=== PATIENT | female | born 1985 | race Caucasian/White ===

== ENCOUNTER 2017-10-01 10:41 | Emergency (ER) | payer OTHER, SELFPAY ==
[2017-10-01 10:56] VITALS: BP 140/71; PULSE 87; RESP 20; TEMP 36.6; O2SAT 98; BMI 29.3
--- NOTE | 2017-10-01 11:01 | XR_ITS ---
XR wrist RT min 3V HISTORY: Pain following injury ITS.REASON: FELL ON WRIST ORDERING PHYSICIAN: Shayan Santizo PATIENT AGE: 32 years COMPARISON: None FINDINGS: No fracture or dislocation. No lytic or blastic change. There is normal mineralization.. The joint spaces are well-preserved. No significant degenerative/arthritic changes. No erosive changes evident.. IMPRESSION: Negative wrist
--- NOTE | 2017-10-01 11:01 | HMH.EDUTC ---
[facility] [place] Clinical Impression: Wrist sprain Qualifiers: Encounter type: initial encounter Laterality: right Qualified Code(s): S63.501A - Unspecified sprain of right wrist, initial encounter Disposition: Home, Self-Care Condition on Discharge: Good Instructions: DI for Wrist Sprain, How To Perform RICE (Rest, Ice, Compress, Elevate) Additional Instructions: * brace until follow up with ortho * Rest * ice 15-20 mins 3-4 times a day * Elevate as discussed as much as possible to help reduce swelling and therefore, pain * Ibuprofen every 6 hours as needed for pain and inflammation. If you need something more, you can take tylenol every 4 hours as needed as long as your primary care provider has told you it is ok to take both. Referrals: Ney Hines MD [Staff Physician] - (Call their office today. report in [facility] due to wrist pain after fall. Snuff box tenderness with negative xray. Diagnoses wrist sprain and strongly encouraged to follow up with ortho due to possibility of an occult fracture. ) Time of Disposition: 12:23 Medical Decision Making Vital Signs: 10/01/17 10:56 10/01/17 12:07 Temperature 97.8 F 98.7 F Temperature Source Temporal Artery Scan Pulse Rate 89 Pulse Rate [Right Brachial] 87 Respiratory Rate 20 20 Blood Pressure 133/77 Blood Pressure [Left Arm] 140/71 Blood Pressure Mean [Left Arm] 94 Blood Pressure Source [Left Arm] Automatic Cuff Blood Pressure Position [Left Arm] Sitting 02 Sat by Pulse Oximetry 98 Oxygen Delivery Method Room Air Orders (Tests/Meds): ORDERS Category Date Time Status Wrist XR right minimum 3 views [XR wrist RT min 3V] Exams 10/01/17 11:01 Taken Stat - Radiology Data #1 Image(s): Wrist Image Reviewed: Yes I reviewed the patient's radiology image w/the ED provider Thomas w/ TORSTEN Powell MD. Negative but given pain, brace and ortho follow up - Jacob Inquiry Pt receiving controlled substance: No [facility] [place] - General Stated complaint: AO [id number] RIGHT HAND PAIN Time Seen by Provider: 10/01/17 11:01 Mode of Arrival: Ambulatory Source of Information: Patient Limitations: No Limitations Description of Symptoms (Recalled from Triage Doc. by RN): C/O rt wrist pain after falling on it yesterday HEENT Symptoms (Recalled from RN notes): No Resp Symptoms (Recalled from RN notes): No Skin Symptoms (Recalled from RN notes): No MS Symptoms (Recalled from RN notes): Yes (Rt wrist pain) Functional Status (Recalled from RN notes): n/a - History of Present Illness Provider Complaint: c/o right wrist pain since yesterday. Reports she fell, caught herself with outstretched arm/hand. Pain since. No treatment including any otc medications. Pain worse with wrist and thumb ROM. Denies N/T - Related Data Allergies Allergy/AdvReac Type Severity Reaction Status Date / Time amoxicillin [AMOXICILLIN] Allergy Intermediate I-HIVES Verified 10/01/17 11:02 clavulanic acid Allergy Intermediate I-HIVES Verified 10/01/17 11:02 [From AUGMENTIN] tramadol [TRAMADOL] Allergy Intermediate I-HIVES Verified 10/01/17 11:02 acetaminophen [From PERCOCET] Allergy Unknown Verified 10/01/17 11:02 oxycodone [From PERCOCET] Allergy Unknown Verified 10/01/17 11:02 - Worker's Comp Is this a Worker's Comp case?: No [facility] History I have reviewed the patient's past medical history: Yes (limited, adopted) 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: Reports:: Anxiety Denies:: Cancer, Diabetes Mellitus Type 1, Diabetes Mellitus Type 2, Hypertension, MRSA Other Surgeries: Yes: Other (5 laproscopic procedures, 2 divinci procedures, bunion removed,) Amputation: No Fractures: No Comment: ganglion cyst left wrist, appy, lito - *Social History Smoking Status: Current every day smoker Tobacco Type: cigarettes Alcohol Intake: never - Psychiatric History Expresses thoughts of harming self/others: None Suicide Plan Description: No Plan ROS Obtained: Yes Systems reviewed as appropriate & n
[2017-10-01 12:07] VITALS: BP 133/77; PULSE 89; RESP 20; TEMP 37.1; O2SAT 97
== END 2017-10-01 12:29 | disposition home or self-care (01) ==
PROVIDERS: Emergency Provider Nurse Practitioner Family; Family Provider Family Medicine
DX: S63.501A Unspecified sprain of right wrist, initial encounter (principal); W01.0XXA Fall on same level from slipping, tripping and stumbling without subsequent striking against object, initial encounter; Z88.6 Allergy status to analgesic agent; Z88.1 Allergy status to other antibiotic agents; F41.9 Anxiety disorder, unspecified
CPT/HCPCS: 29125; 73110; 99202

== ENCOUNTER 2017-10-19 00:48 | Emergency (ER) | payer OTHER, SELFPAY ==
[2017-10-19 00:56] VITALS: BP 122/80; PULSE 80; RESP 16; TEMP 36.6; O2SAT 99; BMI 27.9
[2017-10-19 01:24] LABS: Microscopic, Urine URINE MICROSCOPIC (MICROSCOPIC)
[2017-10-19 01:25] LABS: Basophils % 0.2 % (0.1-2.0); Eosinophils # 0.1 K/mm3 (0.0-0.4); Eosinophils % 0.9 % (0.1-12.0); Hematocrit 38.8 % (37.0-47.0); Hemoglobin 12.4 g/dL (12.2-16.2); Lymphocytes # 1.4 K/mm3 (0.7-4.5); Lymphocytes % 15.9 K/mm3 (10-50); Mean Corpuscular Volume 87.6 fl (81-99); Mean Platelet Volume 7.3 fl (7.4-10.4); Monocytes # 0.2 K/mm3 (0.1-1.0); Monocytes % 2.6 % (1.7-9.3); Neutrophils # 7.1 K/mm3 (1.8-7.8); Neutrophils % 80.5 % (37.0-80.0); Platelet Count 336 K/mm3 (142-424); Red Blood Count 4.43 M/mm3 (4.20-5.40); Red Cell Distribution Width 13.4 % (11.5-17.5); White Blood Count 8.8 K/mm3 (4.8-10.8)
[2017-10-19 01:26] LABS: Appearance,Urine CLEAR (Clear); Bilirubin,Urine Negative (Negative); Blood, Urine Negative (Negative); Color,Urine YELLOW (Yellow); Glucose,Urine (UA) Negative (Negative); Ketones,Urine Negative (Negative); Leukocyte Esterase,Urine Negative (Negative); Nitrate,Urine Negative (Negative); Protein,Urine Negative (Negative); Specific Gravity, Urine 1.015 (1.005-1.030); Urobilinogen,Urine 0.2 EU/dl (0.2)
[2017-10-19 01:29] LABS: Urine Pregnancy, HCG Qual. Negative (Negative)
[2017-10-19 01:30] LABS: Mucus,Urine 2+ /lpf; Squamous Epithelial Cell,Urine 20-50 #/hpf (0-5); WBC,Urine Occasional #/hpf (0-3)
[2017-10-19 01:37] LABS: Alanine Aminotransferase 23 U/L (12-78); Albumin Level 3.8 gm/dL (3.4-5.0); Albumin/Globulin Ratio 0.9 (1.1-1.8); Alkaline Phosphatase 104 U/L (46-116); Anion Gap 13.9 mEq/L (5-15); Aspartate Amino Transferase 6 U/L (15-37); Bilirubin,Total 0.2 mg/dL (0.2-1.0); Blood Urea Nitrogen 9 mg/dL (7-18); Calcium 8.6 mg/dL (8.5-10.1); Carbon Dioxide 24 mmol/L (21.0-32.0); Chloride 108 mmol/L (98-107); Creatinine Clearance Estimated 129 mL/min (0-300); Creatinine,Serum 0.77 mg/dL (0.55-1.02); Estimated Glomerular Filt Rate 86 ml/min (>60); GFR (African American) 104 ML/MIN (>60); Globulin 4.1 gm/dl (1.3-3.2); Glucose 138 mg/dL (74-106); Potassium 3.9 mmoL/L (3.5-5.1); Sodium 142 mmol/L (136-145); Total Protein,Serum 7.9 gm/dL (6.4-8.2)
--- NOTE | 2017-10-19 01:41 | CT_ITS ---
CT abdomen pelvis wo con COMPARISON: CT scan abdomen pelvis December 23, 2011 HISTORY: Right lower quadrant pain nausea and vomiting TECHNIQUE: Multiple axial scans obtained from hemidiaphragms the pelvic floor and were performed without IV or oral contrast. Sagittal and coronal reformats were evaluated as well. FINDINGS: The lower lung villagomez are clear. The liver spleen stomach and pancreas appear normal. There has been a previous cholecystectomy. The kidneys are normal size and there are no calculi and is no obstructive uropathy. There is a tiny umbilical hernia containing fat only. Small bowel appears normal. There has been a previous appendectomy. There is large amount stool in the cecum and ascending colon. There are scattered stool throughout the remainder of the colon. Uterus and adnexa are normal. The urinary bladder is partially decompressed. There is no free fluid in the pelvis. The lumbar spine and bony pelvis appear normal. IMPRESSION: Essentially unremarkable study, no acute abdominal or pelvic pathology identified, I agree with the [facility] report.
--- NOTE | 2017-10-19 03:19 | HMH.EDUROGF ---
ED Disposition Clinical Impression: Endometriosis Disposition: Home, Self-Care Condition on Discharge: Good Instructions: DI for Pelvic Pain Additional Instructions: call your steam box tender friday - Critical Care Critical Care Time: No Attestation: On 10/19/17, the high probability of a clinically significant, sudden or life threatening deterioration of the following system(s) required my full and direct attention, intervention and personal management. The time I documented below is in addition to time spent performing reported procedures but includes the following listed in this critical care notation. Medical Decision Making - Medical Records Medical records reviewed: Yes: I reviewed the patient's medical records. Vital Signs: 10/19/17 00:56 Temperature 97.9 F Temperature Source Oral Pulse Rate [Right Brachial] 80 Respiratory Rate 16 Blood Pressure [Right Arm] 122/80 Blood Pressure Mean [Right Arm] 94 Blood Pressure Source [Right Arm] Automatic Cuff Blood Pressure Position [Right Arm] Sitting 02 Sat by Pulse Oximetry 99 Oxygen Delivery Method Room Air - Lab Data Lab results reviewed: Yes: I reviewed the patient's lab results. Lab Results 10/19/17 01:15: Urine Color Yellow, Urine Appearance Clear, Urine pH 7.0, Ur Specific [place] 1.015, Urine Protein Negative, Urine Glucose (UA) Negative, Urine Ketones Negative, Urine Blood Negative, Urine Nitrate Negative, Urine Bilirubin Negative, Urine Urobilinogen 0.2, Ur Leukocyte Esterase Negative, Urine WBC Occasional, Ur Squamous Epith Cells 20-50, Urine Mucus 2+ 10/19/17 01:15: WBC 8.8, RBC 4.43, Hgb 12.4, Hct 38.8, MCV 87.6, MCH 28.0, MCHC 32.0, RDW 13.4, Plt Count 336, MPV 7.3 L, Neut % (Auto) 80.5 H, Lymph % (Auto) 15.9, [place] % (Auto) 2.6, Eos % (Auto) 0.9, Baso % (Auto) 0.2, Neut # (Auto) 7.1, Lymph # (Auto) 1.4, [place] # (Auto) 0.2, Eos # (Auto) 0.1, Baso # (Auto) 0.0 10/19/17 01:15: Urine HCG, Qual Negative 10/19/17 01:15: Sodium 142, Potassium 3.9, Chloride 108 H, Carbon Dioxide 24, Anion Gap 13.9, BUN 9, Creatinine 0.77, Estimated Creat Clear 129, Estimated GFR 86, Est GFR ( Amer) 104, Glucose 138 H, Calcium 8.6, Total Bilirubin 0.2, AST 6 L, ALT 23, Alkaline Phosphatase 104, Total Protein 7.9, Albumin 3.8, Globulin 4.1 H, Albumin/Globulin Ratio 0.9 L Result diagrams: 10/19/17 01:15 10/19/17 01:15 Orders (Tests/Meds): ED MEDICATIONS Generic Name Dose Route Start Last Admin Trade Name Freq PRN Reason Stop Dose Admin Morphine Sulfate 4 mg 10/19/17 03:26 Morphine 2mg/Ml Syringe IV 10/19/17 03:27 ONCE ONE Promethazine HCl 12.5 mg 10/19/17 03:26 Phenergan 25mg/Ml 1ml Vial IV 10/19/17 03:27 ONCE ONE Sodium Chloride 25 ml 10/19/17 03:26 Sod Chlor 0.9% 25ml Bag IV 10/19/17 03:27 ONCE ONE Discontinued Medications Generic Name Dose Route Start Last Admin Trade Name Freq PRN Reason Stop Dose Admin Ketorolac Tromethamine 30 mg 10/19/17 02:45 10/19/17 02:47 Toradol 30mg/Ml Vial IV 10/19/17 02:46 30 mg ONCE ONE Administration ORDERS Category Date Time Status CT abdomen pelvis wo con Stat Cat Scan 10/19/17 01:41 Taken - CT Data CT Scan: Abdomen, Pelvis Time Received: 03:[address] Reviewed: Yes: I have viewed the radiologist's interpretation Preliminary Findings: Normal/NAD - Jacob Inquiry Pt receiving controlled substance: No Female Urogenital HPI - General Chief complaint: Abdominal Pain Stated complaint: Stage Four Endeometriosis Time Seen by Provider: 10/19/17 03:19 Mode of Arrival: Ambulatory Source of Information: Patient, Spouse, Medical Record Limitations: No Limitations Description of Symptoms (Recalled from ER Triage Doc. by RN): RLQ PAIN - History of Present Illness HPI Narrative: pt with rt sided abd pain with hx of endometrosis Complaint: pelvic pain Onset (ago): day(s) Radiation: RLQ, R flank Severity: moderate Quality: sharp Duration: con
--- NOTE | 2017-10-19 03:22 | ED_ITS ---
ED Disposition Clinical Impression: Endometriosis Disposition: Home, Self-Care Condition on Discharge: Good Instructions: DI for Pelvic Pain Additional Instructions: call your email marketing intern friday - Critical Care Critical Care Time: No Attestation: On 10/19/17, the high probability of a clinically significant, sudden or life threatening deterioration of the following system(s) required my full and direct attention, intervention and personal management. The time I documented below is in addition to time spent performing reported procedures but includes the following listed in this critical care notation. Medical Decision Making - Medical Records Medical records reviewed: Yes: I reviewed the patient's medical records. Vital Signs: 10/19/17 00:56 Temperature 97.9 F Temperature Source Oral Pulse Rate [Right Brachial] 80 Respiratory Rate 16 Blood Pressure [Right Arm] 122/80 Blood Pressure Mean [Right Arm] 94 Blood Pressure Source [Right Arm] Automatic Cuff Blood Pressure Position [Right Arm] Sitting 02 Sat by Pulse Oximetry 99 Oxygen Delivery Method Room Air - Lab Data Lab results reviewed: Yes: I reviewed the patient's lab results. Lab Results 10/19/17 01:15: Urine Color Yellow, Urine Appearance Clear, Urine pH 7.0, Ur Specific [place] 1.015, Urine Protein Negative, Urine Glucose (UA) Negative, Urine Ketones Negative, Urine Blood Negative, Urine Nitrate Negative, Urine Bilirubin Negative, Urine Urobilinogen 0.2, Ur Leukocyte Esterase Negative, Urine WBC Occasional, Ur Squamous Epith Cells 20-50, Urine Mucus 2+ 10/19/17 01:15: WBC 8.8, RBC 4.43, Hgb 12.4, Hct 38.8, MCV 87.6, MCH 28.0, MCHC 32.0, RDW 13.4, Plt Count 336, MPV 7.3 L, Neut % (Auto) 80.5 H, Lymph % (Auto) 15.9, [place] % (Auto) 2.6, Eos % (Auto) 0.9, Baso % (Auto) 0.2, Neut # (Auto) 7.1 , Lymph # (Auto) 1.4, [place] # (Auto) 0.2, Eos # (Auto) 0.1, Baso # (Auto) 0.0 10/19/17 01:15: Urine HCG, Qual Negative 10/19/17 01:15: Sodium 142, Potassium 3.9, Chloride 108 H, Carbon Dioxide 24, Anion Gap 13.9, BUN 9, Creatinine 0.77, Estimated Creat Clear 129, Estimated GFR 86, Est GFR ( Amer) 104, Glucose 138 H, Calcium 8.6, Total Bilirubin 0.2, AST 6 L, ALT 23, Alkaline Phosphatase 104, Total Protein 7.9, Albumin 3.8, Globulin 4.1 H, Albumin/Globulin Ratio 0.9 L Result diagrams: 10/19/17 01:15 10/19/17 01:15 Orders (Tests/Meds): ED MEDICATIONS Generic Name Dose Route Start Last Admin Trade Name Freq PRN Reason Stop Dose Admin Morphine Sulfate 4 mg 10/19/17 03:26 Morphine 2mg/Ml Syringe IV 10/19/17 03:27 ONCE ONE Promethazine HCl 12.5 mg 10/19/17 03:26 Phenergan 25mg/Ml 1ml Vial IV 10/19/17 03:27 ONCE ONE Sodium Chloride 25 ml 10/19/17 03:26 Sod Chlor 0.9% 25ml Bag IV 10/19/17 03:27 ONCE ONE Discontinued Medications Generic Name Dose Route Start Last Admin Trade Name Freq PRN Reason Stop Dose Admin Ketorolac Tromethamine 30 mg 10/19/17 02:45 10/19/17 02:47 Toradol 30mg/Ml Vial IV 10/19/17 02:46 30 mg ONCE ONE Administration ORDERS Category Date Time Status CT abdomen pelvis wo con Stat Cat Scan 10/19/17 01:41 Taken - CT Data CT Scan: Abdomen, Pelvis Time Received: 03:[address] Reviewed: Yes: I have viewed the radiologist's interpretat
[2017-10-19 03:43] VITALS: BP 122/80; PULSE 80; RESP 16; TEMP 36.6
== END 2017-10-19 03:44 | disposition home or self-care (01) ==
PROVIDERS: Emergency Provider Emergency Medicine; Family Provider Family Medicine
DX: N80.9 Endometriosis, unspecified (principal); F41.9 Anxiety disorder, unspecified; F17.210 Nicotine dependence, cigarettes, uncomplicated; Z88.1 Allergy status to other antibiotic agents; Z88.6 Allergy status to analgesic agent
CPT/HCPCS: 74176; 80053; 81001; 81025; 85025; 96374; 96375; 99282

== ENCOUNTER 2018-05-06 14:54 | Outpatient (RCR) | payer OTHER, SELFPAY | END 2018-06-08 13:29 | disposition home or self-care (01) | LOC: PT 14:54 | PROVIDERS: Family Provider Family Medicine; Visit Provider Family Medicine | DX: M25.511 Pain in right shoulder (principal) | CPT/HCPCS: 97163 ==

== ENCOUNTER 2020-11-13 11:58 | Emergency (ER) | payer MEDICAID, SELFPAY ==
--- NOTE | 2020-11-13 11:50 | ECG_ITS ---
APPROVED REPORT Exam: Resting ECG HR:82 bpm ECG Measurements Heart Rate 82 AXES TN 156 P 59 QRSd 88 QRS 83 QT 396 T 33 QTc 462 Conclusion Normal sinus rhythm Low voltage QRS Borderline ECG Electronically signed by : Scotty Rodriges, 11/13/2020 17:20:11
[2020-11-13 11:59] VITALS: BP 127/78; PULSE 102; RESP 22; TEMP 36.8; O2SAT 98; BMI 30.9
--- NOTE | 2020-11-13 12:12 | XR_ITS ---
PROCEDURE: XR CHEST PORTABLE CLINICAL HISTORY: cough COMPARISON: CR CXR CHEST(2 VIEWS-NOT PORTABLE) from 01/13/2016 FINDINGS: The cardiomediastinal silhouette and pulmonary vascularity are within normal limits. The lungs are clear without infiltrates, suspicious nodules, or pleural effusions. No acute bony abnormalities. IMPRESSION: No acute findings. Dictated by: Sourav Talley MD 11/13/2020 13:37 Sourav Talley MD in [place] 11/13/2020 13:37
[2020-11-13 12:17] LABS: Basophils % 0.3 % (0.1-2.0); Eosinophils # 0.1 K/mm3 (0.0-0.4); Hematocrit 41.8 % (37.0-47.0); Hemoglobin 13.5 g/dL (12.2-16.2); Lymphocytes # 3.5 K/mm3 (0.7-4.5); Mean Corpuscular HGB Conc 32.3 g/dL (31.8-35.4); Mean Corpuscular Volume 89.8 fl (81-99); Mean Platelet Volume 6.8 fl (7.4-10.4); Monocytes # 0.5 K/mm3 (0.1-1.0); Monocytes % 3.7 % (1.7-9.3); Neutrophils # 8.9 K/mm3 (1.8-7.8); Neutrophils % 67.9 % (37.0-80.0); Platelet Count 359 K/mm3 (142-424); Red Blood Count 4.66 M/mm3 (4.20-5.40); Red Cell Distribution Width 13.8 % (11.5-17.5)
[2020-11-13 12:18] LABS: Chloride 107 mmol/L (98-107); Sodium 136 mmol/L (136-145)
[2020-11-13 12:19] LABS: Potassium 3.7 mmoL/L (3.5-5.1)
[2020-11-13 12:21] LABS: Alanine Aminotransferase 23 U/L (12-78); Albumin Level 4.7 g/dl (3.5-5.0); Albumin/Globulin Ratio 1.4 (1.1-1.8); Alkaline Phosphatase 99 U/L (38-126); Anion Gap 11.7 mEq/L (5-15); Aspartate Amino Transferase 25 U/L (14-36); Bilirubin,Total 0.5 mg/dl (0.2-1.3); Blood Urea Nitrogen 9 mg/dl (7-17); Carbon Dioxide 21 mmol/L (22.0-30.0); Creatinine Clearance Estimated 178 mL/min (50-200); Estimated Glomerular Filt Rate 113 ml/min (>60); GFR (African American) 137 ML/MIN (>60); Globulin 3.3 g/dL (1.3-3.2)
[2020-11-13 12:22] LABS: Calcium 9.4 mg/dl (8.4-10.2); Glucose 105 mg/dl (74-100)
[2020-11-13 12:31] LABS: Microscopic, Urine URINE MICROSCOPIC (MICROSCOPIC)
[2020-11-13 12:35] LABS: Appearance,Urine CLEAR (Clear); Bilirubin,Urine Negative (Negative); Blood, Urine Negative (Negative); Color,Urine YELLOW (Yellow); Glucose,Urine (UA) Negative (Negative); Ketones,Urine Negative (Negative); Leukocyte Esterase,Urine Negative (Negative); Nitrate,Urine Negative (Negative); PH,Urine 6.5 (5.0-8.5); Protein,Urine Negative (Negative); Urobilinogen,Urine 0.2 EU/dl (0.2)
[2020-11-13 12:39] LABS: Troponin I < 0.01 ng/ml (0.00-0.034)
[2020-11-13 12:40] VITALS: BP 120/76; PULSE 73; RESP 16; O2SAT 99
[2020-11-13 13:00] VITALS: BP 125/79; PULSE 87; RESP 16; O2SAT 98
[2020-11-13 13:12] LABS: HCG,Quantitative 45768 mIU/ml (0-5.42)
--- NOTE | 2020-11-13 13:17 | HMH.EDCP ---
ED Disposition Clinical Impression: Abdominal pain affecting Chest pain Qualifiers: Chest pain type: intercostal pain Qualified Code(s): R07.82 - Intercostal pain Disposition: Home, Self-Care Condition on Discharge: Good Instructions: DI for Atypical Chest Pain Referrals: Frannie Nugent PA [Primary Care Provider] - - Critical Care Critical Care Time: No Attestation: On 11/13/20, the high probability of a clinically significant, sudden or life threatening deterioration of the following system(s) required my full and direct attention, intervention and personal management. The time I documented below is in addition to time spent performing reported procedures but includes the following listed in this critical care notation. Medical Decision Making - Medical Records Medical records reviewed: Yes: I reviewed the patient's medical records. - Jacob Inquiry Pt receiving controlled substance: No Vital Signs: 11/13/20 11:59 11/13/20 12:40 Temperature 98.3 F Temperature Source Oral Pulse Rate 73 Pulse Rate [Radial] 102 H Respiratory Rate 22 16 Blood Pressure 120/76 Blood Pressure [Right Arm] 127/78 Blood Pressure Mean 84 Blood Pressure Mean [Right Arm] 94 Blood Pressure Position [Right Arm] Sitting 02 Sat by Pulse Oximetry 98 99 Oxygen Delivery Method Room Air - Lab Data Lab Results 11/13/20 12:00: WBC 13.0 H, RBC 4.66, Hgb 13.5, Hct 41.8, MCV 89.8, MCH 29.0, MCHC 32.3, RDW 13.8, Plt Count 359, MPV 6.8 L, Neut % (Auto) 67.9, Lymph % (Auto) 27.0, [place] % (Auto) 3.7, Eos % (Auto) 1.0, Baso % (Auto) 0.3, Neut # (Auto) 8.9 H, Lymph # (Auto) 3.5, [place] # (Auto) 0.5, Eos # (Auto) 0.1, Baso # (Auto) 0.0 11/13/20 12:00: Sodium 136, Potassium 3.7, Chloride 107, Carbon Dioxide 21 L, Anion Gap 11.7, BUN 9, Creatinine 0.60, Estimated Creat Clear 178, Estimated GFR 113, Est GFR ( Amer) 137, Glucose 105 H, Calcium 9.4, Total Bilirubin 0.5, AST 25, ALT 23, Alkaline Phosphatase 99, Troponin I < 0.01, Total Protein 8.0, Albumin 4.7, Globulin 3.3 H, Albumin/Globulin Ratio 1.4 11/13/20 12:00: HCG, Quant [id number] H 11/13/20 12:15: Urine Color Yellow, Urine Appearance Clear, Urine pH 6.5, Ur Specific [place] 1.020, Urine Protein Negative, Urine Glucose (UA) Negative, Urine Ketones Negative, Urine Blood Negative, Urine Nitrate Negative, Urine Bilirubin Negative, Urine Urobilinogen 0.2, Ur Leukocyte Esterase Negative, Urine RBC None, Urine WBC 3-5, Ur Squamous Epith Cells 5-10, Urine Bacteria None Result diagrams: 11/13/20 12:00 11/13/20 12:00 Orders (Tests/Meds): ORDERS Category Date Time Status US OB <= 14 weeks fetus Stat Exams 11/13/20 13:27 Taken - Radiology Data #1 Image(s): Chest Image Reviewed: Yes I reviewed the patient's radiology results, Yes I reviewed the patient's radiology image, Yes I have reviewed radiologist's interpretation Preliminary Findings: Normal/NAD - ECG Data Tracing #1 Normal ventricular rate 82 bpm, MO interval 156 ms, normal QTC. Sinus rhythm with no specific ST changes. ECG initial impression date: 11/13/20 ECG initial impression time: 11:52 - Reevaluation(s) Time: 14:37 Reevaluation #1: On reevaluation, patient is feeling better. Chest x-ray was unremarkable. Ultrasound shows roughly 6-week . No significant free fluid. Patient's laboratory studies are unremarkable. Patient is low risk for acute coronary syndrome as well as pulmonary embolism given the negative troponin, no significant EKG changes and risk factors. Patient needs a follow-up with SKILL TRAINING PROGRAM COORDINATOR in 24 hours. Given strict return precautions. Verbalized understanding. Medical Decision Narrative: 35-year-old female presenting with some cough, chest discomfort and abdominal pain. Patient is recently . Work-up initiated. Chest Pain HPI - General Chief Complaint: Chest Pain Stated Complaint: chest pain Time Seen by Provider: 11/13/20 12:00 Mode of Arrival: Ambul
--- NOTE | 2020-11-13 13:27 | US_ITS ---
PROCEDURE: US OB <= 14 WEEKS FETUS CLINICAL INDICATION: abd pain Early Ob ultrasound for dates COMPARISON: No exams were available for comparison FINDINGS: An intrauterine gestational sac is present with a pole with a crown-rump length of 0.67cm correlating to gestational age of 6weeks 4days. heart tones are present with an FHR of 112bpm. Yolk sac is noted. IMPRESSION: Live IUP at 6 weeks 4 days Estimated due date by Ultrasound is 07/05/2021 Dictated by: Sourav Talley MD 11/13/2020 15:46 Sourav Talley MD in [place] 11/13/2020 15:46
[2020-11-13 13:30] VITALS: BP 114/69; PULSE 82; PULSE 87; RESP 16; O2SAT 97; O2SAT 98
[2020-11-13 14:58] VITALS: BP 122/65; PULSE 88; RESP 16; TEMP 36.6; O2SAT 98
== END 2020-11-13 15:00 | disposition home or self-care (01) ==
PROVIDERS: Emergency Provider Emergency Medicine; PCP Nurse Practitioner Family
DX: R07.82 Intercostal pain (principal); O26.899 Other specified pregnancy related conditions, unspecified trimester; Z34.90 Encounter for supervision of normal pregnancy, unspecified, unspecified trimester; F41.9 Anxiety disorder, unspecified; J45.909 Unspecified asthma, uncomplicated
CPT/HCPCS: 71045; 76801; 80053; 81001; 84484; 84702; 85025; 93005; 99283

== ENCOUNTER 2021-01-05 18:15 | Emergency (ER) | payer MEDICAID, SELFPAY ==
[2021-01-05 18:17] VITALS: BP 127/73; PULSE 121; RESP 18; TEMP 36.7; O2SAT 97; BMI 31.4
[2021-01-05 18:30] VITALS: BP 127/63; PULSE 94; O2SAT 97
--- NOTE | 2021-01-05 18:51 | US_ITS ---
PROCEDURE INFORMATION: Exam: US Duplex Artery or Vein of the Abdominal and/or Reproductive Organs, Limited Ovaries Exam date and time: 01/05/2021 6:51 PM Clinical indication: Other: RT low quad pain PT is ; Gestational age or lmp: Christoph jul 03, 2021 TECHNIQUE: Imaging protocol: Real-time duplex ultrasound scan of the arterial or venous flow with abraham scale, color Doppler flow and spectral waveform analysis with image documentation. Limited duplex exam focused on the ovaries. Duplex images required to evaluate for torsion and other vascular conditions. COMPARISON: No relevant prior studies available. FINDINGS: Right adnexa: Normal duplex of the ovary. Normal Doppler waveforms and color flow. No evidence of ovarian torsion. Left adnexa: Normal duplex of the ovary. Normal Doppler waveforms and color flow. No evidence of ovarian torsion. IMPRESSION: Normal duplex of the ovaries. No evidence of ovarian torsion. PROCEDURE INFORMATION: Exam: US After First Trimester, Transabdominal Exam date and time: 01/05/2021 6:51 PM Age: 35 years old Clinical indication: Other: RT low quad pain PT is ; Gestational age or lmp: Christoph jul 03, 2021 TECHNIQUE: Imaging protocol: Real-time transabdominal obstetrical ultrasound of the maternal pelvis and a second or third trimester with image documentation. COMPARISON: US OB <= 14 WEEKS FETUS 11/13/2020 1:42 PM FINDINGS: Gestation: Single live intrauterine gestation. heart rate: heart rate is 155 bpm. presentation: Breech Placenta: Placenta is posterior. Amniotic fluid: Observed within normal limits. BIOMETRY: Gestational age (AUA): 14 weeks 6 days Estimated due date (AUA): 06/30/2021 Estimated weight: 109 g +/-16 g Estimated weight percentile: 29th percentile Biparietal diameter: 2.69 cm Head circumference: 10.23 cm MATERNAL ANATOMY: Uterus: Unremarkable. Cervix: Closed. Right adnexa: Ov right ovary measures 2.0 x 2.6 x 1.5 cm. Normal color Doppler vascular echoes documented. Left adnexa: Left ovary measures 1.8 x 2.5 x 1.8 cm having a normal ultrasound appearance. Normal color Doppler vascular echoes documented. IMPRESSION: Single live intrauterine gestation.
[2021-01-05 19:17] LABS: Microscopic, Urine URINE MICROSCOPIC (MICROSCOPIC)
--- NOTE | 2021-01-05 19:17 | HMH.EDGENADL ---
ED Disposition Clinical Impression: Abdominal pain affecting Disposition: Still a Patient Condition on Discharge: Good Instructions: DI for Abdominal Pain-Adult Referrals: Frannie Nugent PA [Primary Care Provider] - - Critical Care Critical Care Time: No Attestation: On 01/05/21, the high probability of a clinically significant, sudden or life threatening deterioration of the following system(s) required my full and direct attention, intervention and personal management. The time I documented below is in addition to time spent performing reported procedures but includes the following listed in this critical care notation. Medical Decision Making - Medical Records Medical records reviewed: Yes: I reviewed the patient's medical records. - Jacob Inquiry Pt receiving controlled substance: No Vital Signs: 01/05/21 18:17 Temperature 98.1 F Temperature Source Oral Pulse Rate [Left Radial] 121 H Respiratory Rate 18 Blood Pressure [Right Arm] 127/73 Blood Pressure Mean [Right Arm] 91 02 Sat by Pulse Oximetry 97 Oxygen Delivery Method Room Air - Lab Data Lab Results 01/05/21 19:05: Urine Color Yellow, Urine Appearance Clear, Urine pH 7.0, Ur Specific [place] 1.015, Urine Protein Negative, Urine Glucose (UA) Negative, Urine Ketones Negative, Urine Blood Negative, Urine Nitrate Negative, Urine Bilirubin Negative, Urine Urobilinogen 0.2, Ur Leukocyte Esterase Negative, Urine RBC None, Urine WBC 3-5, Ur Squamous Epith Cells 5-10, Urine Bacteria 1+ 01/05/21 19:05: WBC 12.0 H, RBC 4.12 L, Hgb 12.0 L, Hct 36.2 L, MCV 87.9, MCH 29.1, MCHC 33.1, RDW 13.8, Plt Count 324, MPV 6.9 L, Neut % (Auto) 68.0, Lymph % (Auto) 26.7, [place] % (Auto) 3.7, Eos % (Auto) 1.1, Baso % (Auto) 0.5, Neut # (Auto) 8.2 H, Lymph # (Auto) 3.2, [place] # (Auto) 0.4, Eos # (Auto) 0.1, Baso # (Auto) 0.1 01/05/21 19:05: Sodium 136, Potassium 3.6, Chloride 106, Carbon Dioxide 23, Anion Gap 10.6, BUN 6 L, Creatinine 0.50 L, Estimated Creat Clear 217, Estimated GFR 140, Est GFR ( Amer) 169, Glucose 104 H, Calcium 9.9, Total Bilirubin 0.3, AST 19, ALT 12, Alkaline Phosphatase 78, Total Protein 7.2, Albumin 4.0, Globulin 3.2, Albumin/Globulin Ratio 1.3 Result diagrams: 01/05/21 19:05 01/05/21 19:05 Orders (Tests/Meds): ED MEDICATIONS Discontinued Medications Generic Name Dose Route Start Last Admin Trade Name Ross PRN Reason Stop Dose Admin Acetaminophen 1,000 mg 01/05/21 18:52 01/05/21 19:11 Acetaminophen 500mg Tab PO 01/05/21 18:53 1,000 mg ONCE ONE Administration Diphenhydramine HCl 25 mg 01/05/21 18:52 01/05/21 19:11 Diphenhydramine 50mg/Ml Vial IV 01/05/21 18:53 25 mg ONCE ONE Administration ORDERS Category Date Time Status Comprehensive Metabolic Panel Stat Lab 01/05/21 19:05 Results HCG,Quantitative Stat Lab 01/05/21 19:05 Results US OB >= 14 weeks Fetus Stat Ultrasound 01/05/21 18:51 Ordered - Reevaluation(s) Time: 19:56 Reevaluation #1: On reevaluation, patient's pain is improved. Urinalysis showed some skin cells and contamination. Patient pending ultrasound evaluation. Signed out to the oncoming emergency physician pending evaluation and further treatment. Medical Decision Narrative: 35-year-old female presented to the emergency department with some right-sided abdominal discomfort. Patient currently . No bleeding. Concern for ectopic, versus abdominal pain versus UTI. Work-up initiated. General Adult HPI - General Chief complaint: PAIN Stated complaint: 15 Wks preg right side pain Time Seen by Provider: 01/05/21 18:25 Mode of Arrival: Ambulatory Limitations: No Limitations Description of Symptoms (Recalled from ER Triage Doc. by RN): pt c/o right side pain, sharp throbbing, rates 9/10 - History of Present Illness HPI narrative: This is a 35-year-old female presented to the emergency department with some right-sided abdominal discomfort. Tila
[2021-01-05 19:20] LABS: Appearance,Urine CLEAR (Clear); Bilirubin,Urine Negative (Negative); Blood, Urine Negative (Negative); Color,Urine YELLOW (Yellow); Glucose,Urine (UA) Negative (Negative); Ketones,Urine Negative (Negative); Leukocyte Esterase,Urine Negative (Negative); Nitrate,Urine Negative (Negative); Protein,Urine Negative (Negative); Specific Gravity, Urine 1.015 (1.005-1.030); Urobilinogen,Urine 0.2 EU/dl (0.2)
[2021-01-05 19:23] LABS: Chloride 106 mmol/L (98-107); Potassium 3.6 mmoL/L (3.5-5.1); Sodium 136 mmol/L (136-145)
[2021-01-05 19:24] LABS: Basophils # 0.1 K/mm3 (0-0.2); Basophils % 0.5 % (0.1-2.0); Eosinophils # 0.1 K/mm3 (0.0-0.4); Eosinophils % 1.1 % (0.1-12.0); Hematocrit 36.2 % (37.0-47.0); Lymphocytes # 3.2 K/mm3 (0.7-4.5); Lymphocytes % 26.7 % (10-50); Mean Corpuscular HGB Conc 33.1 g/dL (31.8-35.4); Mean Corpuscular Hemoglobin 29.1 pg (27.0-31.2); Mean Corpuscular Volume 87.9 fl (81-99); Mean Platelet Volume 6.9 fl (7.4-10.4); Monocytes # 0.4 K/mm3 (0.1-1.0); Monocytes % 3.7 % (1.7-9.3); Neutrophils # 8.2 K/mm3 (1.8-7.8); Platelet Count 324 K/mm3 (142-424); Red Blood Count 4.12 M/mm3 (4.20-5.40); Red Cell Distribution Width 13.8 % (11.5-17.5)
[2021-01-05 19:25] LABS: Bacteria,Urine 1+ /lpf; Blood Urea Nitrogen 6 mg/dl (7-17)
[2021-01-05 19:26] LABS: Alanine Aminotransferase 12 U/L (12-78); Albumin/Globulin Ratio 1.3 (1.1-1.8); Alkaline Phosphatase 78 U/L (38-126); Anion Gap 10.6 mEq/L (5-15); Aspartate Amino Transferase 19 U/L (14-36); Bilirubin,Total 0.3 mg/dl (0.2-1.3); Carbon Dioxide 23 mmol/L (22.0-30.0); Creatinine Clearance Estimated 217 mL/min (50-200); Estimated Glomerular Filt Rate 140 ml/min (>60); GFR (African American) 169 ML/MIN (>60); Globulin 3.2 g/dL (1.3-3.2); Total Protein,Serum 7.2 g/dl (6.3-8.2)
[2021-01-05 19:27] LABS: Calcium 9.9 mg/dl (8.4-10.2); Glucose 104 mg/dl (74-100)
[2021-01-05 20:00] VITALS: BP 105/56; PULSE 80; O2SAT 97
[2021-01-05 20:37] LABS: HCG,Quantitative 18604 mIU/ml (0-5.42)
[2021-01-05 21:49] VITALS: BP 119/84; PULSE 85; RESP 16; TEMP 36.7; O2SAT 97
== END 2021-01-05 21:52 | disposition home or self-care (01) ==
PROVIDERS: Emergency Provider Emergency Medicine; PCP Nurse Practitioner Family
DX: O26.899 Other specified pregnancy related conditions, unspecified trimester (principal); Z3A.15 15 weeks gestation of pregnancy; J45.909 Unspecified asthma, uncomplicated; F17.210 Nicotine dependence, cigarettes, uncomplicated; F41.9 Anxiety disorder, unspecified
CPT/HCPCS: 76805; 80053; 81001; 84702; 85025; 96374; 96375; 99283

== ENCOUNTER 2021-07-04 17:12 | Emergency (ER) | payer MEDICAID, SELFPAY ==
[2021-07-04 17:22] VITALS: BP 137/95; PULSE 94; RESP 18; TEMP 36.6; O2SAT 99; BMI 28.5
[2021-07-04 18:16] LABS: Basophils # 0.1 K/mm3 (0-0.2); Eosinophils # 0.1 K/mm3 (0.0-0.4); Hematocrit 36.8 % (37.0-47.0); Hemoglobin 12.1 g/dL (12.2-16.2); Lymphocytes # 2.6 K/mm3 (0.7-4.5); Lymphocytes % 29.8 % (10-50); Mean Corpuscular HGB Conc 32.7 g/dL (31.8-35.4); Mean Corpuscular Hemoglobin 28.6 pg (27.0-31.2); Mean Corpuscular Volume 87.4 fl (81-99); Mean Platelet Volume 7.5 fl (7.4-10.4); Monocytes # 0.4 K/mm3 (0.1-1.0); Monocytes % 4.7 % (1.7-9.3); Neutrophils # 5.4 K/mm3 (1.8-7.8); Neutrophils % 63.5 % (37.0-80.0); Platelet Count 731 K/mm3 (142-424); Red Blood Count 4.22 M/mm3 (4.20-5.40); Red Cell Distribution Width 13.9 % (11.5-17.5); White Blood Count 8.5 K/mm3 (4.8-10.8)
[2021-07-04 18:20] LABS: Chloride 102 mmol/L (98-107); Sodium 139 mmol/L (136-145)
[2021-07-04 18:21] LABS: Potassium 3.7 mmoL/L (3.5-5.1)
[2021-07-04 18:23] LABS: Alanine Aminotransferase 23 U/L (12-78); Alkaline Phosphatase 124 U/L (38-126); Aspartate Amino Transferase 27 U/L (14-36); Bilirubin,Total 0.2 mg/dl (0.2-1.3); Blood Urea Nitrogen 13 mg/dl (7-17); Creatinine Clearance Estimated 99 mL/min (50-200); Estimated Glomerular Filt Rate 63 ml/min (>60); GFR (African American) 76 ML/MIN (>60)
[2021-07-04 18:24] LABS: Albumin Level 4.2 g/dl (3.5-5.0); Albumin/Globulin Ratio 1.3 (1.1-1.8); Anion Gap 13.7 mEq/L (5-15); Calcium 9.2 mg/dl (8.4-10.2); Carbon Dioxide 27 mmol/L (22.0-30.0); Globulin 3.3 g/dL (1.3-3.2); Glucose 122 mg/dl (74-100); Total Protein,Serum 7.5 g/dl (6.3-8.2)
[2021-07-04 18:56] LABS: Thyroid Stimulating Hormone 0.54 uIU/mL (0.465-4.68)
--- NOTE | 2021-07-04 19:22 | HMH.EDDIZZ ---
ED Disposition Clinical Impression: Benign paroxysmal positional vertigo Disposition: Home, Self-Care Condition on Discharge: Good Instructions: Vertigo Additional Instructions: Please follow-up with your primary care physician in 2 to 3 days for further management. Please use meclizine as prescribed. Please continue to use the Angela maneuver described to you for symptomatic relief. Please return back to the emergency department for any concerning symptoms such as visual changes, numbness, weakness, headache, symptoms that do not improve or any other worsening symptoms. Prescriptions: Meclizine HCl [Meclizine 25mg Tab] 25 mg PO Q12 #20 tab Transmission Status: Received by [id number] Referrals: Frannie Nugent PA [Primary Care Provider] - Time of Disposition: 07:55 - Critical Care Critical Care Time: No Attestation: On 07/04/21, the high probability of a clinically significant, sudden or life threatening deterioration of the following system(s) required my full and direct attention, intervention and personal management. The time I documented below is in addition to time spent performing reported procedures but includes the following listed in this critical care notation. Medical Decision Making - Jacob Inquiry Pt receiving controlled substance: No Vital Signs: 07/04/21 17:22 07/04/21 19:30 Temperature 97.8 F 98.9 F Temperature Source Oral Oral Pulse Rate 73 Pulse Rate [Right Radial] 94 H Respiratory Rate 18 16 Blood Pressure 119/77 Blood Pressure [Right Arm] 137/95 H Blood Pressure Mean [Right Arm] 109 Blood Pressure Source Automatic Cuff Blood Pressure Source [Right Arm] Automatic Cuff Blood Pressure Position Sitting Blood Pressure Position [Right Arm] Sitting 02 Sat by Pulse Oximetry 99 Oxygen Delivery Method Room Air Room Air - Lab Data Lab Results 07/04/21 17:52: WBC 8.5, RBC 4.22, Hgb 12.1 L, Hct 36.8 L, MCV 87.4, MCH 28.6, MCHC 32.7, RDW 13.9, Plt Count 731 H, MPV 7.5, Neut % (Auto) 63.5, Lymph % (Auto) 29.8, [place] % (Auto) 4.7, Eos % (Auto) 1.0, Baso % (Auto) 1.0, Neut # (Auto) 5.4, Lymph # (Auto) 2.6, [place] # (Auto) 0.4, Eos # (Auto) 0.1, Baso # (Auto) 0.1 07/04/21 17:52: Sodium 139, Potassium 3.7, Chloride 102, Carbon Dioxide 27, Anion Gap 13.7, BUN 13, Creatinine 1.00, Estimated Creat Clear 99, Estimated GFR 63, Est GFR ( Amer) 76, Glucose 122 H, Calcium 9.2, Total Bilirubin 0.2, AST 27, ALT 23, Alkaline Phosphatase 124, Total Protein 7.5, Albumin 4.2, Globulin 3.3 H, Albumin/Globulin Ratio 1.3, TSH 0.54 Result diagrams: 07/04/21 17:52 07/04/21 17:52 Orders (Tests/Meds): ED MEDICATIONS Discontinued Medications Generic Name Dose Route Start Last Admin Trade Name Freq PRN Reason Stop Dose Admin Sodium Chloride 500 mls @ 999 mls/hr 07/04/21 17:30 07/04/21 18:19 Sod Chlor 0.9% 1000ml Bag IV 07/04/21 18:00 999 mls/hr .Q31M RIVERA Administration Meclizine HCl 50 mg 07/04/21 17:34 07/04/21 18:18 Meclizine 25mg Tablet PO 07/04/21 17:35 50 mg ONCE ONE Administration Ondansetron HCl 4 mg 07/04/21 17:34 07/04/21 18:18 Ondansetron 4mg/2ml Vial IV 07/04/21 17:35 4 mg ONCE ONE Administration ORDERS Category Date Time Status Prolactin Stat Lab 07/04/21 17:52 Received Medical Decision Narrative: Miss Jain is a 35 yo female post-, C section 06/24 and BPPV who presents to [facility] ED for dizziness described as room spinning . Patient is afebrile and hemodynamically stable on arrival. She denies any recent trauma. No prodrum event prior to symptoms onset. No focal deficits on exam. Differentials to consider include: Acute intracranial process (central venous thrombosis/CVA) less likely given physical exam and current clinical picture, BPPV most likely given current symptoms, infectious related, metabolic derangement. Basic labs, TSH, prolactin, UA obtained for further evaluation results are non actionable. Angela maneuver is p
[2021-07-04 19:30] VITALS: BP 119/77; PULSE 73; RESP 16; TEMP 37.2; O2SAT 98
[2021-07-06 09:17] LABS: Prolactin 75.3 ng/mL (4.8-23.3)
== END 2021-07-04 19:32 | disposition home or self-care (01) ==
PROVIDERS: Emergency Provider Student in an Organized Health Care Education/Training Program; PCP Nurse Practitioner Family
DX: H81.10 Benign paroxysmal vertigo, unspecified ear (principal); F41.9 Anxiety disorder, unspecified; J45.909 Unspecified asthma, uncomplicated; F17.210 Nicotine dependence, cigarettes, uncomplicated
CPT/HCPCS: 80053; 84146; 84443; 85025; 96365; 99282; J2405

== ENCOUNTER 2022-01-01 19:42 | Emergency (ER) | payer MEDICAID, SELFPAY ==
[2022-01-01 20:45] VITALS: BP 112/54; PULSE 114; RESP 18; TEMP 37.8; O2SAT 98; BMI 29.3
[2022-01-01 20:53] VITALS: BMI 29.3
--- NOTE | 2022-01-01 20:55 | XR_ITS ---
PROCEDURE INFORMATION: Exam: XR Chest Exam date and time: 01/01/2022 8:56 PM Age: 36 years old Clinical indication: Fever; Additional info: Covid, fever TECHNIQUE: Imaging protocol: XR of the chest. Views: 2 views. COMPARISON: CR XR CHEST PORTABLE 11/13/2020 12:44 PM FINDINGS: Lungs: Hazy interstitial opacities in both lungs concerning for interstitial pneumonia. Granulomatous change. Pleural spaces: Unremarkable. No pleural effusion. No pneumothorax. Heart/Mediastinum: Cardiomegaly. Bones/joints: Unremarkable. IMPRESSION: Interstitial opacities bilaterally concerning for pneumonia. Correlate clinically.
[2022-01-01 21:12] LABS: Basophils # 0.1 K/mm3 (0-0.2); Basophils % 1.1 % (0.1-2.0); Eosinophils # 0.1 K/mm3 (0.0-0.4); Eosinophils % 1.5 % (0.1-12.0); Hematocrit 38.7 % (37.0-47.0); Hemoglobin 12.8 g/dL (12.2-16.2); Lymphocytes # 0.5 K/mm3 (0.7-4.5); Lymphocytes % 7.4 % (10-50); Mean Corpuscular HGB Conc 32.9 g/dL (31.8-35.4); Mean Corpuscular Hemoglobin 29.3 pg (27.0-31.2); Mean Platelet Volume 7.5 fl (7.4-10.4); Monocytes # 0.4 K/mm3 (0.1-1.0); Monocytes % 5.6 % (1.7-9.3); Neutrophils # 5.7 K/mm3 (1.8-7.8); Neutrophils % 84.2 % (37.0-80.0); Platelet Count 336 K/mm3 (142-424); Red Blood Count 4.35 M/mm3 (4.20-5.40); Red Cell Distribution Width 14.1 % (11.5-17.5); White Blood Count 6.7 K/mm3 (4.8-10.8)
[2022-01-01 21:18] LABS: HCG Qualitative, Serum Negative (Negative)
[2022-01-01 21:18] LABS: Microscopic, Urine URINE MICROSCOPIC (MICROSCOPIC)
[2022-01-01 21:21] LABS: Appearance,Urine CLEAR (Clear); Bilirubin,Urine Negative (Negative); Blood, Urine Negative (Negative); Color,Urine YELLOW (Yellow); Glucose,Urine (UA) Negative (Negative); Ketones,Urine TRACE (Negative); Leukocyte Esterase,Urine Negative (Negative); Nitrate,Urine Negative (Negative); Protein,Urine TRACE (Negative); Specific Gravity, Urine 1.025 (1.005-1.030); Urobilinogen,Urine 0.2 EU/dl (0.2)
[2022-01-01 21:24] LABS: Lactic Acid 1.8 mmol/L (0.7-2.1)
[2022-01-01 21:25] LABS: Alanine Aminotransferase 36 U/L (12-78); Albumin Level 4.3 g/dl (3.5-5.0); Albumin/Globulin Ratio 1.5 (1.1-1.8); Alkaline Phosphatase 125 U/L (38-126); Anion Gap 12.5 mEq/L (5-15); Aspartate Amino Transferase 38 U/L (14-36); Bilirubin,Total 0.3 mg/dl (0.2-1.3); Blood Urea Nitrogen 10 mg/dl (7-17); Carbon Dioxide 21 mmol/L (22.0-30.0); Chloride 106 mmol/L (98-107); Creatinine Clearance Estimated 143 mL/min (50-200); Estimated Glomerular Filt Rate 94 ml/min (>60); GFR (African American) 114 ML/MIN (>60); Globulin 2.9 g/dL (1.3-3.2); Glucose 111 mg/dl (74-100); Potassium 3.5 mmoL/L (3.5-5.1); Sodium 136 mmol/L (136-145); Total Protein,Serum 7.2 g/dl (6.3-8.2)
[2022-01-01 21:30] LABS: Coronavirus 19, PCR Detected (NotDetected); Influenza A, PCR Not Detected (NotDetected); Influenza B, PCR Not Detected (NotDetected)
[2022-01-01 21:30] LABS: C-Reactive Protein 16.2 mg/L (0-4)
[2022-01-01 21:41] LABS: Bacteria,Urine 1+ /lpf; Mucus,Urine 1+ /lpf
[2022-01-01 21:41] LABS: Procalcitonin 0.076 ng/mL (0.0-2.0)
[2022-01-01 21:42] LABS: Erythrocyte Sedimentation Rate 20 mm/hr (0-20)
--- NOTE | 2022-01-01 21:45 | HMH.EDURI ---
ED Disposition Clinical Impression: COVID-19 Disposition: Home, Self-Care Condition on Discharge: Good Instructions: DI for COVID-19 (Suspected or Confirmed ) Additional Instructions: fluids and use meds and call pcp for follow up Prescriptions: dexAMETHasone [Decadron] 6 mg PO DAILY #6 tab Transmission Status: Pending to [id number] Azithromycin [Zithromax 250mg tab] 250 mg PO DIRECTED #6 tab Transmission Status: Pending to [id number] Referrals: Provider,Referral, [Primary Care Provider] - - Critical Care Critical Care Time: No Attestation: On 01/01/22, the high probability of a clinically significant, sudden or life threatening deterioration of the following system(s) required my full and direct attention, intervention and personal management. The time I documented below is in addition to time spent performing reported procedures but includes the following listed in this critical care notation. Medical Decision Making - Medical Records Medical records reviewed: Yes: I reviewed the patient's medical records. - Jacob Inquiry Pt receiving controlled substance: No Vital Signs: 01/01/22 20:45 Temperature 100.0 F H Temperature Source Oral Pulse Rate [Left Radial] 114 H Respiratory Rate 18 Blood Pressure [Right Arm] 112/54 L Blood Pressure Mean [Right Arm] 73 Blood Pressure Source [Right Arm] Automatic Cuff Blood Pressure Position [Right Arm] Sitting 02 Sat by Pulse Oximetry 98 Oxygen Delivery Method Room Air - Lab Data Lab results reviewed: Yes: I reviewed the patient's lab results. Lab Results 01/01/22 20:30: C-Reactive Protein 16.2 H, Procalcitonin 0.076 01/01/22 20:50: ESR 20 01/01/22 20:50: WBC 6.7, RBC 4.35, Hgb 12.8, Hct 38.7, MCV 89.0, MCH 29.3, MCHC 32.9, RDW 14.1, Plt Count 336, MPV 7.5, Neut % (Auto) 84.2 H, Lymph % (Auto) 7.4 L, [place] % (Auto) 5.6, Eos % (Auto) 1.5, Baso % (Auto) 1.1, Neut # (Auto) 5.7, Lymph # (Auto) 0.5 L, [place] # (Auto) 0.4, Eos # (Auto) 0.1, Baso # (Auto) 0.1 01/01/22 20:50: Sodium 136, Potassium 3.5, Chloride 106, Carbon Dioxide 21 L, Anion Gap 12.5, BUN 10, Creatinine 0.70, Estimated Creat Clear 143, Estimated GFR 94, Est GFR ( Amer) 114, Glucose 111 H, Calcium 9.0, Total Bilirubin 0.3, AST 38 H, ALT 36, Alkaline Phosphatase 125, Total Protein 7.2, Albumin 4.3, Globulin 2.9, Albumin/Globulin Ratio 1.5 01/01/22 20:50: Serum HCG, Qual Negative 01/01/22 20:50: Lactate 1.8 01/01/22 20:54: SARS-CoV-2 (PCR) Detected A, Influenza A Untype (PCR) Not detected, Influenza Type B (PCR) Not detected 01/01/22 21:15: Urine Color Yellow, Urine Appearance Clear, Urine pH 6.0, Ur Specific [place] 1.025, Urine Protein Trace, Urine Glucose (UA) Negative, Urine Ketones Trace, Urine Blood Negative, Urine Nitrate Negative, Urine Bilirubin Negative, Urine Urobilinogen 0.2, Ur Leukocyte Esterase Negative, Urine RBC 3-5, Urine WBC 3-5, Ur Squamous Epith Cells 3-5, Urine Bacteria 1+, Urine Mucus 1+ Result diagrams: 01/01/22 20:50 01/01/22 20:50 Orders (Tests/Meds): ED MEDICATIONS Generic Name Dose Route Start Last Admin Trade Name Freq PRN Reason Stop Dose Admin Sodium Chloride 1,000 mls @ 999 mls/hr 01/01/22 21:00 01/01/22 21:00 Sod Chlor 0.9% 1000ml Bag IV 01/01/22 22:00 999 mls/hr .Q1H1M RIVERA Administration Discontinued Medications Generic Name Dose Route Start Last Admin Trade Name Freq PRN Reason Stop Dose Admin Acetaminophen 650 mg 01/01/22 20:55 01/01/22 21:00 Acetaminophen 325mg Tab PO 01/01/22 20:56 650 mg ONCE ONE Administration Dexamethasone Sodium Phosphate 10 mg 01/01/22 22:11 01/01/22 22:13 Dexamethasone 4mg/Ml 5ml Mdv IV 01/01/22 22:12 10 mg ONCE ONE Administration Ibuprofen 600 mg 01/01/22 20:55 01/01/22 21:00 Ibuprofen 600 Mg Tablet PO 01/01/22 20:56 600 mg ONCE ONE Administration Ondansetron HCl 4 mg 01/01/22 20:55 01/01/22 22:04 Ondansetron 4mg/2ml Vial IV 01/01/22 20:56
[2022-01-01 23:45] VITALS: BP 126/78; PULSE 91; RESP 18; TEMP 37.3; O2SAT 99
== END 2022-01-01 23:47 | disposition home or self-care (01) ==
PROVIDERS: Emergency Provider Emergency Medicine
DX: U07.1 COVID-19 (principal); J06.9 Acute upper respiratory infection, unspecified; M79.10 Myalgia, unspecified site; J45.909 Unspecified asthma, uncomplicated; F17.210 Nicotine dependence, cigarettes, uncomplicated; F41.9 Anxiety disorder, unspecified; Z79.51 Long term (current) use of inhaled steroids; Z79.899 Other long term (current) drug therapy; Z88.0 Allergy status to penicillin; Z88.1 Allergy status to other antibiotic agents; Z88.3 Allergy status to other anti-infective agents; Z88.8 Allergy status to other drugs, medicaments and biological substances; Z91.040 Latex allergy status
CPT/HCPCS: 71046; 80053; 81001; 83605; 84145; 84703; 85025; 85651; 86140; 87040; 96361; 96374; 96375; 99284; C9803; J2405; U0003; U0005

== ENCOUNTER 2022-05-07 13:30 | Emergency (ER) | payer MEDICAID, SELFPAY ==
[2022-05-07 14:15] VITALS: BP 125/72; PULSE 76; RESP 17; TEMP 36.8; O2SAT 99; BMI 28.5
[2022-05-07 14:32] LABS: UTC Strep Screen (Rapid) Negative (Negative)
[2022-05-07 14:34] LABS: Adenovirus,PCR Not Detected (NotDetected); Bordetella Pertussis Not Detected (NotDetected); Chlamydophila Pneumoniae, PCR Not Detected (NotDetected); Coronavirus 19, PCR Not Detected (NotDetected); Coronavirus 229E Not Detected (NotDetected); Coronavirus NL63 Not Detected (NotDetected); Coronavirus OC43 Not Detected (NotDetected); Coronovirus HKU1,PCR Not Detected (NotDetected); Human Metapneumovirus Not Detected (NotDetected); Influenza A, PCR Not Detected (NotDetected); Influenza AH1, 2009 Not Detected (NotDetected); Influenza AH1, PCR Not Detected (NotDetected); Influenza AH3,PCR Not Detected (NotDetected); Influenza B, PCR Not Detected (NotDetected); Mycoplasma Pneumoniae, PCR Not Detected (NotDetected); Parainfluenza 1, PCR Not Detected (NotDetected); Parainfluenza 2, PCR Not Detected (NotDetected); Parainfluenza 3, PCR Not Detected (NotDetected); Parainfluenza 4, PCR Not Detected (NotDetected); Respiratory Syncytial Virus Not Detected (NotDetected); Rhinovirus/Enterovirus Not Detected (NotDetected)
--- NOTE | 2022-05-07 14:38 | EXP.UTC ---
Discharge Plan Disposition Patient Disposition: Home, Self-Care Condition: Good Prescriptions Prescriptions: New azithromycin [Zithromax Z-Kane] 250 mg tablet See Rx Instructions .ROUTE .COMPLEX 5 Days Qty: 6 0RF Rx Instructions: For 250 mg dose pack: take 500 mg today (day 1), then 250 mg for 4 days (days 2-5) methylprednisolone [Medrol (Kane)] 4 mg tablets,dose pack See Rx Instructions .Route .COMPLEX 6 Days Qty: 21 0RF Rx Instructions: taper pack; No Action doxycycline monohydrate 100 mg capsule 100 mg PO BID 5 Days Qty: 10 0RF fluconazole 200 mg tablet 200 mg PO DAILY 1 Days Qty: 1 0RF meclizine 25 MG tablet,chewable 25 mg PO Q12 Qty: 20 0RF azithromycin 250 MG tablet 250 mg PO DIRECTED Qty: 6 0RF Rx Instructions: Take two (2) tablets on day #1, then one (1) tablet day #2 thru #5 dexamethasone 6 MG tablet 6 mg PO DAILY Qty: 6 0RF clonazepam 0.5 MG tablet 0.5 mg PO DAILY Referrals Follow up/Referrals: Afsaneh Tariq APRN [Primary Care Provider] - See instructions Activity Restrictions/Add. Instructions Additional Instructions/Restrictions: *Monitor Temp, Over the counter Motrin or Tylenol as directed/as needed Tylenol every 4 hours and Motrin every 6 hours (as long as your family doctor has told you that you can take it) for fever or pain. and straight to ER if unable to lower temp less than 101.0 after medication given *Warm salt water gargles may help to soothe the throat *Throat Lozenges? *Warm fluids like tea with honey may help to soothe the throat? *Sleep elevated *Humidifier/Vaporizer Your throat swab was sent for culture. Those results are typically sent to your primary care. Be sure to follow up in 2-3 days with your family doctor/primary care physician if no improvement so they can review those result and treat if necessary. If you don?t have a primary care doctor, I recommend you get one but in the mean time, you will have to return to a walk in clinic Follow up IMMEDIATELY for new or worsening symptoms or no Noticeable improvement over the next 48-72 hours. 911 for difficulty breathing or swallowing You were tested for today for COVID19 your test result should be back in the next 24-48 hours, you may check your results on the [facility] My Health Portal Make sure to take your Vitamins Vit. C Vit D and Zinc if you can take them Clinical Impressions Clinical Impression: Sinusitis Instructions Patient Instructions: Sinusitis, DI for Sinusitis Discharge ED Provider: Bernarda Edouard [facility] HPI General Stated complaint: cough,diarrhea,headache Mode of Arrival: Ambulatory Source of Information: Patient Limitations: No Limitations Time Seen by Provider: 05/07/22 14:38 Description of Symptoms (Recalled from Triage Doc. by RN): PATIENT C/O CONGESTION, HEADACHE, DIARRHEA, STOMACH ACHE, EAR PAIN AND SORE THROAT HEENT Symptoms (Recalled from RN notes): Yes Resp Symptoms (Recalled from RN notes): No Skin Symptoms (Recalled from RN notes): No MS Symptoms (Recalled from RN notes): No Functional Status (Recalled from RN notes): WNL History of Present Illness Provider Complaint: Patient states that she hasnt felt well in several days States that she has been having sore throat, cough, headache, nausea, diarrhea and ear pain States that today she was feeling worse States that her children has been sick and thinks they may have got her sick now too Related Data Home Medications Medication Instructions Recorded Confirmed clonazepam 0.5 mg tablet 0.5 mg PO DAILY Anxiety 06/09/18 01/19/19 Previous Rx's Medication Instructions Recorded doxycycline monohydrate 100 mg 100 mg PO BID sinusitis 5 days #10 01/19/19 capsule caps fluconazole 200 mg tablet 200 mg PO DAILY prophylaxis 1 day 01/19/19 #1 tab meclizine 25 mg chewable tablet 25 mg PO Q12 #20 tabs 07/04/21 azithromycin 250 mg tablet 250 mg PO DIRECTED #6 tab
[2022-05-07 15:01] VITALS: BP 125/72; PULSE 76; RESP 17; TEMP 36.8; O2SAT 99
== END 2022-05-07 15:33 | disposition home or self-care (01) ==
PROVIDERS: Emergency Provider Nurse Practitioner; PCP Nurse Practitioner Family
DX: J01.90 Acute sinusitis, unspecified (principal); F17.210 Nicotine dependence, cigarettes, uncomplicated; Z20.822 Contact with and (suspected) exposure to COVID-19
CPT/HCPCS: 87581; 87632; 87798; 87880; 99212; C9803; G0463; U0003; U0005

== ENCOUNTER 2022-06-02 15:18 | Emergency (ER) | payer MEDICAID, SELFPAY ==
[2022-06-02 15:29] VITALS: BP 136/88; PULSE 102; RESP 16; TEMP 36.7; O2SAT 95; BMI 29.3
--- NOTE | 2022-06-02 15:30 | EXP.UTC ---
Discharge Plan Disposition Patient Disposition: Home, Self-Care Condition: Good Prescriptions Prescriptions: New methylprednisolone 4 mg Tablets,Dose Pack 4 mg PO DIRECTED Qty: 21 0RF fluticasone propionate [fluticasone propionate] 50 mcg/actuation spray,suspension 1 spr intranasal DAILY 30 Days Qty: 120 0RF cefdinir 300 mg capsule 300 mg PO BID Qty: 20 0RF albuterol sulfate [Ventolin HFA] 90 mcg/actuation HFA aerosol inhaler 2 puff inhalation Q6H PRN (Reason: Shortness Of Breath Or Wheezing) Qty: 1 0RF promethazine-DM 6.25-15 mg/5 mL Syrup 5 ml PO Q6H PRN (Reason: Cough) Qty: 240 0RF Discontinued doxycycline monohydrate 100 mg capsule 100 mg PO BID 5 Days Qty: 10 0RF fluconazole 200 mg tablet 200 mg PO DAILY 1 Days Qty: 1 0RF azithromycin 250 MG tablet 250 mg PO DIRECTED Qty: 6 0RF Rx Instructions: Take two (2) tablets on day #1, then one (1) tablet day #2 thru #5 dexamethasone 6 MG tablet 6 mg PO DAILY Qty: 6 0RF azithromycin [Zithromax Z-Kane] 250 mg tablet See Rx Instructions .ROUTE .COMPLEX 5 Days Qty: 6 0RF Rx Instructions: For 250 mg dose pack: take 500 mg today (day 1), then 250 mg for 4 days (days 2-5) No Action meclizine 25 MG tablet,chewable 25 mg PO Q12 Qty: 20 0RF clonazepam 0.5 MG tablet 0.5 mg PO DAILY methylprednisolone [Medrol (Kane)] 4 mg tablets,dose pack See Rx Instructions .Route .COMPLEX 6 Days Qty: 21 0RF Rx Instructions: taper pack; Referrals Follow up/Referrals: Afsaneh Tariq APRN [Primary Care Provider] - See instructions Activity Restrictions/Add. Instructions Additional Instructions/Restrictions: Drink plenty of fluids. Take tylenol or ibuprofen for pain or fever. Take the medications as directed. Follow up with your regular doctor. GO TO THE ER FOR ANY WORSENING SYMPTOMS Clinical Impressions Clinical Impression: Sinusitis, Bronchitis Instructions Patient Instructions: Sinusitis, DI for Sinusitis Discharge ED Provider: Ney Silverman [facility] General Stated complaint: cough, sore throat Time Seen by Provider: 06/02/22 15:30 History of Present Illness Provider Complaint: She states that for the past 2 days she has had sore throat and sinus congestion. Related Data Home Medications Medication Instructions Recorded Confirmed clonazepam 0.5 mg tablet 0.5 mg PO DAILY Anxiety 06/09/18 01/19/19 Previous Rx's Medication Instructions Recorded meclizine 25 mg chewable tablet 25 mg PO Q12 #20 tabs 07/04/21 methylprednisolone 4 mg tablets in See Rx Instructions .Route 05/07/22 a dose pack (Medrol (Kane)) .COMPLEX 6 days #21 tabs albuterol sulfate 90 mcg/actuation 2 puff inhalation Q6H PRN 06/02/22 aerosol inhaler (Ventolin HFA) Shortness Of Breath Or Wheezing #1 g cefdinir 300 mg capsule 300 mg PO BID #20 caps 06/02/22 fluticasone propionate 50 1 spr intranasal DAILY 30 days 06/02/22 mcg/actuation nasal #120 ea spray,suspension methylprednisolone 4 mg tablets in 4 mg PO DIRECTED #21 tabs 06/02/22 a dose pack promethazine-DM 6.25 mg-15 mg/5 mL 5 ml PO Q6H PRN Cough #240 mL 06/02/22 oral syrup Allergies Allergy/AdvReac Type Severity Reaction Status Date / Time amoxicillin [AMOXICILLIN] Allergy Intermediate I-HIVES Verified 06/02/22 15:44 clavulanic acid Allergy Intermediate I-HIVES Verified 06/02/22 15:44 [From AUGMENTIN] tramadol [TRAMADOL] Allergy Intermediate I-HIVES Verified 06/02/22 15:44 latex Allergy Verified 06/02/22 15:44 nicotine Allergy Verified 06/02/22 15:44 [facility] 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 No significant past medical history Social History Smoking Status: Current every day smoker tobacco type: cigarettes second hand exposure: No alcohol intake: never substance use type: denies use current occupational stat
[2022-06-02 15:57] LABS: UTC Strep Screen (Rapid) Negative (Negative)
--- NOTE | 2022-06-02 16:15 | XR_ITS ---
PROCEDURE INFORMATION: Exam: XR Chest Exam date and time: 06/02/2022 4:24 PM Age: 36 years old Clinical indication: Cough TECHNIQUE: Imaging protocol: Radiologic exam of the chest. Views: 2 views. COMPARISON: CR XR CHEST 2V 01/01/2022 8:56 PM FINDINGS: Lungs: Ill-defined infiltrates are seen at both lung bases, greater on the right. Pleural spaces: Unremarkable. No pleural effusion. No pneumothorax. Heart/Mediastinum: Unremarkable. No cardiomegaly. Bones/joints: Unremarkable. IMPRESSION: Bibasilar infiltrates may represent pneumonia.
[2022-06-02 17:13] VITALS: BP 136/88; PULSE 102; RESP 16; TEMP 36.7
[2022-06-02 19:59] LABS: Adenovirus,PCR Not Detected (NotDetected); Bordetella Pertussis Not Detected (NotDetected); Chlamydophila Pneumoniae, PCR Not Detected (NotDetected); Coronavirus 19, PCR Not Detected (NotDetected); Coronavirus 229E Not Detected (NotDetected); Coronavirus NL63 Not Detected (NotDetected); Coronavirus OC43 Not Detected (NotDetected); Coronovirus HKU1,PCR Not Detected (NotDetected); Human Metapneumovirus Not Detected (NotDetected); Influenza A, PCR Not Detected (NotDetected); Influenza AH1, 2009 Not Detected (NotDetected); Influenza AH1, PCR Not Detected (NotDetected); Influenza AH3,PCR Not Detected (NotDetected); Influenza B, PCR Not Detected (NotDetected); Mycoplasma Pneumoniae, PCR Not Detected (NotDetected); Parainfluenza 1, PCR Not Detected (NotDetected); Parainfluenza 2, PCR Not Detected (NotDetected); Parainfluenza 3, PCR Not Detected (NotDetected); Parainfluenza 4, PCR Not Detected (NotDetected); Respiratory Syncytial Virus Not Detected (NotDetected); Rhinovirus/Enterovirus Detected (NotDetected)
== END 2022-06-02 17:14 | disposition home or self-care (01) ==
PROVIDERS: Emergency Provider Nurse Practitioner Family; PCP Nurse Practitioner Family
DX: J40 Bronchitis, not specified as acute or chronic (principal); J32.9 Chronic sinusitis, unspecified; B34.8 Other viral infections of unspecified site
CPT/HCPCS: 71046; 87581; 87632; 87798; 87880; 99212; C9803; G0463; U0003; U0005

== ENCOUNTER 2022-07-05 10:30 | Outpatient (RCR) | payer MEDICAID, SELFPAY | END 2022-07-05 10:35 | disposition home or self-care (01) | LOC: PT 10:30 | PROVIDERS: PCP Nurse Practitioner Family; Visit Provider Nurse Practitioner Family | DX: M54.50 Low back pain, unspecified (principal) | CPT/HCPCS: 97010; 97014; 97110; 97140; 97163; G0283 ==

== ENCOUNTER 2022-09-15 13:03 | Emergency (ER) | payer MEDICAID, SELFPAY ==
[2022-09-15 13:04] VITALS: BP 119/57; PULSE 106; RESP 16; TEMP 36.4; O2SAT 98; BMI 27.4
[2022-09-15 13:30] VITALS: BP 111/67; PULSE 102; RESP 18; O2SAT 99
--- NOTE | 2022-09-15 13:38 | XR_ITS ---
PROCEDURE INFORMATION: Exam: XR Right Hip Exam date and time: 09/15/2022 1:48 PM Age: 37 years old Clinical indication: Injury or trauma; Fall; Blunt trauma (contusions or hematomas); Right; Hip; Additional info: Fall, injury TECHNIQUE: Imaging protocol: Radiologic exam of the Right hip. Views: 2 or 3 views hip with pelvis when performed. COMPARISON: ABDPELWO CT abdomen pelvis wo con 10/19/2017 1:48 AM FINDINGS: Bones/joints: No visible fracture or dislocation. Soft tissues: Unremarkable. IMPRESSION: No visible fracture or dislocation.
--- NOTE | 2022-09-15 13:38 | CT_ITS ---
PROCEDURE INFORMATION: Exam: CT Lumbar Spine Without Contrast Exam date and time: 09/15/2022 2:04 PM Age: 37 years old Clinical indication: Injury or trauma; Fall; Blunt trauma (contusions or hematomas); Additional info: Fall, injury TECHNIQUE: Imaging protocol: Computed tomography of the lumbar spine without contrast. Radiation optimization: All CT scans at this facility use at least one of these dose optimization techniques: automated exposure control; mA and/or kV adjustment per patient size (includes targeted exams where dose is matched to clinical indication); or iterative reconstruction. COMPARISON: CR XR HIP RT 2-3V W/PELVIS 09/15/2022 1:48 PM FINDINGS: Bones/joints: NormalThere is preservation of vertebral alignment and vertebral body heights. Facet joints are aligned. No acute fracture. No significant central spinal canal stenosis or neural foraminal narrowing at any level. Sacroiliac joints are intact. Chronic bilateral pars defect at L5-S1 noted. Soft tissues: Unremarkable. IMPRESSION: No acute fracture. No traumatic subluxation.
--- NOTE | 2022-09-15 13:40 | HMH.EDGENADL ---
Discharge Plan Disposition Patient Disposition: Home, Self-Care Condition: Good Prescriptions Prescriptions: New hydrocodone-acetaminophen 5-325 mg tablet 1 tab PO Q6H PRN (Reason: pain) Qty: 8 0RF No Action meclizine 25 MG tablet,chewable 25 mg PO Q12 Qty: 20 0RF methylprednisolone 4 mg Tablets,Dose Pack 4 mg PO DIRECTED Qty: 21 0RF fluticasone propionate [fluticasone propionate] 50 mcg/actuation spray,suspension 1 spr intranasal DAILY 30 Days Qty: 120 0RF cefdinir 300 mg capsule 300 mg PO BID Qty: 20 0RF albuterol sulfate [Ventolin HFA] 90 mcg/actuation HFA aerosol inhaler 2 puff inhalation Q6H PRN (Reason: Shortness Of Breath Or Wheezing) Qty: 1 0RF promethazine-DM 6.25-15 mg/5 mL Syrup 5 ml PO Q6H PRN (Reason: Cough) Qty: 240 0RF clonazepam 0.5 MG tablet 0.5 mg PO DAILY methylprednisolone [Medrol (Kane)] 4 mg tablets,dose pack See Rx Instructions .Route .COMPLEX 6 Days Qty: 21 0RF Rx Instructions: taper pack; Referrals Follow up/Referrals: Afsaneh Tariq APRN [Primary Care Provider] - See instructions Activity Restrictions/Add. Instructions Additional Instructions/Restrictions: [place] as needed for pain. Additional instructions for BACK PAIN: See your physician as soon as possible for further evaluation. Return immediately if back pain becomes intolerable, or if fever, numbness or weakness of your legs, loss of control of your bowels or bladder. Additional instructions for CONTROLLED SUBSTANCES: You have been prescribed a medication that is a controlled substance. Controlled substances include pain medications known as opiates and sedative nerve medications known as benzodiazepines. Tramadol, fioricet, and gabapentin are also controlled substances. Some common opiates include: Codeine (such as Tylenol #3) Hydrocodone (Vicodin, Lortab, Lorcet, [place]) Oxycodone (Percocet, Percodan, Oxycodone, Oxy IR) Some common benzodiazepines include: Diazepam (Valium) Lorazepam (Ativan) Alprazolam (Xanax) Clonazepam (Klonopin) Oxazepam (Serax) All of these controlled substances are highly addictive and frequently abused. Misuse can and frequently does lead to addiction as well as overdose and . Medication should be stored in a locked cabinet or other secure storage unit. Do not store the medication in a motor vehicle. Short term supplies, 3 days or less, are prescribed because of the highly addictive nature of the medication. Any of the controlled substance medication NOT taken should be disposed of properly and NOT SAVED. The recommended method of disposing of unused medications is: Place the medicines in a sealable plastic bag. If the medicine is a solid, crush it or add water to dissolve it. Add something undesirable (cat litter, coffee grounds, etc.) Dispose of sealed bag in household trash Do not flush or pour unused medicines down a sink or drain. Controlled substances should not be shared, given away or sold. Because of the addictive nature and frequent abuse, these medications are sometimes stolen. These medications should be kept in a safe place where they cannot be stolen. Do not keep them in your car or purse. Lost or stolen prescriptions for controlled substances WILL NOT BE REFILLED in this emergency department, regardless of whether a police report was filed. Clinical Impressions Clinical Impression: Lumbar strain, Strain of right hip Instructions Patient Instructions: DI for Low Back Pain, DI for Hip Pain Discharge ED Provider: Say Arriaga Adult HPI General Chief complaint: Back Pain/Injury Stated complaint: Fall@home 09/14 Back and hip pain Time Seen by Provider: 09/15/22 13:32 Mode of Arrival: Ambulatory Source of Information: Patient Limitations: No Limitations Description of Symptoms (Recalled from ER Triage Doc. by RN): pt c/o lower back pain-lumbar area, r/t fall yesterday. Pt reports
--- NOTE | 2022-09-15 13:55 | PC.NURSE ---
pt to CT via wheelchair
[2022-09-15 14:09] VITALS: BP 108/58; PULSE 75; O2SAT 98
[2022-09-15 14:24] VITALS: BP 108/58; PULSE 85; RESP 16; O2SAT 96
[2022-09-15 14:30] VITALS: BP 110/60; PULSE 89; RESP 16; O2SAT 96
[2022-09-15 15:13] VITALS: BP 100/51; PULSE 87; RESP 16; TEMP 36.4; O2SAT 98
== END 2022-09-15 15:13 | disposition home or self-care (01) ==
PROVIDERS: Emergency Provider Emergency Medicine; PCP Nurse Practitioner Family
DX: S39.012A Strain of muscle, fascia and tendon of lower back, initial encounter (principal); S76.011A Strain of muscle, fascia and tendon of right hip, initial encounter; W19.XXXA Unspecified fall, initial encounter; F17.210 Nicotine dependence, cigarettes, uncomplicated
CPT/HCPCS: 72131; 73502; 99284

== ENCOUNTER 2022-09-24 10:15 | Emergency (ER) | payer MEDICAID, SELFPAY ==
[2022-09-24 10:30] VITALS: BP 108/72; PULSE 98; RESP 20; TEMP 37; O2SAT 98; BMI 30.3
--- NOTE | 2022-09-24 10:51 | EXP.UTC ---
Discharge Plan Disposition Patient Disposition: Home, Self-Care Condition: Good Prescriptions Prescriptions: New benzonatate 100 mg capsule 100 mg PO TID PRN (Reason: cough) Qty: 30 0RF azithromycin [Zithromax Z-Kane] 250 mg tablet See Rx Instructions .ROUTE .COMPLEX 5 Days Qty: 6 0RF Rx Instructions: For 250 mg dose pack: take 500 mg today (day 1), then 250 mg for 4 days (days 2-5) methylprednisolone [Medrol (Kane)] 4 mg tablets,dose pack See Rx Instructions .Route .COMPLEX 6 Days Qty: 21 0RF Rx Instructions: taper pack; No Action meclizine 25 MG tablet,chewable 25 mg PO Q12 Qty: 20 0RF methylprednisolone 4 mg Tablets,Dose Pack 4 mg PO DIRECTED Qty: 21 0RF fluticasone propionate [fluticasone propionate] 50 mcg/actuation spray,suspension 1 spr intranasal DAILY 30 Days Qty: 120 0RF cefdinir 300 mg capsule 300 mg PO BID Qty: 20 0RF albuterol sulfate [Ventolin HFA] 90 mcg/actuation HFA aerosol inhaler 2 puff inhalation Q6H PRN (Reason: Shortness Of Breath Or Wheezing) Qty: 1 0RF promethazine-DM 6.25-15 mg/5 mL Syrup 5 ml PO Q6H PRN (Reason: Cough) Qty: 240 0RF hydrocodone-acetaminophen 5-325 mg tablet 1 tab PO Q6H PRN (Reason: pain) Qty: 8 0RF clonazepam 0.5 MG tablet 0.5 mg PO DAILY methylprednisolone [Medrol (Kane)] 4 mg tablets,dose pack See Rx Instructions .Route .COMPLEX 6 Days Qty: 21 0RF Rx Instructions: taper pack; Referrals Follow up/Referrals: Afsaneh Tariq APRN [Primary Care Provider] - See instructions Activity Restrictions/Add. Instructions Additional Instructions/Restrictions: *Monitor Temp, Over the counter Motrin or Tylenol as directed/as needed Tylenol every 4 hours and Motrin every 6 hours (as long as your family doctor has told you that you can take it) for fever or pain. and straight to ER if unable to lower temp less than 101.0 after medication given *Warm salt water gargles may help to soothe the throat *Throat Lozenges? *Warm fluids like tea with honey may help to soothe the throat? *Sleep elevated *Humidifier/Vaporizer Your throat swab was sent for culture. Those results are typically sent to your primary care. Be sure to follow up in 2-3 days with your family doctor/primary care physician if no improvement so they can review those result and treat if necessary. If you don?t have a primary care doctor, I recommend you get one but in the mean time, you will have to return to a walk in clinic Follow up IMMEDIATELY for new or worsening symptoms or no Noticeable improvement over the next 48-72 hours. 911 for difficulty breathing or swallowing Clinical Impressions Clinical Impression: URI (upper respiratory infection) Instructions Patient Instructions: Sore Throat, Cough, DI for Sinusitis Discharge ED Provider: Bernarda [place]ouard [facility] [place] General Stated complaint: Congestion drainage bodyaches cough sore throat Time Seen by Provider: 09/24/22 10:51 History of Present Illness Provider Complaint: Patient states she hasnt been feeling well for about 3-4 days States that she has been having sore throat, cough, sinus congestion and pressure, drainage in the back of her throat and at times she will cough up some of the mucous so she came in Related Data Home Medications Medication Instructions Recorded Confirmed clonazepam 0.5 mg tablet 0.5 mg PO DAILY Anxiety 06/09/18 01/19/19 Previous Rx's Medication Instructions Recorded meclizine 25 mg chewable tablet 25 mg PO Q12 #20 tabs 07/04/21 methylprednisolone 4 mg tablets in See Rx Instructions .Route 05/07/22 a dose pack (Medrol (Kane)) .COMPLEX 6 days #21 tabs albuterol sulfate 90 mcg/actuation 2 puff inhalation Q6H PRN 06/02/22 aerosol inhaler (Ventolin HFA) Shortness Of Breath Or Wheezing #1 g cefdinir 300 mg capsule 300 mg PO BID #20 caps 06/02/22 fluticasone propionate 50 1 spr intranasal DAILY 30 days 06/02/22 mcg/
[2022-09-24 11:44] LABS: UTC Strep Screen (Rapid) Negative (Negative)
[2022-09-24 11:45] VITALS: BP 108/72; PULSE 98; RESP 20; TEMP 37; O2SAT 98
[2022-09-24 11:46] LABS: UTC Influenza A Antigen Negative (Negative)
[2022-09-24 11:47] LABS: UTC Influenza B Antigen Negative (Negative)
== END 2022-09-24 11:59 | disposition home or self-care (01) ==
PROVIDERS: Emergency Provider Nurse Practitioner; PCP Nurse Practitioner Family
DX: J06.9 Acute upper respiratory infection, unspecified (principal)
CPT/HCPCS: 87804; 87880; 99212; 99213; G0463

== ENCOUNTER 2022-10-26 12:56 | Emergency (ER) | payer MEDICAID, SELFPAY ==
[2022-10-26 13:10] VITALS: BP 105/61; PULSE 112; RESP 14; TEMP 36.9; O2SAT 99; BMI 30.7
--- NOTE | 2022-10-26 13:44 | EXP.UTC ---
Discharge Plan Disposition Patient Disposition: Home, Self-Care Condition: Good Prescriptions Prescriptions: New ondansetron 4 mg tablet,disintegrating 4 mg PO Q8H PRN (Reason: nausea and vomiting) Qty: 14 0RF promethazine 12.5 mg tablet 12.5 mg PO TID PRN (Reason: nausea and vomiting) Qty: 7 0RF Referrals Follow up/Referrals: Afsaneh Tariq APRN [Primary Care Provider] - See instructions Activity Restrictions/Add. Instructions Additional Instructions/Restrictions: Monitor temperature. Seek treatment if fever develops. Follow-up immediately if new or worse symptoms worsen or no noticeable improvement over 48 hours. Increase fluids such as water, Gatorade, Powerade, juice or Pedialyte with limited formula/dietary in children No food is okay as long as you are drinking. Once ready to eat start bland such as bananas, rice, applesauce, toast. Contagious until no diarrhea, vomiting, fever times 48 hours without medication Avoid antidiarrheals unless told otherwise. Best to let the virus run its course. Follow-up immediately for new or worsening symptoms or no noticeable improvement over the next 48 hours. do not breast feed while on meds Clinical Impressions Clinical Impression: Nausea & vomiting, Diarrhea Instructions Patient Instructions: Diarrhea, Nausea and Vomiting-Adult Discharge ED Provider: Rahul ([facility] [place] HPI General Stated complaint: Vomiting bodyaches weakness SOA Mode of Arrival: Ambulatory Source of Information: Patient Limitations: No Limitations Time Seen by Provider: 10/26/22 13:45 Description of Symptoms (Recalled from Triage Doc. by RN): PATIENT C/O VOMITING, DIARRHEA, BODY ACHES, WEAKNESS, HEADACHE, AND STOMACH CRAMPS HEENT Symptoms (Recalled from RN notes): No Resp Symptoms (Recalled from RN notes): No Skin Symptoms (Recalled from RN notes): No MS Symptoms (Recalled from RN notes): No Functional Status (Recalled from RN notes): WNL History of Present Illness Provider Complaint: 37 yr old female presents for vomiting,diarrhea,body aches,weakness, and headaches Related Data Previous Rx's Medication Instructions Recorded ondansetron 4 mg disintegrating 4 mg PO Q8H PRN nausea and 10/26/22 tablet vomiting #14 tabs promethazine 12.5 mg tablet 12.5 mg PO TID PRN nausea and 10/26/22 vomiting #7 tabs Allergies Allergy/AdvReac Type Severity Reaction Status Date / Time amoxicillin [AMOXICILLIN] Allergy Intermediate I-HIVES Verified 06/02/22 15:44 clavulanic acid Allergy Intermediate I-HIVES Verified 06/02/22 15:44 [From AUGMENTIN] tramadol [TRAMADOL] Allergy Intermediate I-HIVES Verified 06/02/22 15:44 latex Allergy Verified 06/02/22 15:44 nicotine Allergy Verified 06/02/22 15:44 Worker's Comp Is this a Worker's Comp case?: No [facility] Disclaimer: The information contained in this section may have been updated after the patient was seen, as this information can be updated by other users. 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
[2022-10-26 13:50] LABS: UTC Influenza A Antigen Negative (Negative)
[2022-10-26 13:51] LABS: UTC Influenza B Antigen Negative (Negative)
[2022-10-26 13:53] LABS: UTC Strep Screen (Rapid) Negative (Negative)
[2022-10-26 14:04] VITALS: BP 105/61; PULSE 112; RESP 14; TEMP 36.9; O2SAT 99
== END 2022-10-26 14:13 | disposition home or self-care (01) ==
PROVIDERS: Emergency Provider Nurse Practitioner Family; PCP Nurse Practitioner Family
DX: R11.2 Nausea with vomiting, unspecified (principal); R19.7 Diarrhea, unspecified
CPT/HCPCS: 87804; 87880; 99212; 99213; C9803; G0463; U0003; U0005

== ENCOUNTER → 2023-02-20 13:51 | Outpatient (POV) | payer MEDICAID, SELFPAY ==
--- NOTE | 2023-02-20 13:58 | EXP.PAIN.OV ---
HPI Data of Consult Patient: new to practice Consult date: 02/20/23 Requesting Physician: Almaz Cooper APRN Consult Narrative Reason for consult: Low back pain, right leg pain, neck pain, right shoulder pain History of present illness: Ms. Kline is a 37 year old female who presents today as a new patient. She is a referral from Dr. Harrell's office in [place]. Today she rates her pain a 7 out of 10. Patient does state that she has chronic pain in her right shoulder related to a previous surgery with rotator cuff repair and does state the pain is also in her neck. 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 She does also states she has low back pain that radiates into her right leg. She states this has been going on for years as well however since her last daughter was born approximately 2 years ago the pain has worsened and does cause significant difficulty performing activities of daily living such as cooking and cleaning. Patient does describe this as an aching, throbbing sensation that does also have occasional sharp shooting pains and that the pain does present with pressure that is worse with increased activity. She does state that her low back and leg pain is more bothersome than her neck and shoulder pain at this time. Patient states that she has previously done injections in her low back however she stated that she had to stop the injection due to the worsening pain symptoms. She states she just cannot do needles without some form of sedation. Patient states that neurosurgery was recommending more conservative treatment. Patient denies any prior back or neck surgery. Patient has tried [id number] medications such as Tylenol and ibuprofen along with heat and ice and topicals with no additional relief. Patient does state that she was tried on gabapentin however it caused significant grogginess and she was unable to tolerate taking it. Patient is currently managed with tizanidine 4 mg at bedtime. Patient is not on any scheduled medications. Patient has been to physical therapy in the past for her shoulder and her neck however she did not notice additional improvement. her Jacob is [id number]. Its been reviewed and appropriate. CC: Almaz Cooper APRN [facility] Disclaimer: The information contained in this section may have been updated after the patient was seen, as this information can be updated by other users. 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) Smoking Status: Current every day smoker tobacco type: cigarettes second hand exposure: No alcohol intake: never substance use type: denies use current occupational status: employed Travel in the last 8 weeks: None household members: family housing: house Review of Systems Review of Systems Review of systems:: pertinent systems reviewed and negative unless documented below Review of systems (narrative): Review of Systems: General: No recent weight changes, no fever, no sleep disturbances Respiratory: No cough, no shortness of air, no recurring pulmonary infections Cardiovascular/peripheral vascular: No chest pain, no palpitations, no edema, no shortness of breath Gastrointestinal: No new onset incontinence, normal bowel movements reported Genitourinary: No new onset incontinence Musculoskeletal: Low back pain, right leg pain, neck pain, right shoulder pain Psychiatric: [Normal mood/affect] Neurological: [Denies weakness
[2023-02-20 14:15] VITALS: BP 108/73; PULSE 86; RESP 18; O2SAT 98; BMI 28.7
== END | disposition home or self-care (01) ==
PROVIDERS: Visit Provider Nurse Practitioner Family
DX: M25.511 Pain in right shoulder (principal); G89.29 Other chronic pain; M54.50 Low back pain, unspecified; M54.16 Radiculopathy, lumbar region; M79.604 Pain in right leg; M54.2 Cervicalgia; M50.30 Other cervical disc degeneration, unspecified cervical region; M48.02 Spinal stenosis, cervical region
CPT/HCPCS: 99202; G0463

== ENCOUNTER 2023-07-13 08:17 | Emergency (ER) | payer MEDICAID, SELFPAY ==
[2023-07-13 08:30] VITALS: BP 130/75; PULSE 92; RESP 18; TEMP 36.6; O2SAT 98; BMI 31.5
--- NOTE | 2023-07-13 08:33 | EXP.UTC ---
Discharge Plan Disposition Patient Disposition: Home, Self-Care Condition: Good Prescriptions Prescriptions: New methylprednisolone 4 mg Tablets,Dose Pack 4 mg PO DIRECTED Qty: 21 0RF [id number] [Bromfed DM] 2-30-10 mg/5 mL Syrup 5 ml PO Q6H PRN (Reason: Cough) Qty: 240 0RF azithromycin [Zithromax] 250 mg tablet 250 mg PO UD DOSE PK Qty: 6 0RF Rx Instructions: Take two (2) tablets today, then one (1) tablet days #2 thru #5 No Action methocarbamol 750 mg tablet 750 mg PO HS Patient Comments: TAKE 1 TABLET BY MOUTH THREE TIMES DAILY hyoscyamine sulfate 0.125 mg tablet, sublingual 0.125 mg PO Q4H PRN (Reason: .) Patient Comments: DISSOLVE 1 TABLET UNDER THE TONGUE EVERY 4 HOURS NEEDED hydroxyzine HCl 25 mg tablet 25 mg PO TID Patient Comments: TAKE 1 TABLET BY MOUTH THREE TIMES DAILY cyclobenzaprine 10 mg tablet 10 mg PO TID PRN (Reason: Pain (Scale Score 1-3)) Patient Comments: TAKE 1 TABLET BY MOUTH THREE TIMES DAILY NEEDED FOR MUSCLE SPASMS albuterol sulfate [Ventolin HFA] 90 mcg/actuation HFA aerosol inhaler 2 puff inhalation Q6H PRN (Reason: Pain (Scale Score 1-3)) budesonide-formoterol [Symbicort] 160-4.5 mcg/actuation HFA aerosol inhaler 2 puff inhalation BID PRN (Reason: soa) ibuprofen 600 mg tablet PO hydrocodone-acetaminophen 7.5-325 mg tablet See Rx Instructions .ROUTE .COMPLEX Patient Comments: TAKE 1 TABLET BY MOUTH EVERY 4 TO 6 HOURS NEEDED FOR PAIN Rx Instructions: 1 tab po q4-6 hours as needed for pain paroxetine HCl 20 mg tablet 20 mg PO DAILY Qty: 30 2RF famotidine 40 mg tablet 40 mg PO DAILY 30 Days Qty: 30 2RF (DME) Blood Glucose Test Strip See Rx Instructions .Route Qty: 50 0RF Rx Instructions: As directed daily (DME) lancets [Comfort EZ Lancets] 28 gauge misc See Rx Instructions .Route Qty: 100 0RF Rx Instructions: As directed daily propranolol 10 mg tablet 10 mg PO TID PRN (Reason: Blood Pressure) Patient Comments: TAKE 1 TABLET BY MOUTH THREE TIMES DAILY NEEDED Vraylar 3 mg capsule 3 mg PO DAILY Patient Comments: TAKE 1 CAPSULE BY MOUTH DAILY Referrals Follow up/Referrals: Tammy Matamoros APRN [Primary Care Provider] - See instructions Activity Restrictions/Add. Instructions Additional Instructions/Restrictions: Drink plenty of fluids. Take tylenol or ibuprofen for pain or fever. Take the medications as directed. Follow up with your regular doctor. GO TO THE ER FOR ANY WORSENING SYMPTOMS Clinical Impressions Clinical Impression: Sinusitis Stand Alone Forms Stand Alone Forms: Work/School Release Instructions Patient Instructions: Sinusitis, DI for Sinusitis Discharge ED Provider: Ney Silverman [facility] General Stated complaint: SORE THROAT, COUGH Time Seen by Provider: 07/13/23 08:33 History of Present Illness Provider Complaint: She states that for the past 2 weeks she has had sinus congestion. She states that her symptoms are worsening. Related Data Home Medications Medication Instructions Recorded Confirmed albuterol sulfate 90 mcg/actuation 2 puff inhalation Q6H PRN Pain 06/17/23 07/13/23 aerosol inhaler (Ventolin HFA) (Scale Score 1-3) budesonide-formoterol HFA 160 2 puff inhalation BID PRN soa 06/17/23 07/13/23 mcg-4.5 mcg/actuation aerosol inhaler (Symbicort) cyclobenzaprine 10 mg tablet 10 mg PO TID PRN Pain (Scale Score 06/17/23 07/13/23 1-3) hydroxyzine HCl 25 mg tablet 25 mg PO TID 06/17/23 07/13/23 hyoscyamine sulfate 0.125 mg 0.125 mg PO Q4H PRN . 06/17/23 07/13/23 sublingual tablet methocarbamol 750 mg tablet 750 mg PO HS 06/17/23 07/13/23 propranolol 10 mg tablet 10 mg PO TID PRN Blood Pressure 06/17/23 07/13/23 hydrocodone 7.5 mg-acetaminophen See Rx Instructions .Route .COMPLEX 07/11/23 07/13/23 325 mg tablet
[2023-07-13 09:20] VITALS: BP 130/75; PULSE 92; RESP 18; TEMP 36.6; O2SAT 98
== END 2023-07-13 09:20 | disposition home or self-care (01) ==
PROVIDERS: Emergency Provider Nurse Practitioner Family; PCP Nurse Practitioner Family
DX: J01.90 Acute sinusitis, unspecified (principal); R05.9 Cough, unspecified; R07.0 Pain in throat; R09.81 Nasal congestion; F17.290 Nicotine dependence, other tobacco product, uncomplicated; J45.909 Unspecified asthma, uncomplicated; E11.9 Type 2 diabetes mellitus without complications
CPT/HCPCS: 96372; 99212; 99214; G0463

== ENCOUNTER → 2023-07-25 14:19 | Outpatient (CLI) | payer MEDICAID, SELFPAY ==
[2023-07-25 15:23] LABS: Barbiturates Screen,Urine Negative ng/ml (<200)
[2023-07-25 15:24] LABS: Benzodiazepines Screen,Urine Negative ng/ml (<200)
[2023-07-25 15:25] LABS: Amphetamine/Metha Screen,Urine Negative ng/ml (<1000); Cannabinoid Screen,Urine Negative ng/ml (<50)
[2023-07-25 15:26] LABS: Cocaine Screen,Urine Negative ng/ml (<300); Methadone Screen,Urine Negative ng/ml (<300)
[2023-07-25 15:27] LABS: Opiate Screen,Urine Negative ng/ml (<300)
[2023-07-25 15:28] LABS: Phencyclidine Screen,Urine Negative ng/ml (<25)
== END ==
PROVIDERS: PCP Nurse Practitioner Family; Visit Provider Nurse Practitioner Family
DX: R63.5 Abnormal weight gain (principal); Z79.899 Other long term (current) drug therapy
CPT/HCPCS: 80305

== ENCOUNTER 2023-07-28 09:56 | Outpatient (RCR) | payer MEDICAID, SELFPAY | END 2023-07-28 11:00 | disposition home or self-care (01) | LOC: PT 09:56 | PROVIDERS: Visit Provider Physician Assistant Surgical | DX: M43.06 Spondylolysis, lumbar region (principal); Z98.890 Other specified postprocedural states | CPT/HCPCS: 97163 ==

== ENCOUNTER 2023-08-07 17:14 | Emergency (ER) | payer MEDICAID, SELFPAY ==
[2023-08-07 17:25] VITALS: BP 111/69; PULSE 103; RESP 22; TEMP 36.8; O2SAT 97; BMI 30.7
[2023-08-07 17:39] LABS: UTC Influenza A Antigen Negative (Negative)
[2023-08-07 17:40] LABS: UTC Influenza B Antigen Negative (Negative)
--- NOTE | 2023-08-07 17:50 | EXP.UTC ---
Discharge Plan Disposition Patient Disposition: Home, Self-Care Condition: Good Prescriptions Prescriptions: New promethazine 12.5 mg tablet 12.5 mg PO TID PRN (Reason: nausea and vomiting) Qty: 10 0RF No Action paroxetine HCl 30 mg tablet 30 mg PO DAILY 30 Days Qty: 30 2RF meloxicam 15 mg tablet 15 mg PO DAILY Qty: 30 2RF phentermine 37.5 mg tablet 37.5 mg PO DAILY 30 Days Qty: 30 0RF Rx Instructions: must administer 30 minutes before or 1-2 hours after breakfast methocarbamol 750 mg tablet 750 mg PO HS Patient Comments: TAKE 1 TABLET BY MOUTH THREE TIMES DAILY hyoscyamine sulfate 0.125 mg tablet, sublingual 0.125 mg PO Q4H PRN (Reason: .) Patient Comments: DISSOLVE 1 TABLET UNDER THE TONGUE EVERY 4 HOURS NEEDED hydroxyzine HCl 25 mg tablet 25 mg PO TID Patient Comments: TAKE 1 TABLET BY MOUTH THREE TIMES DAILY albuterol sulfate [Ventolin HFA] 90 mcg/actuation HFA aerosol inhaler 2 puff inhalation Q6H PRN (Reason: Pain (Scale Score 1-3)) budesonide-formoterol [Symbicort] 160-4.5 mcg/actuation HFA aerosol inhaler 2 puff inhalation BID PRN (Reason: soa) famotidine 40 mg tablet 40 mg PO DAILY 30 Days Qty: 30 2RF (DME) FreeStyle Lite Strips Strip See Rx Instructions .Route Qty: 50 6RF Rx Instructions: As directed daily (DME) lancets [FreeStyle Lancets] 28 gauge misc See Rx Instructions .Route Qty: 100 0RF Rx Instructions: As directed daily Referrals Follow up/Referrals: Tammy Matamoros APRN [Primary Care Provider] - See instructions Activity Restrictions/Add. Instructions Additional Instructions/Restrictions: Drink extra fluids with and between meals. If you have difficulty drinking, try very small amounts of water or suck on ice chips. ? Avoid fruit juices, as these do not replace minerals and can actually increase diarrhea. ? Children and adults can use sports drinks to replenish electrolytes. Younger children and infants should use products formulated for children, like oral rehydration solutions. ? Eat food in small amounts and let your stomach recover. ? Get lots of rest. You may feel tired or weak. ? No greasy or fried foods for the next 24-48 hours BRAT diet Bananas Rice Apples and [place] ? Make sure to drink plenty of liquids ? Return if needed ? Straight to ER if any life threatening symptoms ? You was given an outpatient order for diarrhea panel, please collect specimen and bring back to outpatient lab then call back to the [facility] or follow up with family doctor for results ? Follow up with family doctor in the next 48-72 hours if no improvement or any worsening of symptoms Phenergan as prescribed You were tested for today for Upper Respiratory Panel with COVID19 your test result should be back in the next 24, you may Check your results on the [facility] if your COVID test is positive you will need to Quarantine for 5 days Clinical Impressions Clinical Impression: Viral syndrome Instructions Patient Instructions: Nausea and Vomiting-Adult, Diarrhea Discharge ED Provider: Bernarda Edouard [facility] [place] HPI General Stated complaint: vomitting, diarheaa,body aches Mode of Arrival: Ambulatory Source of Information: Patient Limitations: No Limitations Time Seen by Provider: 08/07/23 17:50 Description of Symptoms (Recalled from Triage Doc. by RN): PATIENT C/O VOMITING, DIARRHEA, CHILLS, BODY ACHES, DIZZINESS, AND LIGHT-HEADED SINCE FRIDAY HEENT Symptoms (Recalled from RN notes): Yes Resp Symptoms (Recalled from RN notes): No Skin Symptoms (Recalled from RN notes): No MS Symptoms (Recalled from RN notes): No Functional Status (Recalled from RN notes): WNL History of Present Illness Provider Complaint: Patient states that she started feeling bad on Friday having body aches, chills, nausea and diar
[2023-08-07 18:11] VITALS: BP 111/69; PULSE 103; RESP 22; TEMP 36.8; O2SAT 97
[2023-08-07 18:20] LABS: Adenovirus,PCR Not Detected (NotDetected); Coronavirus 19, PCR Not Detected (NotDetected); Coronavirus 229E Not Detected (NotDetected); Coronavirus NL63 Not Detected (NotDetected); Coronavirus OC43 Not Detected (NotDetected); Coronovirus HKU1,PCR Not Detected (NotDetected); Human Metapneumovirus Not Detected (NotDetected); Influenza A, PCR Not Detected (NotDetected); Influenza AH1, 2009 Not Detected (NotDetected); Influenza AH1, PCR Not Detected (NotDetected); Influenza AH3,PCR Not Detected (NotDetected); Influenza B, PCR Not Detected (NotDetected); Parainfluenza 1, PCR Not Detected (NotDetected); Parainfluenza 2, PCR Not Detected (NotDetected); Parainfluenza 3, PCR Not Detected (NotDetected); Parainfluenza 4, PCR Not Detected (NotDetected); Respiratory Syncytial Virus Not Detected (NotDetected); Rhinovirus/Enterovirus Not Detected (NotDetected)
== END 2023-08-07 18:17 | disposition home or self-care (01) ==
PROVIDERS: Emergency Provider Nurse Practitioner; PCP Nurse Practitioner Family
DX: R11.2 Nausea with vomiting, unspecified (principal); R19.7 Diarrhea, unspecified; R51.9 Headache, unspecified; R68.83 Chills (without fever); R42 Dizziness and giddiness; M79.18 Myalgia, other site; F17.290 Nicotine dependence, other tobacco product, uncomplicated; E11.9 Type 2 diabetes mellitus without complications; J45.909 Unspecified asthma, uncomplicated
CPT/HCPCS: 87632; 87635; 87804; 99212; 99214; G0463

== ENCOUNTER → 2023-08-08 11:49 | Outpatient (CLI) | payer MEDICAID, SELFPAY ==
[2023-08-08 17:26] LABS: Basophils # 0.1 K/mm3 (0-0.2); Basophils % 0.8 % (0.1-2.0); Eosinophils # 0.1 K/mm3 (0.0-0.4); Eosinophils % 2.1 % (0.1-12.0); Hemoglobin 12.7 g/dL (12.2-16.2); Lymphocytes # 2.9 K/mm3 (0.7-4.5); Lymphocytes % 45.1 % (10-50); Mean Corpuscular HGB Conc 33.3 g/dL (31.8-35.4); Mean Corpuscular Hemoglobin 29.2 pg (27.0-31.2); Mean Corpuscular Volume 87.7 fl (81-99); Mean Platelet Volume 7.6 fl (7.4-10.4); Monocytes # 0.5 K/mm3 (0.1-1.0); Monocytes % 7.4 % (1.7-9.3); Neutrophils # 2.9 K/mm3 (1.8-7.8); Neutrophils % 44.6 % (37.0-80.0); Platelet Count 331 K/mm3 (142-424); Red Blood Count 4.34 M/mm3 (4.20-5.40); Red Cell Distribution Width 13.5 % (11.5-17.5); White Blood Count 6.4 K/mm3 (4.8-10.8)
[2023-08-08 17:37] LABS: Alanine Aminotransferase 33 U/L (12-78); Albumin Level 4.1 g/dl (3.5-5.0); Albumin/Globulin Ratio 1.4 (1.1-1.8); Alkaline Phosphatase 81 U/L (38-126); Amylase 38 U/L (30-110); Anion Gap 12.8 mEq/L (5-15); Aspartate Amino Transferase 34 U/L (14-36); Bilirubin,Total 0.2 mg/dl (0.2-1.3); Blood Urea Nitrogen 12 mg/dl (7-17); Calcium 8.4 mg/dl (8.4-10.2); Carbon Dioxide 26 mmol/L (22.0-30.0); Chloride 105 mmol/L (98-107); Estimated Glomerular Filt Rate 94 ml/min (>60); GFR (African American) 113 ML/MIN (>60); Globulin 2.9 g/dL (1.3-3.2); Glucose 100 mg/dl (74-100); Lipase 32 U/L (23-300); Potassium 3.8 mmoL/L (3.5-5.1); Sodium 140 mmol/L (136-145)
== END ==
PROVIDERS: PCP Nurse Practitioner Family; Visit Provider Nurse Practitioner Family
DX: R10.10 Upper abdominal pain, unspecified (principal); R11.2 Nausea with vomiting, unspecified; R19.7 Diarrhea, unspecified; R50.9 Fever, unspecified
CPT/HCPCS: 80053; 82150; 83690; 85025

== ENCOUNTER 2023-08-09 14:49 | Emergency (ER) | payer MEDICAID, SELFPAY ==
[2023-08-09 14:54] VITALS: BP 114/78; PULSE 95; RESP 18; TEMP 36.7; O2SAT 97; BMI 30.7
--- NOTE | 2023-08-09 15:15 | HMH.EDGENADL ---
Discharge Plan Disposition Patient Disposition: Home, Self-Care Prescriptions Prescriptions: No Action paroxetine HCl 30 mg tablet 30 mg PO DAILY 30 Days Qty: 30 2RF meloxicam 15 mg tablet 15 mg PO DAILY Qty: 30 2RF phentermine 37.5 mg tablet 37.5 mg PO DAILY 30 Days Qty: 30 0RF Rx Instructions: must administer 30 minutes before or 1-2 hours after breakfast methocarbamol 750 mg tablet 750 mg PO HS Patient Comments: TAKE 1 TABLET BY MOUTH THREE TIMES DAILY hyoscyamine sulfate 0.125 mg tablet, sublingual 0.125 mg PO Q4H PRN (Reason: .) Patient Comments: DISSOLVE 1 TABLET UNDER THE TONGUE EVERY 4 HOURS NEEDED hydroxyzine HCl 25 mg tablet 25 mg PO TID Patient Comments: TAKE 1 TABLET BY MOUTH THREE TIMES DAILY albuterol sulfate [Ventolin HFA] 90 mcg/actuation HFA aerosol inhaler 2 puff inhalation Q6H PRN (Reason: Pain (Scale Score 1-3)) budesonide-formoterol [Symbicort] 160-4.5 mcg/actuation HFA aerosol inhaler 2 puff inhalation BID PRN (Reason: soa) famotidine 40 mg tablet 40 mg PO DAILY 30 Days Qty: 30 2RF (DME) FreeStyle Lite Strips Strip See Rx Instructions .Route Qty: 50 6RF Rx Instructions: As directed daily (DME) lancets [FreeStyle Lancets] 28 gauge misc See Rx Instructions .Route Qty: 100 0RF Rx Instructions: As directed daily promethazine 12.5 mg tablet 12.5 mg PO TID PRN (Reason: nausea and vomiting) Qty: 10 0RF Referrals Follow up/Referrals: Tammy Matamoros APRN [Primary Care Provider] - See instructions Activity Restrictions/Add. Instructions Additional Instructions/Restrictions: Call your family doctor to establish care for this visit to the emergency department and schedule follow-up within 48 hours to ensure improvement. If you have any worsening of your condition or any other concerning signs or symptoms, return to the emergency department or your primary care doctor for further evaluation. Clinical Impressions Clinical Impression: Gastroenteritis Instructions Patient Instructions: DI for Diarrhea and Traveler's Diarrhea -- Adult, DI for Diarrhea and Traveler's Diarrhea -- Child, DI for Nausea -- Adult, DI for Nausea -- Child Discharge ED Provider: Francisco Jones General Adult HPI General Chief complaint: Nausea/Vomiting/Diarrhea Stated complaint: iv fluids v/d cold chills Time Seen by Provider: 08/09/23 14:54 Mode of Arrival: Ambulatory Source of Information: Patient Limitations: No Limitations Description of Symptoms (Recalled from ER Triage Doc. by RN): n/v/d x5 days. chills body aches History of Present Illness HPI narrative: 37-year-old female relevant history presenting with nausea, vomiting, diarrhea. Started 5 days prior. Nonbloody, nonbilious, non-mucousy. Patient has not had any urinary symptoms. Saw her PCP and urgent care, extensive workup including viral swabs, urine, labs unremarkable. Patient presents out of concern for dehydration with stool sample at bedside. Able to tolerate p.o. intake, but states any p.o. intake associated with diarrhea. Related Data Home Medications Medication Instructions Recorded Confirmed albuterol sulfate 90 mcg/actuation 2 puff inhalation Q6H PRN Pain 06/17/23 07/25/23 aerosol inhaler (Ventolin HFA) (Scale Score 1-3) budesonide-formoterol HFA 160 2 puff inhalation BID PRN soa 06/17/23 07/25/23 mcg-4.5 mcg/actuation aerosol inhaler (Symbicort) hydroxyzine HCl 25 mg tablet 25 mg PO TID 06/17/23 07/25/23 hyoscyamine sulfate 0.125 mg 0.125 mg PO Q4H PRN . 06/17/23 07/25/23 sublingual tablet methocarbamol 750 mg tablet 750 mg PO HS 06/17/23 07/25/23 Previous Rx's Medication Instructions Recorded famotidine 40 mg tablet 40 mg PO DAILY 30 days #30 tabs 07/11/23 blood sugar diagnostic (FreeStyle #50 ea 07/15/23 Lite Strips) lancets 28 gauge (FreeStyle #100 ea 07/15/23 Lancets) meloxicam 15 mg tablet 15 mg PO DAILY #30 t
[2023-08-09 15:19] LABS: Adenovirus F 40/41, stool Not Detected (NotDetected); Astrovirus Not Detected (NotDetected); Campylobacter Not Detected (NotDetected); Clostridium Difficile A/B, PCR Not Detected (NotDetected); Cryptosporidium Not Detected (NotDetected); Cyclospora Cayetanesis Not Detected (NotDetected); Entamoeba histolytica Not Detected (NotDetected); Enteroaggregative E coli Not Detected (NotDetected); Enteropathogenic E coli Not Detected (NotDetected); Enterotoxigenic E coli Not Detected (NotDetected); Giardia lamblia Not Detected (NotDetected); Norovirus Not Detected (NotDetected); Plesimonas Shigalloides, PCR Not Detected (NotDetected); Rotavirus A Not Detected (NotDetected); Salmonella, PCR Not Detected (NotDetected); Sapovirus Not Detected (NotDetected); Shiga-like toxin E coli Not Detected (NotDetected); Shigella Enterovasive E coli Not Detected (NotDetected); Vibrio Cholerae Not Detected (NotDetected); Vibrio, PCR Not Detected (NotDetected); Yersinia Entercolitica, PCR Not Detected (NotDetected)
[2023-08-09 15:28] LABS: Basophils % 0.6 % (0.1-2.0); Chloride 107 mmol/L (98-107); Eosinophils # 0.1 K/mm3 (0.0-0.4); Eosinophils % 1.7 % (0.1-12.0); Hemoglobin 12.1 g/dL (12.2-16.2); Lymphocytes # 2.5 K/mm3 (0.7-4.5); Lymphocytes % 42.4 % (10-50); Mean Corpuscular HGB Conc 34.5 g/dL (31.8-35.4); Mean Corpuscular Hemoglobin 29.7 pg (27.0-31.2); Mean Corpuscular Volume 86.1 fl (81-99); Mean Platelet Volume 7.6 fl (7.4-10.4); Monocytes # 0.3 K/mm3 (0.1-1.0); Monocytes % 5.1 % (1.7-9.3); Neutrophils # 2.9 K/mm3 (1.8-7.8); Neutrophils % 50.1 % (37.0-80.0); Platelet Count 317 K/mm3 (142-424); Potassium 3.2 mmoL/L (3.5-5.1); Red Blood Count 4.07 M/mm3 (4.20-5.40); Red Cell Distribution Width 13.5 % (11.5-17.5); Sodium 140 mmol/L (136-145); White Blood Count 5.8 K/mm3 (4.8-10.8)
[2023-08-09 15:30] LABS: Alanine Aminotransferase 61 U/L (12-78); Aspartate Amino Transferase 56 U/L (14-36); Blood Urea Nitrogen 8 mg/dl (7-17); Creatinine Clearance Estimated 208 mL/min (50-200); Estimated Glomerular Filt Rate 138 ml/min (>60); GFR (African American) 167 ML/MIN (>60)
[2023-08-09 15:31] LABS: Albumin Level 3.9 g/dl (3.5-5.0); Albumin/Globulin Ratio 1.4 (1.1-1.8); Alkaline Phosphatase 76 U/L (38-126); Anion Gap 9.2 mEq/L (5-15); Bilirubin,Total 0.4 mg/dl (0.2-1.3); Calcium 8.1 mg/dl (8.4-10.2); Carbon Dioxide 27 mmol/L (22.0-30.0); Globulin 2.8 g/dL (1.3-3.2); Glucose 103 mg/dl (74-100); Lipase 24 U/L (23-300); Total Protein,Serum 6.7 g/dl (6.3-8.2)
[2023-08-09 15:50] LABS: HCG,Quantitative < 2 mIU/ml (0-5.42)
[2023-08-09 16:25] VITALS: BP 115/53; PULSE 83; RESP 20; O2SAT 98
[2023-08-09 16:30] VITALS: BP 106/68; PULSE 84; RESP 20; O2SAT 98
[2023-08-09 17:00] VITALS: BP 112/72; PULSE 82; O2SAT 97
--- NOTE | 2023-08-09 18:05 | PC.NURSE ---
covid/flu swab sent to lab
[2023-08-09 18:10] LABS: Coronavirus 19, PCR Not Detected (NotDetected); Influenza A, PCR Not Detected (NotDetected); Influenza B, PCR Not Detected (NotDetected)
--- NOTE | 2023-08-09 18:29 | PC.NURSE ---
pt to restroom
--- NOTE | 2023-08-09 18:34 | PC.NURSE ---
pt back to room
[2023-08-09 18:40] VITALS: BP 129/80; PULSE 78; RESP 18; TEMP 36.8; O2SAT 96
== END 2023-08-09 18:42 | disposition home or self-care (01) ==
PROVIDERS: Emergency Provider Emergency Medicine; PCP Nurse Practitioner Family
DX: K52.9 Noninfective gastroenteritis and colitis, unspecified (principal); R11.2 Nausea with vomiting, unspecified; R19.7 Diarrhea, unspecified; E11.9 Type 2 diabetes mellitus without complications; J45.909 Unspecified asthma, uncomplicated
CPT/HCPCS: 80053; 83690; 84702; 85025; 87506; 87636; 96361; 96365; 96375; 99285; J2405; J3475

== ENCOUNTER 2023-09-05 13:43 | Outpatient (CLI) | payer MEDICAID, SELFPAY ==
[2023-09-05 15:52] LABS: Amphetamine/Metha Screen,Urine Negative ng/ml (<1000); Benzodiazepines Screen,Urine Negative ng/ml (<200)
[2023-09-05 15:53] LABS: Barbiturates Screen,Urine Negative ng/ml (<200)
[2023-09-05 15:54] LABS: Cannabinoid Screen,Urine Negative ng/ml (<50)
[2023-09-05 16:07] LABS: Methadone Screen,Urine Negative ng/ml (<300); Phencyclidine Screen,Urine Negative ng/ml (<25)
[2023-09-05 16:08] LABS: Cocaine Screen,Urine Negative ng/ml (<300)
[2023-09-05 17:28] LABS: Opiate Screen,Urine Negative ng/ml (<300)
== END 2023-09-05 23:59 ==
LOC: LAB.DROPOF 13:44
PROVIDERS: PCP Nurse Practitioner Family; Visit Provider Nurse Practitioner Family
DX: Z79.899 Other long term (current) drug therapy (principal)
CPT/HCPCS: 80307

== ENCOUNTER 2023-10-03 12:27 | Outpatient (CLI) | payer MEDICAID, SELFPAY ==
[2023-10-03 14:02] LABS: Hemoglobin A1C 5.7 % (4.0-6.0)
[2023-10-03 14:59] LABS: Thyroid Stimulating Hormone 0.78 uIU/mL (0.465-4.68)
[2023-10-03 15:04] LABS: Ferritin 14.8 ng/ml (6.24-137)
[2023-10-03 16:37] LABS: Vitamin B12 301 pg/mL (239-931)
[2023-10-07 12:24] LABS: Antinuclear Antibodies (ANA) Negative
== END 2023-10-03 23:59 ==
LOC: LAB.DROPOF 12:28
PROVIDERS: PCP Nurse Practitioner Family; Visit Provider Nurse Practitioner Family
DX: R20.0 Anesthesia of skin (principal); R20.2 Paresthesia of skin; R63.5 Abnormal weight gain; Z13.1 Encounter for screening for diabetes mellitus; Z79.899 Other long term (current) drug therapy
CPT/HCPCS: 82607; 82728; 83036; 84443; 86038; 86140

== ENCOUNTER 2023-10-07 16:57 | Emergency (ER) | payer MEDICAID, SELFPAY ==
[2023-10-07 18:05] VITALS: BP 146/96; PULSE 136; RESP 21; TEMP 37.2; O2SAT 99; BMI 31.3
[2023-10-07 18:27] LABS: UTC Strep Screen (Rapid) Negative (Negative)
--- NOTE | 2023-10-07 18:37 | ED_ITS ---
Discharge Plan Disposition Patient Disposition: Home, Self-Care Condition: Good Prescriptions Prescriptions: New gzyfjbwfxwlglge-sylvhadxq-TP [Bromfed DM] 2-30-10 mg/5 mL Syrup 10 ml PO Q4H PRN (Reason: Cough) Qty: 150 0RF No Action tizanidine 2 mg tablet 2 mg PO TID PRN (Reason: muscle spasticity) 30 Days Qty: 90 1RF Wegovy 0.25 mg/0.5 mL pen injector 0.25 mg SQ WEEKLY 30 Days Qty: 2.5 0RF Rx Instructions: administer weeks 1 through 4 of therapy hyoscyamine sulfate 0.125 mg tablet, sublingual 0.125 mg PO Q4H PRN (Reason: .) Patient Comments: DISSOLVE 1 TABLET UNDER THE TONGUE EVERY 4 HOURS NEEDED hydroxyzine HCl 25 mg tablet 25 mg PO TID Patient Comments: TAKE 1 TABLET BY MOUTH THREE TIMES DAILY albuterol sulfate [Ventolin HFA] 90 mcg/actuation HFA aerosol inhaler 2 puff inhalation Q6H PRN (Reason: Pain (Scale Score 1-3)) budesonide-formoterol [Symbicort] 160-4.5 mcg/actuation HFA aerosol inhaler 2 puff inhalation BID PRN (Reason: soa) famotidine 40 mg tablet 40 mg PO DAILY 30 Days Qty: 30 2RF paroxetine HCl 30 mg tablet 30 mg PO DAILY 30 Days Qty: 30 2RF (DME) FreeStyle Lite Strips Strip See Rx Instructions .Route Qty: 50 6RF Rx Instructions: As directed daily (DME) lancets [FreeStyle Lancets] 28 gauge misc See Rx Instructions .Route Qty: 100 0RF Rx Instructions: As directed daily Referrals Follow up/Referrals: Tammy Matamoros APRN [Primary Care Provider] - See instructions Activity Restrictions/Add. Instructions Additional Instructions/Restrictions: *Monitor Temp, Over the counter Motrin or Tylenol as directed/as needed Tylenol every 4 hours and Motrin every 6 hours (as long as your family doctor has told you that you can take it) for fever or pain. and straight to ER if unable to lower temp less than 101.0 after medication given *Warm salt water gargles may help to soothe the throat *Throat Lozenges? *Warm fluids like tea with honey may help to soothe the throat? *Sleep elevated *Humidifier/Vaporizer Your throat swab was sent for culture. Those results are typically sent to your primary care. Be sure to follow up in 2-3 days with your family doctor/primary care physician if no improvement so they can review those result and treat if necessary. If you don?t have a primary care doctor, I recommend you get one but in the mean time, you will have to return to a walk in clinic Follow up IMMEDIATELY for new or worsening symptoms or no Noticeable improvement over the next 48-72 hours. 911 for difficulty breathing or swallowing You were tested for today for Upper Respiratory Panel with COVID19 your test result should be back in the next 24 hours, you may check your results on the [facility] if your COVID test is positive you must Quarantine for 5 days Clinical Impressions Clinical Impression: Viral syndrome Instructions Patient Instructions: DI for Viral Syndrome, DI for COVID-19 (Suspected or Confirmed ) Discharge ED Provider: Bernarda Edouard [facility] [place] General Stated complaint: exposed to covid-body aches cough, weak Mode of Arrival: Ambulatory Source of Information: Patient Limitations: No Limitations Time Seen by Provider: 10/07/23 18:37 Description of Symptoms (Recalled from Triage Doc. by RN): PATIENT C/O HEADACHE AND SORE THROAT, REPORTS COVID EXPOSURE HEENT Symptoms (Recalled from RN notes): Yes Resp Symptoms (Recalled from RN notes): No Skin Symptoms (Recalled from RN notes): No MS Symptoms (Recalled from RN notes): No Functional Status (Recalled from RN notes): WNL History of Present Illness Provider Complaint: Patient states that tested positive for COVID yesterday and she woke up today with body aches, chills, sore throat and headache States that this evening she was still feeling bad so she came in to get checked Related Data Home Medications Medication Instructions Recorded Confirmed albuterol sulfate 90 mcg/actuation 2 puff inhalation Q6H PRN Pain 06/17/23 10/03/23 aerosol inhaler (Ventolin HFA) (Scale Score 1-3) budesonide-formoterol HFA 160 2 puff inhalation BID PRN soa 06/17/23 10/03/23 mcg-4.5 mcg/actuation aerosol inhaler (Symbicort) hydroxyzine HCl 25 mg tablet 25 mg PO TID 06/17/23 10/03/23 hyoscyamine sulfate 0.125 mg 0.125 mg PO Q4H PRN . 06/17/23 10/03/23 sublingual tablet Previous Rx's Medication Instructions Recorded famotidine 40 mg tablet 40 mg PO DAILY 30 days #30 tabs 07/11/23 blood sugar diagnostic (FreeStyle #50 ea 07/15/23 Lite Strips) lancets 28 gauge (FreeStyle #100 ea 07/15/23 Lancets) paroxetine HCl 30 mg tablet 30 mg PO DAILY 30 days #30 tabs 09/05/23 semaglutide (weight loss) 0.25 0.25 mg (0.5 mL) SQ WEEKLY 30 days 10/03/23 mg/0.5 mL subcutaneous pen #2.5 mL injector (Zachariah) tizanidine 2 mg tablet 2 mg PO TID PRN muscle spasticity 10/03/23 30 days #90 tabs wesiakuowkwlzjt-mkcmygpoqabrvdk-ZZ 10 ml PO Q4H PRN Cough #150 mL 10/07/23 2 mg-30 mg-10 mg/5 mL oral syrup (Bromfed DM) Allergies Allergy/AdvReac Type Severity Reaction Status Date / Time amoxicillin [AMOXICILLIN] Allergy Intermediate I-HIVES Verified 10/03/23 09:49 clavulanic acid Allergy Intermediate I-HIVES Verified 10/03/23 09:49 [From AUGMENTIN] latex Allergy Verified 10/03/23 09:49 nicotine Allergy Verified 10/03/23 09:49 Worker's Comp Is this a Worker's Comp case?: No [facility] Disclaimer: The information contained in this section may have been updated after the patient was seen, as this information can be updated by other users. 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 Anemia Anxiety Asthma Depression Diabetes mellitus, type 2 Urinary tract infection Surgical History History of appendectomy History of section History of cholecystectomy History of tubal ligation Social History (Reviewed 10/03/23 @ 09:49 by KUSHAL Peter Smoking Status: Never smoker second hand exposure: No alcohol intake: never substance use type: denies use current occupational status: employed Travel in the last 8 weeks: None household members: family housing: house ROS Obtained: Yes All systems reviewed & no additional complaints except as documented and Yes Systems reviewed as appropriate & no additional complaints except as documented Constitutional Constitutional: Reports system reviewed and no additional complaints, except as documented, Reports as per HPI, Reports body ache, Reports chills and Reports headache(s) ENT Ears, Nose, Mouth, and Throat: Reports system reviewed and no additional complaints, except as documented, Reports as per HPI, Reports headache(s) and Reports nasal congestion Cardiovascular Cardiovascular: Reports system reviewed and no additional complaints, except as documented and Reports as per HPI Respiratory Respiratory: Reports system reviewed and no additional complaints, except as documented and Reports as per HPI Gastrointestinal Gastrointestingal: Reports system reviewed and no additional complaints, except as documented and as per HPI Neurologic Neurologic: Reports headache(s) Physical Exam General General appearance: alert and in no apparent distress ENT ENT exam: Present mucous membranes moist Respiratory Respiratory exam: Present normal lung sounds bilaterally; Absent respiratory distress or wheezes Cardiovascular Cardiovascular exam: Present regular rate, normal rhythm and tachycardia Neurological Exam Neurological exam: Present alert, oriented X3 and normal gait Medical Decision Making Jacob Inquiry Pt receiving controlled substance: No Jacob was queried for this patient: No Vital Signs: 10/07/23 18:05 Temperature 99.0 F Temperature Source Oral Pulse Rate [Left Brachial] 136 H Respiratory Rate 21 Blood Pressure [Left Arm] 146/96 H Blood Pressure Mean [Left Arm] 112 Blood Pressure Source [Left Arm] Automatic Cuff Blood Pressure Position [Left Arm] Sitting 02 Sat by Pulse Oximetry 99 Oxygen Delivery Method Room Air Lab Data Lab Results 10/07/23 18:13: Strep Scn Rapid Clinic Negative Orders (Tests/Meds): ORDERS Category Date Time Status Covid-19 Nasal PCR ([facility]) Routine Lab 10/07/23 18:03 Received Strep Screen Confirmation Stat Micro 10/07/23 18:13 Received Medical Decision Narrative: Patient states that she has take bromfed in the past without complications or reactions
[2023-10-07 18:41] VITALS: BP 146/96; PULSE 136; RESP 21; TEMP 37.2; O2SAT 99
== END 2023-10-07 18:50 | disposition home or self-care (01) ==
PROVIDERS: Emergency Provider Nurse Practitioner; PCP Nurse Practitioner Family
DX: U07.1 COVID-19 (principal); R05.9 Cough, unspecified; R51.9 Headache, unspecified; R07.0 Pain in throat; R09.81 Nasal congestion; E11.9 Type 2 diabetes mellitus without complications; J45.909 Unspecified asthma, uncomplicated
CPT/HCPCS: 87635; 87880; 99212; 99214; G0463

== ENCOUNTER 2023-11-05 10:21 | Outpatient (CLI) | payer MEDICAID, SELFPAY ==
--- NOTE | 2023-11-05 10:26 | US_ITS ---
PROCEDURE: US TRANSVAGINAL CLINICAL INDICATION: AUB and Endometriosis COMPARISON: No exams were available for comparison FINDINGS: Transvaginal sonographic images of the pelvis were obtained. UTERUS: 9.1cm x 5.6 cmx 4.2cm anteverted with a combined endometrial thickness of 4.6mm. A scar is seen. There are several small hyperechoic areas along the endometrium. LEFT OVARY: 1.4cmx1.6 cmx1.0cm with a volume of 1.3ml. RIGHT OVARY: 1.9 cmx 1.3cmx1.2cm with a volume of 1.6ml. Both ovaries are seen and appear normal. Doppler flow to both ovaries are seen. There is no fluid in the cul-de-sac. IMPRESSION: 1. Anteverted bulky uterus. The endometrium is thin. Adjacent to the endometrium there are several small hyperechoic areas. 2. Both ovaries are seen and appear normal. 3. No fluid in the cul-de-sac. Dictated by: Arya Estrada MD 11/05/2023 16:30 Arya Estrada MD in [place] 11/05/2023 16:30
== END 2023-11-05 23:59 ==
LOC: RAD 10:22
PROVIDERS: PCP Nurse Practitioner Family; Visit Provider Obstetrics & Gynecology
DX: N93.9 Abnormal uterine and vaginal bleeding, unspecified (principal); N80.9 Endometriosis, unspecified
CPT/HCPCS: 76830

== ENCOUNTER 2023-11-07 16:41 | Outpatient (CLI) | payer MEDICAID, SELFPAY ==
[2023-11-07 15:30] LABS: Alanine Aminotransferase 23 U/L (12-78); Albumin Level 4.4 g/dl (3.5-5.0); Albumin/Globulin Ratio 1.5 (1.1-1.8); Alkaline Phosphatase 91 U/L (38-126); Aspartate Amino Transferase 24 U/L (14-36); Bilirubin,Total 0.4 mg/dl (0.2-1.3); Blood Urea Nitrogen 12 mg/dl (7-17); Calcium 9.2 mg/dl (8.4-10.2); Carbon Dioxide 22 mmol/L (22.0-30.0); Chloride 107 mmol/L (98-107); Chol/HDL Ratio 5.5 (1-3.5); Cholesterol 221 mg/dl (140-200); Estimated Glomerular Filt Rate 111 ml/min (>60); GFR (African American) 135 ML/MIN (>60); Glucose 90 mg/dl (74-100); HDL Cholesterol 40 mg/dl (40-60); Sodium 137 mmol/L (136-145); Total Protein,Serum 7.4 g/dl (6.3-8.2); Triglycerides 236 mg/dl (30-150); VLDL Cholesterol 47 mg/dL (0-40)
[2023-11-07 15:34] LABS: Hemoglobin A1C 5.9 % (4.0-6.0)
[2023-11-07 15:41] LABS: Direct LDL Cholesterol 123.72 mg/dL (100-129)
[2023-11-07 16:02] LABS: Thyroid Stimulating Hormone 0.61 uIU/mL (0.465-4.68)
[2023-11-07 16:21] LABS: Vitamin B12 305 pg/mL (239-931)
== END 2023-11-07 23:59 ==
LOC: LAB.DROPOF 16:42
PROVIDERS: PCP Nurse Practitioner Family; Visit Provider Nurse Practitioner Family
DX: E11.9 Type 2 diabetes mellitus without complications (principal); F41.9 Anxiety disorder, unspecified; Z79.85 Long-term (current) use of injectable non-insulin antidiabetic drugs
CPT/HCPCS: 80053; 80061; 82607; 83036; 84443

== ENCOUNTER 2023-11-25 08:42 | Outpatient (CLI) | payer MEDICAID, SELFPAY ==
--- NOTE | 2023-11-25 08:42 | XR_ITS ---
FINAL REPORT CLINICAL HISTORY: Hx of Osteoporosis COMPARISON: None FINDINGS: Using L1-4, the bone mineral density of the spine is 1.155 g/cm2, corresponding to T-score of 1.0 which is within normal limits. Using the left hip, the bone mineral density of the femoral neck is 0.856 g/cm2, corresponding to a T-score of 0.1 which is within normal limits. Using the right hip, the bone mineral density of the femoral neck is 0.800 g/cm2, corresponding to a T-score of -0.4 which is within normal limits. FRAX not reported because all T-scores at or above -1.0. NOTE: T-score: Standard deviation compared with peak bone mass of young adult mean. *Following the recommendations of the International Society of Bone densitometry, classification of hip BMD is based on the lower of two T-scores; total hip or femoral neck. IMPRESSION: Normal bone mineral density of the lumbar spine and hips. Reviewed, Interpreted and Dictated by Tyrone Simeon III, MD Transcribed by Holly Rachel Authenticated and [facility]
== END 2023-11-25 23:59 ==
LOC: RAD 08:42
PROVIDERS: PCP Nurse Practitioner Family; Visit Provider Obstetrics & Gynecology
DX: Z87.39 Personal history of other diseases of the musculoskeletal system and connective tissue (principal)
CPT/HCPCS: 77080

== ENCOUNTER 2024-01-07 16:50 | Emergency (ER) | payer MEDICAID, SELFPAY ==
[2024-01-07 16:51] VITALS: BP 138/89; PULSE 100; RESP 20; TEMP 36.8; O2SAT 97; BMI 31.9
[2024-01-07 16:57] VITALS: BP 138/89; PULSE 96; O2SAT 97
[2024-01-07 17:00] VITALS: BP 135/82; PULSE 93; O2SAT 97
[2024-01-07 17:30] VITALS: BP 110/86; PULSE 87; O2SAT 97
[2024-01-07] MEDS: KETOROLAC 30MG/ML VIAL 30 MG IM (17:37)
[2024-01-07] MEDS: OXYCODONE 5MG IMMEDIATE RELEASE TABLET 5 MG PO (17:37)
[2024-01-07 18:15] LABS: Microscopic, Urine URINE MICROSCOPIC (MICROSCOPIC)
[2024-01-07 18:20] LABS: Appearance,Urine CLEAR (Clear); Bilirubin,Urine Negative (Negative); Blood, Urine Negative (Negative); Color,Urine YELLOW (Yellow); Glucose,Urine (UA) Negative (Negative); Ketones,Urine Negative (Negative); Leukocyte Esterase,Urine Negative (Negative); Nitrate,Urine Negative (Negative); Protein,Urine Negative (Negative); Specific Gravity, Urine >= 1.030 (1.005-1.030); Urobilinogen,Urine 0.2 EU/dl (0.2)
--- NOTE | 2024-01-07 18:29 | HMH.EDGENADL ---
Discharge Plan Disposition Patient Disposition: Home, Self-Care Condition: Good Prescriptions Prescriptions: New ketorolac 10 mg tablet 10 mg PO Q8H PRN (Reason: pain) 1 Days Qty: 20 0RF oxycodone 5 mg tablet 5 mg PO Q8H PRN (Reason: pain) Qty: 10 0RF No Action tizanidine 4 mg tablet 1 mg PO TID PRN (Reason: muscle spasticity) 30 Days Qty: 90 1RF meloxicam 15 mg tablet 15 mg PO DAILY Qty: 30 0RF prednisone 5 mg tablets,dose pack 5 mg PO DIRECTED Qty: 21 0RF Rx Instructions: see taper instructions hyoscyamine sulfate 0.125 mg tablet, sublingual 0.125 mg PO Q4H PRN (Reason: .) Patient Comments: DISSOLVE 1 TABLET UNDER THE TONGUE EVERY 4 HOURS NEEDED albuterol sulfate [Ventolin HFA] 90 mcg/actuation HFA aerosol inhaler 2 puff inhalation Q6H PRN (Reason: Pain (Scale Score 1-3)) budesonide-formoterol [Symbicort] 160-4.5 mcg/actuation HFA aerosol inhaler 2 puff inhalation BID PRN (Reason: soa) famotidine 40 mg tablet 40 mg PO DAILY 30 Days Qty: 30 2RF escitalopram oxalate [Lexapro] 20 mg tablet 20 mg PO DAILY Qty: 30 1RF aripiprazole [Abilify] 5 mg tablet 5 mg PO QHS Qty: 30 1RF (DME) lancets [FreeStyle Lancets] 28 gauge misc See Rx Instructions .Route Qty: 100 0RF Rx Instructions: As directed daily Orilissa 150 mg tablet 150 mg PO DAILY Qty: 30 2RF Referrals Follow up/Referrals: Tammy Matamoros APRN [Primary Care Provider] - See instructions Activity Restrictions/Add. Instructions Additional Instructions/Restrictions: You were evaluated in the emergency department today. Please follow-up closely with your primary care provider. Also follow-up closely with your director internal communications. Return to the emergency department for new or worsening symptoms. Clinical Impressions Clinical Impression: Endometriosis, Chronic abdominal pain Instructions Patient Instructions: DI for Acute Abdominal Pain Discharge ED Provider: Almaz Gould General Adult HPI General Chief complaint: Abdominal Pain Stated complaint: sent by phys-abd pain Time Seen by Provider: 01/07/24 16:53 Mode of Arrival: Ambulatory Source of Information: Patient Limitations: No Limitations Description of Symptoms (Recalled from ER Triage Doc. by RN): pt has stage 4 endometriosis and has a hysterectomy scheduled next month with dr wray. pt is here today due to abd pain casued from endometriosis and has been going on for 6 days with no meds to keep it under control the only other s/s is nausea History of Present Illness HPI narrative: This patient is a 38-year-old female with a history of endometriosis and chronic pelvic pain presenting to the emergency department for evaluation with concern for a flare of her endometriosis pain. She states that she has had over 15 diagnostic laparoscopies for endometriosis in her life, and she is scheduled for hysterectomy for definitive management. She tried to follow-up with her director internal communications today, however her director internal communications is out of the office. She states that this flare is no different from prior flareups of pain, and she has no new features that are concerning to her. She is having pain mostly in her lower pelvis, which she states is around her ovaries. No other concerns noted at this time. Related Data Home Medications Medication Instructions Recorded Confirmed albuterol sulfate 90 mcg/actuation 2 puff inhalation Q6H PRN Pain 06/17/23 12/17/23 aerosol inhaler (Ventolin HFA) (Scale Score 1-3) budesonide-formoterol HFA 160 2 puff inhalation BID PRN soa 06/17/23 12/17/23 mcg-4.5 mcg/actuation aerosol inhaler (Symbicort) hyoscyamine sulfate 0.125 mg 0.125 mg PO Q4H PRN . 06/17/23 12/17/23 sublingual tablet Previous Rx's Medication Instructions Recorded famotidine 40 mg tablet 40 mg PO DAILY 30 days #30 tabs 07/11/23 lancets 28 gauge (FreeStyle #100 ea 07/15/23 Lancets) elagolix 150 mg tablet (Orilissa) 150 mg PO DAILY #30 tabs 11/05/23 aripiprazole 5 mg tablet (Abilify) 5 mg PO QHS #30 tabs 12/15/23 escitalopram oxalate 20 mg tablet 20 mg PO DAILY #30 tabs 12/15/23 (Lexapro) meloxicam 15 mg tablet 15 mg PO DAILY #30 tabs 12/15/23 prednisone 5 mg tablets in a dose 5 mg PO DIRECTED #21 tabs 12/15/23 pack tizanidine 4 mg tablet 1 mg (1/4 x 4 mg) PO TID PRN 12/15/23 muscle spasticity 30 days #90 tabs ketorolac 10 mg tablet 10 mg PO Q8H PRN pain 1 day #20 01/07/24 tabs oxycodone 5 mg tablet 5 mg PO Q8H PRN pain #10 tabs 01/07/24 Allergies Allergy/AdvReac Type Severity Reaction Status Date / Time amoxicillin [AMOXICILLIN] Allergy Intermediate I-HIVES Verified 12/17/23 10:41 clavulanic acid Allergy Intermediate I-HIVES Verified 12/17/23 10:41 [From AUGMENTIN] adhesive Allergy Mild Rash Verified 12/17/23 10:41 latex Allergy Verified 12/17/23 10:41 nicotine Allergy Verified 12/17/23 10:41 PFS PFS Disclaimer: The information contained in this section may have been updated after the patient was seen, as this information can be updated by other users. 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 Grief Bunion, right foot Depression Anxiety Anemia Urinary tract infection Diabetes mellitus, type 2 Asthma Surgical History History of hernia repair H/O laparoscopy History of tubal ligation History of cholecystectomy History of section History of appendectomy Family History Other No significant family history Social History Smoking Status: Former smoker tobacco type: e-cigarettes second hand exposure: No alcohol intake: never substance use type: denies use current occupational status: employed Travel in the last 8 weeks: None household members: family housing: house ROS Obtained: Yes All systems reviewed & no additional complaints except as documented Physical Exam General General appearance: alert and in no apparent distress Comment: Uncomfortable appearing Head Head exam: atraumatic and normocephalic Eye Eye exam: Present normal appearance, PERRL and EOMI ENT ENT exam: Present normal exam, normal oropharynx, mucous membranes moist and normal external ear exam Neck Neck exam: Present normal inspection, full ROM and trachea midline; Absent tenderness Chest Chest inspection: Present normal inspection and symmetric chest wall rise; Absent tenderness Respiratory Respiratory exam: Present normal lung sounds bilaterally; Absent respiratory distress, wheezes, stridor or accessory muscle use Cardiovascular Cardiovascular exam: Present regular rate and normal rhythm Abdominal Exam Abdominal exam: Present soft, distention (Mild), tenderness (Generalized), normal bowel sounds and scar (Multiple healed surgical scars); Absent guarding, rebound or rigidity Extremities Exam Extremities exam: Present normal inspection, full ROM and normal capillary refill; Absent tenderness or edema Back Exam Back exam: Present normal inspection and full ROM; Absent tenderness Neurological Exam Neurological exam: Present alert, oriented X3, CN II-XII intact and normal gait; Absent motor sensory deficit Psychiatric Psychiatric exam: Present normal affect and normal mood Skin Skin exam: Present warm and dry Medical Decision Making Medical Records Medical records reviewed: Yes I reviewed the patient's medical records. Jacob Inquiry Pt receiving controlled substance: Yes Jacob was queried for this patient: Yes Risks and benefits of using a controlled substance: were discussed with pt by me Vital Signs: 01/07/24 16:51 01/07/24 16:57 01/07/24 17:00 Temperature 98.3 F Temperature Source Oral Pulse Rate 96 H 93 H Pulse Rate [Right Radial] 100 H Respiratory Rate 20 Blood Pressure 138/89 135/82 Blood Pressure [Right Arm] 138/89 Blood Pressure Mean [Right Arm] 105 02 Sat by Pulse Oximetry 97 97 97 Oxygen Delivery Method Room Air 01/07/24 17:30 01/07/24 19:03 Temperature 98.0 F Temperature Source Pulse Rate 87 70 Pulse Rate [Right Radial] Respiratory Rate 20 Blood Pressure 110/86 110/70 Blood Pressure [Right Arm] Blood Pressure Mean [Right Arm] 02 Sat by Pulse Oximetry 97 Oxygen Delivery Method Room Air Room Air Lab Data Lab results reviewed: Yes I reviewed the patient's lab results. Lab Results 01/07/24 16:57: Urine Color Yellow, Urine Appearance Clear, Urine pH 6.0, Ur Specific [place] >= 1.030, Urine Protein Negative, Urine Glucose (UA) Negative, Urine Ketones Negative, Urine Blood Negative, Urine Nitrate Negative, Urine Bilirubin Negative, Urine Urobilinogen 0.2, Ur Leukocyte Esterase Negative, Urine RBC None, Urine WBC None, Ur Squamous Epith Cells 10-20, Urine Bacteria Trace, Urine Mucus Trace Orders (Tests/Meds): ED MEDICATIONS Discontinued Medications Generic Name Dose Route Start Last Admin Trade Name Ross PRN Reason Stop Dose Admin Ketorolac Tromethamine 30 mg 01/07/24 17:24 01/07/24 17:37 Ketorolac 30mg/Ml Vial IM 01/07/24 17:25 30 mg ONCE ONE Administration Oxycodone HCl 5 mg 01/07/24 17:26 01/07/24 17:37 Oxycodone 5mg Immediate Release Tablet PO 01/07/24 17:27 5 mg ONCE ONE Administration ORDERS Category Date Time Status UA [Urinalysis and Microscopic] Stat Lab 01/07/24 16:57 Completed Medical Decision Narrative: In summary, this patient is a 38-year-old female presenting to the Emergency Department for evaluation of severe pelvic pain in the setting of chronic endometriosis and multiple ex lap's. She is awaiting hysterectomy for definitive management.. Differential diagnoses considered include but are not limited to endometriosis, ovarian cyst, ovarian torsion, cystitis, pyelonephritis. Ruling out the most morbid conditions drove assessment. I reviewed patient's past medical records and noted evaluation by gynecology 12/13/23 which affirms patient's history. On exam, the patient is uncomfortable appearing with mild generalized abdominal tenderness and mild abdominal distention. I advised the patient we could obtain CT scan as well as ultrasound to evaluate for acute pathology given her worsening of pain, however she states that this is similar to prior flares of pain and does not feel that imaging or labs are necessary. Urinalysis was obtained, however. Patient was given oral oxycodone as well as IM Toradol for symptomatic improvement. I advised her that typically do not treat chronic pain in the emergency department, however she advises that her director internal communications is out of the office so she was sent in here for evaluation. She is currently trying to pursue appropriate avenue for treatment as an outpatient, and I reviewed Jacob which does not demonstrate recent fills of narcotic pain medication. Given the patient's significant pain related to endometriosis flareup, decision was made to give her a very brief course of oxycodone given she has tried conservative measures at home and is not chronically on controlled substances. I cautioned her that we do not generally prescribe narcotics from the ED. She expressed understanding agreement and is to follow-up closely with her primary care provider and director internal communications. Patient was discharged with very strict return precautions should her symptoms change and should she wish to pursue imaging or further workup Critical Care Critical Care Time Critical Care Time: No
[2024-01-07 18:39] LABS: Bacteria,Urine Trace /lpf; Mucus,Urine Trace /lpf
[2024-01-07 19:03] VITALS: BP 110/70; PULSE 70; RESP 20; TEMP 36.7; O2SAT 98
== END 2024-01-07 19:04 | disposition home or self-care (01) ==
PROVIDERS: Emergency Provider Emergency Medicine; PCP Nurse Practitioner Family
DX: N80.9 Endometriosis, unspecified (principal); R10.2 Pelvic and perineal pain
CPT/HCPCS: 81001; 96372; 99283

== ENCOUNTER 2024-01-14 10:43 | Outpatient (CLI) | payer MEDICAID, SELFPAY ==
[2024-01-14 11:15] LABS: Basophils # 0.1 K/mm3 (0-0.2); Basophils % 0.7 % (0.1-2.0); Eosinophils # 0.2 K/mm3 (0.0-0.4); Eosinophils % 2.2 % (0.1-12.0); Hematocrit 39.3 % (37.0-47.0); Hemoglobin 12.5 g/dL (12.2-16.2); Lymphocytes # 2.8 K/mm3 (0.7-4.5); Lymphocytes % 42.1 % (10-50); Mean Corpuscular HGB Conc 31.8 g/dL (31.8-35.4); Mean Corpuscular Hemoglobin 27.8 pg (27.0-31.2); Mean Corpuscular Volume 87.4 fl (81-99); Mean Platelet Volume 7.5 fl (7.4-10.4); Monocytes # 0.3 K/mm3 (0.1-1.0); Monocytes % 3.8 % (1.7-9.3); Neutrophils # 3.4 K/mm3 (1.8-7.8); Neutrophils % 51.2 % (37.0-80.0); Platelet Count 386 K/mm3 (142-424); Red Blood Count 4.49 M/mm3 (4.20-5.40); Red Cell Distribution Width 14.8 % (11.5-17.5); White Blood Count 6.7 K/mm3 (4.8-10.8)
== END 2024-01-14 23:59 | disposition home or self-care (01) ==
LOC: LAB 10:43
PROVIDERS: PCP Nurse Practitioner Family; Visit Provider Obstetrics & Gynecology
DX: N93.9 Abnormal uterine and vaginal bleeding, unspecified (principal)
CPT/HCPCS: 36415; 85025

== ENCOUNTER 2024-01-26 13:12 | Outpatient (CLI) | payer MEDICAID, SELFPAY ==
[2024-01-26 13:35] LABS: Basophils # 0.1 K/mm3 (0-0.2); Basophils % 0.8 % (0.1-2.0); Eosinophils # 0.1 K/mm3 (0.0-0.4); Eosinophils % 1.7 % (0.1-12.0); Hematocrit 36.7 % (37.0-47.0); Hemoglobin 12.1 g/dL (12.2-16.2); Lymphocytes # 3.3 K/mm3 (0.7-4.5); Lymphocytes % 42.5 % (10-50); Mean Corpuscular Hemoglobin 28.3 pg (27.0-31.2); Mean Platelet Volume 7.5 fl (7.4-10.4); Monocytes # 0.3 K/mm3 (0.1-1.0); Monocytes % 3.6 % (1.7-9.3); Neutrophils % 51.4 % (37.0-80.0); Platelet Count 352 K/mm3 (142-424); Red Blood Count 4.27 M/mm3 (4.20-5.40); Red Cell Distribution Width 14.7 % (11.5-17.5); White Blood Count 7.8 K/mm3 (4.8-10.8)
[2024-01-26 13:53] LABS: Alanine Aminotransferase 26 U/L (12-78); Albumin Level 4.2 g/dl (3.5-5.0); Albumin/Globulin Ratio 1.3 (1.1-1.8); Alkaline Phosphatase 88 U/L (38-126); Anion Gap 12.4 mEq/L (5-15); Aspartate Amino Transferase 26 U/L (14-36); Bilirubin,Total 0.2 mg/dl (0.2-1.3); Blood Urea Nitrogen 16 mg/dl (7-17); Calcium 9.4 mg/dl (8.4-10.2); Carbon Dioxide 26 mmol/L (22.0-30.0); Chloride 105 mmol/L (98-107); Estimated Glomerular Filt Rate 111 ml/min (>60); GFR (African American) 135 ML/MIN (>60); Globulin 3.3 g/dL (1.3-3.2); Glucose 113 mg/dl (74-100); Potassium 3.4 mmoL/L (3.5-5.1); Sodium 140 mmol/L (136-145); Total Protein,Serum 7.5 g/dl (6.3-8.2)
[2024-01-26 14:15] LABS: HCG,Quantitative < 2 mIU/ml (0-5.42)
== END 2024-01-26 23:59 | disposition home or self-care (01) ==
LOC: LAB 13:13
PROVIDERS: PCP Nurse Practitioner Family; Visit Provider Obstetrics & Gynecology
DX: N80.9 Endometriosis, unspecified (principal)
CPT/HCPCS: 36415; 80053; 84702; 85025; 86850

== ENCOUNTER 2024-01-28 06:35 | Observation (INO) | payer MEDICAID, SELFPAY ==
[2024-01-26 14:21] VITALS: BMI 32.3
[2024-01-28] VITALS (22 sets, daily range): BP systolic 101–138; BP diastolic 53–82; PULSE 72–132; RESP 12–22; TEMP 36.4–43; O2SAT 90–97; BMI 32.3
[2024-01-28 06:32] LABS: Urine Pregnancy, HCG Qual. Negative (Negative)
[2024-01-28] MEDS: LACTATED RINGERS 1000ML 1,000 ML 25 ML IV (06:38)
[2024-01-28 06:41] LABS: POC Glucose,Bedside 110 (70-110)
--- NOTE | 2024-01-28 07:02 | P.PNANES_ITS ---
[facility] Disclaimer: The information contained in this section may have been updated after the patient was seen, as this information can be updated by other users. 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 PCOS (polycystic ovarian syndrome) Endometriosis Grief Bunion, right foot Depression Anxiety Anemia Diabetes mellitus, type 2 Asthma Surgical History History of hernia repair H/O laparoscopy History of tubal ligation History of cholecystectomy History of section History of appendectomy Family History Other No significant family history Social History Smoking Status: Former smoker tobacco type: e-cigarettes second hand exposure: No alcohol intake: never substance use type: denies use current occupational status: employed Travel in the last 8 weeks: None household members: family housing: house [facility] Anesthesia Checklist Patient Identification Patient Identification: Arm Band and Verbal (Name & ) Structural Data Admitted From: Home Planned Operative Procedure/s: [facility] Verified Documents: Surgical Consent and History and Physical NPO Status Verified Time NPO: 00:00 Chart Verification Results Verified: CBC, BMP and HCG Additional verifications Anesthesia Reactions: No Hx Blood Transfusions: No Blood Transfusion Reaction: No Airway Assessment Mallampati Score:: Class III C-Spine Mobility Assessed: Yes TMJ Mobility Assessed: Yes Dentition: Good Dentition Neurological Assessment Level of Consciousness: Awake Hx Seizures: No Numbness or tingling in extremities: No Anesthesia Plan Anesthesia Risk discussed: Yes Anesthesia Plan: Verified ASA Class: II Anesthesia Type: General
--- NOTE | 2024-01-28 07:21 | HMH.PHAINT1 ---
Pharmacy Intervention Comments: MEDICATION RECONCILIATION COMPLETED ON PATIENT USING EXTERNAL FILL HISTORY FROM PHARMACY. -DAWN CAMPOS, MIRZAD
[2024-01-28] MEDS: ROPIVACAINE 0.5% 30ML VIAL 300 MG (08:14)
[2024-01-28] MEDS: METHYLENE BLUE 0.5% 10ML AMPULE 50 MG IV (08:14)
[2024-01-28] MEDS: LIDOCAINE 1% W/EPI 1:100,000 20ML VIAL 20 ML ×4 (08:14→09:12)
[2024-01-28] MEDS: CLINDAMYCIN PHOSPHATE/D5W 900 MG/50 ML PIGGYBACK 50 MG (08:14)
[2024-01-28] MEDS: METRONIDAZ/SOD CHL 500 MG/100 ML PIGGYBACK 50 MG IV (08:14)
--- NOTE | 2024-01-28 10:54 | P.PNANES_ITS ---
[facility] Anesthesia Record Part I Anesthesia Record I Intake, IV Amount: 1,400 Hydration: Adequate Estimated blood loss (mL): 100 Urine output (mL): 100 Blood Pressure: 112/82 SaO2: 96 Pulse Rate: 128 Airway Patency: Patent Respiratory Rate: 22 Temperature: 98 F Patient is:: Drowsy Stable to PACU at:: 10:50
[2024-01-28] MEDS: HYDROMORPHONE 2MG/ML SYRINGE 0.5 MG IV ×3 (11:17→11:27)
--- NOTE | 2024-01-28 12:06 | SUR.PHASEI ---
1209 Spoke with Chelsey in pharmacy due to incorrect waste amount recorded in [employer]. 0.25 was recorded when .5mg of Dilaudid was wasted by RN x2. was advised to make note to record where the rest of of the dose was wasted. Kalyn Orellana and Camilla Pierce to waste. patient was given a total of 1.5mg of Dilaudid for pain control.
--- NOTE | 2024-01-28 12:23 | EXP.OP.NOTE ---
Date of procedure: 01/28/24 Pre-op Diagnosis:: 1. Laparoscopy proven endometriosis 2. Dyspareunia 3. Dysmenorrhea 4. Chronic pelvic pain 5. Anxiety and depression Post-op Diagnosis:: 1. Laparoscopy proven endometriosis 2. Dyspareunia 3. Dysmenorrhea 4. Chronic pelvic pain 5. Anxiety and depression Procedure performed:: 1. Laparoscopic assisted vaginal hysterectomy 2. Right salpingo oophorectomy 3. Adhesiolysis 4. Cystoscopy Surgeon:: Frannie Zayas DO Occupational Health Specialist(s):: Arya Estrada MD COMPOSITION ROOFER:: [address] Anesthesia: GETA Estimated blood loss (mL): 100 Operative findings:: 1. Uterine EUA was significant for 10wk size uterus with regular borders at the fundus. Minimal mobility of the uterus. Minimal apical descent. No gross adnexal masses were appreciated. 2. Laparoscopic exam revealed normal anatomy.? There was significant scarring of the adnexa to the pelvic sidewall. There is scarring of the omentum to the anterior abdominal wall. There was significant scarring of the bladder to the anterior uterine surface. There was scarring from the rectum to the posterior uterine body. There was a small left ovarian cyst noted, the cyst was drained intraoperatively. There were significant endometriosis lesions on the ovaries bilaterally. No ovarian masses noted. No bowel injuries on entry. 3. Cystoscopy revealed brisk flow from both ureters Operative note:: Pt was taken back to the OR where GETA was obtained without difficulty. SCDs were placed and found to be working. The patient was placed in dorsal lithotomy position using yellow fin stirrups. The vagina and abdomen was prepped and draped in the normal sterile fashion. An in and out catheter was used to drain the bladder and methylene blue was instilled. Weighted speculum was inserted into the vagina to visualize the cervix. A single tooth tenaculum was used to grasp the anterior lip of the cervix and an acorn uterine manipulator was placed. Top gloves were removed and attention was turned to the abdominal portion.? Local anesthetic with epinephrine was injected infraumbilically, an 11mm infraumbilical incision was made sharply. Direct entry into the abdominal cavity was obtained with laparoscopic visualization. A intraabdominal pressure of 9mmHg was observed and CO2 gas was insufflated to create a pneumoperitoneum to a pressure of 15mmHg. The patient was placed in Trendelenburg to facilitate moving the bowel out of the operative field. A second 11mm incision was made to the left, lateral to the rectus muscles with attention to avoid vasculature. Trocar introduced under direct visualization. This process was repeated on the right. Brief abdominal exam revealed normal anatomy as described above with associated adhesions. Previously placed Falope-Rings were noted. The left fimbriated end of fallopian tube was significantly scarred to the pelvic sidewall and ovary. It was unable to be visualized and decision was made to evaluate it further after hysterectomy was completed. The left round ligament was grasped, coagulated, and transected. The round and broad ligaments were serially clamped, fulgurated, and transected with the LigaSure. Attention was given to stay proximal to the uterine body. The uterine artery was identified and coagulated. The vesicouterine peritoneum was dissected. Given the significant scarring and concern for cystotomy sharp dissection with laparoscopic rica were used to dissect the bladder flap. Attention was turned to the right. Secondary to significant scarring of the right ovary and remaining fallopian tubes to the pelvic sidewall decision was made to proceed with hysterectomy and return for right oophorectomy. The above process was repeated starting at the round ligament with the LigaSure. Vesicouterine peritoneal development and dissection was completed sharply with the laparoscopic rica. The ureters were visualized bilaterally and noted to be distal from the operative field. Bilateral uterine arteries were coagulated. The uterus was noted to be blanching. Attention was turned vaginally, a weighted speculum and [place] retractor were used to identify the cervix. Two [place] tenaculums were used to grasp the anterior and posterior lip of the cervix. 20mL of a solution made up of 0.5% lidocaine with epinephrine injected circumferentially around the cervix. Outward traction was applied to the cervix and a scalpel was used to make a circumferential colpotomy at the cervicovaginal junction. The incision was carried down to the paracervical fascia allowing the cervix to separate from the vaginal mucosa.? Blunt dissection was used to further complete this dissection. Pickups and Alas scissors were used to initiate posterior colpotomy however this was not able to be completed at this time secondary to significant scarring. The uterosacral ligaments were grasped with Z clamps, cut and suture ligated bilaterally. These were tagged to be incorporated into the vaginal cuff at a later time. Attention was turned to the anterior edge. Pickups and Metzenbaum scissors were used to initiate and complete dissection into the anterior colpotomy. A Anayh retractor was placed in the anterior colpotomy. A Padilla clamp was used to slide off the uterus, remaining proximal, clamp, cut and tied with 0 Vicryl the remaining attachments of the cardinal ligaments along with the lower branches of the uterine vessels were clamped, fulgurated, and transected bilaterally. Dissection into the posterior colpotomy was completed with Alas scissors. A long weighted Sheila speculum was placed in the posterior colpotomy. ? The uterus was freed of the remaining attachments near the fundus and was removed. The pedicals were inspected bilaterally and hemostasis was noted A moist lap sponge was placed vaginally to retract the bowel. The anterior peritoneum was not able to be crossed secondary to significant dissection on developing the bladder flap laparoscopically. The vaginal cuff was then closed with 0 Vicryl in a running locking fashion. Hemostasis was noted. After changing gloves, the pneumoperitoneum was reestablished, laparoscope was placed and inspection of the cuff with irrigation completed. The right ovary was grasped and adhesiolysis was completed to free it from the abdominal side wall. Ureter was visualized and noted to be peristalsing distal from the IP ligament. No ovarian cyst were noted and the ovary was relatively small. Places of endometriosis were noted diffusely on the right ovary. LigaSure was used to clamp, coagulate, and transect the IP ligament and remaining adhesions of the ovary and fallopian tube. Ovary was removed from the laparoscopic port to be sent to pathology for further evaluation. Brief abdominal survey revealed a normal appearing liver and abdomen, except for previous described pelvic adhesions. An attempt to remove the left fimbriated end of the fallopian tube was made however it was significantly scarred down and unable to be grasped safely and left in situ. The right pedicle was noted to be oozing slightly and 3 clips were placed to achieve hemostasis. Surgicel powder was placed over the vaginal cuff for added hemostasis. Pedicals and cuff reinspected and noted to be hemostatic.? The abdominal incisions were closed with a deep single interrupted 0 Vicryl followed by a subcuticular 4-0 Monocryl and Dermabond was placed over the incision. Cystoscopy: The patient was removed from Trendelenburg. A 70degree cystoscope was inserted into the urethra. The bladder was distended with normal saline. The kaiser of the bladder were inspected and noted to be intact, free of any sutures, gross masses or abnormal vasculature. Ureteral flow was noted bilaterally. Sponge, instrument and needle counts were correct x3, per nursing. Condition: stable Disposition: floor Specimens:: Uterine body, cervix, right ovary Complications:: None
[2024-01-28 12:41] LABS: Microscopic,Cath URINE MICROSCOPIC (MICROSCOPIC)
[2024-01-28] MEDS: LACTATED RINGERS 1000ML 1,000 ML 125 ML IV (12:47)
[2024-01-28] MEDS: KETOROLAC 30MG/ML VIAL 30 MG IV ×2 (12:47→18:41)
[2024-01-28] MEDS: HYDROMORPHONE 2MG/ML SYRINGE 1 MG IV ×2 (13:00→21:32)
[2024-01-28 13:04] LABS: Appearance,Urine/Cath CLEAR (Clear); Bilirubin,Cath Negative (Negative); Blood, Urine/Cath TRACE-I (Negative); Glucose,Urine/Cath (UA) Negative (Negative); Ketones,Urine/Cath Negative (Negative); Leukocyte Esterase,Cath Negative (Negative); Nitrate,Cath Negative (Negative); Protein,Urine/Cath TRACE (Negative); Specific Gravity, Urine/Cath 1.025 (1.005-1.030); Urobilinogen,Cath 0.2 EU/dl (0.2)
[2024-01-28] MEDS: SODIUM CHLORIDE 0.9% IV (13:26)
[2024-01-28] MEDS: GENTAMICIN SULFATE IV (13:26)
[2024-01-28 14:25] LABS: Hyaline Casts,Urine/Cath OCC #/lpf (0); RBC,Urine/Cath Occasional # /hpf (0-3)
--- NOTE | 2024-01-28 15:46 | P.HP_ITS ---
History of Present Illness *Admission Date: 01/28/24 *Reason for visit:: hysterectomy *History of present illness: Frannie Kline is a 38yo (2CS) presenting today for hysterectomy -Of note the patient is allergic to adhesives and latex. She has had Dermabond and did well with this Important HPI from previous visit: -The patient states that over her lifetime she has had over 15 diagnostic laparoscopies for endometriosis . She has been evaluated by Dr. Martinez, in [place], [facility] in [facility], and most recently in [place] by Dr. Lewis. -Reviewed reports which diagnosed her with stage IV endometriosis. Patient reports that she has been diagnosed with endometriosis on her vaginal wall, her colon, and her bladder. Her endometriosis pain is so bad and causes such severe dyspareunia but it was a strain on her relationship with her significant other issue -Reports menses are extremely heavy with significant clots and severe pains. She does state that her menstrual cycles occur monthly. Reports that for the first 3 days of her cycle she is in bed with a heating pad and unable to attend any other activities to include work. -She has had a tubal for contraception -She is prediabetic with hemoglobin A1c of 5.7. She is currently trying to get Wegovy -Reports her surgical history is to include several diagnostic labs for endometriosis, tubal ligation, 3 C-sections, a disc replaced in her neck, rotator cuff surgery, bunion surgery, cyst removed off of her left hand, cholecystectomy, appendectomy, and hernia repair -The patient states in the past she has been diagnosed with osteoporosis and has not had a DEXA scan in 10 years -Reports that she has previously tried Lupron in 2011 and was on it for a year. States that she had to discontinue it secondary to decreased bone mineral density [facility] Disclaimer: The information contained in this section may have been updated after the patient was seen, as this information can be updated by other users. 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 PCOS (polycystic ovarian syndrome) Endometriosis Grief Bunion, right foot Depression Anxiety Anemia Diabetes mellitus, type 2 Asthma Surgical History History of hernia repair H/O laparoscopy History of tubal ligation History of cholecystectomy History of section History of appendectomy Family History Other No significant family history Social History Smoking Status: Former smoker tobacco type: e-cigarettes second hand exposure: No alcohol intake: never substance use type: denies use current occupational status: employed Travel in the last 8 weeks: None household members: family housing: house Review of Systems Review of Systems Review of systems:: pertinent systems reviewed and negative unless documented below Review of systems (narrative): Review of Systems: General: No recent weight changes, no fever, no sleep disturbances Respiratory: No cough, no shortness of air, no recurring pulmonary infections Cardiovascular/peripheral vascular: No chest pain, no palpitations, no edema, no shortness of breath Gastrointestinal: No new onset incontinence, normal bowel movements reported Genitourinary: No new onset incontinence Psychiatric: Normal mood/affect Neurological: Denies weakness in extremities, denies balance issues Meds Home Medications and Allergies Home Medications Medication Instructions Recorded Confirmed Type albuterol sulfate 90 mcg/actuation 2 puff inhalation Q6HP PRN 06/17/23 01/28/24 History aerosol inhaler (Ventolin HFA) Shortness Of Breath budesonide-formoterol HFA 160 2 puff inhalation BID 06/17/23 01/28/24 History mcg-4.5 mcg/actuation aerosol inhaler (Symbicort) lancets 28 gauge (FreeStyle #100 ea 07/15/23 01/28/24 Rx Lancets) escitalopram oxalate 20 mg tablet 20 mg PO DAILY #30 tabs 12/15/23 01/28/24 Rx (Lexapro) diclofenac sodium 75 mg 75 mg PO BID #60 tabs 01/23/24 01/28/24 Rx tablet,delayed release famotidine 40 mg tablet (Pepcid) 40 mg PO DAILY 01/26/24 01/28/24 History tizanidine 4 mg tablet (Zanaflex) 1 mg PO TIDP PRN muscle spasticity 01/26/24 01/28/24 History aripiprazole 5 mg tablet (Abilify) 5 mg PO HS 01/28/24 01/28/24 History acetaminophen 500 mg tablet 500 mg PO Q6H PRN fever #30 tabs 01/29/24 Rx oxycodone 5 mg tablet 5 mg PO Q8H PRN pain #15 tabs 01/29/24 Rx sennosides 8.6 mg tablet (Senna 8.6 mg PO BIDP PRN Constipation 01/29/24 Rx Lax) #60 tabs simethicone 125 mg tablet 125 mg PO DAILY PRN abdominal 01/29/24 Rx distention #60 tabs New Prescriptions to Start Prescriptions: acetaminophen Marquez,Frannie oxycodone Frannie Zayas sennosides [Senna Lax] Marquez,Frannie simethicone Frannie Zayas Allergies Allergy/AdvReac Type Severity Reaction Status Date / Time amoxicillin [AMOXICILLIN] Allergy Intermediate I-HIVES Verified 01/28/24 06:30 clavulanic acid Allergy Intermediate I-HIVES Verified 01/28/24 06:30 [From AUGMENTIN] adhesive Allergy Mild Rash Verified 01/28/24 06:30 latex Allergy Verified 01/28/24 06:30 nicotine Allergy Verified 01/28/24 06:30 Exam Data for Last 24 hours Vital signs and Labs for Last 24 Hours: Temp Pulse Resp BP Pulse Ox O2 Del Method O2 Flow Rate 97.7 F 72 16 111/63 97 Room Air 97 01/28/24 14:47 01/28/24 14:47 01/28/24 14:47 01/28/24 14:47 01/28/24 14:47 01/28/24 14:47 01/28/24 14:47 Laboratory Results - last 24 hr 01/28/24 06:10: Urine HCG, Qual Negative 01/28/24 06:25: POC Glucose 110 01/28/24 : Urine Color Grenn, Urine Appearance Clear, Urine pH 7.0, Ur Specific Rawlings 1.025, Urine Protein Trace, Urine Glucose (UA) Negative, Urine Ketones Negative, Urine Blood Trace-i, Urine Nitrate Negative, Urine Bilirubin Negative, Urine Urobilinogen 0.2, Ur Leukocyte Esterase Negative, Urine RBC Occasional, Urine WBC None, Ur Squamous Epith Cells 3-5, Urine Bacteria None, Hyaline Casts Occ I & O for Last 24 hours: Intake & Output 01/25/24 01/26/24 01/27/24 01/28/24 23:59 23:59 23:59 23:59 Intake Total 1400 / 1400 Output Total 700 / 700 Balance 700 / 700 Weight 194 lb 194 lb Constitutional Constitutional: no acute distress *Routine HEENT Exam Head: Present normocephalic Eye: Present EOMI and PERRL ENT: Present mucous membranes moist *Routine Neck Exam Neck: Present supple; Absent lymphadenopathy *Routine Respiratory Exam Respiratory: Present CTA bilaterally *Routine Cardiovascular Exam Cardiovascular: Present RRR *Routine Abdominal Exam Abdominal: Present soft and normoactive bowel sounds; Absent tenderness *Routine Rectal Exam Rectal:: deferred *Routine Genitalia Exam Genitalia:: deferred *Routine Extremities Exam Extremities: Absent cyanosis, clubbing or edema *Routine Skin Exam Skin: Present warm; Absent rash *Routine Neurological Exam Neurological: Present alert and oriented X3 Assessment and Plan *Assessment and plan (1) Endometriosis: Status: Acute Category: Medical Code(s): N80.9 - Endometriosis, unspecified (2) Chronic abdominal pain: Status: Acute Category: Medical Code(s): R10.9 - Unspecified abdominal pain; G89.29 - Other chronic pain (3) Diabetes mellitus, type 2: Status: Acute Category: Medical Code(s): E11.9 - Type 2 diabetes mellitus without complications (4) Depression: Status: Acute Category: Medical Code(s): F32.A - Depression, unspecified (5) Anxiety: Status: Acute Category: Medical Code(s): F41.9 - Anxiety disorder, unspecified (6) Obesity (BMI 30-39.9): Status: Acute Category: Medical Code(s): E66.9 - Obesity, unspecified Plan Plan for LAVH, RSO, removal of left tubal remnants, and cystoscopy. Possible total abdominal hysterectomy -I discussed the risk of not being able to complete the hysterectomy secondary to adhesions and the possibility of having to convert to a total abdominal hysterectomy. The patient voiced understanding and stated that even if we had to do an abdominal hysterectomy she desired to proceed with surgery. Patient would like her right ovary removed as this is where the primary problems come from. I discussed the risk of blood transfusion and colon injury given her significant endometriosis history. The patient had images from her previous surgery which I have previously reviewed. Images show that the uterus and ovaries are fairly free of adhesions, however these images were in 2018. I in detail discussed the risk of infection and I reviewed that this may look like a postoperative surgical skin infection where we had to leave the wound open to heal from the inside out and that this could possibly take months and include wound VAC and long-term care management. Also discussed that the infection could be a deep pelvic abscess which would require readmission to the hospital for IV antibiotics and possible transfer to IR center for drainage. Patient voiced understanding and started to proceed with hysterectomy. I also spent time reviewing her lifting restrictions given she has a young child and will be unable to lift her for 8 weeks. I reviewed the complications of lifting too early and wound cuff dehiscence. -The patient continues to request definitive surgical management for endometriosis with hysterectomy and RSO. She has failed several medical and more conservative surgical interventions. Reviewed the risks of major gynecologic surgery with the pt to include bleeding, infection and risk of damage to surrounding structures. I assessed the patient's understanding from her last visit and she was able to review most of the risk that I reviewed with her at the last visit. She thoroughly understands the risk of hysterectomy. Specifically we discussed the risk of hysterectomy with her past medical history to include several surgeries, possible adhesions, and the increased risk of a bowel injury. I specifically discussed bowel injury, large abdominal incision, colostomy, prolonged hospital stay and recovery, and transfer to an outside facility. I discussed the risk that anatomy is frequently distorted with severe endometriosis and also an increased risk of adhesions. I in detail reviewed the risk of ureteral injury and what recovery from that would entail. Discussed the close proximity of the ureters to the cervix. Discussed risks of bleeding and pt consented to blood transfusion if deemed medically necessary. Discussed risks of infection. Discussed risks of injury to the surrounding structures to include her bowel, bladder, ureters, and neurovascular bundles as detailed above. Discussed that this could require further surgeries and prolong recovery and hospital stay. Discussed risk of fistula formation. Discussed that she would stay overnight to ensure adequate pain control and that she met all postop milestones and pt agreed. Reviewed with the pt the risk that hysterectomy would not alleviate her pelvic pain. Pt voiced understanding of the risks and consented to hysterectomy. She voiced understanding of all risks. I ensured she understood with teachback method of risks. Pt desires to proceed. -Reviewed the excerpt from ACOG regarding surgical management of endometriosis: Retrospective analysis of women monitored for 58 months after hysterectomy with ovarian conservation was associated with a 62% likelihood of recurrent symptoms and a 31% chance of requiring additional surgery. With bilateral salpingo- oophorectomy those women had a 10% chance of recurrence of symptoms and only a 4% likelihood of additional surgery. There are no clear studies for unilateral salpingo-oophorectomy. #Endometriosis -93 page document reviewed on page 14 it notes stage III-IV endometriosis. Reports peritoneum had superficial endometriosis lesions greater than 3 cm x 4 lesions. Peritoneum had 4 deep 1 to 3 cm lesions. The right ovary had 4 superficial greater than 3 cm lesions in the left ovary had 4 superficial greater than 3 cm lesions. Reports that the each ovary had approximately 1 dense than one third adhesion and 4 greater than two third filmy adhesions. Filmy adhesions on bilateral tubes were also noted -Page 32 details the operative procedure -Failed Orilissa -Discussed Rosette preoperatively, patient declined -In January 2023 the patient had a hernia repair done at her umbilicus. Patient will consult with the general surgeon as he used mesh to determine how large the mesh was and where the best access point for surgery would be. Reviewed operative reports from [place] where the mesh was placed and also discussed entry with general surgeon, Dr. Jordan, here at [facility]. -TVUS: Uterus: 9 x 1 x 5 0.6 x 4.2 cm. The endometrium measures 4.6 mm. Ovaries: The right ovary measure 1.9 x 1.3 x 1.2 cm. Right ovarian volume: 1.6 mL. The left ovary measure 1.4 x 1.6 x 1.0 cm. Left ovarian volume is 1.3 mL. No evidence of adnexal mass or free fluid in the pelvic cavity.
[2024-01-28] MEDS: OXYCODONE 5MG IMMEDIATE RELEASE TABLET 5 MG PO (15:59)
[2024-01-28] MEDS: ACETAMINOPHEN 500MG TAB 1000 MG PO (16:00)
[2024-01-28] MEDS: METRONIDAZ/SOD CHL 500 MG/100 ML PIGGYBACK 100 MG IV (17:12)
--- NOTE | 2024-01-28 20:48 | PC.NURSE ---
All care and documentation by Gio Farooq RN was completed under my direct supervision.
[2024-01-28] MEDS: SENNOSIDES 8.6MG/DOCUSATE 50MG TABLET 1 TAB PO (21:32)
[2024-01-29] VITALS: BP 117/72; PULSE 90; RESP 18; TEMP 36.6; O2SAT 97
[2024-01-29] MEDS: KETOROLAC 30MG/ML VIAL 30 MG IV ×3 (00:22→11:53)
[2024-01-29] MEDS: OXYCODONE 5MG IMMEDIATE RELEASE TABLET 5 MG PO ×2 (00:22→06:27)
[2024-01-29] MEDS: ACETAMINOPHEN 500MG TAB 1000 MG PO ×2 (03:20→08:07)
[2024-01-29] MEDS: HYDROMORPHONE 2MG/ML SYRINGE 1 MG IV (03:21)
--- NOTE | 2024-01-29 03:25 | PC.NURSE ---
Patient called out requesting pain medication. Pain is rated 10/10, patient describes as sharp ache on right lower abdomen. Abdominal binder in place. Abdomen tender to palpation, but bowel sounds active in all four quadrants. Lap sites remain open to air and Dermabond intact. Lung sounds clear throughout. Patient reports passing gas and emptying bladder. Patient appears comfortable in bed, denies any further needs. Pain medication given.
[2024-01-29 03:27] VITALS: BP 119/72; PULSE 83; RESP 19; TEMP 36.6; O2SAT 95
[2024-01-29 06:09] LABS: Basophils % 0.2 % (0.1-2.0); Eosinophils % 0.2 % (0.1-12.0); Hematocrit 34.9 % (37.0-47.0); Hemoglobin 11.2 g/dL (12.2-16.2); Lymphocytes # 2.9 K/mm3 (0.7-4.5); Lymphocytes % 26.2 % (10-50); Mean Corpuscular HGB Conc 32.2 g/dL (31.8-35.4); Mean Corpuscular Hemoglobin 28.2 pg (27.0-31.2); Mean Corpuscular Volume 87.8 fl (81-99); Mean Platelet Volume 7.3 fl (7.4-10.4); Monocytes # 0.4 K/mm3 (0.1-1.0); Monocytes % 3.9 % (1.7-9.3); Neutrophils # 7.6 K/mm3 (1.8-7.8); Neutrophils % 69.5 % (37.0-80.0); Platelet Count 304 K/mm3 (142-424); Red Blood Count 3.98 M/mm3 (4.20-5.40); White Blood Count 10.9 K/mm3 (4.8-10.8)
--- NOTE | 2024-01-29 07:45 | PC.NURSE ---
per dr kamala Rubi
[2024-01-29 08:15] VITALS: BP 111/69; PULSE 89; RESP 18; TEMP 36.7; O2SAT 95
--- NOTE | 2024-01-29 08:46 | PC.NURSE ---
provided pt with things to take a shower. covered iv with shower guard and coban to keep from getting wet. mom is going to help pt. denies any needs at this time
[2024-01-29 11:25] VITALS: BP 129/70; PULSE 107; RESP 15; TEMP 36.4; O2SAT 92
--- NOTE | 2024-01-29 11:25 | EXP.ANES.II ---
[facility] Anesthesia Record Part II Anesthesia Record Part II Discharge Time: 11:30 Destination: Obstetric PACU nurse assessment reviewed?: Yes Patient Condition:: Good Anesthesia Complications:: None Swallowing reflex intact?: Yes Airway Patency: Patent Cyanosis?: No Blood Pressure: 129/70 SaO2: 92 Respiratory Rate: 15 Pulse Rate: 107 Temperature: 97.6 F Mental Status: Alert & Oriented Pain level:: 7 Nausea and/or vomitting:: None Intake, IV Amount: 0 Hydration: Adequate
--- NOTE | 2024-01-29 11:54 | P.DS_ITS ---
General Admission date:: 01/28/24 Discharge date: 01/29/24 HPI HPI HPI: *Admission Date: 01/28/24 *Reason for visit:: hysterectomy *History of present illness: Frannie Kline is a 38yo (2CS) presenting today for hysterectomy -Of note the patient is allergic to adhesives and latex. She has had Dermabond and did well with this Important HPI from previous visit: -The patient states that over her lifetime she has had over 15 diagnostic laparoscopies for endometriosis . She has been evaluated by Dr. Martinez, in [place], [facility] in [place], [place], and most recently in [place] by Dr. Lewis. -Reviewed reports which diagnosed her with stage IV endometriosis. Patient reports that she has been diagnosed with endometriosis on her vaginal wall, her colon, and her bladder. Her endometriosis pain is so bad and causes such severe dyspareunia but it was a strain on her relationship with her significant other issue -Reports menses are extremely heavy with significant clots and severe pains. She does state that her menstrual cycles occur monthly. Reports that for the first 3 days of her cycle she is in bed with a heating pad and unable to attend any other activities to include work. -She has had a tubal for contraception -She is prediabetic with hemoglobin A1c of 5.7. She is currently trying to get Wegovy -Reports her surgical history is to include several diagnostic labs for endometriosis, tubal ligation, 3 C-sections, a disc replaced in her neck, rotator cuff surgery, bunion surgery, cyst removed off of her left hand, cholecystectomy, appendectomy, and hernia repair -The patient states in the past she has been diagnosed with osteoporosis and has not had a DEXA scan in 10 years -Reports that she has previously tried Lupron in 2012 and was on it for a year. States that she had to discontinue it secondary to decreased bone mineral density Hospital Course Hospital Course Hospital Course: Frannie was admitted yesterday for a LAVH and RSO with cystoscopy. She has had a routine uncomplicated postoperative course. Her surgery was uncomplicated. She will be discharged home with a short interval follow-up with 1 to 2 weeks. She understands discharge instructions and when to seek medical care. These were also typed out and her discharge packet that she was given to take home Exam Data for Last 24 hours Vital signs and Labs for Last 24 Hours: Temp Pulse Resp BP Pulse Ox O2 Del Method O2 Flow Rate 98.0 F 89 15 111/69 95 Room Air 97 01/29/24 08:15 01/29/24 08:15 01/29/24 11:25 01/29/24 08:15 01/29/24 08:15 01/29/24 11:05 01/28/24 14:47 Laboratory Results - last 24 hr 01/28/24 : Urine Color Grenn, Urine Appearance Clear, Urine pH 7.0, Ur Specific [place] 1.025, Urine Protein Trace, Urine Glucose (UA) Negative, Urine Ketones Negative, Urine Blood Trace-i, Urine Nitrate Negative, Urine Bilirubin Negative, Urine Urobilinogen 0.2, Ur Leukocyte Esterase Negative, Urine RBC Occasional, Urine WBC None, Ur Squamous Epith Cells 3-5, Urine Bacteria None, Hyaline Casts Occ 01/29/24 05:52: WBC 10.9 H D, RBC 3.98 L, Hgb 11.2 L, Hct 34.9 L, MCV 87.8, MCH 28.2, MCHC 32.2, RDW 15.0, Plt Count 304, MPV 7.3 L, Neut % (Auto) 69.5, Lymph % (Auto) 26.2, [place] % (Auto) 3.9, Eos % (Auto) 0.2, Baso % (Auto) 0.2, Neut # (Auto) 7.6, Lymph # (Auto) 2.9, [place] # (Auto) 0.4, Eos # (Auto) 0.0, Baso # (Auto) 0.0 I & O for Last 24 hours: Intake & Output 01/26/24 01/27/24 01/28/24 01/29/24 23:59 23:59 23:59 23:59 Intake Total 1400 / 1400 0 / 0 Output Total 700 / 700 0 / 0 Balance 700 / 700 0 / 0 Weight 194 lb 194 lb Constitutional Constitutional: no acute distress *Routine HEENT Exam Head: Present normocephalic Eye: Present EOMI and PERRL ENT: Present mucous membranes moist *Routine Neck Exam Neck: Present supple; Absent lymphadenopathy *Routine Respiratory Exam Respiratory: Present CTA bilaterally *Routine Cardiovascular Exam Cardiovascular: Present RRR *Routine Abdominal Exam Abdominal: Present soft and normoactive bowel sounds; Absent tenderness *Routine Extremities Exam Extremities: Absent cyanosis, clubbing or edema *Routine Skin Exam Skin: Present warm; Absent rash Comments: 3 laparoscopic incisions that are closed and appear to be doing well without any signs of infection *Routine Neurological Exam Neurological: Present alert and oriented X3 Results Data Completed and Pending Labs on day of discharge: Labs from last 24 hours 01/29/24 01/28/24 05:52 Unknown WBC 10.9 H D RBC 3.98 L Hgb 11.2 L Hct 34.9 L MCV 87.8 MCH 28.2 MCHC 32.2 RDW 15.0 Plt Count 304 MPV 7.3 L Neut % (Auto) 69.5 Lymph % (Auto) 26.2 [place] % (Auto) 3.9 Eos % (Auto) 0.2 Baso % (Auto) 0.2 Neut # (Auto) 7.6 Lymph # (Auto) 2.9 [place] # (Auto) 0.4 Eos # (Auto) 0.0 Baso # (Auto) 0.0 Urine Color Grenn Urine Appearance Clear Urine pH 7.0 Ur Specific [place] 1.025 Urine Protein Trace Urine Glucose (UA) Negative Urine Ketones Negative Urine Blood Trace-i Urine Nitrate Negative Urine Bilirubin Negative Urine Urobilinogen 0.2 Ur Leukocyte Esterase Negative Urine RBC Occasional Urine WBC None Ur Squamous Epith Cells 3-5 Urine Bacteria None Hyaline Casts Occ DS: Diagnosis Discharge Diagnosis (1) Obesity (BMI 30-39.9): Status: Acute Code(s): E66.9 - Obesity, unspecified (2) Endometriosis: Status: Acute Code(s): N80.9 - Endometriosis, unspecified (3) S/P total hysterectomy: Status: Acute Code(s): Z90.710 - Acquired absence of both cervix and uterus (4) History of right salpingo-oophorectomy: Status: Acute Code(s): Z90.79 - Acquired absence of other genital organ(s); Z90.721 - Acquired absence of ovaries, unilateral Problem details: Routine postoperative course. Patient is doing well. Will discharge home today. Follow-up in the office in 1 to 2 weeks Meds Home Medications and Allergies Home Medications Medication Instructions Recorded Confirmed Type albuterol sulfate 90 mcg/actuation 2 puff inhalation Q6HP PRN 06/17/23 01/28/24 History aerosol inhaler (Ventolin HFA) Shortness Of Breath budesonide-formoterol HFA 160 2 puff inhalation BID 06/17/23 01/28/24 History mcg-4.5 mcg/actuation aerosol inhaler (Symbicort) lancets 28 gauge (FreeStyle #100 ea 07/15/23 01/28/24 Rx Lancets) escitalopram oxalate 20 mg tablet 20 mg PO DAILY #30 tabs 12/15/23 01/28/24 Rx (Lexapro) diclofenac sodium 75 mg 75 mg PO BID #60 tabs 01/23/24 01/28/24 Rx tablet,delayed release famotidine 40 mg tablet (Pepcid) 40 mg PO DAILY 01/26/24 01/28/24 History tizanidine 4 mg tablet (Zanaflex) 1 mg PO TIDP PRN muscle spasticity 01/26/24 01/28/24 History aripiprazole 5 mg tablet (Abilify) 5 mg PO HS 01/28/24 01/28/24 History acetaminophen 500 mg tablet 500 mg PO Q6H PRN fever #30 tabs 01/29/24 Rx oxycodone 5 mg tablet 5 mg PO Q8H PRN pain #15 tabs 01/29/24 Rx sennosides 8.6 mg tablet (Senna 8.6 mg PO BIDP PRN Constipation 01/29/24 Rx Lax) #60 tabs simethicone 125 mg tablet 125 mg PO DAILY PRN abdominal 01/29/24 Rx distention #60 tabs New Prescriptions to Start Prescriptions: acetaminophen Frannie Zayas oxycodone Frannie Zayas sennosides [Senna Lax] Frannie Zayas simethicone Frannie Zayas Allergies Allergy/AdvReac Type Severity Reaction Status Date / Time amoxicillin [AMOXICILLIN] Allergy Intermediate I-HIVES Verified 01/28/24 06:30 clavulanic acid Allergy Intermediate I-HIVES Verified 01/28/24 06:30 [From AUGMENTIN] adhesive Allergy Mild Rash Verified 01/28/24 06:30 latex Allergy Verified 01/28/24 06:30 nicotine Allergy Verified 01/28/24 06:30 Discharge Plan Disposition Patient Disposition: Home, Self-Care Condition: Good Follow up Plan Follow up with: Frannie Zayas DO [Primary Care Provider] - 02/12/24 2:00 pm Prescriptions/Medication Reconciliation: New sennosides [Senna Lax] 8.6 mg Tablet 8.6 mg PO BIDP PRN (Reason: Constipation) Qty: 60 2RF acetaminophen 500 mg tablet 500 mg PO Q6H PRN (Reason: fever) Qty: 30 3RF oxycodone 5 mg tablet 5 mg PO Q8H PRN (Reason: pain) Qty: 15 0RF simethicone 125 mg tablet 125 mg PO DAILY PRN (Reason: abdominal distention) Qty: 60 2RF Continued albuterol sulfate [Ventolin HFA] 90 mcg/actuation HFA aerosol inhaler 2 puff inhalation Q6HP PRN (Reason: Shortness Of Breath) budesonide-formoterol [Symbicort] 160-4.5 mcg/actuation HFA aerosol inhaler 2 puff inhalation BID escitalopram oxalate [Lexapro] 20 mg tablet 20 mg PO DAILY Qty: 30 1RF diclofenac sodium 75 mg tablet,delayed release (DR/EC) 75 mg PO BID Qty: 60 2RF tizanidine [Zanaflex] 4 mg tablet 1 mg PO TIDP PRN (Reason: muscle spasticity) famotidine [Pepcid] 40 mg tablet 40 mg PO DAILY aripiprazole [Abilify] 5 mg tablet 5 mg PO HS No Action (DME) lancets [FreeStyle Lancets] 28 gauge misc See Rx Instructions .Route Qty: 100 0RF Rx Instructions: As directed daily Problem Reconciliation Problems Reviewed?: Yes Patient Discharge Instructions ACTIVITY: Continue current activity DIET: regular diet Additional Instructions: Hysterectomy Discharge You had a laparoscopic assisted vaginal hysterectomy, right salpingo- oophorectomy, and cystoscopy. This means we removed your uterus, cervix, and right fallopian tube and ovary. We also used a camera to look in your bladder after the surgery and there were no problems with your bladder wall or ureters. There were no complications with your surgery. We did notice several areas of endometriosis which were removed to the best for delivery. We have called [facility] medications in for you and they are detailed below as well as discharge instructions. If you have any questions, please call the office. Activity: - No lifting more than 10 lbs for 6 weeks. - No driving while you are taking narcotic pain medication. - You have 3 incisions on your abdomen that are closed with stitches and surgical glue. The glue should come off within 2 weeks. You can scrub gently in the shower Wound care - You have surgical glue covering your incision. This will come off on its own within 1-2 weeks - You have stitches under your skin which will dissolve over the next 4-6 weeks as your body heals - Keep your wound clean and dry, ok to wash with soap and water but pat thoroughly dry Medications: - Oxycodone (a narcotic pain medication) use the narcotic pain medication for breakthrough or severe pain. You will want to stop the narcotic pain medication first. Narcotic pain medication can be habit forming so please only use this medication if you need it. - Senna (a stool softener) use this medication for constipation as needed. Narcotics can increase your risk for constipation - Simethicone: a gas medication for bloating and gas pain you may experience in the next 1-2 weeks. Please call the office or return to the ER if you have any of the followin. bleeding more than 1 pad an hour for 2 hours 2. pain that does not respond to your narcotic pain medication 3. dizziness or lightheadedness such that you lose consciousness 4. abnormal discharge that looks like pus from your incisions Questions or concerns: It is my privilege to be your doctor. Please let me know if you have other questions or concerns. Frannie Zayas DO [facility] Specialist [place], [place] [address] Patient Instructions: Surgical Site Infection, Hysterectomy -- Laparoscopic Surgery Providers Primary Care Provider: Frannie Zayas Admit Provider: Frannie Zayas Attending Provider: Frannie Zayas
[2024-01-29 11:57] VITALS: BP 115/70; PULSE 83; RESP 18; TEMP 36.7; O2SAT 96
--- NOTE | 2024-01-29 12:38 | PC.NURSE ---
waiting on clinic pharmacy to bring meds. called around 12:20 to let them know pt was ready for discharge.
== END 2024-01-29 13:07 | disposition home or self-care (01) ==
LOC: OB 06:35
PROVIDERS: Admitting Provider Obstetrics & Gynecology; PCP Obstetrics & Gynecology; Visit Provider Obstetrics & Gynecology
PROC: 0UT9FZZ Resection of Uterus, Via Natural or Artificial Opening With Percutaneous Endoscopic Assistance (ICD-10-PCS; CPT 58552; principal; 2024-01-28 07:30)
DX: N80.103 Endometriosis of bilateral ovaries, unspecified depth (principal); N94.6 Dysmenorrhea, unspecified; G89.29 Other chronic pain; E11.9 Type 2 diabetes mellitus without complications; F32.A Depression, unspecified; Z87.891 Personal history of nicotine dependence; R10.9 Unspecified abdominal pain; F41.9 Anxiety disorder, unspecified; E66.9 Obesity, unspecified; Z68.32 Body mass index [BMI] 32.0-32.9, adult
CPT/HCPCS: 58552; 36415; 81001; 81025; 82962; 85025; 96374; J3490; G0378; J0131; J2405; J7120

== ENCOUNTER 2024-03-24 16:21 | Emergency (ER) | payer MEDICAID, SELFPAY ==
[2024-03-24 16:40] VITALS: BP 121/78; PULSE 86; RESP 20; TEMP 36.6; O2SAT 98; BMI 33.5
--- NOTE | 2024-03-24 17:05 | ED_ITS ---
Discharge Plan Disposition Patient Disposition: Home, Self-Care Condition: Good Prescriptions Prescriptions: New ibuprofen [IBU] 800 mg tablet 800 mg PO Q8HP PRN (Reason: Moderate Pain) Qty: 30 0RF ondansetron 4 mg Tablet,Disintegrating 4 mg PO Q8H PRN (Reason: Nausea) Qty: 12 0RF No Action (DME) FreeStyle Lite Strips Strip See Rx Instructions .ROUTE .MEDSUPPLY Qty: 10 Rx Instructions: As directed (DME) lancets [FreeStyle Lancets] 28 gauge misc See Rx Instructions .Route Qty: 100 0RF Rx Instructions: As directed daily sennosides [senna] 8.6 mg tablet 8.6 mg PO DAILY Patient Comments: TAKE 1 TABLET BY MOUTH TWICE DAILY NEEDED FOR CONSTIPATION acetaminophen [Pain Reliever (acetaminophen)] 500 mg tablet 500 mg PO DAILY Patient Comments: TAKE 1 TABLET BY MOUTH EVERY 6 HOURS NEEDED FOR FEVER paroxetine HCl 20 mg tablet 20 mg PO DAILY Patient Comments: TAKE 1 TABLET BY MOUTH ONCE DAILY IN THE MORNING FOR ANXIETY diclofenac sodium 75 mg tablet,delayed release (DR/EC) 75 mg PO DAILY simethicone 125 mg tablet,chewable 125 mg PO DAILY Patient Comments: CHEW AND SWALLOW 1 TABLET ONCE DAILY NEEDED FOR ABDOMINAL DISTENTION quetiapine 50 mg tablet 50 mg PO DAILY Patient Comments: TAKE 1 TABLET BY MOUTH ONCE DAILY AT BEDTIME FOR INSOMNIA Myfembree 40-1-0.5 mg tablet 1 tab PO DAILY Patient Comments: TAKE 1 TABLET BY MOUTH ONCE DAILY Ozempic 0.25 mg or 0.5 mg (2 mg/3 mL) pen injector 0.25 mg SQ WEEKLY Patient Comments: INJECT 0.25 MG SUBCUTANEOUSLY ONCE A WEEK FOR 28 DAYS Referrals Follow up/Referrals: Tammy Matamoros APRN [Primary Care Provider] - See instructions Activity Restrictions/Add. Instructions Additional Instructions/Restrictions: Drink plenty of fluids. Take tylenol or ibuprofen for pain or fever. Take the medications as directed. Follow up with your regular doctor. GO TO THE ER FOR ANY WORSENING SYMPTOMS Clinical Impressions Clinical Impression: Migraine Instructions Patient Instructions: DI for Migraine, Promethazine, Ketorolac Injection, Dexamethasone Injection Print Language Print Language: Swazi Discharge ED Provider: Ney Silverman [facility] General Stated complaint: headache Mode of Arrival: Ambulatory Source of Information: Patient Limitations: No Limitations Time Seen by Provider: 03/24/24 16:57 Description of Symptoms (Recalled from Triage Doc. by RN): PATIENT C/O HEADACHE AND VOMITING THAT STARTED THIS MORNING HEENT Symptoms (Recalled from RN notes): Yes Resp Symptoms (Recalled from RN notes): No Skin Symptoms (Recalled from RN notes): No MS Symptoms (Recalled from RN notes): No Functional Status (Recalled from RN notes): WNL History of Present Illness Provider Complaint: She reports that she has had migraine headache since yesterday. She states that she has a history of migraines and she has had this one since yesterday. Related Data Home Medications ?Medication ?Instructions ?Recorded ?Confirmed blood sugar diagnostic (Bingyle #10 ea 02/18/24 03/24/24 Lite Strips) acetaminophen 500 mg tablet (Pain 500 mg PO DAILY 03/24/24 03/24/24 Reliever (acetaminophen)) diclofenac sodium 75 mg 75 mg PO DAILY 03/24/24 03/24/24 tablet,delayed release paroxetine HCl 20 mg tablet 20 mg PO DAILY 03/24/24 03/24/24 quetiapine 50 mg tablet 50 mg PO DAILY 03/24/24 03/24/24 relugolix 40 mg-estradiol 1 1 tab PO DAILY 03/24/24 03/24/24 mg-norethindrone acetate 0.5 mg tablet (Myfembree) semaglutide 0.25 mg or 0.5 mg (2 0.25 mg SQ WEEKLY 03/24/24 03/24/24 mg/3 mL) subcutaneous pen injector (Ozempic) sennosides 8.6 mg tablet (senna) 8.6 mg PO DAILY 03/24/24 03/24/24 simethicone 125 mg chewable tablet 125 mg PO DAILY 03/24/24 03/24/24 Previous Rx's ?Medication ?Instructions ?Recorded lancets 28 gauge (FreeStyle #100 ea 07/15/23 Lancets) ibuprofen 800 mg tablet (IBU) 800 mg PO Q8HP PRN Moderate Pain 03/24/24 #30 tabs ondansetron 4 mg disintegrating 4 mg PO Q8H PRN Nausea #12 tabs 03/24/24 tablet Allergies Allergy/AdvReac Type Severity Reaction Status Date / Time amoxicillin [AMOXICILLIN] Allergy Intermediate I-HIVES Verified 03/19/24 13:04 clavulanic acid Allergy Intermediate I-HIVES Verified 03/19/24 13:04 [From AUGMENTIN] adhesive Allergy Mild Rash Verified 03/19/24 13:04 latex Allergy Verified 03/19/24 13:04 nicotine Allergy Verified 03/19/24 13:04 Worker's Comp Is this a Worker's Comp case?: No [facility] Disclaimer: The information contained in this section may have been updated after the patient was seen, as this information can be updated by other users. 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 PCOS (polycystic ovarian syndrome) Endometriosis Grief Bunion, right foot Depression Anxiety Anemia Diabetes mellitus, type 2 Asthma Surgical History History of right salpingo-oophorectomy History of LAVH History of hernia repair H/O laparoscopy History of tubal ligation History of cholecystectomy History of section History of appendectomy Family History Other No significant family history Social History Smoking Status: Former smoker tobacco type: e-cigarettes second hand exposure: No alcohol intake: never substance use type: denies use current occupational status: employed Travel in the last 8 weeks: None household members: family housing: house ROS Obtained: Yes All systems reviewed & no additional complaints except as documented Constitutional Constitutional: Denies chills and Denies fever(s) Eyes Eyes: Denies eye discharge ENT Ears, Nose, Mouth, and Throat: Denies dizziness, Denies otalgia and Denies sore throat Cardiovascular Cardiovascular: Denies chest pain Respiratory Respiratory: Denies shortness of breath, Denies chest congestion, Denies cough, Denies stridor and Denies wheezing Gastrointestinal Gastrointestingal: Denies nausea or vomiting Musculoskeletal Musculoskeletal: Reports system reviewed and no additional complaints, except as documented and Denies arthralgias Integumentary/Breasts Skin/Breast: Denies rash Neurologic Neurologic: Denies dizziness and Denies paresthesias Allergic/Immunologic Allergic/Immunologic: Denies wheezing Physical Exam General General appearance: alert and in no apparent distress Head Head exam: atraumatic, normocephalic and normal inspection Eye Eye exam: Present normal appearance, PERRL and EOMI ENT ENT exam: Present normal exam, normal oropharynx, mucous membranes moist, TM's normal bilaterally and normal external ear exam Neck Neck exam: Present normal inspection, full ROM and trachea midline; Absent meningismus or lymphadenopathy Chest Chest inspection: Present normal inspection and symmetric chest wall rise; Absent tenderness Respiratory Respiratory exam: Present normal lung sounds bilaterally; Absent respiratory distress Cardiovascular Cardiovascular exam: Present regular rate and normal rhythm; Absent JVD Abdominal Exam Abdominal exam: Present soft and normal bowel sounds; Absent distention, tenderness or guarding Extremities Exam Extremities exam: Present normal inspection, full ROM and normal capillary refill; Absent calf tenderness Back Exam Back exam: Present normal inspection; Absent tenderness Neurological Exam Neurological exam: Present alert and oriented X3 Psychiatric Psychiatric exam: Present normal affect and normal mood Skin Skin exam: Present warm, dry, intact and normal color Lymphatic Lymphatic Findings: no adenopathy Medical Decision Making Medical Records Medical records reviewed: No I reviewed the patient's medical records. Jacob Inquiry Pt receiving controlled substance: No Vital Signs: 03/24/24 16:40 Temperature 97.9 F Temperature Source Oral Pulse Rate [Left Brachial] 86 Respiratory Rate 20 Blood Pressure [Left Arm] 121/78 Blood Pressure Mean [Left Arm] 92 Blood Pressure Source [Left Arm] Automatic Cuff Blood Pressure Position [Left Arm] Sitting 02 Sat by Pulse Oximetry 98 Oxygen Delivery Method Room Air
[2024-03-24] MEDS: DEXAMETHASONE 4MG/ML 1ML VIAL 8 MG IM (17:20)
[2024-03-24] MEDS: PROMETHAZINE HCL 25MG/ML 1ML VIAL 25 MG IM (17:20)
[2024-03-24] MEDS: KETOROLAC 60MG/2ML VIAL 60 MG IM (17:20)
[2024-03-24 17:30] VITALS: BP 121/78; PULSE 86; RESP 20; TEMP 36.6; O2SAT 98
== END 2024-03-24 17:32 | disposition home or self-care (01) ==
PROVIDERS: Emergency Provider Nurse Practitioner Family; PCP Nurse Practitioner Family
DX: G43.909 Migraine, unspecified, not intractable, without status migrainosus (principal)
CPT/HCPCS: 96372; 99212; 99214; G0463; J1100; J1885; J2550

== ENCOUNTER 2024-04-15 13:28 | Outpatient (CLI) | payer MEDICAID, SELFPAY ==
[2024-04-15 13:20] LABS: Adenovirus,PCR Not Detected (NotDetected); Bordetella Pertussis Not Detected (NotDetected); Chlamydophila Pneumoniae, PCR Not Detected (NotDetected); Coronavirus 19, PCR Not Detected (NotDetected); Coronavirus 229E Not Detected (NotDetected); Coronavirus NL63 Not Detected (NotDetected); Coronavirus OC43 Not Detected (NotDetected); Coronovirus HKU1,PCR Not Detected (NotDetected); Human Metapneumovirus Not Detected (NotDetected); Influenza A, PCR Not Detected (NotDetected); Influenza AH1, 2009 Not Detected (NotDetected); Influenza AH1, PCR Not Detected (NotDetected); Influenza AH3,PCR Not Detected (NotDetected); Influenza B, PCR Not Detected (NotDetected); Mycoplasma Pneumoniae, PCR Not Detected (NotDetected); Parainfluenza 1, PCR Not Detected (NotDetected); Parainfluenza 2, PCR Not Detected (NotDetected); Parainfluenza 3, PCR Not Detected (NotDetected); Parainfluenza 4, PCR Not Detected (NotDetected); Respiratory Syncytial Virus Not Detected (NotDetected)
[2024-04-16 02:09] LABS: Rhinovirus/Enterovirus Detected (NotDetected)
== END 2024-04-15 23:59 | disposition home or self-care (01) ==
LOC: LAB.DROPOF 13:29
PROVIDERS: PCP Nurse Practitioner Family; Visit Provider Nurse Practitioner Family
DX: J02.9 Acute pharyngitis, unspecified (principal); J98.8 Other specified respiratory disorders; B97.89 Other viral agents as the cause of diseases classified elsewhere; H65.193 Other acute nonsuppurative otitis media, bilateral; R09.81 Nasal congestion; R51.9 Headache, unspecified; R11.0 Nausea
CPT/HCPCS: 87070; 87581; 87632; 87635; 87798

== ENCOUNTER 2024-05-11 13:42 | Outpatient (CLI) | payer MEDICAID, SELFPAY ==
[2024-05-11 12:55] LABS: Coronavirus 19, PCR Not Detected (NotDetected); Influenza A, PCR Not Detected (NotDetected); Influenza B, PCR Not Detected (NotDetected)
[2024-05-11 13:14] LABS: Basophils # 0.1 K/mm3 (0-0.2); Basophils % 0.4 % (0.1-2.0); Eosinophils # 0.1 K/mm3 (0.0-0.4); Eosinophils % 1.3 % (0.1-12.0); Hematocrit 43.3 % (37.0-47.0); Hemoglobin 13.4 g/dL (12.2-16.2); Lymphocytes # 2.4 K/mm3 (0.7-4.5); Lymphocytes % 23.1 % (10-50); Mean Corpuscular Hemoglobin 28.9 pg (27.0-31.2); Mean Corpuscular Volume 93.3 fl (81-99); Mean Platelet Volume 6.9 fl (7.4-10.4); Monocytes # 0.4 K/mm3 (0.1-1.0); Monocytes % 3.9 % (1.7-9.3); Neutrophils # 7.4 K/mm3 (1.8-7.8); Neutrophils % 71.3 % (37.0-80.0); Platelet Count 382 K/mm3 (142-424); Red Blood Count 4.64 M/mm3 (4.20-5.40); Red Cell Distribution Width 14.4 % (11.5-17.5); White Blood Count 10.4 K/mm3 (4.8-10.8)
[2024-05-11 13:47] LABS: Alanine Aminotransferase 38 U/L (12-78); Albumin Level 4.7 g/dl (3.5-5.0); Albumin/Globulin Ratio 1.5 (1.1-1.8); Alkaline Phosphatase 81 U/L (38-126); Amylase 63 U/L (30-110); Anion Gap 12.3 mEq/L (5-15); Aspartate Amino Transferase 45 U/L (14-36); Bilirubin,Total 0.4 mg/dl (0.2-1.3); Blood Urea Nitrogen 19 mg/dl (7-17); Calcium 9.3 mg/dl (8.4-10.2); Carbon Dioxide 23 mmol/L (22.0-30.0); Chloride 109 mmol/L (98-107); Estimated Glomerular Filt Rate 93 ml/min (>60); GFR (African American) 113 ML/MIN (>60); Globulin 3.2 g/dL (1.3-3.2); Glucose 104 mg/dl (74-100); Lipase 75 U/L (23-300); Potassium 4.3 mmoL/L (3.5-5.1); Sodium 140 mmol/L (136-145); Total Protein,Serum 7.9 g/dl (6.3-8.2)
== END 2024-05-11 23:59 | disposition home or self-care (01) ==
LOC: LAB.DROPOF 13:42
PROVIDERS: PCP Nurse Practitioner Family; Visit Provider Nurse Practitioner Family
DX: R11.2 Nausea with vomiting, unspecified (principal); R19.7 Diarrhea, unspecified; R68.89 Other general symptoms and signs
CPT/HCPCS: 80053; 82150; 83690; 85025; 87636

== ENCOUNTER 2024-05-23 14:53 | Emergency (ER) | payer MEDICAID, SELFPAY ==
[2024-05-23] VITALS (7 sets, daily range): BP systolic 121–159; BP diastolic 80–106; PULSE 85–101; RESP 16; TEMP 36.7–36.9; O2SAT 94–100; BMI 31.9
--- NOTE | 2024-05-23 15:29 | HMH.EDGENADL ---
Discharge Plan Disposition Patient Disposition: Home, Self-Care Prescriptions Prescriptions: New gabapentin 100 mg capsule 100 mg PO BID Qty: 6 0RF No Action (DME) FreeStyle Lite Strips Strip See Rx Instructions .ROUTE .MEDSUPPLY Qty: 10 Rx Instructions: As directed semaglutide 1 mg/dose (4 mg/3 mL) pen injector 1 mg SQ WEEKLY 28 Days Qty: 3 0RF ondansetron 4 mg tablet,disintegrating 4 mg PO Q8H PRN (Reason: nausea and vomiting) Qty: 30 0RF (DME) lancets [FreeStyle Lancets] 28 gauge misc See Rx Instructions .Route Qty: 100 0RF Rx Instructions: As directed daily ondansetron 4 mg tablet,disintegrating 4 mg PO Q8H PRN (Reason: Nausea) Qty: 30 0RF promethazine 12.5 mg tablet 12.5 mg PO Q6H PRN (Reason: nausea and vomiting) Qty: 30 0RF acetaminophen 500 mg tablet See Rx Instructions .ROUTE .COMPLEX Qty: 90 0RF Dose Instruction: TAKE 1 TABLET BY MOUTH EVERY 6 HOURS NEEDED FOR FEVER Rx Instructions: TAKE 1 TABLET BY MOUTH EVERY 6 HOURS NEEDED FOR FEVER sennosides [senna] 8.6 mg tablet 8.6 mg PO DAILY Patient Comments: TAKE 1 TABLET BY MOUTH TWICE DAILY NEEDED FOR CONSTIPATION paroxetine HCl 20 mg tablet 20 mg PO DAILY Patient Comments: TAKE 1 TABLET BY MOUTH ONCE DAILY IN THE MORNING FOR ANXIETY diclofenac sodium 75 mg tablet,delayed release (DR/EC) 75 mg PO DAILY simethicone 125 mg tablet,chewable 125 mg PO DAILY Patient Comments: CHEW AND SWALLOW 1 TABLET ONCE DAILY NEEDED FOR ABDOMINAL DISTENTION Myfembree 40-1-0.5 mg tablet 1 tab PO DAILY Patient Comments: TAKE 1 TABLET BY MOUTH ONCE DAILY quetiapine 50 mg tablet 25 mg PO DAILY Patient Comments: Pt can't tolerate full dose Referrals Follow up/Referrals: Tammy Matamoros APRN [Primary Care Provider] - See instructions Activity Restrictions/Add. Instructions Additional Instructions/Restrictions: Call your family doctor to establish care for this visit to the emergency department and schedule follow-up within 48 hours to ensure improvement. If you have any worsening of your condition or any other concerning signs or symptoms, return to the emergency department or your primary care doctor for further evaluation. Gabapentin can cause you to feel drowsy. Do not drive, operate heavy machinery, or engage in any activity that may make you tired, fall asleep, and because harm to yourself or others while taking this medication. Clinical Impressions Clinical Impression: Neuropathy Print Language Print Language: Citizen Of [place] Discharge ED Provider: Francisco Jones General Adult HPI General Chief complaint: PAIN Stated complaint: feet and hands swollen/pain Time Seen by Provider: 05/23/24 15:13 Mode of Arrival: Ambulatory Source of Information: Patient Limitations: No Limitations Description of Symptoms (Recalled from ER Triage Doc. by RN): Pt. complains of feet and hand pain and swelling x 2 weeks. She states it hurts to walk or move her fingers. She has seen her PCP who gave her arthritis medicine and she also shes rheumotology but they have not make a diagnosis. History of Present Illness HPI narrative: Please note that above description of symptoms, in this electronic medical record under categorization of recalled from ER triage doctor by RN are reflective of an initial nursing assessment, however, is not reflective of my full history and physical exam that was personally taken and clarified. Consequentially, this preceding description of symptoms, which may include the patient's categorized chief complaint in the EMR, do not reflect my personal clinical impression, and the ultimate description of history of present illness and patient stated complaints should be deferred to this section of the note. Unless stated otherwise or congruent with this section of the note, additional signs, symptoms, or incongruence should be interpreted as inaccurate with my clinical impression. Related Data Home Medications ?Medication ?Instructions ?Recorded ?Confirmed blood sugar diagnostic (FreeStyle #10 ea 02/18/24 05/11/24 Lite Strips) diclofenac sodium 75 mg 75 mg PO DAILY 03/24/24 05/11/24 tablet,delayed release paroxetine HCl 20 mg tablet 20 mg PO DAILY 03/24/24 05/11/24 relugolix 40 mg-estradiol 1 1 tab PO DAILY 03/24/24 05/11/24 mg-norethindrone acetate 0.5 mg tablet (Myf[place]ree) sennosides 8.6 mg tablet (senna) 8.6 mg PO DAILY 03/24/24 05/11/24 simethicone 125 mg chewable tablet 125 mg PO DAILY 03/24/24 05/11/24 quetiapine 50 mg tablet 25 mg PO DAILY 04/15/24 05/11/24 Previous Rx's ?Medication ?Instructions ?Recorded lancets 28 gauge (FreeStyle #100 ea 07/15/23 Lancets) ondansetron 4 mg disintegrating 4 mg PO Q8H PRN Nausea #30 tabs 04/02/24 tablet promethazine 12.5 mg tablet 12.5 mg PO Q6H PRN nausea and 04/22/24 vomiting #30 tabs acetaminophen 500 mg tablet See Rx Instructions .Route 05/04/24 .COMPLEX #90 tabs semaglutide 1 mg/dose (4 mg/3 mL) 1 mg (0.75 mL) SQ WEEKLY 4 weeks 05/04/24 subcutaneous pen injector #3 mL ondansetron 4 mg disintegrating 4 mg PO Q8H PRN nausea and 05/11/24 tablet vomiting #30 tabs gabapentin 100 mg capsule 100 mg PO BID #6 caps 05/23/24 Allergies Allergy/AdvReac Type Severity Reaction Status Date / Time amoxicillin [AMOXICILLIN] Allergy Intermediate I-HIVES Verified 05/04/24 10:36 clavulanic acid Allergy Intermediate I-HIVES Verified 05/04/24 10:36 [From AUGMENTIN] adhesive Allergy Mild Rash Verified 05/04/24 10:36 latex Allergy Verified 05/04/24 10:36 nicotine Allergy Verified 05/04/24 10:36 [facility] Disclaimer: The information contained in this section may have been updated after the patient was seen, as this information can be updated by other users. 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 Anemia Anxiety Asthma Bunion, right foot Depression Diabetes mellitus, type 2 Endometriosis Grief Nausea & vomiting PCOS (polycystic ovarian syndrome) Surgical History H/O laparoscopy History of appendectomy History of section History of cholecystectomy History of hernia repair History of LAVH History of right salpingo-oophorectomy History of tubal ligation Family History Other No significant family history Social History Smoking Status: Current every day smoker tobacco type: e-cigarettes second hand exposure: No alcohol intake: never substance use type: denies use current occupational status: employed Travel in the last 8 weeks: None household members: family housing: house ROS Obtained: Yes All systems reviewed & no additional complaints except as documented Physical Exam General General appearance: alert Head Head exam: atraumatic and normocephalic Eye Eye exam: Present normal appearance, PERRL and EOMI Neck Neck exam: Present normal inspection, full ROM and trachea midline Respiratory Respiratory exam: Absent respiratory distress, wheezes, stridor, accessory muscle use or prolonged expiratory phase Cardiovascular Cardiovascular exam: Present other (Pulses equal symmetric in upper and lower extremities) Abdominal Exam Abdominal exam: Present soft; Absent distention, tenderness or pulsatile mass Extremities Exam Extremities exam: Absent edema Neurological Exam Neurological exam: Present alert, oriented X3, CN II-XII intact and normal gait; Absent motor sensory deficit Skin Skin exam: Present warm and dry; Absent diaphoresis or erythema Medical Decision Making Medical Records Medical records reviewed: Yes I reviewed the patient's medical records. Screening: Per USPSTF and CDC recommendations, given the prevalence of disease in our region, it is our hospital?s policy to screen for HIV and viral Hepatitis for all patients aged 18 and over and those with ongoing risk factors. Jacob Inquiry Pt receiving controlled substance: No Jacob was queried for this patient: No Vital Signs: 05/23/24 15:20 05/23/24 15:22 05/23/24 15:36 Temperature 98.4 F Temperature Source Oral Pulse Rate 101 H 90 Pulse Rate [Right Brachial] 90 Respiratory Rate 16 Blood Pressure 159/105 H 159/106 H Blood Pressure [Right Arm] 159/105 H Blood Pressure Mean [Right Arm] 123 Blood Pressure Source [Right Arm] Automatic Cuff Blood Pressure Position [Right Arm] Sitting 02 Sat by Pulse Oximetry 100 96 94 L Oxygen Delivery Method Room Air Room Air Room Air 05/23/24 16:01 05/23/24 16:30 Temperature Temperature Source Pulse Rate 94 H 98 H Pulse Rate [Right Brachial] Respiratory Rate Blood Pressure 138/92 H 126/81 Blood Pressure [Right Arm] Blood Pressure Mean [Right Arm] Blood Pressure Source [Right Arm] Blood Pressure Position [Right Arm] 02 Sat by Pulse Oximetry 96 96 Oxygen Delivery Method Room Air Room Air Lab Data Lab Results 05/23/24 15:36: WBC 7.6, RBC 4.37, Hgb 12.7, Hct 39.8, MCV 91.2, MCH 29.1, MCHC 31.9, RDW 14.2, Plt Count 343, MPV 6.7 L, Neut % (Auto) 54.7, Lymph % (Auto) 37.1, [place] % (Auto) 4.7, Eos % (Auto) 2.8, Baso % (Auto) 0.8, Neut # (Auto) 4.2, Lymph # (Auto) 2.8, [place] # (Auto) 0.4, Eos # (Auto) 0.2, Baso # (Auto) 0.1, Sodium 138, Potassium 3.6, Chloride 108 H, Carbon Dioxide 25, Anion Gap 8.6, BUN 14, Creatinine 0.60, Estimated Creat Clear 178, Estimated GFR 111, Est GFR ( Amer) 135, Glucose 113 H, Calcium 9.2, Magnesium 1.8, Total Bilirubin 0.3, AST 30, ALT 34, Alkaline Phosphatase 78, Total Protein 7.5, Albumin 4.3, Globulin 3.2, Albumin/Globulin Ratio 1.3, Vitamin B12 373, HIV 1&2 Antibody Rapid Nonreactive 05/23/24 15:36 05/23/24 15:36 Orders (Tests/Meds): ORDERS Category Date Time Status CBC w/Auto Diff [Complete Blood Count Auto Diff] Stat Lab 05/23/24 15:36 Completed CMP [Comprehensive Metabolic Panel] Stat Lab 05/23/24 15:36 Completed HIV (1&2) Antibody Rapid Stat Lab 05/23/24 15:36 Completed Hep C Ab with Reflex to RNA Stat Lab 05/23/24 15:36 Received MAG [Magnesium] Stat Lab 05/23/24 15:36 Completed Vitamin B1 Stat Lab 05/23/24 16:00 Received Vitamin B12 Stat Lab 05/23/24 15:36 Completed Vitamin B6 Stat Lab 05/23/24 16:00 Received Vitamin E Stat Lab 05/23/24 16:00 Received Zinc Stat Lab 05/23/24 16:00 Received Medical Decision Narrative: 38-year-old female history of rheumatoid disc hypertension, hyperlipidemia, diabetes present with pain in her bilateral hands and feet. She states is been going on for months. No changes in medication. Has seen her family doctor, family doctor has not prescribed any medications to help. Following up with rheumatology and gastroenterology for the symptoms. Walking on her feet and using her hands makes it worse, resting makes it better. Nothing in particular otherwise makes it worse or better. No other associated symptoms. History was obtained via conversation with patient. On arrival, patient hemodynamically stable, alert, oriented x4, appropriate, GCS 15, moving all extremities spontaneously, pupils equal and reactive to light. Full physical exam performed and significant for well-appearing female in no acute distress. Ambulated to the room without issue. Neurovascularly intact including cranial nerve, cerebellar, motor and sensory exams. Reflexes also intact. Patient has subjective decrease sensation in bilateral hands and feet with associated hyperalgesia, but sensation is still intact grossly. Differential includes diabetic neuropathy, medication induced, vitamin or mineral deficiency, among others. Patient placed on continuous cardiac monitoring and continuous pulse ox with initial blood pressure 159/105, heart rate 101, saturation 100% on room air. Workup independently interpreted and significant for nonactionable CBC or chemistry, vitamin labs negative. Many pending at time of discharge. On reevaluation, patient resting comfortably. Given patient presentation, workup, history, this most likely represents diabetic neuropathy. A1c was sent. I will follow-up with the results of this in case patient needs antidiabetic meds, because she is not taking any at this time. Because patient at baseline without signs or symptoms of clinical decompensation, deemed appropriate for discharge. Results were relayed to patient who voiced understanding and were agreeable to outpatient management and follow up. I discussed my clinical impression with patient and answered all questions. At this time, the evidence for any other entities in the differential is insufficient to warrant any further testing or ED observation. This was explained as well. Advisory was given that persistent or worsening symptoms require further evaluation. I confirmed the understanding of this discussion. Sent home with 3 days of gabapentin until able to follow-up with her family doctor on Friday. Pharmacist Helper disclaimer Much of this encounter note is an electronic stove cleaner spoken language to printed text. Electronic stove cleaner of the spoken language may permit errors. Although I have reviewed the note, some errors may still exist. Critical Care Critical Care Time Critical Care Time: No
[2024-05-23 15:52] LABS: Basophils # 0.1 K/mm3 (0-0.2); Basophils % 0.8 % (0.1-2.0); Eosinophils # 0.2 K/mm3 (0.0-0.4); Eosinophils % 2.8 % (0.1-12.0); Hematocrit 39.8 % (37.0-47.0); Hemoglobin 12.7 g/dL (12.2-16.2); Lymphocytes # 2.8 K/mm3 (0.7-4.5); Lymphocytes % 37.1 % (10-50); Mean Corpuscular HGB Conc 31.9 g/dL (31.8-35.4); Mean Corpuscular Hemoglobin 29.1 pg (27.0-31.2); Mean Corpuscular Volume 91.2 fl (81-99); Mean Platelet Volume 6.7 fl (7.4-10.4); Monocytes # 0.4 K/mm3 (0.1-1.0); Monocytes % 4.7 % (1.7-9.3); Neutrophils # 4.2 K/mm3 (1.8-7.8); Neutrophils % 54.7 % (37.0-80.0); Platelet Count 343 K/mm3 (142-424); Red Blood Count 4.37 M/mm3 (4.20-5.40); Red Cell Distribution Width 14.2 % (11.5-17.5); White Blood Count 7.6 K/mm3 (4.8-10.8)
[2024-05-23 16:01] LABS: Alanine Aminotransferase 34 U/L (12-78); Albumin Level 4.3 g/dl (3.5-5.0); Albumin/Globulin Ratio 1.3 (1.1-1.8); Alkaline Phosphatase 78 U/L (38-126); Anion Gap 8.6 mEq/L (5-15); Aspartate Amino Transferase 30 U/L (14-36); Bilirubin,Total 0.3 mg/dl (0.2-1.3); Blood Urea Nitrogen 14 mg/dl (7-17); Calcium 9.2 mg/dl (8.4-10.2); Carbon Dioxide 25 mmol/L (22.0-30.0); Chloride 108 mmol/L (98-107); Creatinine Clearance Estimated 178 mL/min (50-200); Estimated Glomerular Filt Rate 111 ml/min (>60); GFR (African American) 135 ML/MIN (>60); Globulin 3.2 g/dL (1.3-3.2); Glucose 113 mg/dl (74-100); Magnesium 1.8 mg/dl (1.6-2.3); Potassium 3.6 mmoL/L (3.5-5.1); Sodium 138 mmol/L (136-145); Total Protein,Serum 7.5 g/dl (6.3-8.2)
[2024-05-23 16:52] LABS: HIV (1&2) Antibody Rapid NONREACTIVE (NONREACTIVE)
[2024-05-23 17:06] LABS: Vitamin B12 373 pg/mL (239-931)
[2024-05-23] MEDS: GABAPENTIN 100MG CAPSULE 100 MG PO (17:42)
[2024-05-23 18:11] LABS: Hemoglobin A1C 5.8 % (4.0-6.0)
[2024-05-25 05:10] LABS: HCV Ab Non Reactive (Non Reactive)
[2024-05-26 15:26] LABS: Zinc 62 ug/dL (44-115)
[2024-05-29 18:08] LABS: Vitamin B6 2.6 ug/L (3.4-65.2)
[2024-06-01 17:18] LABS: Vitamin E Alpha Tocopherol 10.4 mg/L (5.9-19.4); Vitamin E Gamma Tocopherol 2.1 mg/L (0.7-4.9)
== END 2024-05-23 17:45 | disposition home or self-care (01) ==
PROVIDERS: Emergency Provider Emergency Medicine; PCP Nurse Practitioner Family
DX: E11.40 Type 2 diabetes mellitus with diabetic neuropathy, unspecified (principal); M79.641 Pain in right hand; M79.642 Pain in left hand; M79.671 Pain in right foot; M79.672 Pain in left foot
CPT/HCPCS: 36415; 80053; 82607; 83036; 83735; 84207; 84425; 84446; 84630; 85025; 86803; 87389; 99283

== ENCOUNTER 2024-07-26 16:54 | Emergency (ER) | payer MEDICAID, SELFPAY ==
[2024-07-26 17:45] VITALS: BP 129/79; PULSE 112; RESP 19; TEMP 36.8; O2SAT 98; BMI 32.8
--- NOTE | 2024-07-26 18:12 | ED_ITS ---
Discharge Plan Disposition Patient Disposition: Home, Self-Care Condition: Good Prescriptions Prescriptions: New guaifenesin [Mucinex] 1,200 mg tablet extended release 12hr 1,200 mg PO Q12H PRN (Reason: congestion) Qty: 20 0RF No Action (DME) FreeStyle Lite Strips Strip See Rx Instructions .ROUTE .MEDSUPPLY Qty: 10 Rx Instructions: As directed (DME) lancets [FreeStyle Lancets] 28 gauge misc See Rx Instructions .Route Qty: 100 0RF Rx Instructions: As directed daily azithromycin 250 mg tablet 1 mg PO DAILY Patient Comments: TAKE 1 TABLET BY MOUTH ONCE DAILY FOR 4 DAYS famotidine 40 mg tablet 40 mg PO DAILY simethicone 125 mg tablet,chewable 125 mg PO DAILY Patient Comments: CHEW AND SWALLOW 1 TABLET ONCE DAILY NEEDED FOR ABDOMINAL DISTENTION albuterol sulfate [Ventolin HFA] 90 mcg/actuation HFA aerosol inhaler 1 inh INHALATION Q6HP PRN (Reason: SOA) quetiapine 50 mg tablet 50 mg PO HS Patient Comments: TAKE 1 TABLET BY MOUTH ONCE DAILY AT BEDTIME FOR SLEEP desvenlafaxine succinate 50 mg tablet extended release 24 hr 50 mg PO DAILY Patient Comments: TAKE 1 TABLET BY MOUTH ONCE DAILY IN THE MORNING FOR ANXIETY Ozempic 1 mg/dose (4 mg/3 mL) pen injector 1 mg SQ WEEKLY Patient Comments: INJECT 1 MG UNDER THE SKIN ONCE A WEEK Myfembree 40-1-0.5 mg tablet 1 tab PO DAILY Patient Comments: TAKE 1 TABLET BY MOUTH ONCE DAILY Referrals Follow up/Referrals: Tammy Matamoros APRN [Primary Care Provider] - See instructions Activity Restrictions/Add. Instructions Additional Instructions/Restrictions: *Monitor Temp, Over the counter Motrin or Tylenol as directed/as needed Tylenol every 4 hours and Motrin every 6 hours (as long as your family doctor has told you that you can take it) for fever or pain. and straight to ER if unable to lower temp less than 101.0 after medication given *Warm salt water gargles may help to soothe the throat *Throat Lozenges? *Warm fluids like tea with honey may help to soothe the throat? *Sleep elevated *Humidifier/Vaporizer *Your throat swab was sent for culture. Those results are typically sent to your primary care. Be sure to follow up in 2-3 days with your family doctor/primary care physician if no improvement so they can review those result and treat if necessary. If you don?t have a primary care doctor, I recommend you get one but in the mean time, you will have to return to a walk in clinic Follow up IMMEDIATELY for new or worsening symptoms or no Noticeable improvement over the next 48-72 hours. 911 for difficulty breathing or swallowing Clinical Impressions Clinical Impression: Viral upper respiratory infection Instructions Patient Instructions: DI for Viral Upper Respiratory Infection -- Adult Print Language Print Language: [place] Discharge ED Provider: Bernarda Edouard [facility] [place] HPI General Stated complaint: SOA, chest maite, CORTEZ Mode of Arrival: Ambulatory Source of Information: Patient Limitations: No Limitations Time Seen by Provider: 07/26/24 18:12 Description of Symptoms (Recalled from Triage Doc. by RN): PATIENT C/O CHEST AND HEAD CONGESTION THAT STARTED LAST FRIDAY HEENT Symptoms (Recalled from RN notes): Yes Resp Symptoms (Recalled from RN notes): Yes Skin Symptoms (Recalled from RN notes): No MS Symptoms (Recalled from RN notes): No Functional Status (Recalled from RN notes): WNL History of Present Illness Provider Complaint: Patient states that she was dx last week with Rhinovirus and parainfluenza and bronchitis at [place], States that she finished all her medications and antibiotics and she still is having sinus congestion so she came in to see if there was something else she can take for it Related Data Home Medications ?Medication ?Instructions ?Recorded ?Confirmed blood sugar diagnostic (FreeStyle #10 ea 02/18/24 07/26/24 Lite Strips) albuterol sulfate 90 mcg/actuation 1 inh inhalation Q6HP PRN SOA 07/26/24 07/26/24 aerosol inhaler (Ventolin HFA) azithromycin 250 mg tablet 1 mg PO DAILY 07/26/24 07/26/24 desvenlafaxine succinate 50 mg 50 mg PO DAILY 07/26/24 07/26/24 tablet,extended release 24 hr famotidine 40 mg tablet 40 mg PO DAILY 07/26/24 07/26/24 quetiapine 50 mg tablet 50 mg PO HS 07/26/24 07/26/24 relugolix 40 mg-estradiol 1 1 tab PO DAILY 07/26/24 07/26/24 mg-norethindrone acetate 0.5 mg tablet (Myf[place]ree) semaglutide 1 mg/dose (4 mg/3 mL) 1 mg SQ WEEKLY 07/26/24 07/26/24 subcutaneous pen injector (Ozempic) simethicone 125 mg chewable tablet 125 mg PO DAILY 07/26/24 07/26/24 Previous Rx's ?Medication ?Instructions ?Recorded lancets 28 gauge (FreeStyle #100 ea 07/15/23 Lancets) guaifenesin 1,200 mg tablet, 1,200 mg PO Q12H PRN congestion 07/26/24 extended release 12 hr (Mucinex) #20 tabs Allergies Allergy/AdvReac Type Severity Reaction Status Date / Time amoxicillin (AMOXICILLIN) Allergy Intermediate I-HIVES Verified 06/16/24 10:30 clavulanic acid (From Allergy Intermediate I-HIVES Verified 06/16/24 10:30 AUGMENTIN) adhesive Allergy Mild Rash Verified 06/16/24 10:30 latex Allergy Verified 06/16/24 10:30 Sulfa (Sulfonamide AdvReac Verified 06/16/24 10:30 Antibiotics) nicotine patch AdvReac Uncoded 06/16/24 10:30 Worker's Comp Is this a Worker's Comp case?: No [facility] Disclaimer: The information contained in this section may have been updated after the patient was seen, as this information can be updated by other users. 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 Nausea & vomiting PCOS (polycystic ovarian syndrome) Endometriosis Grief Bunion, right foot Depression Anxiety Anemia Diabetes mellitus, type 2 Asthma Surgical History History of right salpingo-oophorectomy History of LAV History of hernia repair H/O laparoscopy History of tubal ligation History of cholecystectomy History of section History of appendectomy Family History Other No significant family history Social History Smoking Status: Current every day smoker tobacco type: e-cigarettes second hand exposure: No alcohol intake: never substance use type: denies use current occupational status: employed Travel in the last 8 weeks: None household members: family housing: house ROS Obtained: Yes All systems reviewed & no additional complaints except as documented and Yes Systems reviewed as appropriate & no additional complaints except as documented Constitutional Constitutional: Reports system reviewed and no additional complaints, except as documented, Reports as per HPI and Reports headache(s) ENT Ears, Nose, Mouth, and Throat: Reports system reviewed and no additional complaints, except as documented, Reports as per HPI, Reports headache(s), R eports nasal congestion and Reports nasal discharge Cardiovascular Cardiovascular: Reports system reviewed and no additional complaints, except as documented and Reports as per HPI Respiratory Respiratory: Reports system reviewed and no additional complaints, except as documented, Reports as per HPI, Reports chest congestion and Reports cough Gastrointestinal Gastrointestingal: Reports system reviewed and no additional complaints, except as documented and as per HPI Neurologic Neurologic: Reports headache(s) Physical Exam General General appearance: alert and in no apparent distress ENT ENT exam: Present mucous membranes moist Expanded ENT Exam Nose exam: Present other (reports clear drainage); Absent sinus tenderness Throat exam: Present normal inspection Respiratory Respiratory exam: Present normal lung sounds bilaterally; Absent respiratory distress or wheezes Cardiovascular Cardiovascular exam: Present regular rate, normal rhythm and normal heart sounds Abdominal Exam Abdominal exam: Present soft and normal bowel sounds; Absent distention or tenderness Neurological Exam Neurological exam: Present alert, oriented X3 and normal gait Medical Decision Making Medical Records Screening: Per USPSTF and CDC recommendations, given the prevalence of disease in our region, it is our hospital?s policy to screen for HIV and viral Hepatitis for all patients aged 18 and over and those with ongoing risk factors. Jacob Inquiry Pt receiving controlled substance: No Jacob was queried for this patient: No Vital Signs: 07/26/24 17:45 Temperature 98.3 F Temperature Source Oral Pulse Rate [Left Brachial] 112 H Respiratory Rate 19 Blood Pressure [Left Arm] 129/79 Blood Pressure Mean [Left Arm] 95 Blood Pressure Source [Left Arm] Automatic Cuff Blood Pressure Position [Left Arm] Sitting 02 Sat by Pulse Oximetry 98 Oxygen Delivery Method Room Air Lab Data Lab results reviewed: Yes I reviewed the patient's lab results.
[2024-07-26 18:22] VITALS: BP 129/79; PULSE 112; RESP 19; TEMP 36.8; O2SAT 98
[2024-07-26 18:25] LABS: UTC Influenza A Antigen Negative (Negative); UTC Influenza B Antigen Negative (Negative); UTC Strep Screen (Rapid) Negative (Negative)
== END 2024-07-26 18:35 | disposition home or self-care (01) ==
PROVIDERS: Emergency Provider Nurse Practitioner; PCP Nurse Practitioner Family
DX: J06.9 Acute upper respiratory infection, unspecified (principal); R06.02 Shortness of breath; R51.9 Headache, unspecified; R09.89 Other specified symptoms and signs involving the circulatory and respiratory systems
CPT/HCPCS: 87804; 87880; 99212; G0381

== ENCOUNTER 2024-09-02 14:15 | Outpatient (CLI) | payer MEDICAID, SELFPAY ==
[2024-09-03 13:09] LABS: Prolactin 5.8 ng/mL (4.8-33.4)
== END 2024-09-02 23:59 | disposition home or self-care (01) ==
LOC: LAB 14:16
PROVIDERS: PCP Nurse Practitioner Family; Visit Provider Obstetrics & Gynecology
DX: N64.3 Galactorrhea not associated with childbirth (principal)
CPT/HCPCS: 36415; 84146

== ENCOUNTER 2024-09-20 13:01 | Outpatient (POV) | payer MEDICAID, SELFPAY ==
--- NOTE | 2024-09-20 | XR_ITS ---
FINAL REPORT TECHNIQUE: 5 views CLINICAL HISTORY: LBP COMPARISON: None FINDINGS: LUMBAR SPINE: 5 views of the lumbar spine, including AP, lateral, and several obliques were obtained. There are mild osteophytes present anteriorly at the L5-S1 level. The lumbar alignment is unremarkable. Chronic appearing pars defects are noted at the L5-S1 level without evidence of spondylolisthesis. IMPRESSION: No acute process. Reviewed, Interpreted and Dictated by Rafita Harris MD Transcribed by Audrey Carter Authenticated and [facility]
--- NOTE | 2024-09-20 13:13 | EXP.PAIN.SOA ---
[facility] Disclaimer: The information contained in this section may have been updated after the patient was seen, as this information can be updated by other users. 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 Nausea & vomiting PCOS (polycystic ovarian syndrome) Endometriosis Grief Bunion, right foot Depression Anxiety Anemia Diabetes mellitus, type 2 Asthma Surgical History History of right salpingo-oophorectomy History of LAVH History of hernia repair H/O laparoscopy History of tubal ligation History of cholecystectomy History of section History of appendectomy Family History Mother Aneurysm Social History Smoking Status: Current every day smoker tobacco type: e-cigarettes second hand exposure: No alcohol intake: never substance use type: denies use current occupational status: employed Travel in the last 8 weeks: None household members: family housing: house PM Subjective & Objective Subjective Subjective:: Patient is a pleasant 39-year-old female who presents today for follow-up. Patient has not been seen in our office since 2022. She has chronic pain in her right shoulder related to a previous surgery with rotator cuff repair, neck pain, low back pain and right leg pain. This pain has been going on for years and progressively worsening. Patient does describe this as an aching, throbbing sensation that does go down into her legs with numbness and tingling. She feels like it is progressively worsened to where her legs will just give out. Patient states the pain is constant and interferes with her ability perform activities of daily living such as cooking and cleaning. Patient in the past was scheduled for a right transforaminal injection however she never completed this injection. Patient was given a one-time dose of diazepam due to history of injection and states that she requires sedation for any type of injections. She states that she ended up having this injection with her neurosurgeon and that it made no improvement. In previous she has been seen by neurosurgery and was not a surgical candidate at that time however states that she is scheduled for follow-up with him on Friday. Patient denies any updated imaging. Her last imaging was in 2022. Patient has tried sfga-hti-myehurd medications such as Tylenol and ibuprofen along with heat and ice and topicals with no additional relief. Patient is currently managed with gabapentin tizanidine and diclofenac from her PCP. Her Jacob has been reviewed. Review of Systems: General: No recent weight changes, no fever, no sleep disturbances Respiratory: No cough, no shortness of air, no recurring pulmonary infections Cardiovascular/peripheral vascular: No chest pain, no palpitations, no edema, no shortness of breath Gastrointestinal: No new onset incontinence, normal bowel movements reported Genitourinary: No new onset incontinence Musculoskeletal: Low back pain, bilateral leg pain Psychiatric: [Normal mood/affect] Neurological: [Denies weakness in extremities], [denies balance issues] Pain at rest (0-10 scale): 10 Objective Objective:: Physical Exam: General: Alert and oriented x3, no acute distress, pleasant and cooperative Lungs: Respirations even and unlabored, symmetrical chest expansion Eyes: PERRL Musculoskeletal: Flexion and extension of lumbar [spine] somewhat guarded secondary to pain, point tenderness along the lower lumbar spine Neurological: Speech clear, no gross sensory deficit Has patient had previous pain injection?: No Conservative treatment options previously tried: Home exercise plan Length of treatment: Longer than 12 weeks Meds Home Medications and Allergies Home Medications ?Medication ?Instructions ?Recorded ?Confirmed ?Type lancets 28 gauge (FreeStyle #100 ea 07/15/23 09/02/24 Rx Lancets) blood sugar diagnostic (FreeStyle #10 ea 02/18/24 09/02/24 History Lite Strips) albuterol sulfate 90 mcg/actuation 1 inh inhalation Q6HP PRN SOA 07/26/24 09/02/24 History aerosol inhaler (Ventolin HFA) desvenlafaxine succinate 50 mg 50 mg PO DAILY 07/26/24 09/02/24 History tablet,extended release 24 hr famotidine 40 mg tablet 40 mg PO DAILY 07/26/24 09/02/24 History quetiapine 50 mg tablet 50 mg PO HS 07/26/24 09/02/24 History relugolix 40 mg-estradiol 1 1 tab PO DAILY 07/26/24 09/02/24 History mg-norethindrone acetate 0.5 mg tablet ([place]) simethicone 125 mg chewable tablet 125 mg PO DAILY 07/26/24 09/02/24 History meclizine 25 mg tablet 25 mg PO TID PRN 07/29/24 09/02/24 History promethazine 25 mg tablet 25 mg PO QID PRN 07/29/24 09/02/24 History pseudoephedrine HCl 30 mg tablet 60 mg (2 x 30 mg) PO Q6H PRN nasal 07/29/24 09/02/24 Rx congestion #30 tabs gabapentin 300 mg capsule 300 mg PO TID #90 caps 07/30/24 09/02/24 Rx semaglutide 1 mg/dose (4 mg/3 mL) See Rx Instructions .Route 08/27/24 09/02/24 Rx subcutaneous pen injector (Ozempic) .COMPLEX #3 mL diclofenac sodium 75 mg 75 mg PO DAILY 09/02/24 History tablet,delayed release tizanidine 4 mg tablet 1 mg PO DAILY 09/02/24 09/02/24 History New Prescriptions to Start Prescriptions: Allergies Allergy/AdvReac Type Severity Reaction Status Date / Time amoxicillin (AMOXICILLIN) Allergy Intermediate I-HIVES Verified 09/02/24 13:17 clavulanic acid (From Allergy Intermediate I-HIVES Verified 09/02/24 13:17 AUGMENTIN) adhesive Allergy Mild Rash Verified 09/02/24 13:17 latex Allergy Verified 09/02/24 13:17 Sulfa (Sulfonamide AdvReac Verified 09/02/24 13:17 Antibiotics) nicotine patch AdvReac Uncoded 09/02/24 13:17 Assessment and Plan *Assessment and plan (1) Degenerative disc disease: Status: Acute Category: Medical (2) Lumbar radiculopathy: Status: Resolved Category: Medical Code(s): M54.16 - Radiculopathy, lumbar region Plan Patient was counseled that we still do more conservative treatment such as injection therapy and that we would be offering this. I did discuss with the patient that I would recommend highly regarding getting updated MRI imaging. I will order x-ray and lets her neurosurgeon see about ordering the advanced imaging. I will order the patient a compounded cream and also send in a prescription of baclofen 10 mg 3 times daily as needed. Patient was counseled to discontinue her tizanidine while she tries this muscle relaxer. Patient acknowledges understanding. She will return to clinic in 1 month for reevaluation of symptoms and plan of care. Patient has been instructed to contact the clinic with any concerns before the next appointment. Dr. Greenwood has reviewed this note and agrees with this plan of care. This note was dictated using voice recognition software and make contain errors or omissions. All injections are used with Lidocaine, Bupivacaine and Depo Medrol. Occasionally urine drug screen is needed to verify patient's compliance with our office pain contract. This is ordered based off specific treatments related to chronic pain with the potential to abuse certain medications.
[2024-09-20 14:15] VITALS: BP 127/77; PULSE 94; RESP 18; O2SAT 97; BMI 32.4
== END 2024-09-20 23:59 | disposition home or self-care (01) ==
PROVIDERS: PCP Nurse Practitioner Family; Visit Provider Nurse Practitioner Family
DX: M51.16 Intervertebral disc disorders with radiculopathy, lumbar region (principal); U07.0 Vaping-related disorder; Z73.89 Other problems related to life management difficulty; Z79.85 Long-term (current) use of injectable non-insulin antidiabetic drugs
CPT/HCPCS: 72110; 99202; G0463

== ENCOUNTER 2024-10-04 15:00 | Outpatient (RCR) | payer MEDICAID, SELFPAY | END 2024-10-06 14:22 | disposition home or self-care (01) | LOC: PT 15:00 | PROVIDERS: Visit Provider Student in an Organized Health Care Education/Training Program | DX: M43.06 Spondylolysis, lumbar region (principal); M54.41 Lumbago with sciatica, right side; M54.42 Lumbago with sciatica, left side; G89.29 Other chronic pain | CPT/HCPCS: 97110; 97140; 97163 ==

== ENCOUNTER 2025-03-18 11:00 | Outpatient (CLI) | payer MEDICAID, SELFPAY ==
--- OUTSIDE RECORDS SUMMARY | 2010-11-28 08:14 | XMS_ITS | Continuity of Care Document ---
Author Organization [facility] Address [address] [place] [phone] Phone Care Team Providers Care Child Care Development Specialist Name Role Phone Unavailable Unavailable Unavailable Allergies, Adverse Reactions, Alerts Substance Reaction Status Criticality morphine Active No Information Procedures Procedure Date OFFICE/OUTPATIENT VISIT, EST REAGENT STRIP/BLOOD GLUCOSE COMPREHEN METABOLIC PANEL Advance Directives Directive Yes / No Effective Date File Name Resuscitation Not Answered N/A N/A Life Support Not Answered N/A N/A Intubation Not Answered N/A N/A Antibiotics Not Answered N/A N/A IV Fluid Support Not Answered N/A N/A Tube Feed Not Answered N/A N/A Other Directive N/A N/A WARNING:The information contained in this section is historical and is provided for information only and does not constitute a legal document or any assurance that the information is still accurate. Please verify the information with the castaneda of the legal document before using it for clinical purposes. Encounters Encounter Description Practice Location Reason(s) For Visit Diagnoses Date Provider Providers Copied on Encounter [facility], [address] [place] [address], [id number] , tel: [phone] [facility] diabetes (chief complaint) Diabetes mellitus without mention of complication, type I [juvenile type], not stated as uncontrolledEdemaN onspecific elevation of levels of transaminase or lactic acid dehydrogenase (ldh) 1 No Information OFFICE/OUTPA TIENT VISIT, EST [facility], [address] [place] [address], [id number] , tel: [phone] [facility] No Information 1 No Information Family History Family Member Type Diagnosis Age At Onset No Information Payers Payer name Insurance type Covered democrat ID Walt gonzalez(s) No Information Social History Type Description Quantity Date Captured Comments Alcohol Use Details Unknown 80 Weekly Caffeine Use Details Unknown Tobacco Use Status No Information Smoking Status No Information Sex Female Chief Complaint And Reason For Visit From encounter dated '11/28/2010 12:14'. diabetes (chief complaint) Reason For Referral Reason For Referral No Information History Of Present Illness Encounter Date Complaint History Of Prese nt Illness No Information Functional Status Date Functional Assessmen t No Information Instructions Date Instruction Additional Infor mation No Information Assessments Type Assessment Date No Information Patient Care Teams Name Effective Dates (start - stop) Status Members No Information
--- OUTSIDE RECORDS SUMMARY | 2025-03-18 11:03 | XMS_ITS | Data Portability ---
Author Organization [facility] & LEONEL Celaya ADMIN Address [address] [place] [id number] Care Team Providers Care Desktop Publishing Associate Name Role Phone HUNTER ANTONIO Primary Care Provider [phone] Assessment Encounter Date Assessment Date Assessment LastModified by Organization Details LastModified Time 02/10/2023 02/10/2023 Dominga Lewis MD Dear Dominga, Want to let you know that I saw Frannie Kline in the off state your request she is a 37-year-old woman who has a history of endometriosis and has had multiple laparoscopies with removal of the same. She is had several surgeries through her umbilicus and developed an incisional hernia that you repaired primarily 1 I had a recurrent laparoscopic procedure. She returned to your office recently complaining of generalized abdominal pain and you obtained an ultrasound which identified a recurrence of the hernia in the midline. Upon palpation of this hernia, the patient has significant discomfort and pain and reproduction of her symptoms. Given these findings you have asked me to evaluate her and make recommendations. Penicillin allergy MEDICATIONS: Documented by the patient and on the chart PAST MEDICAL HISTORY: Positive for asthma. Negative for diabetes, high blood pressure, heart disease, liver kidney disease PAST SURGICAL HISTORY: Tubal ligation; endometriosis laparoscopy times 10; cholecystectomy; appendectomy; bunion FAMILY HISTORY: Positive for cancer and diabetes. Negative for heart disease liver or kidney disease SOCIAL HISTORY: Does smoke. Denies alcohol REVIEW OF SYSTEMS: General: no malaise, fever, no constitutional symptoms of malignancy Eyes: no blurred vision, no loss of vision no change in vision, no discharge Nose: No drainage, no bleeding, no obstruction Oropharynx: No sore throat, no change in voice, no difficulty swallowing Pulmonary: No shortness of breath, no dyspnea on exertion, no productive cough, no bleeding Cardiac: No chest pain, no palpitation, no racing heartbeat, no dyspnea when lying flat Abdominal: abdominal pain, no nausea, no vomiting, no diarrhea : No dysuria, no hematuria, no lack of urine, no pain with urination Musculoskeletal: No joint pain, no back pain, no muscle pain, no claudication Integumentary: No rashes, no open sores, no open wounds Hematologic: No history of blood clots, no PEs, no history of free bleeding Endocrine: No cold intolerance, no heat intolerance, no polydipsia Neurologic: No loss of consciousness, no gait imbalance, no loss of function or sensation Remaining 14 point ROS noncontributory PHYSICAL EXAM: VS: Respirations 16 pulse 97 blood pressure 108/78. BMI is 29.8 General: Well-developed, alert orient x3. In no obvious distress. HEENT: Normal cephalic atraumatic extraocular muscles intact. No scleral icterus nasal passages are patent without discharge oropharynx is clear. Neck is soft and supple without lateral cervical adenopathy there is no visualized intraoral lesion. CHEST: No accessory muscle use lungs are clear to auscultation. Heart is regular rate and rhythm without murmur ABDOMEN: Soft, nontender nondistended, positive bowel sounds, no hepatosplenomegaly no masses. There is a incisional hernia in evidence of infraumbilical scar associated with the umbilicus. It is about 1-2 cm defect in his reducible : Grossly normal anatomy, no inguinal adenopathy or herniation EXT: Positive pulses no cyanosis clubbing or edema NEURO: Cranial nerves 2-12 grossly intact no focal or motor sensory deficits ASSESSMENT: I had a long and detailed discussion with the patient about her diagnosis and the treatment options. I informed her that because she is had a recurrence that she needs to have mesh placed. The patient is very resistant to this therefore I recommend we try some Phasix dissolvable mesh. I informed her that this has good data results and generally dissolves within 18 months and 98% of people. We discussed the technical aspects of the robotic versus in the open umbilical hernia repair in the reasons for conversion. We discussed the risks of surgery including bleeding, infection, heart attack, stroke, bowel injury, etc.. After thorough and detailed discussion, the patient has agreed to proceed. I will schedule her at her convenience and I will keep you up-to-date on developments in her case. Appreciate you asking me see this nice lady. Sincerely, Mark Nguyen This document has been prepared with the use of voice recognition software and may contain sound alike and software old missions or errors in punctuate tong and or spelling, etc. [email or web address] Not available 02/10/2023 15:20:51 03/17/2023 03/17/2023 Mrs. White returned 2 weeks out from her umbilical hernia repair with mesh. She is still complaining of pain out of proportion to physical exam and still looks amazing. She is not had any significant fever. She is tolerating a diet and having normal bowel function. I am going to go ahead and order a CT scan as well as some labs and if those are normal we will try her on some Toradol. The patient has a history of endometriosis had multiple surgery and I am not so certain that this may be the biggest contributor to her discomfort. [email or web address] Not available 03/17/2023 13:41:00 Plan of Treatment Reminders Order Date Submit Date Provider Last Modified By Organization Details Last Modified Time Details Appointments None recorded. Lab CMP, serum or plasma 2022 023 [email or web address] Not available 09:38:37 CBC w/ auto diff 2022 023 [email or web address] Not available 3 09:38:37 influenza virus A + B + SARS-CoV-2 (COVID19) Ag panel, rapid IA, upper respirator y specimen 2022 023 [email or web address] Not available 15:11:21 Referral None recorded. Procedures None recorded. Surgeries None recorded. Imaging CT, abdomen + pelvis, w/o contrast 2022 023 [facility] Centralized Scheduling, [address] , [place], [address], 13:14:58 Medication Orders Tamiflu 75 mg capsule 2022 023 [id number], [address], [place], [place], [id number], 3 14:48:19 ondansetro n 4 mg disintegra ting tablet 2022 023 [email or web address] [id number], [address] [place] [place], [id number], 3 14:48:15 albuterol sulfate HFA 90 mcg/actuat ion aerosol inhaler 2022 023 [facility][id number], [address], [place], [place], [id number], 3 15:12:03 propranolo l 10 mg tablet 2022 023 [facility] #[id number], [address] [place], [place], [id number], 3 10:45:50 Patient TargetsNo targets recorded. Patient InstructionsNo instructions recorded. Reason for Referral None Reported. Results Created Date Observation Date Name Description Value Unit Range Abnormal Flag Note LastModifiedBy Organization Detail LastModifiedTime 11/23/19 23 11/22/2022 influ yolanda virus A + B + SARS- CoV-2 (COVI D19) Ag panel , rapid IA, upper respi rator y speci men FLU A negati ve Not Available [address], [address], 11/22/2022 14:21:36 11/23/19 23 11/22/2022 influ yolanda virus A + B + SARS- CoV-2 (COVI D19) Ag panel , rapid IA, upper respi rator y speci men FLU B negati ve Not Available [address], [address], 11/22/2022 14:21:36 11/23/19 23 11/22/2022 influ yolanda virus A + B + SARS- CoV-2 (COVI D19) Ag panel , rapid IA, upper respi rator y speci men SARS COV + SARS OV 2 negati ve Not Available [address], [address], 11/22/2022 14:21:36 12/07/19 23 12/06/2022 influ yolanda virus A + B + SARS- CoV-2 (COVI D19) Ag panel , rapid IA, upper respi rator y speci men FLU A positi ve Not Available [address], [address], 12/06/2022 14:44:42 12/07/19 23 12/06/2022 influ yolanda virus A + B + SARS- CoV-2 (COVI D19) Ag panel , rapid IA, upper respi rator y speci men FLU B negati ve Not Available [address], [address], 12/06/2022 14:44:42 12/07/19 23 12/06/2022 influ yolanda virus A + B + SARS- CoV-2 (COVI D19) Ag panel , rapid IA, upper respi rator y speci men SARS COV + SARS OV 2 negati ve Not Available [address], [address], 12/06/2022 14:44:42 12/07/19 23 12/06/2022 rapid strep group A, throa t Strep negati ve Not Available [address], [address], 12/06/2022 14:44:41 Result Notes None recorded. Problems Name Problem SNOMED Code Status Onset Date Resolution Date Notes Provider Name and Address Organization Details Recorded Time Anxiety 72916859 Active 2021 SHEILA Mcgovern [facility] [place] 2 11:09:17 Depressive disorder 05363145 Active 2021 [place] - [facility] [place] [facility] [place] 2 11:09:29 Irritable bowel syndrome 83991467 Active 2021 [place] - [facility] [place] [facility] [place] 2 11:09:37 Allergic rhinitis 58997658 Active 2021 [place] - [facility] [place] [facility] [place] 2 11:09:46 Chronic back pain 359262273 Active 2021 [place] - [facility] [place] [facility] [place] 2 11:10:11 Endometriosis (clinical) 469458943 Active 2021 [place] - [facility] [place] [facility] [place] 2 11:10:29 Miscarriage 18386600 Active 2021 [place] - [facility] [place] [facility] [place] 2 11:10:41 Problem Notes None recorded. Procedures Surgical History Date Name Laterality Status Provider Name and Address Organization Details Recorded Time 12/24/19 20 laparoscopic excision of pelvic endometriosis completed Little Hwang [facility] [place] 05/30/2022 11:16:43 10/24/19 20 Dilation and Curettage completed Little SOSA - [facility] [place] 05/30/2022 11:16:34 07/25/20 19 Dilation and Curettage completed Little SOSA - [facility] [place] 05/30/2022 11:16:11 excision of bunion completed Rosalva SOSA - [facility] [place] 05/30/2022 11:12:09 excision of ganglion cyst completed Little Hwang [facility] [place] 05/30/2022 11:12:32 Appendectomy completed Little SOSA - [facility] [place] 05/30/2022 11:12:50 Cholecystectomy completed Little CASTANEDA [facility] [place] 05/30/2022 11:15:16 Colonoscopy completed Little CASTANEDA [facility] [place] 05/30/2022 11:15:29 section completed Little CASTANEDA [facility] [place] 05/30/2022 11:15:37 Imaging Results None recorded. Procedure Notes None recorded. Medical Equipment None Reported. Allergies Allergen ID Allergen Name Allergen Category Reaction Reaction Severity Criticality Documentation Date Start Date Code Code System Note Provider Name and Address Organization Details Recorded Time 07925 Augmentin medicatio n hives Not available Not available 05/30/2022 22394 2 RxNorm SHEILA Mcgovern [facility] [place] 2 11:07:15 61079 Product containin g penicilli n (product) medicatio n hives Not available Not available 05/30/2022 54070 8001 SNOMED SHEILA Mcgovern [facility] [place] 2 11:07:31 47542 tramadol medicatio n dizziness Not available Not available 05/30/2022 84999 RxNorm SHEILA Queen [facility] [place] 3 14:47:22 99779 acetamino phen / oxycodone medicatio n Not available Not available Not available 05/30/2022 52688 3 RxNorm SHEILA Queen [facility] [place] 3 14:47:09 29677 Buspar medicatio n Not available Not available Not available 05/30/2022 30614 0 RxNorm fatig ue SHEILA Mcgovern [facility] [place] 2 11:08:39 28821 gabapenti n medicatio n headache Not available Not available 02/10/2023 73486 RxNorm SHEILA Queen [facility] [place] 3 14:47:41 Medications Name Sig Start Date Stop Date Status Note LastModified by Organization Details LastModified Time celecoxib 200 mg capsule TAKE 1 CAPSULE BY MOUTH EVERY 12 HOURS NEEDED FOR PAIN active Not Available Not Available No t Available cyclobenzap rine 10 mg tablet TAKE 1 TABLET BY MOUTH THREE TIMES DAILY NEEDED FOR MUSCLE SPASMS active Not Available Not Available No t Available promethazin e-DM 6.25 mg-15 mg/5 mL oral syrup 08/14 completed Not Available Not Available Not Available tizanidine 2 mg tablet TAKE 1 TABLET BY MOUTH EVERY 8 HOURS FOR 10 DAYS NEEDED active Not Available Not Available No t Available triazolam 0.25 mg tablet TAKE 2 TABLET BY MOUTH 1 HOUR BEFORE APPOINTME NT DO NOT DRIVE active Not Available Not Available No t Available cetirizine 10 mg tablet TAKE 1 TABLET BY MOUTH EVERY DAY 06/06 completed Not Available Not Available Not Available azithromyci n 250 mg tablet TAKE 2 TABLETS (500 MG) BY ORAL ROUTE ONCE DAILY FOR 1 DAY THEN 1 TABLET (250 MG) BY ORAL ROUTE ONCE DAILY FOR 4 DAYS 02/10 completed Not Available Not Available Not Available ibuprofen 800 mg tablet TAKE 1 TABLET BY MOUTH TWICE DAILY FOR 7 DAYS NEEDED 11/15 completed Not Available Not Available Not Available fluconazole 150 mg tablet TAKE 1 TABLET BY MOUTH TODAY. REPEAT IN 7 DAYS NEEDED active Not Available Not Available No t Available benzonatate 200 mg capsule TAKE 1 CAPSULE BY MOUTH 2 TO 3 TIMES PER DAY NEEDED FOR COUGH 06/06 completed Not Available Not Available Not Available hydrocodone 5 mg-acetamin ophen 325 mg tablet TAKE 1 TABLET BY MOUTH EVERY 8 HOURS NEEDED FOR MODERATE PAIN active Not Available Not Available No t Available promethazin e 12.5 mg tablet TAKE 1 TABLET BY MOUTH THREE TIMES DAILY NEEDED FOR NAUSEA OR VOMITING 02/10 completed Not Available Not Available Not Available famotidine 40 mg tablet TAKE 1 TABLET BY MOUTH DAILY FOR 45 DAYS active Not Available Not Available No t Available prednisone 20 mg tablet TAKE 1 TABLET BY MOUTH EVERY DAY FOR 2 DAYS 06/07 completed Not Available Not Available Not Available dexamethaso ne 6 mg tablet TAKE 1 TABLET BY MOUTH EVERY DAY 06/03 completed Not Available Not Available Not Available acetaminoph en 300 mg-codeine 30 mg tablet TAKE 1 TABLET BY MOUTH EVERY 4-6 HOURS active Not Available Not Available No t Available levofloxaci n 250 mg tablet TAKE 1 TABLET BY MOUTH EVERY DAY FOR 3 DAYS 02/10 completed Not Available Not Available Not Available Kenalog 40 mg/mL suspension for injection Take 40 mg by injection route. 11/15 completed Not Available Not Available Not Available oxycodone-a cetaminophe n 5 mg-325 mg tablet TAKE 1 TABLET BY MOUTH EVERY 6 HOURS FOR 5 DAYS 06/03 completed Not Available Not Available Not Available propranolol 10 mg tablet TAKE 1 TABLET BY MOUTH THREE TIMES DAILY NEEDED active Not Available Not Available No t Available ceftriaxone 1 gram solution for injection Take 1 g by injection route. 06/21 completed Not Available Not Available Not Available methocarbam ol 750 mg tablet TAKE 1 TABLET BY MOUTH THREE TIMES DAILY active Not Available Not Available No t Available meclizine 25 mg tablet TAKE 1 TABLET BY MOUTH EVERY 12 HOURS NEEDED. 06/03 completed Not Available Not Available Not Available diazepam 2 mg tablet 03/17 completed Not Available Not Available Not Available baclofen 10 mg tablet TAKE 1 TABLET BY MOUTH TWICE DAILY FOR 14 DAYS NEEDED 06/03 completed Not Available Not Available Not Available benzonatate 100 mg capsule TAKE 1 CAPSULE BY MOUTH THREE TIMES DAILY NEEDED FOR COUGH 11/15 completed Not Available Not Available Not Available hydrocodone 7.5 mg-acetamin ophen 325 mg tablet TAKE 1 TABLET BY MOUTH EVERY 4 TO 6 HOURS NEEDED FOR PAIN active Not Available Not Available No t Available oseltamivir 75 mg capsule Take 1 capsule twice a day by oral route for 5 days. 02/10 completed Not Available Not Available Not Available neomycin-po lymyxin-dex ameth 3.5 mg/mL-10,00 0 unit/mL-0.1 % eye drops INSTILL 1 DROP INTO LEFT EYE FOUR TIMES DAILY FOR 4 DAYS active Not Available Not Available No t Available hyoscyamine 0.125 mg sublingual tablet DISSOLVE 1 TABLET UNDER THE TONGUE EVERY 4 HOURS NEEDED active Not Available Not Available No t Available indomethaci n 25 mg capsule active Not Available Not Available Not Available gabapentin 300 mg capsule TAKE 1 CAPSULE BY MOUTH EVERY NIGHT 11/15 completed Not Available Not Available Not Available sertraline 25 mg tablet TAKE 1 TABLET BY MOUTH EVERY DAY 06/03 completed Not Available Not Available Not Available triamterene 37.5 mg-hydrochl orothiazide 25 mg tablet TAKE 1 TABLET BY MOUTH EVERY MORNING 06/03 completed Not Available Not Available Not Available diclofenac sodium 75 mg tablet,jimmy yed release TAKE 1 TABLET BY MOUTH TWICE DAILY FOR 14 DAYS NEEDED 06/03 completed Not Available Not Available Not Available cephalexin 500 mg tablet TAKE 1 TABLET BY MOUTH TWICE DAILY FOR 10 DAYS 06/03 completed Not Available Not Available Not Available montelukast 10 mg tablet TAKE 1 TABLET BY MOUTH EVERY DAY AT BEDTIME 11/15 completed Not Available Not Available Not Available hydroxyzine HCl 25 mg tablet TAKE 1 TABLET BY MOUTH THREE TIMES DAILY active Not Available Not Available No t Available mupirocin 2 % topical ointment APPLY TOPICALLY TO THE AFFECTED AREA EVERY DAY FOR 10 DAYS 06/03 completed Not Available Not Available Not Available zolpidem 5 mg tablet TAKE 1 TABLET BY MOUTH AT BEDTIME 06/03 completed Not Available Not Available Not Available dexamethaso ne sodium phosphate 4 mg/mL injection solution Inject 4 mg by intramusc ular route. 11/15 completed Not Available Not Available Not Available ibuprofen 600 mg tablet TAKE 1 TABLET BY MOUTH EVERY 8 HOURS FOR 45 DAYS active Not Available Not Available No t Available methylpredn isolone 4 mg tablets in a dose pack FOLLOW PACKAGE DIRECTION S active Not Available Not Available No t Available hydroxyzine HCl 10 mg tablet TAKE 1 TABLET BY MOUTH TWICE DAILY FOR 14 DAYS NEEDED 11/15 completed Not Available Not Available Not Available ondansetron 4 mg disintegrat ing tablet DISSOLVE 1 TABLET ON THE TONGUE EVERY 8 HOURS NEEDED FOR NAUSEA OR VOMITING active Not Available Not Available No t Available cefdinir 300 mg capsule 06/21 completed Not Available Not Available Not Available fluoxetine 20 mg capsule TAKE 1 CAPSULE BY MOUTH EVERY DAY IN THE MORNING 11/15 completed Not Available Not Available Not Available fluticasone propionate 50 mcg/actuati on nasal spray,suspe nsion USE 1 SPRAY(S) IN EACH NOSTRIL ONCE DAILY 02/10 completed Not Available Not Available Not Available clotrimazol e 1 % topical cream APPLY TOPICALLY TO THE AFFECTED AREA EVERY DAY 06/03 completed Not Available Not Available Not Available metoclopram oxana 10 mg tablet TAKE 1 TABLET BY MOUTH THREE TIMES DAILY FOR 7 DAYS 06/03 completed Not Available Not Available Not Available Ventolin HFA 90 mcg/actuati on aerosol inhaler Inhale by inhalatio n route for 25 days. active Not Available Not Available No t Available Ciprodex 0.3 %-0.1 % ear drops,suspe nsion SHAKE LIQUID AND INSTILL 4 DROPS TO AFFECTED EAR TWICE DAILY FOR 7 DAYS 06/03 completed Not Available Not Available Not Available duloxetine 30 mg capsule,del ayed release TAKE 1 CAPSULE BY MOUTH EVERY DAY 11/15 completed Not Available Not Available Not Available cefdinir 250 mg/5 mL oral suspension 06/03 completed Not Available Not Available Not Available varenicline tartrate 0.5 mg tablet TAKE 1 TABLET BY MOUTH TWICE DAILY 06/03 completed Not Available Not Available Not Available Nexium Packet 20 mg granules delayed release for susp MIX AND DRINK 1 PACKET BY MOUTH DAILY FOR 14 DAYS 06/03 completed Not Available Not Available Not Available Symbicort 160 mcg-4.5 mcg/actuati on HFA aerosol inhaler INHALE 2 PUFFS BY MOUTH TWICE DAILY DIRECTED 11/15 completed Not Available Not Available Not Available Mucus Relief ER 600 mg tablet, extended release TAKE 1 TABLET BY MOUTH EVERY 12 HOURS FOR 5 DAYS 08/14 completed Not Available Not Available Not Available Antiseptic Skin Cleanser (chlorhexid ine) 4 % liquid SHOWER EACH DAY WITH SOLUTION FOR 5 DAYS BEGINNING 5 DAYS BEFORE SURGERY active Not Available Not Available No t Available Gynazole-1 2 % vaginal cream APPLY 1 APPLICATO RFUL AT BEDTIME 06/03 completed Not Available Not Available Not Available Vraylar 1.5 mg capsule TAKE 1 CAPSULE BY MOUTH EVERY DAY NEEDED 11/15 completed Not Available Not Available Not Available Vraylar 3 mg capsule TAKE 1 CAPSULE BY MOUTH DAILY active Not Available Not Available No t Available Trulance 3 mg tablet TAKE 1 TABLET BY MOUTH EVERY DAY 06/06 completed Not Available Not Available Not Available ID NOW COVID-19 Test Kit TEST DIRECTED TODAY 06/03 completed Not Available Not Available Not Available BinaxNOW COVID-19 Ag Self Test kit TEST DIRECTED TODAY 02/10 completed Not Available Not Available Not Available Vitals Date Recorded Body height Body mass index (BMI) Body weight Body temperature Oxygen saturation Oxygen saturation in Arterial blood by Pulse oximetry Heart rate Systolic And Diastolic Provider Name and Address Organization Details Last Updated DateTime 3 165.1 cm 31.1 kg/m2 18751.7 7 g 97.6 [degF] 97 % 97 % 104 /min 118/77 mm[Hg] Little Araujoana SHEILA [facility] [place] 3 10:16:14 Date Recorded Body height Body mass index (BMI) Body weight Body temperature Oxygen saturation Oxygen saturation in Arterial blood by Pulse oximetry Heart rate Systolic And Diastolic Provider Name and Address Organization Details Last Updated DateTime 3 165.1 cm 30.6 kg/m2 08964 g 98 [degF] 99 % 99 % 111 /min 117/76 mm[Hg] Little Anna SOSA [facility] [place] 3 14:21:45 Date Recorded Body height Body mass index (BMI) Body weight Body temperature Oxygen saturation Oxygen saturation in Arterial blood by Pulse oximetry Heart rate Systolic And Diastolic Provider Name and Address Organization Details Last Updated DateTime 3 165.1 cm 29.8 kg/m2 62808.0 3 g 98 [degF] 98 % 98 % 97 /min 108/78 mm[Hg] Roldan Madrid [facility] [place] 3 14:46:44 Date Recorded Body height Body temperature Oxygen saturation Oxygen saturation in Arterial blood by Pulse oximetry Heart rate Body mass index (BMI) Body weight Systolic And Diastolic Provider Name and Address Organization Details Last Updated DateTime 3 165.1 cm 97.8 [degF] 99 % 99 % 107 /min 29.5 kg/m2 81691.8 5 g 110/76 mm[Hg] Shiela bo [facility] [place] 3 13:28:41 Social History Question Answer Notes LastModified by Organizat ion Details LastModified Time Tobacco Smoking Status Current Every Day [facility] [place] 06/03/2022 11:21:31 Do You Have An Advance Directive? No Information not available 06/21/2022 Are You Blind Or Do You Have Difficulty Seeing? No Information not available 06/21/2022 What Is Your Level Of Caffeine Consumption? Occasional Information not available 03/17/2023 What Was The Date Of Your Most Recent Tobacco Screening? 11/15/2022 Information not available 11/15/2022 At What Age Did You Start Smoking Tobacco? 11 Information not available 03/17/2023 Are You Passively Exposed To Smoke? Yes Information not available 06/21/2022 How Much Tobacco Do You Smoke? 0.5 PPD tamburgey Information not available 06/21/2022 Has Tobacco Cessation Counseling Been Provided? No Information not available 03/17/2023 How Many Years Have You Smoked Tobacco? 25 Information not available 06/03/2022 Sex: Female Functional Status Question Answer Note LastModified by Organizat ion Details LastModified Time Do you use any illicit or recreational drugs? No Information not available 06/03/2022 Do you or have you ever used any other forms of tobacco or nicotine? No [email or web address] Information not available 03/17/2023 What is your level of alcohol consumption? None Information not available 06/03/2022 Do you or have you ever used smokeless tobacco? Never used smokeless tobacco Information not available 06/21/2022 What is your exercise level? Occasional Information not available 06/21/2022 Mental Status Question Answer Note LastModified by Organization D etails LastModified Time Do you feel stressed (tense, restless, nervous, or anxious, or unable to sleep at night)? [id number] Information not available 06/21/2022 Family History Nothing Reported Notes:Pt is adopted. She leroy s know that a blood disorder runs on her mother's side of the family/blood clots and diabetes. 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 Condition Response Diabetes Y Anxiety Disorder Y Allergies/Hayfever Y Autoimmune disease Y Endometriosis Y Reflux/GERD Y Psychiatric/Mental Health Condition Y Headaches Y Back Problems Y Obstructive Sleep Apnea Y Depression Y Gynecological History Statement/Question Response Current Control Method Tubal Ligat ion Sexually Active? Y Obstetrics History GPAL:G 0 P 0 0 0 0 Immunizations Vaccine Type Date Status Note Provider Nam e and Address Organization Details Recorded Time COVID-19, mRNA, LNP-S, PF, 30 mcg/0.3 mL dose 05/01/2021 completed [place], [place] - [facility] - [place] & [place] 06/21/2022 10:19:25 TST-PPD intradermal 11/28/2017 [place] - [facility] [place] & [place] 06/21/2022 10:19:25 COVID-19, mRNA, LNP-S, PF, 30 mcg/0.3 mL dose 05/23/2021 completed [place] - [facility] - [place] & [place] 06/21/2022 10:19:25 Past Encounters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
--- OUTSIDE RECORDS SUMMARY | 2025-03-18 11:03 | XMS_ITS | Encounter Summary ---
Author Organization [facility] ystem Address [address] [place] [address] Care Team Providers Care Pack Mule Worker Name Role Phone Almaz Chavez APRN Primary Care Provider Reason for Visit * Reason Comments Med Refill Encounter Details Date Type Department Care Team (Late st Contact Info) Description 11/23/2024 Refill [facility]ERY [address] [facility] [address] [place] [address] Vignesh Soto PA-C [address] [facility] [address] [place], [place] [id number] Chronic bilateral low back pain with bilateral sciatica Social History Tobacco Use Types Packs/Day Years Used Date Smoking Tobacco: Former Cigarettes 1 20 0 04/01/2003 - 04/01/2023 Passive Smoke Exposure: Past Smokeless Tobacco: Never Alcohol Use Standard Drinks/Week Comments No 0 (1 standard drink = 0.6 oz pur e alcohol) Abuse Screen Answer Date Recorded Feels Unsafe at Home or Work/School no 05/13/2023 Feels Threatened by Someone no 04/25 Does Anyone Try to Keep You From Having Contact with Others or Doing Things Outside Your Home? no 05/13/2023 Physical Signs of Abuse Present no 05/13/2023 Housing Stability Answer Date Recorded Current Living Arrangements home 04/25 Potentially Unsafe Housing Conditions Not on darrick e 05/13/2023 Disabilities Answer Date Recorded Difficulty Concentrating, Remembering or Making Decisions no 05/13/2023 Difficulty Managing Errands Independently no 05/13/2023 Education Answer Date Recorded Help with school or training? 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
--- OUTSIDE RECORDS SUMMARY | 2025-03-18 11:03 | XMS_ITS | Encounter Summary ---
Author Organization [facility] ystem Address [address] [place] [address] Care Team Providers Care Cafe Operator Name Role Phone Almaz Chavez APRN Primary Care Provider Reason for Visit * Reason Comments Med Refill Encounter Details Date Type Department Care Team (Late st Contact Info) Description 06/26/2023 [facility]ill [facility] [address] [address] Tyrone Harrell MD [address] [facility] [address] [place] [phone] Cervicalgia Social History Tobacco Use Types Packs/Day Years Used Date Smoking Tobacco: Former Cigarettes 1 20 0 04/01/2003 - 04/01/2023 Smokeless Tobacco: Never Alcohol Use Standard Drinks/Week [...] or training? Not on file Preferred Language Polish 04/29/2023 Comments No Sex and Gender Information Value Date Recorded Sex Assigned at Not on file Legal Sex Female 4:42 PM EDT Gender Identity Not on file Sexual Orientation Not on file Occupation Industry Job Start Date Job End Date stay at [employer] Not on file Not on file Not on file documented as of this encounter Plan of Treatment Not on file documented as of this encounter Visit Diagnoses Diagnosis Cervicalgia documented in this encounter Care Teams Cafe Operator Relationship Specialty Start Date End Date Almaz Chavez APRN [address] [place] [address] PCP - General Family Medicine 09/20/24 documented as of this encounter
--- OUTSIDE RECORDS SUMMARY | 2025-03-18 11:04 | XMS_ITS | Data Portability ---
Author Organization [facility] telehealth Address [address] [place] [address] Assessment Encounter Date Assessment Date Assessment LastModified by Organization Details LastModified Time 02/19/2022 02/19/2022 36yo F presents for post-op pain. She is well-recovered in appearance. Her right incision looks infected, cleaned in office. Will RTC for 1 month post-op. mkaron Not available 02/19/2022 17:15:39 03/14/2022 03/14/2022 36yo F presents for 1 month post-op. She reports irregular, heavy periods with large clots and cramping, right side of belly button is numb. No CANCER GENETICS ASSISTANT pathologies noted on ULS, GI symptoms likely causing discomfort. Will give her Linzess mkaron Not available 03/14/2022 14:53:20 01/14/2023 01/14/2023 37yo F presents for possible recurrent endometriosis symptoms. She reports pelvic pain and abdominal bloating. Umbilical hernia noted on physical exam. Endometrium is thin. Both ovaries are normal in size, shape, and appearance. Two follicular cysts seen on left ovary. Doppler studies on left ovary are normal. Mild tenderness present in cul-de-sac. Hard stool seen in colon. Suspect bowels are contributing pain and discomfort. Spec exam reveals vaginal discharge, culture collected. Cervicitis present and treated with silver nitrate. Started pt on Levsin. Advised pt to avoid irritable foods. Will refer pt to general surgeon, Dr. Nguyen. Pt will RTC for WWE, sooner if needed. mkaron Not available 01/14/2023 14:42:26 Plan of Treatment Reminders Order Date Submit Date Provider Last Modified By Organization Details Last Modified Time Details Appointments None recorded. Lab None recorded. Referral None recorded. Procedures None recorded. Surgeries None recorded. Imaging None recorded. Medication Orders Levsin/SL 0.125 mg sublingual tablet 2022 023 [id number], [address] [place], [place], [id number], 14:42:54 Trulance 3 mg tablet 2021 022 [facility][id number], [address], [place], [place], [phone], 14:53:52 Percocet 5 mg-325 mg tablet 2021 022 [facility] #69757, [address] [place], [place], [phone], 17:18:51 Patient TargetsNo targets recorded. Patient InstructionsNo instructions recorded. Reason for Referral None Reported. Results Created Date Observation Date Name Description Value Unit Range Abnormal Flag Note LastModifiedBy Organization Detail LastModifiedTime 02/12/20 22 02/11/2022 lab* lab Not Available [facility] (Lab) [address], [place], [address], 02/15/2022 15:44:18 02/12/20 22 02/11/2022 lab* lab Not Available [facility] [address], [place], [address], 02/13/2022 18:36:20 02/22/20 22 02/21/2022 lab* lab Not Available [facility] [address], [place], [address], 03/18/2022 14:10:51 03/14/20 22 03/14/2022 lab* lab Not Available [facility] [address] , [place], [address], 03/18/2022 10:06:38 Result Notes None recorded. Problems Name Problem SNOMED Code Status Onset Date Resolution Date Notes Provider Name and Address Organization Details Recorded Time Irritable bowel syndrome 98667753 Active 2015 Irritable bowel syndrome; Problem Title: Irritable bowel syndrome Not Available [facility] 23:35:09 Anxiety disorder 800568870 Active 2015 Anxiety Disorder; Problem Title: Anxiety Disorder Not Available [facility] 23:35:09 Depressiv e disorder 33355361 Active 2015 Depression ; Problem Title: Depression Not Available [facility] 23:35:09 Endometri osis Active 2015 Endometrio sis; Problem Title: Endometrio sis Not Available [facility] 23:35:09 Notes:IC Problem Title: IC P olycystic Ovarian Disease Problem Title: Polycystic Ovarian Disease Problem Notes None recorded. Procedures Surgical History Date Name Laterality Status Provider Name and Address Organization Details Recorded Time 023 Non-OB ULS completed MD [address], [place], [address], [facility] 01/14/2023 14:35:28 022 Non-OB ULS completed MD [address], [place], [address], [facility] 03/14/2022 14:28:25 022 Endometrial Biopsy completed [facility] 02/19/2022 16:34:10 022 dinitrochlorobenzene contact sensitivity test completed [facility] 02/19/2022 16:34:37 Imaging Results None recorded. Procedure Notes None recorded. Medical Equipment None Reported. Allergies Allergen ID Allergen Name Allergen Category Reaction Reaction Severity Criticality Documentation Date Start Date Code Code System Note Provider Name and Address Organization Details Recorded Time 488 amoxicill in medicatio n hives Not available Not available 02/19/2022 723 RxNorm [facility] 2 16:28:58 489 latex environme nt,medica tion rash Not available Not available 02/19/2022 85035 91 RxNorm [facility] 2 16:29:19 Medications Name Sig Start Date Stop Date Status Note LastModified by Organization Details LastModified Time oxybutyni n chloride ER 10 mg tablet,ex tended release 24 hr 01/11 completed Days To Take: 30 #ofRe fills: 30 Drug Identifi cation Code: [id number] F ree Text SIG: Oxybutyn in Chloride ER 10MG, 1 (one) Tablet ER 24HR at bedtime # 30, 01/24/20 17, Ref. x10. Inactive Not Available Not Available Not Available azithromy karson 250 mg tablet 06/24 completed Days To Take: 5 #ofRef ills: 0 Commen ts: One z-pack, take as directed on package. Drug Identifi cation Code: [id number] F ree Text SIG: Azithrom ycin 250MG, 1 (one) Tablet as directed # 1, 06/19/20 21, No Refill. Inactive Not Available Not Available Not Available clomiphen e citrate 50 mg tablet 02/28 completed Days To Take: 5 #ofRef ills: 0 Commen ts: 1 po daily on days 3-[address] moon Identifi cation Code: 366439 F ree Text SIG: clomiPHE NE Citrate 50MG, 2 (two) Tablet daily # 10, 02/24/20 19, No Refill. Inactive Not Available Not Available Not Available Nexium 40 mg capsule,d elayed release 11/20 completed Days To Take: 30 #ofRe fills: 30 Drug Identifi cation Code: [id number] F ree Text SIG: NexIUM 40MG, 1 (one) Capsule daily # 30, 01/19/20 21, Ref. x1. Inactive Not Available Not Available Not Available Zofran 4 mg tablet 11/20 completed Days To Take: 10 #ofRe fills: 30 Comme nts: This order disconti nued per [facility] n. Drug Identifi cation Code: [id number] F ree Text SIG: Zofran 4MG, 1 (one) Tablet three times daily, as needed # 30, 11/17/19 21, Ref. x1. Disconti nued Not Available Not Available Not Available Zoloft 50 mg tablet 09/27 completed Days To Take: 30 #ofRe fills: 30 Drug Identifi cation Code: 135908 F ree Text SIG: Zoloft 50MG, 1 (one) Tablet daily # 30, 09/27/19 20, Ref. Q 30 Days x1 Year. Inactive Not Available Not Available Not Available Flagyl 500 mg tablet 01/30 completed Days To Take: 7 #ofRef ills: 0 Drug Identifi cation Code: 465352 F ree Text SIG: Flagyl 500MG, 1 (one) Tablet two times daily # 14, 01/24/20 20, No Refill. Inactive Not Available Not Available Not Available hyoscyami ne 0.125 mg disintegr ating tablet 11/20 completed Days To Take: 30 #ofRe fills: 0 Drug Identifi cation Code: 989570 F ree Text SIG: Hyoscyam ine Sulfate 0.125MG, 1 (one) Tablet as needed # 0, 03/27/20 20, Ref. Q 30 Days x1 Year. Inactive Not Available Not Available Not Available hyoscyami ne sulfate 0.125 mg tablet 01/11 completed Days To Take: 30 #ofRe fills: 90 Drug Identifi cation Code: 980911 F ree Text SIG: Hyoscyam ine Sulfate 0.125MG, 1 (one) Tablet three times daily, as needed # 90, 05/21/20 16, Ref. x6. Inactive Not Available Not Available Not Available triamtere ne 37.5 mg-hydroc hlorothia zide 25 mg tablet 11/202 completed Days To Take: 30 #ofRe fills: 30 Drug Identifi cation Code: 264072 F ree Text SIG: Triampaulette julio-HCTZ 37.5-25M G, 1 (one) Tablet every morning # 30, 06/29/20 21, Ref. x1. Inactive Not Available Not Available Not Available chlordiaz epoxide-c lidinium 5 mg-2.5 mg capsule 01/11 completed Days To Take: 30 #ofRe fills: 90 Drug Identifi cation Code: 868948 F ree Text SIG: chlordia zePOXIDE -Clidini um 5-2.5MG, 1 (one) Capsule three times daily, as needed # 90, 05/21/20 16, Ref. x2. Inactive Not Available Not Available Not Available cephalexi n 500 mg tablet 10/30 completed Days To Take: 7 #ofRef ills: 0 Drug Identifi cation Code: 167617 F ree Text SIG: Cephalex in 500MG, 1 (one) Tablet BID # 14, 10/24/19 22, No Refill. Inactive Not Available Not Available Not Available folic acid 1 mg tablet 11/20 completed Days To Take: 30 #ofRe fills: 60 Drug Identifi cation Code: 940727 F ree Text SIG: Folic Acid 1MG, 2 (two) Tablet daily # 60, 11/18/19 21, Ref. x12. Inactive Not Available Not Available Not Available Levsin/SL 0.125 mg sublingua l tablet Place 1 tablet every 4 hours by sublingu al route as needed. 2022 active Not Available Not Available Not Avai lable Zoloft 100 mg tablet 2021 active Days To Take: 0 Drug Identifi cation Code: 979490 F ree Text SIG: Zoloft( 100MG Oral 1.5 tablet ) Inactive -Hx Entry Not Available Not Available Not Available Percocet 5 mg-325 mg tablet Take 1 tablet every 6 hours by oral route for 5 days. 2021 active Not Available Not Available Not Avai lable ondansetr on 4 mg disintegr ating tablet 11/20 completed Days To Take: 30 #ofRe fills: 90 Comme nts: PRN nausea D rug Identifi cation Code: 405224 F ree Text SIG: Ondanset eddy 4MG, 1 (one) Tablet every eight hours # 90, 07/05/20 19, Ref. x3. Inactive Not Available Not Available Not Available metformin ER 500 mg tablet,ex tended release 24 hr 11/20 completed Days To Take: 30 #ofRe fills: 90 Comme nts: First week, take 1 with evening meal. Second week take 2 with evening meal. Continue on with [address] moon Identifi cation Code: 993108 F ree Text SIG: metFORMI N HCl ER 500MG, 3 Tablet with evening meal # 90, 08/31/19 20, Ref. x12. Inactive Not Available Not Available Not Available Diflucan 200 mg tablet 11/20 completed Days To Take: 0 #ofRef ills: 0 Commen ts: take one tablet, may repeat in 3-4 days if needed D anabella Identifi cation Code: 678302 F ree Text SIG: Diflucan 200MG, 1 (one) Tablet one time dose # 2, 01/24/20 20, No Refill. Inactive Not Available Not Available Not Available Ambien 5 mg tablet 07/05 completed Days To Take: 30 #ofRe fills: 0 Drug Identifi cation Code: 766357 F ree Text SIG: Ambien 5MG, 1 (one) Tablet at bedtime # 30, 06/05/20 21, No Refill. Inactive Not Available Not Available Not Available 09/13 (21) 1 mg-20 mcg tablet 11/20 completed Days To Take: 28 #ofRe fills: 28 Drug Identifi cation Code: 820887 F ree Text SIG: 09/13 1-20MG-M CG, 1 (one) Tablet daily # 28, 12/14/19 20, Ref. x12. Inactive Not Available Not Available Not Available Clindesse 2 % vaginal cream,ext ended release 12/01 completed Days To Take: 1 #ofRef ills: 0 Commen ts: 1 time dose Yordy johnson Identifi cation Code: 867007 F ree Text SIG: Clindess e 2%, 1 (one) Applicat ion as directed # 1, 12/01/19 21, No Refill. Inactive Not Available Not Available Not Available lamotrigi ne 2021 active Days To Take: 0 Drug Identifi cation Code: [id number] Free Text SIG: Lamotrig ine( 50mg daily ) Inactive -Hx Entry Not Available Not Available Not Available Claritin 2019 active Days To Take: 0 Drug Identifi cation Code: [id number] Free Text SIG: Claritin ( ) Inactive -Hx Entry Not Available Not Available Not Available Hydrozine 2019 active Days To Take: 0 Drug Identifi cation Code: [id number] Free Text SIG: Hydrozin e( ) Inactive -Hx Entry Not Available Not Available Not Available Nexium Packet 20 mg granules delayed release for susp 11/20 completed Days To Take: 14 #ofRe fills: 14 Drug Identifi cation Code: 507911 F ree Text SIG: NexIUM 20MG, 1 (one) Packet daily # 14, 06/05/20 21, Ref. x1. Inactive Not Available Not Available Not Available Linzess 145 mcg capsule 01/11 completed Days To Take: 30 #ofRe fills: 30 Drug Identifi cation Code: 802693 F ree Text SIG: Linzess 145MCG, 1 (one) Capsule daily # 30, 11/28/19 16, Ref. x11. Inactive Not Available Not Available Not Available Diclegis 10 mg-10 mg tablet,de layed release 11/20 completed Days To Take: 30 #ofRe fills: 60 Drug Identifi cation Code: 180994 F ree Text SIG: Diclegis 10-10MG, 2 (two) Tablet at bedtime # 60, 01/06/20 21, Ref. x1. Inactive Not Available Not Available Not Available Lomedia 24 Fe 1 mg-20 mcg (24)/75 mg (4) tablet 01/11 completed Days To Take: 30 #ofRe fills: 1 Commen ts: This order disconti nued per [facility]. Drug Identifi cation Code: 947017 F ree Text SIG: Lomedia 24 FE 1-20MG-M CG(24), 1 (one) Tablet daily # 1, 05/21/20 16, Ref. x11. Disconti nued Not Available Not Available Not Available Trulance 3 mg tablet Take 1 tablet every day by oral route for 30 days. 2021 active Not Available Not Available Not Avai lable Vitals Date Recorded Body height Body mass index (BMI) Body weight Systolic And Diastolic Provider Name and Address Organization Details Last Updated DateTime 01/14/2023 167.64 cm 29.6 kg/m2 29189.56 g 114/68 mm[Hg] [facility] 01/14/2023 13:55:13 Date Recorded Body height Body mass index (BMI) Body weight Systolic And Diastolic Provider Name and Address Organization Details Last Updated DateTime 02/19/2022 167.64 cm 30 kg/m2 19666.18 g 126/83 mm[Hg] [facility] 02/19/2022 16:27:38 Date Recorded Body height Body mass index (BMI) Body weight Systolic And Diastolic Provider Name and Address Organization Details Last Updated DateTime 03/14/2022 167.64 cm 30.2 kg/m2 82303.49 g 120/74 mm[Hg] [facility] 03/14/2022 13:52:04 Social History Question Answer Notes LastModified by [employer] Details LastModified Time Tobacco Smoking Status Current Every Day Smoker [facility] 03/14/2022 13:52:46 What Is Your Relationship Status? [email or web address] Information not available 01/14/2023 Are You Sexually Active? Yes [email or web address] Information not available 01/14/2023 Sex: Unknown Functional Status Question Answer Note LastModified by [employer] Details LastModified Time Do you use any illicit or recreational drugs? No [email or web address] Information not available 01/14/2023 Do you or have you ever used any other forms of tobacco or nicotine? No [email or web address] Information not available 01/14/2023 What is your level of alcohol consumption? None Information not available 01/14/2023 Mental Status None recorded. Family History Nothing Reported Notes:Pt is Adopted, but kno ws there is a history of Heart Disease.: Pt is Adopted, but knows there is a history of Heart Disease. 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 No medical history recorded. Gynecological History Statement/Question Response Age at Menarche 9 Obstetrics History GPAL:G 6 P 0 0 0 2 Type Value Living 2 Total 6 Immunizations Vaccine Type Date Status Note Provider Nam e and Address Organization Details Recorded Time COVID-19, mRNA, LNP-S, PF, 3 mcg/0.2 mL dose, denis-sucrose 05/01/2021 completed [facility] 02/19/2022 16:32:15 COVID-19, mRNA, LNP-S, PF, 3 mcg/0.2 mL dose, denis-sucrose 05/22/2021 completed [facility] 02/19/2022 16:32:35 Past Encounters Encounter ID Performer Location Encounter Start Date Encounter Closed Date Diagnosis/Indication Diagnosis SNOMED-CT Code Diagnosis ICD10 Code Diagnosis Note [id number] MD DOMINGA Abdul MD [address] [facility] [address] 02/19/2022 15:15:32 02/19/2022 17:19:25 Postoperative visit 710884275 Z09 Postoperative pain 66211 9007 G89.18 [id number] GABBIE Holley MD [address] [place] [address] 03/14/2022 13:45:13 03/14/2022 14:54:16 Postoperative visit 181070833 Z09 Irregular periods 674188 07 N92.6 Menorrhagia 462089184 N9 2.0 1 stick of silver nitrate Dysmenorrhea 923015661 N 94.6 Postoperative pain 24999 9007 G89.18 Diarrhea 71548745 R19.7 Constipation 30559510 K5 9.00 Inflammati on of cervix 18150362 N72 1 stick of silver nitrate used Abdominal pain 02224037 R10.9 Vaginal discharge 379927 006 N89.8 will culture via PCL [id number] MD DOMINGA Abdul MD [address] [place] [address] 01/14/2023 13:02:39 01/14/2023 14:45:47 Abdominal pain 18105615 R10.9 Abdominal bloating 71954 9008 R14.0 Follicular cyst of left ovary 9078769376 4773763 N83.02 Chronic id iopathic constipation 54261254 K59.04 Vaginal discharge 594338 006 N89.8 will culture via PCL Acute cervicitis 6582063 0 N72 Umbilical hernia 1843358 07 K42.9 Bowel spasm 352986998 R2 5.2 Health Concerns Section Related Observation LastModified by Organization Detai ls LastModified Time None Recorded Concern Status LastModified by Organization Details LastModified Time None Recorded Advance Directives Directive None Recorded Payers Insurance Date Sequence Insurance Name Policy Number Policy Denson Covered Member ID Denson Member ID Guarantor Name 01/24/2023 1 ANETA Jain [id number] Frannie Jain Notes Date Note Type Note Provider Name and Address Organization Details Recorded Time 02/19/2022 text/html Post-OpReported by PatientHPIFor associated symptoms, patient reportspain 6/10but reportsno fatigue,normal appetite,no constipation,no nausea,no emesis,no fever,no bleeding,no dysuria/urinary symptoms, andno diarrhea. 36yo F presents with c/o of post-op pain. Dominga Lewis MD [address], [place], [address], [facility] 02/19/2022 17:19:12 03/14/2022 text/html Post-OpReported by PatientHPIFor associated symptoms, patient reportsincision not healing wellbut reportsno fatigue,normal appetite,no constipation,no nausea,no emesis,pain improving,no pain,no fever,no bleeding,no dysuria/urinary symptoms, andno diarrhea.Pt reports right side of belly button is numb Need to talk about diabetes, still in alot of pain from belly button to right side, half dollar size blood clots and extremely painful periods. Dominga Lewis MD [address], [place], [address], [facility] 03/14/2022 14:53:59 01/14/2023 text/html Pt here for possible recurrent endometriosis symptoms. She reports abdominal pain and bloating. Dominga Lewis MD [address], [place], [address], [facility] 01/14/2023 14:43:06 OBGyn Episode No OBEpisode recorded.
--- OUTSIDE RECORDS SUMMARY | 2025-03-18 11:04 | XMS_ITS | Encounter Summary ---
Author Organization [facility] y[facility] Address [address] [place] [address] Care Team Providers Care Finance Attorney Name Role Phone Almaz Chavez Alva MA Primary Care Provider [phone] Reason for Visit * Reason Comments Med Refill Encounter Details Date Type Department Care Team (Late st Contact Info) Description 05/08/2023 Refill [facility] [address] [address] Tyrone Harrell MD [address] [place] [id number] Social History Tobacco Use Types Packs/Day Years Used Date Smoking Tobacco: Former Cigarettes 1 20 0 04/01/2003 - 04/01/2023 Smokeless Tobacco: Never Alcohol Use Standard Drinks/Week Comments No 0 (1 standard drink = 0.6 oz pur e alcohol) Education Answer Date Recorded Help with school or training? Not on file Preferred Language Afghan 04/29/2023 Comments No Sex and Gender Information Value Date Recorded Sex Assigned at Not on file Legal Sex Female 4:42 PM EDT Gender Identity Not on file Sexual Orientation Not on file Occupation Industry Job Start Date Job End Date stay at [employer] Not on file Not on file Not on file documented as of this encounter Plan of Treatment Not on file documented as of this encounter Visit Diagnoses Not on filedocumented in this encounter Care Teams Finance Attorney Relationship Specialty Start Date End Date Almaz Chavez APRN [address] [place] [address] PCP - General Family Medicine 09/20/24 documented as of this encounter
--- OUTSIDE RECORDS SUMMARY | 2025-03-18 11:04 | XMS_ITS | Clinical Summary ---
Author Organization [facility] Address [address] [place] [address] Phone Care Team Providers Care Ice Cream Freezer Helper Name Role Phone Unavailable Primary Care Provider Unavailabl e Social History Tobacco Use Types Packs/Day Years Used Date Smoking Tobacco: Never Assessed Comments No Sex and Gender Information Value Date Recorded Sex Assigned at Not on file Legal Sex Female 9:22 AM EST Gender Identity Not on file Sexual Orientation Not on file Obstetrics History Para Term AB IAB SAB Ectopic Multiple Livin g Live Births 2 Last Filed Vital Signs Vital Sign Reading Time Taken Comments Blood Pressure - - Pulse - - Temperature - - Respiratory Rate - - Oxygen Saturation - - Inhaled Oxygen Concentration - - Weight 88 kg (194 lb) 09/27/2024 11:27 AM EST Height 167.6 cm (5' 6 ) 09/27/2024 11:27 AM EST Body Mass Index 31.31 09/27/2024 11:27 AM EST Plan of Treatment Health Maintenance Due Date Last Done Comments Annual Wellness Exam 1987 DTaP/TDaP/Td (1 - Tdap) 2003 Hepatitis B Vaccine (1 of 3 - 19+ 3-dose series) 2003 Cervical Cancer Screening 2005 Pap Smear 2005 HPV/Pap Cotest 2014 COVID-19 Vaccine (2023-2 5 season) 2024 Influenza Vaccine (#1) 2025 Breast Cancer Screening 09/27/2026 09/27/2024 Meningococcal B Vaccine Aged Out No l onger eligible based on patient's age to complete this topic Pneumococcal Vaccine 0-49 Aged Out No longer eligible based on patient's age to complete this topic Procedures Procedure Name Priority Date/Time Associated Diagnosis Comments MM MAMMO DIGITAL JUVE SCREEN BILAT Routine 09/27/2024 11:27 AM EST Encounter for screening mammogram for malignant neoplasm of breast from Last 3 Months or Most Recently Relevant to Health Maintenance Results * MM MAMMO DIGITAL JUVE SCREEN BILAT (09/27/2024 11:27 AM EST) Anatomical Region Laterality Modality Breast Bilateral Mammography 09/27/2024 11:2 7 AM EST Impressions 09/29/2024 7:38 AM EST Negative ([id number]) RECOMMENDATION: Routine Screening Mammogram in 1 Year Bilateral No additional recommendation No additional laterality COMMENTS: Narrative 09/29/2024 7:38 AM EST EXAM: MM MAMMO DIGITAL JUVE SCREEN BILAT EXAM DATE: 09/27/2024 11:27 AM INDICATION: Z12.31-Encounter for screening mammogram for malignant neoplasm of [id number] COMPARISON STUDIES: Compared with prior studies the most recent being No comparison mammographic studies. TISSUE DENSITY: The breasts are heterogeneously dense, which may obscure small masses. FINDINGS: No mammographic evidence of malignancy. Procedure Note Scotty Castaneda DO - 09/29/2024 EXAM: MM MAMMO DIGITAL JUVE SCREEN BILAT EXAM DATE: 09/27/2024 11:27 AM INDICATION: Z12.31-Encounter for screening mammogram for malignantneoplasm of [id number]-CM COMPARISON STUDIES: Compared with prior studies the most recent being No comparison mammographic studies. TISSUE DENSITY: The breasts are heterogeneously dense, which may obscuresmall masses. FINDINGS: No mammographic evidence of malignancy. IMPRESSION: Negative ([id number]) RECOMMENDATION: Routine Screening Mammogram in 1 Year Bilateral No additional recommendation No additional laterality COMMENTS: Almaz Chavez NP IMG MAMMOGRAPHY ORDERABLES Fin al Result from Last 3 Months or Most Recently Relevant to Health Maintenance Insurance
--- OUTSIDE RECORDS SUMMARY | 2025-03-18 11:04 | XMS_ITS | Clinical Summary ---
[facility] [address] [place] [address] Care Team Providers Care Patcher Name Role Phone Almaz Chavez APRN Primary Care Provider [phone] Allergies Active Allergy Reactions Criticality Noted Date Comments Adhesive Tape Rash Low 09/02/2024 Amoxicillin Hives Medium 08/07/2016 Amoxicillin-Pot Clavulanate Hives Medium 08/07/2016 Clavulanic Acid Hives Medium 06/02/2022 Latex Rash Low 11/29/2018 blisters Nicotine Rash Low 11/03/2017 PT broke out in a rash- when she wore the nicotine patch Sulfa Antibiotics Nausea And Vomiting 5 Medications ondansetron ODT (ZOFRAN-ODT) [address] 1 tablet on the tongue Every 8 (Eight) Hours As Needed for Nausea or Vomiting. 20 tablet 1 05/15/20 23 Active senna 8.6 MG tablet Active QUEtiapine (SEROquel) 50 MG tablet 1 tablet. 02/04/20 24 Active meclizine (ANTIVERT) 25 MG tablet 07/09/20 24 Active famotidine (PEPCID) 40 MG tablet 1 tablet. 02/12/20 24 Active diclofenac (VOLTAREN) 75 MG EC tablet 1 tablet. 09/02/19 25 Active desvenlafaxine (PRISTIQ) 50 MG 24 hr tablet 1 tablet. 07/26/20 24 Active SUMAtriptan (IMITREX) 50 MG tablet take 1 tablet by mouth one time As needed as 1 dose with fluids as early as possible after the onset of a migraine attack; if headache returns, the dose may be repeated after 2 hours, not to exceed a total daily dose of 4 tablets 09/09/19 25 Active albuterol sulfate HFA 108 (90 Base) MCG/ACT inhaler Every 6 hours as needed as needed for SOA 07/26/20 24 Active amantadine (SYMMETREL) 100 MG tablet 09/22/19 25 Active Enbrel SureClick 50 MG/ML solution auto-injector Inject 1 mL every week by subcutaneous route. 09/28/19 25 Active atorvastatin (LIPITOR) 20 MG tablet Take 1 tablet by mouth Daily. for cholesterol 10/04/19 25 Active lidocaine (LIDODERM) 5 % Place 1 patch on the skin as directed by provider Daily. Remove & Discard patch within 12 hours or as directed by MD 30 patch 1 10/08/19 25 Active acetaminophen (TYLENOL) 500 MG tablet Take 1 tablet by mouth Every 4 (Four) Hours As Needed for Mild Pain. 30 tablet 10/08/19 25 Active naproxen sodium (GoodSense Naproxen Sodium) 220 MG tablet Take 1 tablet by mouth Every 8 (Eight) Hours. 90 tablet 1 10/08/19 25 Active acetaminophen-code ine (TYLENOL with CODEINE #3) 300-30 MG per tabletIndications: Chronic bilateral low back pain with bilateral sciatica Take 1 tablet by mouth Every 4 (Four) Hours As Needed for Moderate Pain. 30 tablet 10/21/19 25 Active pregabalin (Lyrica) 150 MG capsuleIndications :Chronic bilateral low back pain with bilateral sciatica Take 1 capsule by mouth 2 (Two) Times a Day. 60 capsule 11/06/19 25 Active carisoprodol (SOMA) 350 MG tabletIndications: Chronic bilateral low back pain with bilateral sciatica TAKE 1 TABLET BY MOUTH THREE TIMES DAILY NEEDED FOR MUSCLE SPASMS 30 tablet 12/16/19 25 Active diazePAM (Valium) 10 MG tabletIndications: Chronic bilateral low back pain with bilateral sciatica Take 1 tablet by mouth 30 Min Pre-Op. Give prior to myelogram 1 tablet 12/18/19 25 Active traMADol (ULTRAM) 50 MG tabletIndications: Chronic bilateral low back pain with bilateral sciatica Take 1 tablet by mouth Every 6 (Six) Hours As Needed for Severe Pain. 30 tablet 12/21/19 25 Active ARIPiprazole (ABILIFY) 5 MG tablet Take 1 tablet by mouth every night at bedtime. Active buPROPion XL (WELLBUTRIN XL) 150 MG 24 hr tablet Take 1 tablet by mouth Every Morning. Active Lubricant Eye Drops 0.5 % solution 12/30/19 25 Active estradiol (VIVELLE-DOT) 0.0375 MG/24HR patch APPLY 1 PATCH TOPICALLY TO THE SKIN 2 TIMES A WEEK Active HYDROcodone-acetam inophen (NORCO) 5-325 MG per tablet Take 1 tablet by mouth Every 6 (Six) Hours. 12/28/19 25 Active methocarbamol (ROBAXIN) 750 MG tablet Take 1 tablet by mouth 3 (Three) Times a Day. 12/21/19 25 Active Ozempic, 2 MG/DOSE, 8 MG/3ML solution pen-injector Inject 2 mg under the skin into the appropriate area as directed 1 (One) Time Per Week. 12/25/19 25 Active Active Problems Problem Noted Date Diagnosed Date Chronic bilateral low back pain with bilateral s ciatica 10/06/2024 Pars defect of lumbar spine 07/07/2023 Status post cervical disc replacement 07/07/2023 Cervicalgia 04/04/2023 Overview (04/04/2023): Added automatically from request for surgery [id number] Cervical disc disorder at C4-C5 level with radic ulopathy 04/02/2023 Encounters Date Type Department Care Team Description 01/05/2025 11:30 AM EDT Office Visit [facility] [address] [place] [address] Tyrone Harrell MD Chronic bilateral low back pain with bilateral sciatica (Primary Dx) 01/05/2025 Travel 12/30/2024 11:05 AM EDT - 12/30/2024 12:35 PM EDT Surgery [facility] [employer] [address] [place] [address] Sonido Mejia MD IR myelogram, lumbar [36030 (CPT )] 12/30/2024 9:25 AM EDT - 12/30/2024 12:25 PM EDT Hospital Encounter [facility] [address] [place] [id number] Sonido Mejia MD Pars defect of lumbar spine; Chronic bilateral low back pain with bilateral sciatica Discharge Disposition: Home or Self Care 12/30/2024 Travel 12/28/2024 Travel 12/18/2024 Refill [facility] [address] [address] Humera Alexandra PA Chronic bilateral low back pain with bilateral sciatica 12/18/2024 Refill [facility] [address] [address] Vignesh Soto PA-C Chronic bilateral low back pain with bilateral sciatica from Last 3 Months Immunizations Immunization Administration Dates Next Due PPD Test 11/28/2017 Family History * Patient is adopted 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 Relation Name Comments Hearing loss Daughter Pia sherwood Bilateral hea ring loss wears hearing aides Other Mother Nellie Cross adopted Anxiety disorder Sister Beatriz le Relation Name Status Comments Daughter Pia sherwood Mother Nellie Sister Beatriz le Social History Tobacco Use Types Packs/Day Years Used Date Smoking Tobacco: Former Cigarettes 1 20 0 04/01/2003 - 04/01/2023 Passive Smoke Exposure: Past Smokeless Tobacco: Current Snuff Tobacco Cessation:Ready to Q uit: No; Counseling Given: Yes Alcohol Use Standard Drinks/Week Comments No 0 (1 standard drink = 0.6 oz pur e alcohol) AUDIT-C Answer Date Recorded Q1: How often do you have a drink containing alcohol? Never 12/30/2024 Q2: How many drinks containi ng alcohol do you have on a typical day when you are drinking? Patient does not drink Q3: How often do you have si x or more drinks on one occasion? Never 12/30/2024 Abuse Screen Answer Date Recorded Feels Unsafe at Home or Work/School no 12/30/2024 Feels Threatened by Someone no 050 03/2025 Does Anyone Try to Keep You From Having Contact with Others or Doing Things Outside Your Home? no 12/30/2024 Physical Signs of Abuse Present no 12/30/2024 Housing Stability Answer Date Recorded Current Living Arrangements home 03/2025 Potentially Unsafe Housing Conditions Not on darrick e 12/30/2024 Disabilities Answer Date Recorded Difficulty Concentrating, Remembering or Making Decisions no 12/30/2024 Difficulty Managing Errands Independently no 12/30/2024 Education Answer Date Recorded Help with school or training? Not on file Preferred Language Emirati 04/29/2023 Comments No Sex and Gender Information Value Date Recorded Sex Assigned at Not on file Legal Sex Female 4:42 PM EDT Gender Identity Not on file Sexual Orientation Not on file Occupation Industry Job Start Date Job End Date stay at [employer] Not on file Not on file Not on file Last Filed Vital Signs Vital Sign Reading Time Taken Comments Blood Pressure 112/97 12/30/2024 12:18 PM EDT post ambulation Pulse 112 12/30/2024 12:18 PM EDT Temperature 36.4 C (97.5 F) 01/05/2025 11:26 AM EDT Respiratory Rate 16 12/30/2024 9:39 AM EDT Oxygen Saturation 96% 12/30/2024 12: 18 PM EDT Inhaled Oxygen Concentration - - Weight 90.3 kg (199 lb) 01/05/2025 11:2 6 AM EDT Height 167.6 cm (5' 6 ) 01/05/2025 11:2 6 AM EDT Body Mass Index 32.12 01/05/2025 11:26 AM EDT Plan of Treatment Health Maintenance Due Date Last Done Comments Annual Gynecologic Pelvic an d Breast Exam 1984 TDAP/TD VACCINES (1 - Tdap) 2003 PAP SMEAR 2005 ANNUAL PHYSICAL 01/06/2017 HEPATITIS C SCREENING 01/06/2017 COVID-19 Vaccine (2023-2 5 season) 2024 INFLUENZA VACCINE 05/25/2025 MAMMOGRAM 09/27/2026 09/27/2024, 09/27/2024 Pneumococcal Vaccine 0-49 Aged Out No longer eligible based on patient's age to complete this topic Medical Devices Implanted Type Area Chrome Tanning Drum Operator Device Identifier Shelf Expiration Date Model / Serial / Lot Clip Ligat Vasshasha Acosta Md Kobi 6ct - [id number] Implanted:Qty : 1 on 05/13/2023 by Tyrone Harrell MD at [facility] Implant N/A: Spine Cervical [employer] [id number] / / Clip Ligat Vasc Kylah Acosta Sm Yel 6ct - [id number] Implanted:Qty : 1 on 05/13/2023 by Tyrone Harrell MD at [facility] Implant N/A: Spine Cervical TELE[employer] MEDICAL [id number] / / Hemost Abs Surgifoam Sz100 8x12 10mm - [id number] Implanted:Qty : 1 on 05/13/2023 by Tyrone Harrell MD at [facility] Implant N/A: Spine Cervical ETHICON DIV OF J AND J 1974 / / Kt Seal Hemos Abs Floseal Matrx Fast/Prep 10ml - [id number] Implanted:Qty : 1 on 05/13/2023 by Tyrone Harrell MD at [facility] Implant N/A: Spine Cervical [id number] [id number] / / Disc Cerv Prestige Lp 5x14mm - [id number] Implanted:Qty : 1 on 05/13/2023 by Tyrone Harrell MD at [facility] Implant N/A: Spine Cervical MED[employer] 11/15/2029 [id number] / / [id number] Procedures Procedure Name Priority Date/Time Associated Diagnosis Comments CT LUMBAR SPINE W INTRATHECAL CONTRAST Routine 12/30/2024 11:26 AM EDT CARDIAC CATHETERIZATION Routine 12/31/19 11:04 AM EDT Pars defect of lumbar 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 2.Bilateral L5 pars defects. 3.Mild lower lumbar facet arthropathy and mild disc height loss at L5-S1. No evidence of significant canal or bony neural foraminal narrowing. Electronically Signed: Kalpesh Walter MD 01/03/2025 3:22 PM EDT Workstation ID: [id number] Narrative 01/03/2025 3:[address] LUMBAR SPINE W INTRATHECAL CONTRAST Date of Exam: 12/30/2024 11:09 AM EDT Indication: low back pain, bilateral leg pain. Comparison: 09/23/2024 MRI and radiographs Technique: Axial sections were obtained of the lumbar spine with reformatted images following the injection of intrathecal contrast. The localizer images are reviewed. Findings: No evidence of acute fracture. There is normal lumbar spine alignment. Bilateral L5 pars defects are present. Mild lower lumbar facet arthropathy. There is mild disc height loss at L5-S1. Svbxo-[id number] evaluation shows no evidence of significant canal or bony neural foraminal narrowing. Paraspinal soft tissues show no acute abnormality. Procedure Note Kalpesh Walter MD - 01/03/2025 CT LUMBAR SPINE W INTRATHECAL CONTRAST Date of Exam: 12/30/2024 11:09 AM EDT Indication: low back pain, bilateral leg pain. Comparison: 09/23/2024 MRI and radiographs Technique: Axial sections were obtained of the lumbar spine withreformatted images following the injection of intrathecal contrast. Thelocalizer images are reviewed. Findings: No evidence of acute fracture. There is normal lumbar spine alignment.Bilateral L5 pars defects are present. Mild lower lumbar facetarthropathy. There is mild disc height loss at L5-S1. Prmwb-[id number]-iwbgmywipaxlasd shows no evidence of significant canal or bony neural foraminal narrowing. Paraspinal soft tissues show no acute abnormality. IMPRESSION: Impression: 1.No acute fracture or malalignment of the lumbar spine. 2.Bilateral L5 pars defects. 3.Mild lower lumbar facet arthropathy and mild disc height loss at L5-S1.No evidence of significant canal or bony neural foraminal narrowing. Electronically Signed: Kalpesh Walter MD 01/03/2025 3:22 PM EDT Workstation ID: [id number] us Irais WARNERC IMG CT ORDERABLES Final Resu lt * IR MYELOGRAM, LUMBAR (12/30/2024 11:04 AM EDT) Anatomical Region Laterality Modality X-Ray Angiograph y Impressions 12/30/2024 11:11 AM EDT Unremarkable lumbar myelogram Narrative 12/30/2024 11:11 AM EDT Clinical Indication: 39-year-old female with persistent back and bilateral lower extremity pain. Template Storage Clerk: Dr. Head Given Procedures: Lumbar myelogram via lumbar puncture. Access: 22-gauge spinal needle in the thecal sac at the lower lumbar region. Contrast: Isovue 200 Estimated Blood Loss: Negligible Complication: None Apparent. Technique: Formal written consent for the procedure was obtained from the patient's/patient's family after explaining risks to include bleeding, infection, contrast reaction, spinal nerve/cord injury, and headache. The lower lumbar region was prepped and draped in the usual, sterile fashion. Local anesthesia with 1% lidocaine infiltration was achieved. Utilizing fluoroscopic guidance, a 22-gauge spinal needle was placed into the thecal sac of the lower lumbar region without difficulty. Following a clear return of CSF, approximately 15 milliliters of the Isovue-200 was instilled into the thecal sac without complication. Conventional myelographic images of the lumbar spine were obtained. Additionally, upright flexion/extension views of the lumbar spine were obtained. The patient tolerated the procedure well and without apparent complication. Findings: The conventional myelographic images of the lumbar spine demonstrate no significant spinal stenosis, appreciable nerve root impingement, or concern for focal disc herniation. Upright flexion/extension maneuvers demonstrate no spondylolisthesis or pathologic motion. Velia Silva PA-C CV CARDIAC CATH ORDERABLES Fi nal Result from Last 3 Months Insurance [employer] [place] [employer] Care Teams Patcher Relationship Specialty Start Date End Date Almaz Chavez APRN [address] [place] [address] PCP - General Family Medicine 09/20/24
--- OUTSIDE RECORDS SUMMARY | 2025-03-18 11:04 | XMS_ITS | Continuity of Care Document ---
Author Organization [facility], RHEUMATOLOGY SB Address [address] [place] [address] Care Team Providers Care Global Sourcing Manager Name Role Phone CLAUDINE MARIO Referring Provider [phone] MIN, NANCI Chipper Operator LUMA RODNEY Primary Care Provider Assessment Encounter Date Assessment Date Assessment LastModified by Organization Details LastModified Time 03/15/2025 03/15/2025 Psoriatic arthritis. Hx scalp psoriasis Swelling, stiffness, pain in bilateral hands. Also affected wrists, elbows, knees. Back, hip pains are chronic - unclear if related to inflammatory back pain; seems less likely. On exam, swelling in bilateral hands was consistent with dactylitis bilaterally. Colonoscopy was negative for inflammatory bowel disease. Prior medications: - NSAID's (Meloxicam, Naproxen, Celebrex, Diclofenac) - limited efficacy - Prednisone - lack of efficacy - Sulfasalazine (04/2024) - stopped due to significant GI side effects vomiting and diarrhea Current medication: - Enbrel (started 09/2024) - psoriatic arthritis is in clinical remission; psoriasis also is controlled. Not available 03/15/2025 12:14:03 Plan of Treatment Reminders Order Date Submit Date Provider Last Modified By Organization Details Last Modified Time Details Appointments NEW PATIENT O 2024 01:00P M STEPHANIE MEJIAS MD Not available Not available Not available RHEUM RECHECK 2024 09:30A M NANCI HIGGINBOTHAM MD Not available Not available Not available Lab CBC w/ auto diff 2024 025 [facility] [place] [facility], [address] [place], [address], 03/15/2025 14:36:51 CMP, serum or plasma 2024 025 AMOS [facility], [address] [place], [address], 03/15/2025 13:42:45 Referral neurolog ist referral - Onset of tremor/j erking in bilatera l hands after she got epidural ; due to pt being on TNF inhibito r for psoriati c arthriti s, r/o demyelin ating disease 2024 025 [id number] [facility], [address] [place], [address], 03/15/2025 13:38:02 Procedures None recorded . Surgeries None recorded . Imaging None recorded . Medication Orders None recorded . Patient TargetsNo targets recorded. Patient InstructionsNo instructions recorded. Reason for Referral Neurologist Referral for Fin ding of hand region Tremor in both hands; hx chronic back pain, s/p epidurals, on TNF inhibitor for psoriatic arthritis Onset of tremor/jerking in bilateral hands after she got epidural; due to pt being on TNF inhibitor for psoriatic arthritis, r/o demyelinating disease Referring Physician: Nanci Higginbotham, Rheumatology, Encounter Date: 03/15/2025 Results Created Date Observation Date Name Description Value Unit Range Abnormal Flag Note LastModifiedBy Organization Detail LastModifiedTime 03/15/2003/15/2025 COMP. METAB OLIC PANEL glucose 103 mg/dL 74-100 high Not Available [facility] [address] [place] [address], [address], 03/15/2025 13:42:45 03/15/20 25 03/15/2025 COMP. METAB OLIC PANEL blood urea nitrogen 13 mg/dL 6-20 normal Not Available [facility] [address] [place], [address], 03/15/2025 13:42:45 03/15/20 25 03/15/2025 COMP. METAB OLIC PANEL creatinine 0.84 mg/dL 0.50-0 .95 normal Not Available [facility] [address] [place] [address], [address], 03/15/2025 13:42:45 03/15/20 25 03/15/2025 COMP. METAB OLIC PANEL BUN/creatini ne ratio 15 (calc ) 10-20 normal Not Available [facility] [address] [place] [address], [address], 03/15/2025 13:42:45 03/15/20 25 03/15/2025 COMP. METAB OLIC PANEL sodium 142 mmol/ L 136-14 5 normal Not Available [facility] [address] [place] [address], [address], 03/15/2025 13:42:45 03/15/20 25 03/15/2025 COMP. METAB OLIC PANEL potassium 3.5 mmol/ L 3.4-5. 0 normal Not Available [facility] [address] [place] [address], [address], 03/15/2025 13:42:45 03/15/20 25 03/15/2025 COMP. METAB OLIC PANEL chloride 108 mmol/ L 98-107 high Not Available [facility] [address] [place] [address], [address], 03/15/2025 13:42:45 03/15/20 25 03/15/2025 COMP. METAB OLIC PANEL carbon dioxide 20 mmol/ L 22-31 low Not Available [facility] [address] [place] [address], [address], 03/15/2025 13:42:45 03/15/20 25 03/15/2025 COMP. METAB OLIC PANEL anion gap 14 (calc ) 7-25 normal Not Available [facility] [address] [place] [address], [address], 03/15/2025 13:42:45 03/15/20 25 03/15/2025 COMP. METAB OLIC PANEL calcium 8.8 mg/dL 8.6-10 .2 normal Not Available [facility] [address] [place] [address], [address], 03/15/2025 13:42:45 03/15/20 25 03/15/2025 COMP. METAB OLIC PANEL total protein 6.9 g/dL 6.4-8. 3 normal Not Available [facility] [address] [place] [address], [address], 03/15/2025 13:42:45 03/15/20 25 03/15/2025 COMP. METAB OLIC PANEL albumin 4.0 g/dL 3.5-5. 2 normal Not Available [facility] [address] [place] [address], [address], 03/15/2025 13:42:45 03/15/20 25 03/15/2025 COMP. METAB OLIC PANEL globulin 2.9 1.5-4. 5 normal Not Available [facility] [address] [place] [address], [address], 03/15/2025 13:42:45 03/15/20 25 03/15/2025 COMP. METAB OLIC PANEL albumin/glob ulin ratio 1.4 (calc ) 1.1-2. 5 normal Not Available [facility] [address] [place] [address], [address], 03/15/2025 13:42:45 03/15/20 25 03/15/2025 COMP. METAB OLIC PANEL bilirubin, total 0.2 mg/dL 0.1-1. 2 normal Not Available [facility] [address] [place] [address], [address], 03/15/2025 13:42:45 03/15/20 25 03/15/2025 COMP. METAB OLIC PANEL alkaline phosphatase 99 U/L 30-121 normal Not Available [facility] [address] [place] [address], [address], 03/15/2025 13:42:45 03/15/20 25 03/15/2025 COMP. METAB OLIC PANEL AST 14 U/L 0-32 normal Not Available [facility] [address] [place] [address], [address], 03/15/2025 13:42:45 03/15/20 25 03/15/2025 COMP. METAB OLIC PANEL ALT 22 U/L 0-33 normal Not Available [facility] [place], [address], 03/15/2025 13:42:45 03/15/20 25 03/15/2025 COMP. METAB OLIC PANEL eGFR 90 >= 60 normal NOT E New calcu latio n for GFR (CKD- EPI 2020) is formu lated witho ut race adjus tment facto rs at the recom menda tion of the [employer] at[employer] and [place] [facility] of Nephr ology . This calcu latio n has not been valid ated in pregn ant women . For pedia tric patie nts refer to https ://abe donovan.jean roberts.o rg/pr sesaress ional s/KDO QI/gf r_cal culat orPed Not Available [facility] [address] [place] [address], [address], 03/15/2025 13:42:45 Result Notes None recorded. Procedures Surgical History Date Name Laterality Status Provider Name and Address Organization Details Recorded Time 01/27/20 24 hysterectomy completed Loraine Pro [facility] 09/22/2024 14:55:42 surgical procedure on cervical spine completed NANCI HIGGINBOTHAM MD [address] [place] [address], [address], [facility] 05/03/2024 10:25:59 procedure on shoulder completed NANCI HIGGINBOTHAM MD [address] [place] [address], [phone], [facility] 05/03/2024 10:25:52 excision of bunion completed NANCI HIGGINBOTHAM MD [address] [place] [address], [address], [facility] 05/03/2024 10:26:05 excision of pelvic endometriosis completed NANCI HIGGINBOTHAM MD [address] [place] [address], [address], [facility] 05/03/2024 10:26:21 appendectomy completed NANCI HIGGINBOTHAM MD [address] [place] [address], [address], [facility] 05/03/2024 10:26:26 cholecystectomy completed NACNI HIGGINBOTHAM MD [address] [place] [address], [address], [facility] 05/03/2024 10:26:31 Imaging Results None recorded. Procedure Notes None recorded. Medical Equipment None Reported. Allergies Allergen ID Allergen Name Allergen Category Reaction Reaction Severity Criticality Documentation Date Start Date Code Code System Note Provider Name and Address Organization Details Recorded Time 765371 Product containin g penicilli n (product) medicatio n Not available Not available Not available 05/03/2024 96058 8001 SNOMED Angelina Kendrick [facility] 09:45:31 Medications Name Sig Start Date Stop Date Status Note LastModified by Organization Details LastModified Time Tylenol 500 mg capsule Take 2 tablets every 6 hours by oral route. 03/15 completed Not Available Not Available Not Available sulfasala zine 500 mg tablet 500 mg twice daily x 1 week, then 1000 mg in the morning and 500 mg in evening x 1 week, then 1000 mg twice daily thereaft er 09/22 completed quick takiing due to making her sick Not Available Not Available Not Available senna 8.6 mg tablet Take 2 tablets every day by oral route. active Not Available Not Available No t Available famotidin e 40 mg tablet Take 1 tablet every day by oral route. active Not Available Not Available No t Available prednison e 5 mg tablet 20 mg (4 tabs) daily x 3 days, 15 mg (3 tabs) x 3 days, 10 mg (2 tabs) x 3 days, 5 mg (1 tab) x 3 days then stop 03/15 completed Not Available Not Available Not Available baclofen 10 mg tablet Take 1 tablet 3 times a day by oral route. 03/15 completed Not Available Not Available Not Available paroxetin e 20 mg tablet Take 1 tablet every day by oral route. active Not Available Not Available No t Available diclofena c sodium 75 mg tablet,de layed release Take 1 tablet twice a day by oral route. active Not Available Not Available No t Available Abilify 5 mg tablet Take 1 tablet every day by oral route. active Not Available Not Available No t Available Wellbutri n XL 150 mg 24 hr tablet, extended release Take 1 tablet every day by oral route. active Not Available Not Available No t Available acetamino phen-code ine 03/15 completed Not Available Not Available Not Available tizanidin e active no long taking Not Available Not Available Not Available Medrol (Kane) active Not Available Not Available Not Available Lyrica active Not Available Not Availa ble Not Available Enbrel SureClick 50 mg/mL (1 mL) subcutane ous pen injector Inject 1 mL every week by subcutan eous route. 2024 active Not Available Not Available Not Avai lable Myfembree 40 mg-1 mg-0.5 mg tablet Take 1 tablet every day by oral route. 03/15 completed Not Available Not Available Not Available buspirone 10 mg capsule Take 1 capsule twice a day by oral route. active Not Available Not Available No t Available Vitals Date Recorded Body height Body mass index (BMI) Body weight Heart rate Oxygen saturation Oxygen saturation in Arterial blood by Pulse oximetry Systolic And Diastolic Provider Name and Address Organization Details Last Updated DateTime 5 167.64 cm 32 kg/m2 23590.0 4 g 109 /min 97 % 97 % 114/68 mm[Hg] Chester Luis [facility] 11:42:06 Social History Question Answer Notes LastModified by Organizat ion Details LastModified Time Tobacco Smoking Status Former Smoker Quit Cigarettes now Vape Loraine flores [facility] 09/22/2024 14:54:19 What Is Your Level Of Caffeine Consumption? Heavy Information not available 03/15/2025 What Was The Date Of Your Most Recent Tobacco Screening? 03/15/2025 Information not available 03/15/2025 Sex: Female Functional Status Question Answer Note LastModified by Organizat ion Details LastModified Time Do you use any illicit or recreational drugs? No Information not available 03/15/2025 Do you or have you ever used any other forms of tobacco or nicotine? Yes Information not available 09/22/2024 What is your level of alcohol consumption? None [email or web address] Information not available 05/03/2024 Do you or have you ever used e-cigarettes or vape? Current user of electronic cigarettes Information not available 09/22/2024 Mental Status None recorded. Family History Nothing Reported Notes:Adopted 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 Condition Response Emphysema N COPD N Arthritis Y Acid Reflux (GERD) Y Rheumatoid Arthritis N Bleeding Disorder N Asthma Y Diabetes Y Heart Disease N Hypertension N Gynecological HistoryNo gynecological history recorded. Obstetrics History GPAL:G 0 P 0 0 0 0 Past Encounters Encounter ID Performer Location Encounter Start Date Encounter Closed Date Diagnosis/Indication Diagnosis SNOMED-CT Code Diagnosis ICD10 Code Diagnosis Note [id number] NANCI HIGGINBOTHAM MD [facility] [address] [place] [address] 03/15/2025 11:16:27 03/16/2025 04:04:07 Psoriatic arthritis 898461053 L40.50 Long-term current use of immunosuppressive drug 487684373 Z79.60 Finding of hand region 910163511 R25.1 Onset after having had epidural before. First affected one hand, now bilateral. No clinical evidence today.Sinc e she is on TNF inhibitor, would want to make sure no issues with demyelinat ing disease. Will refer to Neurology. Psoriasis of scalp 07409 8008 L40.9 Chronic low back pain 27 9174671 M54.50 G89.29 Follows with [facility] ([facility]); was seen by [facility] ([facility]) before.Dif ferent issue from psoriatic arthritis. Health Concerns Section Related Observation LastModified by Organization Tosha higgins LastModified Time None Recorded Concern Status LastModified by Organization Details LastModified Time None Recorded Payers Encounter Date Sequence Insurance Name Policy Number Policy Denson Covered Member ID Denson Member ID Guarantor Name 03/15/2025 1 [facility] (MEDICAID REPLACEMENT - HMO) Mario Kline [id number] Mario Kline Notes Date Note Type Note Provider Name and Address Organization Details Recorded Time 03/15/2025 text/html ROS as noted in the HPI Last seen 12/14/24. Here with her children. Since last visit, Enbrel continued. She reports doing well with Enbrel. Taking on Sundays. Has minimal morning stiffness in hands, wrists, elbows. She is following with [facility] for her chronic back pains. Hips are bothersome. Reports that tremor in both hands is present. Feels it daily, comes on more so if holding things in a certain way. Denies radiating pains from neck. No associated numbness, tingling, weakness. Denies similar symptoms in legs.Reports that diarrhea has improved.Scalp psoriasis is controlled. Denies other rashes.Denies recent infections, fevers, blood in stool. From initial HPI 05/03/24:Referred by [facility] [employer] [facility]. She is not quite sure why she is here.States she was referred to GI as well for evaluation for Crohn's. States she has had colonoscopy in the past due to IBS.Reports arthritis.States she has history of fractures in her spine. based on MRI imaging she had at [facility] in 2022. I cannot see these records.Reports history of chronic back and hip pains.Reports tingling, stiffness, swelling in both hands with AM stiffness lasting over an hour. Cannot tell if activity helps. Was told related to carpal tunnel. Wearing braces at night have not been helpful.Wrists, elbows, knees have similar stiffness, pain.Hip pains are severe, constant. Denies buttock or groin pain.On Diclofenac 75 mg BID, and Tizanidine.Reports history of scalp psoriasis.Was on Lupron for 11 months for endometriosisDenies any oral ulcers, alopecia, pleuritic pain or shortness of breath, photosensitivity, dry eye or dry mouth, Raynaud's phenomenonNo history of recurrent infections. NANCI HIGGINBOTHAM MD [facility] [place], [address], [place] [facility] 03/15/2025 12:16:14 OBGyn Episode No OBEpisode recorded.
--- OUTSIDE RECORDS SUMMARY | 2025-03-18 11:04 | XMS_ITS | Encounter Summary ---
Author Organization [facility] ystem Address [address] [place] [address] Care Team Providers Care Forest Fire Prevention Specialist Name Role Phone Almaz Chavez APRN Primary Care Provider [phone] Reason for Visit * Reason Onset Date Comments JORS - MRI ORDER 10/14/2022 Encounter Details Date Type Department Care Team (Late st Contact Info) Description 10/14/[address] [facility] [address] [facility] [address] [place] [address] David Ba PA-C JORS - MRI ORDER Social History Tobacco Use Types Packs/Day Years Used Date Smoking Tobacco: Every Day Cigarettes 1 20 Smokeless Tobacco: Never Alcohol Use Standard Drinks/Week Comments No 0 (1 standard drink = 0.6 oz pur e alcohol) Comments No Sex and Gender Information Value Date Recorded Sex Assigned at Not on file Legal Sex Female 4:42 PM EDT Gender Identity Not on file Sexual Orientation Not on file Occupation Industry Job Start Date Job End Date stay at [employer] Not on file Not on file Not on file documented as of this encounter Miscellaneous Notes * Telephone Encounter - Zulema Ibarra S - 10/16/2022 10:53 AM EST The order has been faxed to , and I have called the patient to let her know. * Telephone Encounter - Cherry Elizabeth RegSched Rep - 10/14/2022 2:57 PM EST Caller: Frannie Kline Relationship to patient: Self Best call back number: [phone] Patient is needing: PATIENT CALLED, PATIENT IS REQUESTING WE FAX MRI ORDER TO [facility] FOR HER TO COMPLETE, PH:[phone]. PLEASE FAX AND CALL PATIENT TO ADVISE IT HAS BEEN SENT. THANK YOU documented in this encounter Plan of Treatment Not on file documented as of this encounter Visit Diagnoses Diagnosis Chronic bilateral low back pain with right-sided sciatica- Primary Cervicalgia Chronic right shoulder pain Pain in joint, shoulder region documented in this encounter Care Teams Forest Fire Prevention Specialist Relationship Specialty Start Date End Date Almaz Chavez APRN [address] [place] [address] PCP - General Family Medicine 09/20/24 documented as of this encounter
--- OUTSIDE RECORDS SUMMARY | 2025-03-18 11:04 | XMS_ITS | Data Portability ---
Author Organization [facility] Address [address] [facility] [address] [place] [address] Care Team Providers Care Inspector Hot Forgings Name Role Phone MARIO CHOW Referring Provider [phone] MIN, NANCI Sheet Turner ALMAZ CHAVEZ Primary Care Provider Assessment Encounter Date Assessment Date Assessment LastModified by Organization Details LastModified Time 05/03/2024 05/03/2024 Swelling, stiffness, pain in bilateral hands. Also affected wrists, elbows, knees. Back, hip pains are chronic - unclear if related to inflammatory back pain; seems less likely. Currently on Diclofenac 75 mg BID. Hx scalp psoriasis. On exam, swelling in bilateral hands appears like dactylitis bilaterally. Concerning for inflammatory arthritis. Agree with GI evaluation for IBD. Will plan to try Prednisone taper and assess response. Will check labs today. RTC 3 weeks at location Not available 05/03/2024 15:46:39 05/19/2024 05/19/2024 Swelling, stiffness, pain in bilateral hands. Also affected wrists, elbows, knees. Back, hip pains are chronic - unclear if related to inflammatory back pain; seems less likely. Took Diclofenac 75 mg BID in the past. Has tried other NSAID's such as Meloxicam, Naproxen, Celebrex with limited efficacy. Hx scalp psoriasis. On exam, swelling in bilateral hands appears like dactylitis bilaterally. Concerning for inflammatory arthritis. Given lack of response with steroids, I suspect this is most likely psoriatic arthritis. Agree with GI evaluation for IBD. Will place referral to GI. Will plan to start Sulfasalazine. Will check G6PD and hepatitis today. Risks of sulfasalazine were discussed with the patient and include upset stomach, diarrhea, and rarely cytopenias (low blood counts) and rash. Routine laboratory monitoring (CBC, CMP) should take place about 1 month from the initiation of treatment. They should call immediately should he or she develop a rash.ACR handout on Sulfasalazine given. If not helpful, will consider TNF inhibitors next (also pending GI evaluation). Avoid Methotrexate, Leflunomide given risk for teratogenicity RTC 4 months Not available 05/19/2024 16:10:41 09/22/2024 09/22/2024 Swelling, stiffness, pain in bilateral hands. Also affected wrists, elbows, knees. Back, hip pains are chronic - unclear if related to inflammatory back pain; seems less likely. Took Diclofenac 75 mg BID in the past. Has tried other NSAID's such as Meloxicam, Naproxen, Celebrex with limited efficacy. Hx scalp psoriasis. On exam, swelling in bilateral hands appears like dactylitis bilaterally. Concerning for inflammatory arthritis. Given lack of response with steroids, I suspect this is most likely psoriatic arthritis. Pending GI evaluation in early September. Will start PA for biologic, and wait to start until after GI evaluation Sulfasalazine was tried 04/2024 but she had significant GI side effects of vomiting and diarrhea. Will plan to obtain PA for TNF inhibitor. Will try for Enbrel first. Risks and benefits of TNF inhibitors were discussed in detail and the patient demonstrated understanding. We discussed the risk of injection site reactions, headaches, demyelinating disease, infections (including TB and invasive bacterial infections), and possibly malignancies. The FDA boxed warning was discussed in detail. ACR handout given. Will check CBC, CMP, Quantiferon TB today. Will schedule follow-up after approval for biologic Not available 09/22/2024 15:52:54 12/14/2024 12/14/2024 Psoriatic arthritis. History of scalp psoriasis Swelling, stiffness, pain in bilateral hands. Also affected wrists, elbows, knees. Back, hip pains are chronic - unclear if related to inflammatory back pain; seems less likely. Took Diclofenac 75 mg BID in the past. Has tried other NSAID's such as Meloxicam, Naproxen, Celebrex with limited efficacy. On exam, swelling in bilateral hands appears like dactylitis bilaterally. Given lack of response with steroids, I suspect this is most likely psoriatic arthritis. Colonoscopy was negative for inflammatory bowel disease. Sulfasalazine was tried 04/2024 but she had significant GI side effects of vomiting and diarrhea. Enbrel started in September 2024. She has taken a few doses, but then had to stop due to having colonoscopy. I have advised her to resume. Will give Enbrel more time. Discussed with her that steroids from her recent epidurals probably also helped some of her other joint pain, stiffness, swelling. Her back issues are not related to psoriatic arthritis. Will check CBC, CMP today. Follow-up 3 months Not available 12/14/2024 17:16:39 03/15/2025 03/15/2025 Psoriatic arthritis. Hx scalp psoriasis [...] Details Appointments NEW PATIENT O 2024 01:00P Cristofer MEJIAS MD Not available Not available Not available RHEUM RECHECK 2024 09:30A Cristofer HIGGINBOTHAM MD Not available Not available Not available Lab CBC w/ auto diff 2024 025 [facility], [address] [place] [address], [id number], 03/15/2025 14:36:51 CMP, serum or plasma 2024 025 [facility], [address] [place] [address], [address], 03/15/2025 13:42:45 CBC w/ auto diff 2024 025 [facility], [address] [place] [address], [address], 12/14/2024 15:25:16 CMP, serum or plasma 2024 025 [facility], [address] [place] [address], [address], 12/14/2024 15:30:56 CBC w/ auto diff 2024 025 [facility], [address] [place] [address], [address], 09/22/2024 16:13:10 CMP, serum or plasma 2024 025 [facility], [address] [place] [address], [address], 09/22/2024 16:24:16 Mycobact erium tubercul osis stimulat ed gamma interfer on, qual, blood 2024 025 [facility] [address] [place] [address], [address], 09/24/2024 17:01:48 glucose 6-phosph ate dehydrog enase (G6pd), QN, RBC 2023 024 [facility], [address] [place] [address], [address], 05/20/2024 17:08:40 hepatiti s (A+B+C) panel, serum 2023 024 [facility], [address] [place] [address], [address], 05/19/2024 16:26:16 HLA-B27, qual, flow cytometr y 2023 024 [facility], [address] [place], [address], 05/05/2024 13:28:09 rf (rheumat oid factor), serum 2023 024 [facility], [address] [place] [address], [address], 05/03/2024 16:00:12 ccp (cyclic citrulli nated peptide) iga+igg, serum 2023 024 [facility], [address] [place] [address], [address], 05/06/2024 15:09:29 ESR (erythro cyte sediment ation rate), blood 2023 024 [facility], [address] [place] [address], [address], 05/03/2024 16:09:30 C reactive protein, QN, serum or plasma 2023 024 [facility], [address] [place] [address], [address], 05/03/2024 16:00:10 CBC w/ auto diff 2023 024 [facility], [address] [place] [address], [address], 05/03/2024 15:01:43 CMP, serum or plasma 2023 024 [facility], [address] [place] [address], [address], 05/03/2024 16:00:15 Referral neurolog ist referral - Onset of tremor/j erking in bilatera l hands after she got epidural ; due to pt being on TNF inhibito r for psoriati c arthriti s, r/o demyelin ating disease 2024 025 [email or web address] 6 [facility], [address] [place], [address], 03/15/2025 13:38:[address] referral 2023 024 AMOS Sr MD, [address] [facility] [address], [place], [address], 06/18/2024 10:49:15 Procedures None recorded . Surgeries None recorded . Imaging None recorded . Medication Orders predniso ne 5 mg tablet 2023 025 [facility] [place], [address], 03/15/2025 11:38:04 Patient TargetsNo targets recorded. 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, eval for IBD Referring Physician: Nanci Higginbotham, Rheumatology, Encounter Date: 05/19/2024 Neurologist Referral for Fin ding of hand region Tremor in both hands; hx chronic back pain, s/p epidurals, on TNF inhibitor for psoriatic arthritis Onset of tremor/jerking in bilateral hands after she got epidural; due to pt being on TNF inhibitor for psoriatic arthritis, r/o demyelinating disease Referring Physician: Nanci Higginbotham Rheumatology, Encounter Date: 03/15/2025 Results Created Date Observation Date Name Description Value Unit Range Abnormal Flag Note LastModifiedBy Organization Detail LastModifiedTime 05/03/20 24 05/03/2024 COMPL ETE BLOOD COUNT white blood cells 6.4 10*3/ uL 3.8-10 .8 normal Not Available [facility] [address] [place], [address], 05/03/2024 15:01:43 05/03/20 24 05/03/2024 COMPL ETE BLOOD COUNT red blood cells 4.20 10*6/ uL 3.80-5 .20 normal Not Available [facility] [address] [place] [address], [address], 05/03/2024 15:01:43 05/03/20 24 05/03/2024 COMPL ETE BLOOD COUNT hemoglobin 11.8 g/dL 12.0-1 6.0 low Not Available [facility] [address] [place] [address], [address], 05/03/2024 15:01:43 05/03/20 24 05/03/2024 COMPL ETE BLOOD COUNT hematocrit 35.9 % 35.0-4 7.0 normal Not Available [facility] [address] [place] [address], [address], 05/03/2024 15:01:43 05/03/20 24 05/03/2024 COMPL ETE BLOOD COUNT MCV 85 fL 80-100 normal Not Available [facility] [address] [place] [address], [address], 05/03/2024 15:01:43 05/03/20 24 05/03/2024 COMPL ETE BLOOD COUNT MCH 28 pg 26-35 normal Not Available [facility] [address] [place] [address], [address], 05/03/2024 15:01:43 05/03/20 24 05/03/2024 COMPL ETE BLOOD COUNT MCHC 33 g/dL 32-36 normal Not Available [facility] [address] [place] [address], [address], 05/03/2024 15:01:43 05/03/20 24 05/03/2024 COMPL ETE BLOOD COUNT RDW 14.5 % 11.0-1 5.0 normal Not Available [facility] [address] [place] [address], [address], 05/03/2024 15:01:43 05/03/20 24 05/03/2024 COMPL ETE BLOOD COUNT MPV 7.6 fL 6.2-10 .5 normal Not Available [facility] [address] [place] [address], [address], 05/03/2024 15:01:43 05/03/20 24 05/03/2024 COMPL ETE BLOOD COUNT platelet count 312 10*3/ uL 150-40 0 normal Not Available [facility] [address] [place] [address], [address], 05/03/2024 15:01:43 05/03/20 24 05/03/2024 COMPL ETE BLOOD COUNT neutrophil,a bsolute 3.5 10*3/ uL 1.6-8. 4 normal Not Available [facility] [address] [place] [address], [address], 05/03/2024 15:01:43 05/03/20 24 05/03/2024 COMPL ETE BLOOD COUNT lymphocyte,a bsolute 2.4 10*3/ uL 0.4-5. 1 normal Not Available [facility] [address] [place] [address], [address], 05/03/2024 15:01:43 05/03/20 24 05/03/2024 COMPL ETE BLOOD COUNT monocyte,abs olute 0.4 10*3/ uL 0.0-1. 2 normal Not Available [facility] [address] [place] [address], [address], 05/03/2024 15:01:43 05/03/20 24 05/03/2024 COMPL ETE BLOOD COUNT eosinophil,a bsolute 0.1 10*3/ uL 0.0-0. 8 normal Not Available [facility] [address] [place] [address], [address], 05/03/2024 15:01:43 05/03/20 24 05/03/2024 COMPL ETE BLOOD COUNT basophil,abs olute 0.1 10*3/ uL 0.0-0. 3 normal Not Available [facility] [address] [place] [address], [address], 05/03/2024 15:01:43 05/03/20 24 05/03/2024 COMPL ETE BLOOD COUNT % neutrophils 53.8 % 42.0-7 8.0 normal Not Available [facility] [address] [place] [address], [address], 05/03/2024 15:01:43 05/03/20 24 05/03/2024 COMPL ETE BLOOD COUNT % lymphocytes 36.7 % 11.0-4 7.0 normal Not Available [facility] [address] [place] [address], [address], 05/03/2024 15:01:43 05/03/20 24 05/03/2024 COMPL ETE BLOOD COUNT % monocytes 6.7 % 0.0-11 .0 normal Not Available [facility] [address] [place] [address], [address], 05/03/2024 15:01:43 05/03/20 24 05/03/2024 COMPL ETE BLOOD COUNT % eosinophils 1.8 % 0.0-7. 0 normal Not Available [facility] [address] [place] [address], [address], 05/03/2024 15:01:43 05/03/20 24 05/03/2024 COMPL ETE BLOOD COUNT % basophils 1.0 % 0.0-3. 0 normal Not Available [facility] [address] [place] [address], [address], 05/03/2024 15:01:43 05/03/20 24 05/03/2024 COMPL ETE BLOOD COUNT nucleated red cells 0.1 % 0.0-0. 9 normal Not Available [facility] [address] [place] [address], [address], 05/03/2024 15:01:43 05/03/20 24 05/03/2024 COMPL ETE BLOOD COUNT nucleated RBCs, absolute 0.00 10*3/ uL not estab. normal Not Available [facility] [address] [place] [address], [address], 05/03/2024 15:01:43 05/03/20 24 05/03/2024 C REACT DIANE PROTE IN C reactive protein 1.09 mg/dL 0.00-0 .49 high Not Available [facility] [address] [place] [address], [address], 05/03/2024 16:00:10 05/03/20 24 05/03/2024 RF SCREE N, QUANT . rf screen, quant. <10.0 [IU]/ mL 0.0-13 .9 normal Not Available [facility] [address] [place] [address], [address], 05/03/2024 16:00:12 05/03/20 24 05/03/2024 COMP. METAB OLIC PANEL glucose 124 mg/dL 74-100 high Not Available [facility] [address] [place] [address], [address], 05/03/2024 16:00:15 05/03/20 24 05/03/2024 COMP. METAB OLIC PANEL blood urea nitrogen 14 mg/dL 6-20 normal Not Available [facility] [address] [place] [address], [address], 05/03/2024 16:00:15 05/03/20 24 05/03/2024 COMP. METAB OLIC PANEL creatinine 0.68 mg/dL 0.50-0 .95 normal Not Available [facility] [address] [place] [address], [address], 05/03/2024 16:00:15 05/03/20 24 05/03/2024 COMP. METAB OLIC PANEL BUN/creatini ne ratio 21 (calc ) 10-20 high Not Available [facility] [address] [place] [address], [address], 05/03/2024 16:00:15 05/03/20 24 05/03/2024 COMP. METAB OLIC PANEL sodium 139 mmol/ L 136-14 5 normal Not Available [facility] [address] [place] [address], [address], 05/03/2024 16:00:15 05/03/20 24 05/03/2024 COMP. METAB OLIC PANEL potassium 3.5 mmol/ L 3.4-5. 0 normal Not Available [facility] [address] [place] [address], [address], 05/03/2024 16:00:15 05/03/20 24 05/03/2024 COMP. METAB OLIC PANEL chloride 103 mmol/ L 98-107 normal Not Available [facility] [address] [place] [address], [address], 05/03/2024 16:00:15 05/03/20 24 05/03/2024 COMP. METAB OLIC PANEL carbon dioxide 21 mmol/ L 22-31 low Not Available [facility] [address] [place] [address], [address], 05/03/2024 16:00:15 05/03/20 24 05/03/2024 COMP. METAB OLIC PANEL anion gap 15 (calc ) 7-25 normal Not Available [facility] [address] [place] [address], [address], 05/03/2024 16:00:15 05/03/20 24 05/03/2024 COMP. METAB OLIC PANEL calcium 9.2 mg/dL 8.6-10 .2 normal Not Available [facility] [address] [place] [address], [address], 05/03/2024 16:00:15 05/03/20 24 05/03/2024 COMP. METAB OLIC PANEL total protein 7.4 g/dL 6.4-8. 3 normal Not Available [facility] [address] [place] [address], [address], 05/03/2024 16:00:15 05/03/20 24 05/03/2024 COMP. METAB OLIC PANEL albumin 4.0 g/dL 3.5-5. 2 normal Not Available [facility] [address] [place] [address], [address], 05/03/2024 16:00:15 05/03/20 24 05/03/2024 COMP. METAB OLIC PANEL globulin 3.4 1.5-4. 5 normal Not Available [facility] [address] [place] [address], [address], 05/03/2024 16:00:15 05/03/20 24 05/03/2024 COMP. METAB OLIC PANEL albumin/glob ulin ratio 1.2 (calc ) 1.1-2. 5 normal Not Available [facility] [address] [place] [address], [address], 05/03/2024 16:00:15 05/03/20 24 05/03/2024 COMP. METAB OLIC PANEL bilirubin, total 0.2 mg/dL 0.1-1. 2 normal Not Available [facility] [address] [place] [address], [address], 05/03/2024 16:00:15 05/03/20 24 05/03/2024 COMP. METAB OLIC PANEL alkaline phosphatase 78 U/L 30-121 normal Not Available [facility] [address] [place] [address], [address], 05/03/2024 16:00:15 05/03/20 24 05/03/2024 COMP. METAB OLIC PANEL AST 18 U/L 0-32 normal Not Available [facility] [address] [place] [address], [address], 05/03/2024 16:00:15 05/03/20 24 05/03/2024 COMP. METAB OLIC PANEL ALT 22 U/L 0-33 normal Not Available [facility] [address] [place] [address], [address], 05/03/2024 16:00:15 05/03/20 24 05/03/2024 COMP. METAB OLIC PANEL GFR 113 >= 60 normal NOT E New calcu latio n for GFR (CKD- EPI 2020) is formu lated witho ut race adjus tment facto rs at the recom menda tion of the [facility] and [facility] of Nephr ology . This calcu latio n has not been valid ated in pregn ant women . For pedia tric patie nts refer to https ://abe w.jean armando.o rg/pr ofess ional s/KDO QI/gf r_cal culat orPed Not Available [facility] [address] [place] [address], [address], 05/03/2024 16:00:15 05/03/20 24 05/03/2024 ESR, AUTOM ATED ESR, automated 11 mm 0-19 normal Not Available [facility] [address] [place] [address], [address], 05/03/2024 16:09:30 05/03/20 24 05/05/2024 HLA B27 ANTIG EN hla B27 antigen NEGATI VE negati ve normal Not Available [facility] [address] [place] [address], [address], 05/05/2024 13:28:09 05/03/20 24 05/06/2024 ANTI- CCP anti-ccp <16 units normal Refer ence Range Negat diane: <20 Weak Posit diane: 20-39 Moder ate Posit diane: 40-59 Stron g Posit diane: >59 Not Available [facility] [address] [place] [address], [address], 05/06/2024 15:09:29 05/19/20 24 05/19/2024 HEPAT ITIS PANEL hepatitis A Ab, IgM NONREA CTIVE nonrea ctive normal Not Available [facility] [address] [place] [address], [address], 05/19/2024 16:26:16 05/19/20 24 05/19/2024 HEPAT ITIS PANEL hepatitis B surface Ag NONREA CTIVE nonrea ctive normal Not Available [facility] [address] [place] [address], [address], 05/19/2024 16:26:16 05/19/20 24 05/19/2024 HEPAT ITIS PANEL hepatitis B core Ab,IgM NONREA CTIVE nonrea ctive normal Not Available [facility] [address] [place] [address], [address], 05/19/2024 16:26:16 05/19/20 24 05/19/2024 HEPAT ITIS PANEL hcab, reflex viral RNA qt NONREA CTIVE nonrea ctive normal Antib odies to HCV were not detec moriah; does not exclu de the possi bilit y of expos ure to HCV. Not Available [facility] [address] [place] [address], [address], 05/19/2024 16:26:16 05/19/20 24 05/20/2024 G6PD, QUANT . g6pd, quant. 16.9 U/g_H GB 7.0-20 .5 normal Not Available [facility] [address] [place] [address], [address], 05/20/2024 17:08:40 09/22/19 25 09/22/2024 COMPL ETE BLOOD COUNT white blood cells 8.3 10*3/ uL 3.8-10 .8 normal Not Available [facility] [address] [place] [address], [address], 09/22/2024 16:13:10 09/22/19 25 09/22/2024 COMPL ETE BLOOD COUNT red blood cells 4.53 10*6/ uL 3.80-5 .20 normal Not Available [facility] [address] [place] [address], [address], 09/22/2024 16:13:10 09/22/19 25 09/22/2024 COMPL ETE BLOOD COUNT hemoglobin 12.7 g/dL 12.0-1 6.0 normal Not Available [facility] [address] [place] [address], [address], 09/22/2024 16:13:10 09/22/19 25 09/22/2024 COMPL ETE BLOOD COUNT hematocrit 38.8 % 35.0-4 7.0 normal Not Available [facility] [address] [place] [address], [address], 09/22/2024 16:13:10 09/22/19 25 09/22/2024 COMPL ETE BLOOD COUNT MCV 86 fL 80-100 normal Not Available [facility] [address] [place] [address], [address], 09/22/2024 16:13:10 09/22/19 25 09/22/2024 COMPL ETE BLOOD COUNT MCH 28 pg 26-35 normal Not Available [facility] [address] [place] [address], [address], 09/22/2024 16:13:10 09/22/19 25 09/22/2024 COMPL ETE BLOOD COUNT MCHC 33 g/dL 32-36 normal Not Available [facility] [address] [place] [address], [address], 09/22/2024 16:13:10 09/22/19 25 09/22/2024 COMPL ETE BLOOD COUNT RDW 13.1 % 11.0-1 5.0 normal Not Available [facility] [address] [place] [address], [address], 09/22/2024 16:13:10 09/22/19 25 09/22/2024 COMPL ETE BLOOD COUNT MPV 7.4 fL 6.2-10 .5 normal Not Available [facility] [address] [place] [address], [address], 09/22/2024 16:13:10 09/22/19 25 09/22/2024 COMPL ETE BLOOD COUNT platelet count 341 10*3/ uL 150-40 0 normal Not Available [facility] [address] [place] [address], [address], 09/22/2024 16:13:10 09/22/19 25 09/22/2024 COMPL ETE BLOOD COUNT neutrophil,a bsolute 4.7 10*3/ uL 1.6-8. 4 normal Not Available [facility] [address] [place] [address], [address], 09/22/2024 16:13:10 09/22/19 25 09/22/2024 COMPL ETE BLOOD COUNT lymphocyte,a bsolute 3.0 10*3/ uL 0.4-5. 1 normal Not Available [facility] [address] [place] [address], [address], 09/22/2024 16:13:10 09/22/19 25 09/22/2024 COMPL ETE BLOOD COUNT monocyte,abs olute 0.6 10*3/ uL 0.0-1. 2 normal Not Available [facility] [address] [place] [address], [address], 09/22/2024 16:13:10 09/22/19 25 09/22/2024 COMPL ETE BLOOD COUNT eosinophil,a bsolute 0.1 10*3/ uL 0.0-0. 8 normal Not Available [facility] [address] [place] [address], [address], 09/22/2024 16:13:10 09/22/19 25 09/22/2024 COMPL ETE BLOOD COUNT basophil,abs olute 0.0 10*3/ uL 0.0-0. 3 normal Not Available [facility] [address] [place] [address], [address], 09/22/2024 16:13:10 09/22/19 25 09/22/2024 COMPL ETE BLOOD COUNT % neutrophils 56.1 % 42.0-7 8.0 normal Not Available [facility] [address] [place] [address], [address], 09/22/2024 16:13:10 09/22/19 25 09/22/2024 COMPL ETE BLOOD COUNT % lymphocytes 35.7 % 11.0-4 7.0 normal Not Available [facility] [address] [place] [address], [address], 09/22/2024 16:13:10 09/22/19 25 09/22/2024 COMPL ETE BLOOD COUNT % monocytes 6.7 % 0.0-11 .0 normal Not Available [facility] [address] [place] [address], [address], 09/22/2024 16:13:10 09/22/19 25 09/22/2024 COMPL ETE BLOOD COUNT % eosinophils 1.0 % 0.0-7. 0 normal Not Available [facility] [address] [place] [address], [address], 09/22/2024 16:13:10 09/22/19 25 09/22/2024 COMPL ETE BLOOD COUNT % basophils 0.5 % 0.0-3. 0 normal Not Available [facility] [address] [place] [address], [address], 09/22/2024 16:13:10 09/22/19 25 09/22/2024 COMPL ETE BLOOD COUNT nucleated red cells 0.0 % 0.0-0. 9 normal Not Available [facility] [address] [place] [address], [address], 09/22/2024 16:13:10 09/22/19 25 09/22/2024 COMPL ETE BLOOD COUNT nucleated RBCs, absolute 0.00 10*3/ uL not estab. normal Not Available [facility] [address] [place] [address], [address], 09/22/2024 16:13:10 09/22/19 25 09/22/2024 COMP. METAB OLIC PANEL glucose 117 mg/dL 74-100 high Not Available [facility] [address] [place] [address], [address], 09/22/2024 16:24:16 09/22/19 25 09/22/2024 COMP. METAB OLIC PANEL blood urea nitrogen 13 mg/dL 6-20 normal Not Available [facility] [address] [place] [address], [address], 09/22/2024 16:24:16 09/22/19 25 09/22/2024 COMP. METAB OLIC PANEL creatinine 0.67 mg/dL 0.50-0 .95 normal Not Available [facility] [address] [place] [address], [address], 09/22/2024 16:24:16 09/22/19 25 09/22/2024 COMP. METAB OLIC PANEL BUN/creatini ne ratio 19 (calc ) 10-20 normal Not Available [facility] [address] [place] [address], [address], 09/22/2024 16:24:16 09/22/19 25 09/22/2024 COMP. METAB OLIC PANEL sodium 142 mmol/ L 136-14 5 normal Not Available [facility] [address] [place] [address], [address], 09/22/2024 16:24:16 09/22/19 25 09/22/2024 COMP. METAB OLIC PANEL potassium 3.7 mmol/ L 3.4-5. 0 normal Not Available [facility] [address] [place] [address], [address], 09/22/2024 16:24:16 09/22/19 25 09/22/2024 COMP. METAB OLIC PANEL chloride 105 mmol/ L 98-107 normal Not Available [facility] [address] [place] [address], [address], 09/22/2024 16:24:16 09/22/19 25 09/22/2024 COMP. METAB OLIC PANEL carbon dioxide 22 mmol/ L 22-31 normal Not Available [facility] [address] [place] [address], [address], 09/22/2024 16:24:16 09/22/19 25 09/22/2024 COMP. METAB OLIC PANEL anion gap 15 (calc ) 7-25 normal Not Available [facility] [address] [place] [address], [address], 09/22/2024 16:24:16 09/22/19 25 09/22/2024 COMP. METAB OLIC PANEL calcium 9.5 mg/dL 8.6-10 .2 normal Not Available [facility] [address] [place] [address], [address], 09/22/2024 16:24:16 09/22/19 25 09/22/2024 COMP. METAB OLIC PANEL total protein 7.7 g/dL 6.4-8. 3 normal Not Available [facility] [address] [place] [address], [address], 09/22/2024 16:24:16 09/22/19 25 09/22/2024 COMP. METAB OLIC PANEL albumin 4.3 g/dL 3.5-5. 2 normal Not Available [facility] [address] [place] [address], [address], 09/22/2024 16:24:16 09/22/19 25 09/22/2024 COMP. METAB OLIC PANEL globulin 3.4 1.5-4. 5 normal Not Available [facility] [address] [place] [address], [address], 09/22/2024 16:24:16 09/22/19 25 09/22/2024 COMP. METAB OLIC PANEL albumin/glob ulin ratio 1.3 (calc ) 1.1-2. 5 normal Not Available [facility] [address] [place] [address], [address], 09/22/2024 16:24:16 09/22/19 25 09/22/2024 COMP. METAB OLIC PANEL bilirubin, total 0.2 mg/dL 0.1-1. 2 normal Not Available [facility] [address] [place] [address], [address], 09/22/2024 16:24:16 09/22/19 25 09/22/2024 COMP. METAB OLIC PANEL alkaline phosphatase 86 U/L 30-121 normal Not Available [facility] [address] [place] [address], [address], 09/22/2024 16:24:16 09/22/19 25 09/22/2024 COMP. METAB OLIC PANEL AST 21 U/L 0-32 normal Not Available [facility] [address] [place] [address], [address], 09/22/2024 16:24:16 09/22/19 25 09/22/2024 COMP. METAB OLIC PANEL ALT 26 U/L 0-33 normal Not Available [facility] [address] [place] [address], [address], 09/22/2024 16:24:16 09/22/19 25 09/22/2024 COMP. METAB OLIC PANEL GFR 113 >= 60 normal NOT E New calcu latio n for GFR (CKD- EPI 2020) is formu lated witho ut race adjus tment facto rs at the recom menda tion of the Marsha Benitez y Found atkristy and [employer] [facility] [employer] Nephr ology . This calcu latio n has not been valid ated in pregn ant women . For pedia tric patie nts refer to https ://abe roberts.sukhwinder estrada/eva quinteros s/KDO QI/gf r_cal culat orPed Not Available [facility] [address] [place] [address], [address], 09/22/2024 16:24:16 09/22/19 25 09/24/2024 QUANT IFERO N TB GOLD qtb gold NEGATI VE negati ve normal Negat diane test resul t. M. carter cooper is compl ex infec tion unlik priya. Not Available [facility] [address] [place] [address], [address], 09/24/2024 17:01:48 09/22/19 25 09/24/2024 QUANT IFERO N TB GOLD nil 0.04 IU/mL normal Not Available [facility] [address] [place] [address], [address], 09/24/2024 17:01:48 09/22/19 25 09/24/2024 QUANT IFERO N TB GOLD mitogen nil 7.34 IU/mL normal Not Available [facility] [address] [place] [address], [address], 09/24/2024 17:01:48 09/22/19 25 09/24/2024 QUANT IFERO N TB GOLD TB1 nil 0.01 IU/mL normal Not Available [facility] [address] [place] [address], [address], 09/24/2024 17:01:48 09/22/19 25 09/24/2024 QUANT IFERO N TB GOLD TB2 nil 0.00 IU/mL normal The Nil tube value refle cts the backg round inter feron gamma immun e respo nse of the patie nt's blood sampl e. This value has been subtr acted from the patie nt's displ ayed TB and Mitog en resul ts. Lower than expec moriah resul ts with the Mitog en tube preve nt false -nega tive Quant ifero n readi ngs by detec ting a patie nt with a poten tial immun e suppr essiv e condi tion and/o r subop timal pre-a nalyt ical speci men handl ing. The TB1 Antig en tube is coate d with the M. carter cooper is-sp ecifi c antig ens desig jason to elici t respo nses from TB antig en prime d CD4+ helpe r T-lym phocy jamar. The TB2 Antig en tube is coate d with the M. tuber culos is-sp ecifi c antig ens desig jason to elici t respo nses from TB antig en prime d CD4+ helpe r and CD8+ cytot oxic T-lym phocy jamar. For addit ional infor kun barboza e refer to https ://ed ucati on.qu estdi ?. WinDensity/f aq/FA Q204 (This link is being provi ded for infor karson stanley/ educalex bo purpo ses only. ) Not Available [facility] [address] [place] [address], [address], 09/24/2024 17:01:48 12/15/19 25 12/14/2024 COMPL ETE BLOOD COUNT white blood cells 7.2 10*3/ uL 3.8-10 .8 normal Not Available [facility] [address] [place] [address], [address], 12/14/2024 15:25:16 12/15/19 25 12/14/2024 COMPL ETE BLOOD COUNT red blood cells 4.60 10*6/ uL 3.80-5 .20 normal Not Available [facility] [address] [place] [address], [address], 12/14/2024 15:25:16 12/15/19 25 12/14/2024 COMPL ETE BLOOD COUNT hemoglobin 13.0 g/dL 12.0-1 6.0 normal Not Available [facility] [address] [place] [address], [address], 12/14/2024 15:25:16 12/15/19 25 12/14/2024 COMPL ETE BLOOD COUNT hematocrit 39.4 % 35.0-4 7.0 normal Not Available [facility] [address] [place] [address], [address], 12/14/2024 15:25:16 12/15/19 25 12/14/2024 COMPL ETE BLOOD COUNT MCV 86 fL 80-100 normal Not Available [facility] [address] [place] [address], [address], 12/14/2024 15:25:16 12/15/19 25 12/14/2024 COMPL ETE BLOOD COUNT MCH 28 pg 26-35 normal Not Available [facility] [address] [place] [address], [address], 12/14/2024 15:25:16 12/15/19 25 12/14/2024 COMPL ETE BLOOD COUNT MCHC 33 g/dL 32-36 normal Not Available [facility] [address] [place] [address], [address], 12/14/2024 15:25:16 12/15/19 25 12/14/2024 COMPL ETE BLOOD COUNT RDW 13.6 % 11.0-1 5.0 normal Not Available [facility] [address] [place] [address], [address], 12/14/2024 15:25:16 12/15/19 25 12/14/2024 COMPL ETE BLOOD COUNT MPV 7.0 fL 6.2-10 .5 normal Not Available [facility] [address] [place] [address], [address], 12/14/2024 15:25:16 12/15/19 25 12/14/2024 COMPL ETE BLOOD COUNT platelet count 329 10*3/ uL 150-40 0 normal Not Available [facility] [address] [place] [address], [address], 12/14/2024 15:25:16 12/15/19 25 12/14/2024 COMPL ETE BLOOD COUNT neutrophil,a bsolute 4.2 10*3/ uL 1.6-8. 4 normal Not Available [facility] [address] [place] [address], [address], 12/14/2024 15:25:16 12/15/19 25 12/14/2024 COMPL ETE BLOOD COUNT lymphocyte,a bsolute 2.3 10*3/ uL 0.4-5. 1 normal Not Available [facility] [address] [place] [address], [address], 12/14/2024 15:25:16 12/15/19 25 12/14/2024 COMPL ETE BLOOD COUNT monocyte,abs olute 0.6 10*3/ uL 0.0-1. 2 normal Not Available [facility] [address] [place] [address], [address], 12/14/2024 15:25:16 12/15/19 25 12/14/2024 COMPL ETE BLOOD COUNT eosinophil,a bsolute 0.1 10*3/ uL 0.0-0. 8 normal Not Available [facility] [address] [place] [address], [address], 12/14/2024 15:25:16 12/15/19 25 12/14/2024 COMPL ETE BLOOD COUNT basophil,abs olute 0.1 10*3/ uL 0.0-0. 3 normal Not Available [facility] [address] [place] [address], [address], 12/14/2024 15:25:16 12/15/19 25 12/14/2024 COMPL ETE BLOOD COUNT % neutrophils 57.7 % 42.0-7 8.0 normal Not Available [facility] [address] [place] [address], [address], 12/14/2024 15:25:16 12/15/19 25 12/14/2024 COMPL ETE BLOOD COUNT % lymphocytes 32.0 % 11.0-4 7.0 normal Not Available [facility] [address] [place] [address], [address], 12/14/2024 15:25:16 12/15/19 25 12/14/2024 COMPL ETE BLOOD COUNT % monocytes 7.9 % 0.0-11 .0 normal Not Available [facility] [address] [place] [address], [address], 12/14/2024 15:25:16 12/15/19 25 12/14/2024 COMPL ETE BLOOD COUNT % eosinophils 1.7 % 0.0-7. 0 normal Not Available [facility] [address] [place] [address], [address], 12/14/2024 15:25:16 12/15/19 25 12/14/2024 COMPL ETE BLOOD COUNT % basophils 0.7 % 0.0-3. 0 normal Not Available [facility] [address] [place] [address], [address], 12/14/2024 15:25:16 12/15/19 25 12/14/2024 COMPL ETE BLOOD COUNT nucleated red cells 0.1 % 0.0-0. 9 normal Not Available [facility] [address] [place] [address], [address], 12/14/2024 15:25:16 12/15/19 25 12/14/2024 COMPL ETE BLOOD COUNT nucleated RBCs, absolute 0.00 10*3/ uL not estab. normal Not Available [facility] [address] [place] [address], [address], 12/14/2024 15:25:16 12/15/19 25 12/14/2024 COMP. METAB OLIC PANEL glucose 89 mg/dL 74-100 normal Not Available [facility] [address] [place] [address], [address], 12/14/2024 15:30:56 12/15/19 25 12/14/2024 COMP. METAB OLIC PANEL blood urea nitrogen 12 mg/dL 6-20 normal Not Available [facility] [address] [place] [address], [address], 12/14/2024 15:30:56 12/15/19 25 12/14/2024 COMP. METAB OLIC PANEL creatinine 0.72 mg/dL 0.50-0 .95 normal Not Available [facility] [address] [place] [address], [address], 12/14/2024 15:30:56 12/15/19 25 12/14/2024 COMP. METAB OLIC PANEL BUN/creatini ne ratio 17 (calc ) 10-20 normal Not Available [facility] [address] [place] [address], [address], 12/14/2024 15:30:56 12/15/19 25 12/14/2024 COMP. METAB OLIC PANEL sodium 140 mmol/ L 136-14 5 normal Not Available [facility] [address] [place] [address], [address], 12/14/2024 15:30:56 12/15/19 25 12/14/2024 COMP. METAB OLIC PANEL potassium 3.8 mmol/ L 3.4-5. 0 normal Not Available [facility] [address] [place] [address], [address], 12/14/2024 15:30:56 12/15/19 25 12/14/2024 COMP. METAB OLIC PANEL chloride 104 mmol/ L 98-107 normal Not Available [facility] [address] [place] [address], [address], 12/14/2024 15:30:56 12/15/19 25 12/14/2024 COMP. METAB OLIC PANEL carbon dioxide 24 mmol/ L 22-31 normal Not Available [facility] [address] [place] [address], [address], 12/14/2024 15:30:56 12/15/19 25 12/14/2024 COMP. METAB OLIC PANEL anion gap 12 (calc ) 7-25 normal Not Available [facility] [address] [place] [address], [address], 12/14/2024 15:30:56 12/15/19 25 12/14/2024 COMP. METAB OLIC PANEL calcium 9.3 mg/dL 8.6-10 .2 normal Not Available [facility] [address] [place] [address], [address], 12/14/2024 15:30:56 12/15/19 25 12/14/2024 COMP. METAB OLIC PANEL total protein 7.8 g/dL 6.4-8. 3 normal Not Available [facility] [address] [place] [address], [address], 12/14/2024 15:30:56 12/15/19 25 12/14/2024 COMP. METAB OLIC PANEL albumin 4.3 g/dL 3.5-5. 2 normal Not Available [facility] [address] [place] [address], [address], 12/14/2024 15:30:56 12/15/19 25 12/14/2024 COMP. METAB OLIC PANEL globulin 3.5 1.5-4. 5 normal Not Available [facility] [address] [place] [address], [address], 12/14/2024 15:30:56 12/15/19 25 12/14/2024 COMP. METAB OLIC PANEL albumin/glob ulin ratio 1.2 (calc ) 1.1-2. 5 normal Not Available [facility] [address] [place] [address], [address], 12/14/2024 15:30:56 12/15/19 25 12/14/2024 COMP. METAB OLIC PANEL bilirubin, total 0.2 mg/dL 0.1-1. 2 normal Not Available [facility] [address] [place] [address], [address], 12/14/2024 15:30:56 12/15/19 25 12/14/2024 COMP. METAB OLIC PANEL alkaline phosphatase 109 U/L 30-121 normal Not Available [facility] [address] [place] [address], [address], 12/14/2024 15:30:56 12/15/19 25 12/14/2024 COMP. METAB OLIC PANEL AST 20 U/L 0-32 normal Not Available [facility] [address] [place] [address], [address], 12/14/2024 15:30:56 12/15/19 25 12/14/2024 COMP. METAB OLIC PANEL ALT 31 U/L 0-33 normal Not Available [facility] [address] [place] [address], [address], 12/14/2024 15:30:56 12/15/19 25 12/14/2024 COMP. METAB OLIC PANEL GFR 108 >= 60 normal NOT E New calcu latio n for GFR (CKD- EPI 2020) is formu lated witho ut race adjus tment facto rs at the recom menda tion of the Marsha Benitez y Adam atkristy and [facility] ty of Nephr ology . This calcu latio n has not been valid ated in pregn ant women . For pedia tric patie nts refer to https ://abe donovan.jean roberts.o rg/pr ofess ional s/KDO QI/gf r_cal culat orPed Not Available [facility] [address] [place] [address], [address], 12/14/2024 15:30:56 03/15/20 25 03/15/2025 COMP. METAB OLIC PANEL glucose 103 mg/dL 74-100 high Not Available [facility] [address] [place] [address], [address], 03/15/2025 13:42:45 03/15/20 25 03/15/2025 COMP. METAB OLIC PANEL blood urea nitrogen 13 mg/dL 6-20 normal Not Available [facility] [address] [place] [address], [address], 03/15/2025 13:42:45 03/15/20 25 03/15/2025 COMP. METAB OLIC PANEL creatinine 0.84 mg/dL 0.50-0 .95 normal Not Available [facility] [address] [place] [address], [address], 03/15/2025 13:42:45 03/15/20 25 03/15/2025 COMP. METAB OLIC PANEL BUN/creatini ne ratio 15 (calc ) 10-20 normal Not Available [facility] [address] [place] [address], [address], 03/15/2025 13:42:45 03/15/20 25 03/15/2025 COMP. METAB OLIC PANEL sodium 142 mmol/ L 136-14 5 normal Not Available [facility] [address] [place] [address], [address], 03/15/2025 13:42:45 03/15/20 25 03/15/2025 COMP. METAB OLIC PANEL potassium 3.5 mmol/ L 3.4-5. 0 normal Not Available [facility] [address] [place] [address], [address], 03/15/2025 13:42:45 03/15/20 25 03/15/2025 COMP. METAB OLIC PANEL chloride 108 mmol/ L 98-107 high Not Available [facility] [address] [place] [address], [address], 03/15/2025 13:42:45 03/15/20 25 03/15/2025 COMP. METAB OLIC PANEL carbon dioxide 20 mmol/ L 22-31 low Not Available [facility] [address] [place] [address], [address], 03/15/2025 13:42:45 03/15/20 25 03/15/2025 COMP. METAB OLIC PANEL anion gap 14 (calc ) 7-25 normal Not Available [facility] [address] [place] [address], [address], 03/15/2025 13:42:45 03/15/20 25 03/15/2025 COMP. METAB OLIC PANEL calcium 8.8 mg/dL 8.6-10 .2 normal Not Available [facility] [address] [place] [address], [address], 03/15/2025 13:42:45 03/15/20 25 03/15/2025 COMP. METAB OLIC PANEL total protein 6.9 g/dL 6.4-8. 3 normal Not Available [facility] [address] [place] [address], [address], 03/15/2025 13:42:45 03/15/20 25 03/15/2025 COMP. METAB OLIC PANEL albumin 4.0 g/dL 3.5-5. 2 normal Not Available [facility] [address] [place] [address], [address], 03/15/2025 13:42:45 03/15/20 25 03/15/2025 COMP. METAB OLIC PANEL globulin 2.9 1.5-4. 5 normal Not Available [facility] [address] [place] [address], [address], 03/15/2025 13:42:45 03/15/20 25 03/15/2025 COMP. METAB OLIC PANEL albumin/glob ulin ratio 1.4 (calc ) 1.1-2. 5 normal Not Available [facility] [address] [place] [address], [address], 03/15/2025 13:42:45 03/15/20 25 03/15/2025 COMP. METAB OLIC PANEL bilirubin, total 0.2 mg/dL 0.1-1. 2 normal Not Available [facility] [address] [place] [address], [address], 03/15/2025 13:42:45 03/15/20 25 03/15/2025 COMP. METAB OLIC PANEL alkaline phosphatase 99 U/L 30-121 normal Not Available [facility] [address] [place] [address], [address], 03/15/2025 13:42:45 03/15/20 25 03/15/2025 COMP. METAB OLIC PANEL AST 14 U/L 0-32 normal Not Available [facility] [address] [place] [address], [address], 03/15/2025 13:42:45 03/15/20 25 03/15/2025 COMP. METAB OLIC PANEL ALT 22 U/L 0-33 normal Not Available [facility] [address] [place], [address], 03/15/2025 13:42:45 03/15/20 25 03/15/2025 COMP. METAB OLIC PANEL eGFR 90 >= 60 normal NOT E New calcu latio n for GFR (CKD- EPI 2020) is formu lated witho ut race adjus tment facto rs at the recom menda tion of the Natravindra stanley [employer] at[employer] and [employer] [facility] [employer] [facility] Nephr ology . This calcu latio n has not been valid ated in pregn ant women . For pedia tric patie nts refer to https ://abe roberts.o rg/pr ofess ional s/KDO QI/gf r_cal culat orPed Not Available [facility] [address] [place] [address], [address], 03/15/2025 13:42:45 Result Notes None recorded. Procedures Surgical History Date Name Laterality Status Provider Name and Address Organization Details Recorded Time 01/27/20 24 hysterectomy completed Loraine Pro [facility] 09/22/2024 14:55:42 surgical procedure on cervical spine completed NANCI HIGGINBOTHAM MD [address] [place] [address], [address], [facility] 05/03/2024 10:25:59 procedure on shoulder completed NANCI HIGGINBOTHAM MD [address] [place] [address], [address], [facility] 05/03/2024 10:25:52 excision of bunion completed NANCI HIGGINBOTHAM MD [address] [place] [address], [address], [facility] 05/03/2024 10:26:05 excision of pelvic endometriosis completed NANCI HIGGINBOTHAM MD [address] [place] [address], [address], [facility] 05/03/2024 10:26:21 appendectomy completed NANCI HIGGINBOTHAM MD [address] [place] [address], [address], [facility] 05/03/2024 10:26:26 cholecystectomy completed NANCI HIGGINBOTHAM MD [address] [place] [address], [address], [facility] 05/03/2024 10:26:31 Imaging Results None recorded. Procedure Notes None recorded. Medical Equipment None Reported. Allergies Allergen ID Allergen Name Allergen Category Reaction Reaction Severity Criticality Documentation Date Start Date Code Code System Note Provider Name and Address Organization Details Recorded Time 777964 Product containin g penicilli n (product) medicatio n Not available Not available Not available 05/03/2024 62022 8001 SNOMED Angelina Kendrick [facility] 09:45:31 Medications Name Sig Start Date Stop [...] Details Last Updated DateTime 5 167.64 cm 31.3 kg/m2 11162.9 2 g 115 /min 95 % 95 % 112/70 mm[Hg] Loraine Pro [facility] 5 14:57:17 Date Recorded Body height Body mass index (BMI) Body weight Respiratory rate Heart rate Oxygen saturation Oxygen saturation in Arterial blood by Pulse oximetry Systolic And Diastolic Provider Name and Address Organization Details Last Updated DateTime 5 167.64 cm 32.6 kg/m2 66395.0 1 g 16 /min 103 /min 96 % 96 % 106/80 mm[Hg] Aura Nugent [facility] 5 13:51:06 Date Recorded Body height Body mass index (BMI) Body weight Heart rate Oxygen saturation Oxygen saturation in Arterial blood by Pulse oximetry Systolic And Diastolic Provider Name and Address Organization Details Last Updated DateTime 5 167.64 cm 32 kg/m2 34126.0 4 g 109 /min 97 % 97 % 114/68 mm[Hg] Chester Luis [facility] 5 11:42:06 Date Recorded Body height Body mass index (BMI) Body weight Heart rate Systolic And Diastolic Provider Name and Address Organization Details Last Updated DateTime 05/03/2024 167.64 cm 33.6 kg/m2 50858.21 g 105 /min 108/70 mm[Hg] Angelina Kendrick [facility] 4 10:01:30 Date Recorded Body height Body mass index (BMI) Body weight Respiratory rate Heart rate Oxygen saturation Oxygen saturation in Arterial blood by Pulse oximetry Systolic And Diastolic Provider Name and Address Organization Details Last Updated DateTime 4 167.64 cm 33.9 kg/m2 82056.4 g 14 /min 98 /min 97 % 97 % 132/80 mm[Hg] Sharri Thomas [facility] 4 14:32:21 Social History Question Answer Notes LastModified by Ubooly Details LastModified Time Tobacco Smoking Status Former Smoker Quit Cigarettes now Vape Loraine Pro [facility] 09/22/2024 14:54:19 What Is Your Level Of Caffeine Consumption? Heavy Information not available 03/15/2025 What Was The Date Of Your Most Recent Tobacco Screening? 03/15/2025 Information not available 03/15/2025 Sex: Female Functional Status Question Answer Note LastModified by Ubooly Details LastModified Time Do you use any illicit or recreational drugs? No Information not available 03/15/2025 Do you or have you ever used any other forms of tobacco or nicotine? Yes Information not available 09/22/2024 What is your level of alcohol consumption? None [email or web address] Information not available 05/03/2024 Do you or [...] SNOMED-CT Code Diagnosis ICD10 Code Diagnosis Note [id number] NANCI HIGGINBOTHAM MD [facility] [address] [place] [address],[place] [address] 05/03/2024 09:27:09 05/03/2024 10:53:38 Bilateral swelling of finger of hands [id number] R22.33 [id number] NANCI HIGGINBOTHAM MD RHEUMATOL OG SB [address] [place] [address] 1 05/19/2024 14:14:28 05/20/2024 04:46:40 Psoriatic arthritis 815327891 L40.50 Long-term drug therapy 943116764 Z79.899 [id number] NANCI HIGGINBOTHAM MD RHEUMATOL OGY SB [address] [place] [address] 1 09/22/2024 14:23:14 09/23/2024 05:43:54 Psoriatic arthritis 268062180 L40.50 Long-term drug therapy 204865804 Z79.899 [id number] NANCI HIGGINBOTHAM MD RHEUMATOL OG SB [address] [place] [address] 1 12/14/2024 13:20:29 12/15/2024 04:48:41 Psoriatic arthritis 433043658 L40.50 Long-term current use of immunosuppressive drug 996223871 Z79.60 [id number] NANCI HIGGINBOTHAM MD RHEUMATOL OGY SB [address] [place] [address] 1 03/15/2025 11:16:27 03/16/2025 04:04:07 Psoriatic arthritis 180348991 L40.50 Long-term current use of immunosuppressive drug 120016958 Z79.60 Finding of hand region 569392938 R25.1 Onset after having had epidural before. First affected one hand, now bilateral. No clinical evidence today.Sinc e she is on TNF inhibitor, would want to make sure no issues with demyelinat ing disease. Will refer to Neurology. 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 Health Concerns Section Related Observation LastModified by Organization Detai ls LastModified Time None Recorded Concern Status LastModified by Organization Details LastModified Time None Recorded Advance Directives Directive None Recorded Payers Insurance Date Sequence Insurance Name Policy Number Policy Denson Covered Member ID Denson Member ID Guarantor Name 01/03/2017 1 *SELF PAY* As lindsay Kline 05/19/2024 1 [employer] [facility] ([employer]ICAID REPLACEMENT - HMO) [place] Mario Kline [id number] Mario Kline 03/12/2025 1 [employer] [facility] [place] (MEDICAID REPLACEMENT - HMO) Mario Kline [id number] Mario Kline Notes Date Note Type Note Provider Name and Address Organization Details Recorded Time 05/03/2024 text/html ROS as noted in the HPI Referred by Railroad Mechanic. She is not quite sure why she is here.States she was referred to GI as well for evaluation for Crohn's. States she has had colonoscopy in the past due to IBS.Reports arthritis.States she has history of fractures in her spine. based on MRI imaging she had at [facility] in 2022. I cannot see these records.Reports [...] history of recurrent infections. NANCI HIGGINBOTHAM MD [address] [place], [id number], [facility] 05/03/2024 15:46:59 05/19/2024 text/html ROS as noted in the HPI Last seen 05/03/24. Since last visit, Prednisone taper completed, which she reports was not helpful. Swelling, stiffness, pain in hands remains. Morning stiffness in hands is lasting at least an hour. Similar symptoms in wrists, elbows, knees, back remain. Denies acute rashes. Denies fevers, eye pain, vision changes, blood in stool. Has not seen GI yet. From initial HPI 05/03/24:Referred by Railroad [employer]ic. She is not quite sure why she is here.States she was referred to GI as well for evaluation for Crohn's. States she has had colonoscopy in the past due to IBS.Reports arthritis.States she has history of fractures in her spine. based on MRI imaging she had at [facility] in 2022. I cannot see these records.Reports [...] history of recurrent infections. NANCI HIGGINBOTHAM MD [address] [place], [id number], [facility] 05/19/2024 16:11:11 09/22/2024 text/html ROS as noted in the HPI Last seen 05/19/24. Since last visit, sulfasalazine was prescribed. She stopped after approximately a month due to persistent GI side effects of diarrhea and vomiting. Swelling, stiffness, pain in her hands, wrists, elbows, knees, feet remain. Morning stiffness is lasting at least an hour. Denies rashes, fevers, vision changes, blood in stool. Scalp psoriasis is about the same. 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 She works as a [employer]. From initial HPI 05/03/24:Referred by Railroad Mechanic. She is not quite sure why she is here.States she was referred to GI as well for evaluation for Crohn's. States she has had colonoscopy in the past due to IBS.Reports arthritis.States she has history of fractures in her spine. based on MRI imaging she had at [facility] in 2022. I cannot see these records.Reports [...] history of recurrent infections. NANCI HIGGINBOTHAM MD [address] [place] [address], [id number], [facility] 09/22/2024 15:53:04 12/14/2024 text/html ROS as noted in the HPI Last seen 09/22/24. Since last visit, Enbrel was started in September. She has taken a few doses, but then had to stop as she had colonoscopy. States it has been a few weeks since she had her last dose. She denies side effects or issues with taking Enbrel. Colonoscopy was negative for inflammatory bowel disease. Feels like joint pain, stiffness, swelling in her hands, wrist, elbows got significantly better after she got epidural steroid injections. Denies significant morning stiffness. Back pain is her primary concern and issue, as epidurals did not help. Scalp psoriasis is not too bad. Denies fevers, major infections, blood in the stool. Reports some slight tremoring in left hand ever since her epidurals. From initial HPI 05/03/24:Referred by Railroad [employer]ic. She is not quite sure why she is here.States she was referred to GI as well for evaluation for Crohn's. States she has had colonoscopy in the past due to IBS.Reports arthritis.States she has history of fractures in her spine. based on MRI imaging she had at [facility] in 2022. I cannot see these records.Reports [...] history of recurrent infections. NANCI HIGGINBOTHAM MD [address] [place] [address], [phone], [facility] 12/14/2024 17:16:51 03/15/2025 text/html ROS as noted in the [...] in stool. From initial HPI 05/03/24:Referred by Railroad Mechanic. She is not quite sure why she is here.States she was referred to GI as well for evaluation for Crohn's. States she has had colonoscopy in the past due to IBS.Reports arthritis.States she has history of fractures in her spine. based on MRI imaging she had at [facility] in 2022. I cannot see these records.Reports [...] history of recurrent infections. NANCI HIGGINBOTHAM MD [address] [place] [address], [phone], [facility] 03/15/2025 12:16:14 OBGyn Episode No OBEpisode recorded.
--- OUTSIDE RECORDS SUMMARY | 2025-03-18 11:04 | XMS_ITS | Continuity of Care Document ---
Author Organization [facility] Address [address] [place] [address] Assessment Encounter Date Assessment Date Assessment LastModified by Organization Details LastModified Time 02/16/2025 02/16/2025 Interval history : Kalyn Kline is an obese 39-year-old female here for follow-up in the office today with a primary complaint of axial and mechanical low back pain. Symptoms are worse on the right than the left. She does have a pars defect and has seen Dr. Harrell who reportedly has discharged her as he does not feel that she is a surgical candidate. She follows up after a first bilateral SI joint and piriformis tendon injection a month ago on 01/18/2025. She reports about 2 weeks of benefit there was about 75%. I feel that this is part of her problem but she also has facet agenic pain is much of the pain is above the belt line. Her symptoms are aggravated with standing as well as walking, bending and twisting relieved to some degree by sitting. She has pain to palpation of lower aspect of her lumbar spine particular around L4 and L5. There is reproduction of much the pain for which she complains with facet loading and rotation. She has previously undergone physical therapy for her back complaint which include a home exercise program last greater than 6 weeks aggravated her symptoms and she is discontinued this practice. We have discussed medial branch blocks with progression to RFA, however, she is a [employer] patient and as of March 24 we will be out of network for her insurance carrier. This will not give us sufficient time to carry out both medial branch blocks and the RFA. The patient appears to understand this. She has also undergone bilateral L5-S1 TFESI's over 2 months ago that provided no benefit. She has listed medication including opiates which we have declined. We have provided her with methocarbamol which she has not found particular beneficial though she requested the medication herself. She reports no change in her health or her pain since we have seen her last. History: Ms. Kline has chronic low back and leg pain, has bilateral L5 pars defects. She is being worked up for possible lumbar fusion. No prior injection therapy. She has an upcoming myelogram to assess for dynamic nerve root instability. MRI reviewed below. Pain radiates from the low back down both legs. No prior back surgery. Currently using Lyrica for pain control. History of substance abuse in the family, her mother was using opioids illicitly while she was with the patient, not interested in controlled opioid medication. 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 Anticoagulants: None PMHx: Anxiety, GERD, hyperlipidemia INJ Hx: 01/18/2025 #1 SI/PT Bilateral w/sed; 75% pain relief 2 weeks 02/16/2025 12/07/2024 #1 TFESI Bilateral L5/S1 w/sed; 0% pain relief 12/20/2024 PSHx/Surgical Evaluation: Referred by [facility] neurosurgery History of ACDF in the past IMAGING: MRI lumbar spine Bilateral L5 pars defects, no endplate edema per report, Moderate bilateral L5-S1 foraminal narrowing The above image findings were discussed with the patient. Current medications include Lyrica, methocarbamol, occasional Tylenol with codeine. The patient feels that they receive adequate analgesia and activity improvement with the medication. The patient denies side effects from the medications. UDS was not obtained. ORT, PHQ-9 and HELENA were reviewed today. LITTLE report was reviewed today and is appropriate. Based upon the above I would consider the patient to be Moderate risk. PT I do not think that physical therapy would be appropriate or tolerated given the patient's severity of symptoms at present Plan: Ms. Kline is a overweight 39-year-old female with axial back pain. She has seen Dr. Harrell who has discharged her as he does not feel she has a surgical candidate this time. I suspect this has to do with her age to some degree and concern for adjacent segment degeneration. We discussed this at some length in office today. She has had some temporary benefit with bilateral SI joint and piriformis tendon injections. My recommendation at this point is for a diagnostic bilateral L3-5 medial branch block with progression to RFA. Unfortunately she is a [employer] patient and we will be out of network for [employer] in the near future. We have discussed this also at some length today. This will not give us sufficient time to carry out the diagnostic procedures as well as the therapeutic procedures. The patient appears to understand this. I have suggested she discuss this with her PCP and get referral to another pain clinic and lemon picker where we have left off. The patient is in agreement with this. No medications were provided today. Addendum 02/21/2025: The patient was previously going to seek pain management elsewhere as she was a [employer] patient and we are going to be out of network in the near future. She has since changed insurance companies and would like to proceed with the medial branch block. I will arrange for a bilateral L3-5 MBB. All the risk and benefits of been discussed. All of her questions been answered by phone. She would like to proceed. Much of this encounter is an electronic propeller inspector/tra nslation of spoken language to printed text. The electronic translation of spoken language may permit erroneous or at times nonsensical words of phrases to be inadvertently transcribed; Although I have reviewed the note for such errors, some may still exist. [email or web address] Not available 02/21/2025 07:39:04 Plan of Treatment Reminders Order Date Submit Date Provider Last Modified By Organization Details Last Modified Time Details Appointments FOLLOW UP 15 2024 11:15A M GANESH JUAREZ APRN Not available Not available Not available Lab None recorded. Referral None recorded. Procedures medial branch block, lumbar (PROC) - #1 Bilateral L3-5 MBB under fluorosco py with Dr. Olson/Pamela barrera/ no sedation 2024 025 [email or web address] Not available 03/11/2025 09:30:10 Surgeries None recorded. Imaging None recorded. Medication Orders None recorded. Patient TargetsNo targets recorded. Patient InstructionsNo instructions recorded. Reason for Referral None Reported. Problems Name Problem SNOMED Code Status Onset Date Resolution Date Notes Provider Name and Address Organization Details Recorded Time Chronic pain 74476059 Active 2024 Precious flores, [place] - [facility] 08:32:46 Lumbar radiculopat hy 219892825 Active 2024 Precious Mcpherson null, [place] - [facility] 5 08:32:46 Bilateral sacroiliiti s Active 2024 Zenaida mills null, [place] - [facility] 5 10:25:13 Myofascial pain 387379764 Active 2024 Zenaida mills null, [place] - [facility] 5 10:17:44 Bilateral lower limb piriformis syndrome [id number] 9104 Active 2024 Zenaida Willard er null, [place] - [facility] 5 10:17:44 Problem Notes None recorded. Procedures Surgical History Date Name Laterality Status Provider Name and Address Organization Details Recorded Time 01/19/20 25 SI Joint Injection (Fluoro) completed Tamiko Voorhees [employer] - [facility] 01/18/2025 10:34:34 12/08/19 25 Lumbar Transforaminal Epidural Steroid Injection (1 Level Bilateral): completed Tamiko Francie SHEILA - [facility] 12/07/2024 10:15:54 05/13/20 23 ACDF completed Precious SOSA - [facility] 10/27/2024 08:24:59 colonoscopy completed [facility] - [facility] 10/27/2024 08:25:09 arthrodesis of foot completed Precious SOSA - [facility] 10/27/2024 08:25:30 excision of ganglion cyst completed Preicous Mcpherson [place] - [facility] 10/27/2024 08:25:50 operation on neck completed Precious SOSA - [facility] 10/27/2024 08:26:00 arthroscopy of shoulder completed Precious SOSA - [facility] 10/27/2024 08:26:16 hernia repair completed Precious SOSA - [facility] 10/27/2024 08:26:24 Imaging Results None recorded. Procedure Notes None recorded. Medical Equipment None Reported. Allergies Allergen ID Allergen Name Allergen Category Reaction Reaction Severity Criticality Documentation Date Start Date Code Code System Note Provider Name and Address Organization Details Recorded Time [id number] amoxicill in medicatio n Not available Not available Not available 10/27/2024 723 RxNorm Precious flores, SHEILA - [facility] 5 08:22:38 118949 Augmentin medicatio n Not available Not available Not available 10/27/2024 47732 2 RxNorm Precious flores, SHEILA - [facility] 5 08:22:45 110609 clavulani c acid Not available Not available Not available Not available 10/27/2024 95288 RxNorm Precious flores, SHEILA - [facility] 5 08:22:54 227562 adhesive tape environme nt,medica tion Not available Not available Not available 10/27/2024 84150 UNK Precious flores, SHEILA - [facility] 5 08:23:00 184193 Latex (substanc e) environme nt,medica tion Not available Not available Not available 10/27/2024 27784 8007 SNOMED Precious flores, SHEILA - [facility] 5 08:23:06 527108 nicotine medicatio n Not available Not available Not available 10/27/2024 7407 RxNorm Precious flores, SHEILA - [facility] 5 08:23:13 Medications Name Sig Start Date Stop Date Status Note LastModified by Organization Details LastModified Time amantadine HCl 100 mg tablet 10/27 completed Not Available Not Available Not Available carisoprodo l 350 mg tablet TAKE 1 TABLET BY MOUTH THREE TIMES DAILY NEEDED FOR MUSCLE SPASMS active Not Available Not Available No t Available All Day Pain Relief 220 mg tablet TAKE 1 TABLET BY MOUTH EVERY 8 HOURS active Not Available Not Available No t Available medroxyprog esterone 10 mg tablet TAKE 1 TABLET BY MOUTH ONCE DAILY 10/27 completed Not Available Not Available Not Available buspirone 5 mg tablet TAKE 1 TABLET BY MOUTH THREE TIMES DAILY NEEDED active Not Available Not Available No t Available Pain Reliever Extra Strength (acetaminop hen) 500 mg tablet TAKE 1 TABLET BY MOUTH EVERY 4 HOURS NEEDED FOR MILD PAIN active Not Available Not Available No t Available clonidine HCl 0.1 mg tablet TAKE 1 TABLET BY MOUTH TWICE DAILY NEEDED FOR PANIC ATTACKS 10/27 completed Not Available Not Available Not Available atorvastati n 20 mg tablet TAKE 1 TABLET BY MOUTH EVERY DAY FOR CHOLESTER OL active Not Available Not Available No t Available sulfasalazi ne 500 mg tablet TAKE 1 TABLET BY MOUTH TWICE DAILY FOR 7 DAYS, THEN 2 TABLETS IN THE MORNING AND 1 TABLET IN THE EVENING FOR 7 DAYS, THEN 2 TABLETS TWICE DAILY THEREAFTE R 10/27 completed Not Available Not Available Not Available clindamycin HCl 300 mg capsule TAKE 1 CAPSULE BY MOUTH THREE TIMES DAILY 10/27 completed Not Available Not Available Not Available triazolam 0.25 mg tablet TAKE TWO TABLETS BY MOUTH 1 HOUR PRIOR TO APPOINTME NT MAY CAUSE DROWSINES S DO NOT DRIVE 10/27 completed Not Available Not Available Not Available azithromyci n 250 mg tablet TAKE 1 TABLET BY MOUTH ONCE DAILY FOR 4 DAYS 10/27 completed Not Available Not Available Not Available ibuprofen 800 mg tablet TAKE 1 TABLET BY MOUTH EVERY 8 HOURS NEEDED FOR MODERATE PAIN 10/27 completed Not Available Not Available Not Available tizanidine 4 mg tablet TAKE 1/4 (ONE-FOUR TH) TABLET BY MOUTH THREE TIMES DAILY NEEDED FOR MUSCLE SPASM 10/27 completed Not Available Not Available Not Available fluconazole 150 mg tablet TAKE ONE TABLET BY MOUTH EVERY 3 DAYS FOR 2 doses 10/27 completed Not Available Not Available Not Available hydrocodone 5 mg-acetamin ophen 325 mg tablet TAKE 1 TABLET BY MOUTH EVERY 6 HOURS NEEDED active Not Available Not Available No t Available senna 8.6 mg tablet TAKE 1 TABLET BY MOUTH TWICE DAILY NEEDED FOR CONSTIPAT ION active Not Available Not Available No t Available meloxicam 15 mg tablet TAKE 1 TABLET BY MOUTH ONCE DAILY 10/27 completed Not Available Not Available Not Available promethazin e 12.5 mg tablet 10/27 completed Not Available Not Available Not Available Maicol Cole 28 gauge DIRECTED active Not Available Not Available No t Available famotidine 40 mg tablet TAKE 1 TABLET BY MOUTH DAILY active Not Available Not Available No t Available prednisone 20 mg tablet TAKE 3 TABLETS BY MOUTH ONCE DAILY FOR 5 DAYS 02/16 completed Not Available Not Available Not Available prednisone 5 mg tablet TAKE 4 TABLETS BY MOUTH ONCE DAILY FOR 3 DAYS THEN 3 ONCE DAILY FOR 3 DAYS THEN 2 ONCE DAILY FOR 3 DAYS THEN 1 ONCE DAILY FOR 3 DAYS THEN STOP 10/27 completed Not Available Not Available Not Available sumatriptan 50 mg tablet TAKE 1 TABLET BY MOUTH NEEDED FOR MIGRAINE. MAY REPEAT DOSE ONCE IN 2 HOURS IF SYMPTOMS DONOT RESOLVE. MAX OF 2 TABLETS PER DAY active Not Available Not Available No t Available acetaminoph en 300 mg-codeine 30 mg tablet TAKE ONE TABLET BY MOUTH EVERY 4 HOURS NEEDED for moderate pain active Not Available Not Available No t Available sulfamethox azole 800 mg-trimetho prim 160 mg tablet TAKE 1 TABLET BY MOUTH TWICE DAILY FOR 3 DAYS 10/27 completed Not Available Not Available Not Available tramadol 50 mg tablet TAKE 1 TABLET BY MOUTH EVERY 6 HOURS NEEDED FOR SEVERE PAIN active Not Available Not Available No t Available quetiapine 100 mg tablet TAKE 1 TABLET BY MOUTH EVERY NIGHT active Not Available Not Available No t Available Sudogest 30 mg tablet TAKE 2 TABLETS BY MOUTH EVERY 6 HOURS NEEDED FOR NASAL CONGESTIO N. START WITH ONE TABLET, IF NO BETTER MAY TAKE 2 TABLETS AT A TIME. 10/27 completed Not Available Not Available Not Available ketorolac 10 mg tablet TAKE 1 TABLET BY MOUTH EVERY 8 HOURS NEEDED FOR PAIN FOR 1 DAY 10/27 completed Not Available Not Available Not Available propranolol 10 mg tablet TAKE 1 TABLET BY MOUTH ONCE DAILY IN THE MORNING FOR PANIC ATTACKS 10/27 completed Not Available Not Available Not Available famotidine 20 mg tablet TAKE 1 TABLET BY MOUTH EVERY 12 HOURS FOR 5 DAYS active Not Available Not Available No t Available methocarbam ol 750 mg tablet TAKE 1 TABLET BY MOUTH THREE TIMES DAILY active Not Available Not Available No t Available meclizine 25 mg tablet TAKE 1 TABLET BY MOUTH THREE TIMES DAILY NEEDED FOR DIZZINESS FOR 10 DAYS active Not Available Not Available No t Available phenazopyri dine 100 mg tablet TAKE ONE TABLET BY MOUTH EVERY 8 HOURS MAY CAUSE DISCOLORA TION OF URINE 10/27 completed Not Available Not Available Not Available baclofen 10 mg tablet TAKE ONE TABLET BY MOUTH THREE TIMES DAILY 10/27 completed Not Available Not Available Not Available paroxetine 20 mg tablet TAKE 1 TABLET BY MOUTH ONCE DAILY IN THE MORNING FOR ANXIETY FOR 30 DAYS STOP LEXAPRO 10/27 completed Not Available Not Available Not Available buspirone 10 mg tablet TAKE 1 TABLET BY MOUTH THREE TIMES DAILY active Not Available Not Available No t Available lidocaine 5 % topical patch active Not Available Not Available Not Available promethazin e 25 mg tablet TAKE 1 TABLET BY MOUTH 4 TIMES DAILY NEEDED FOR NAUSEA FOR 5 DAYS 10/27 completed Not Available Not Available Not Available gabapentin 300 mg capsule TAKE ONE CAPSULE BY MOUTH THREE TIMES DAILY NEEDED FOR neuropath ic pain 10/27 completed Not Available Not Available Not Available diclofenac sodium 75 mg tablet,jimmy yed release TAKE 1 TABLET BY MOUTH TWICE DAILY NEEDED FOR PAIN active Not Available Not Available No t Available gabapentin 100 mg capsule TAKE 1 CAPSULE BY MOUTH THREE TIMES DAILY 10/27 completed Not Available Not Available Not Available diazepam 10 mg tablet TAKE ONE TABLET BY MOUTH 30 minutes pre-op. give prior TO myelogram . active Not Available Not Available No t Available prednisone 5 mg tablets in a dose pack TAKE BY MOUTH DIRECTED ON INSIDE OF PACKAGE 10/27 completed Not Available Not Available Not Available methylpredn isolone 4 mg tablets in a dose pack FOLLOW PACKAGE DIRECTION S 02/16 completed Not Available Not Available Not Available estradiol 0.0375 mg/24 hr semiweekly transdermal patch APPLY 1 PATCH TOPICALLY TO THE SKIN 2 TIMES A WEEK active Not Available Not Available No t Available ondansetron 4 mg disintegrat ing tablet DISSOLVE 1 TABLET ON THE TONGUE EVERY 6 HOURS NEEDED FOR NAUSEA active Not Available Not Available No t Available Ventolin HFA 90 mcg/actuati on aerosol inhaler active Not Available Not Available Not Available oxycodone 5 mg tablet TAKE ONE TABLET BY MOUTH EVERY 8 HOURS NEEDED FOR PAIN 10/27 completed Not Available Not Available Not Available estradiol 0.025 mg/24 hr semiweekly transdermal patch apply ONE PATCH TO SKIN twice WEEKLY 12/20 completed Not Available Not Available Not Available escitalopra m 10 mg tablet TAKE 1 TABLET BY MOUTH ONCE DAILY 10/27 completed Not Available Not Available Not Available escitalopra m 20 mg tablet TAKE 1 TABLET BY MOUTH ONCE DAILY 10/27 completed Not Available Not Available Not Available aripiprazol e 5 mg tablet TAKE 1 TABLET BY MOUTH DAILY active Not Available Not Available No t Available bupropion HCl XL 150 mg 24 hr tablet, extended release TAKE 1 TABLET BY MOUTH DAILY active Not Available Not Available No t Available Gas Relief Extra Strength 125 mg chewable tablet chew and swallow 1 tablet by mouth once daily as needed for abdominal distentio n 10/27 completed Not Available Not Available Not Available Lubricant Eye Drops 0.5 % INSTILL 1 DROP BOTH EYES THREE TIMES DAILY active Not Available Not Available No t Available pregabalin 75 mg capsule TAKE 1 CAPSULE BY MOUTH TWICE DAILY 10/27 completed Not Available Not Available Not Available pregabalin 150 mg capsule TAKE 1 CAPSULE BY MOUTH TWICE DAILY active Not Available Not Available No t Available aripiprazol e 2 mg tablet TAKE 1 TABLET BY MOUTH EVERY NIGHT AT BEDTIME 12/20 completed Not Available Not Available Not Available tramadol ER 100 mg tablet,exte nded release 24 hr TAKE 1 TABLET BY MOUTH ONCE DAILY 10/27 completed Not Available Not Available Not Available quetiapine 50 mg tablet TAKE 1 TABLET BY MOUTH EVERY NIGHT AT BEDTIME active Not Available Not Available No t Available Enbrel SureClick 50 mg/mL (1 mL) subcutaneou s pen injector INJECT 50MG UNDER THE SKIN ONCE WEEKLY active Not Available Not Available No t Available FreeStyle Lite Strips USE TO TEST DAILY DIRECTED 10/27 completed Not Available Not Available Not Available guaifenesin ER 1,200 mg tablet, extended release 12 hr TAKE ONE TABLET BY MOUTH TWICE DAILY 10/27 completed Not Available Not Available Not Available desvenlafax ine succinate ER 50 mg tablet,exte nded release 24 hr TAKE 1 TABLET BY MOUTH EVERY DAY active Not Available Not Available No t Available desvenlafax ine ER 50 mg tablet,exte nded release 24 hr TAKE 1 TABLET BY MOUTH DAILY active Not Available Not Available No t Available Vraylar 1.5 mg capsule TAKE 1 CAPSULE BY MOUTH EVERY NIGHT AT BEDTIME active Not Available Not Available No t Available Orilissa 150 mg tablet TAKE 1 TABLET BY MOUTH ONCE DAILY 10/27 completed Not Available Not Available Not Available Ozempic 1 mg/dose (4 mg/3 mL) subcutaneou s pen injector INJECT 1 MG EVERY WEEK BY SUBCUTANE OUS ROUTE 02/16 completed Not Available Not Available Not Available BinaxNOW COVID-19 Ag Self Test kit TEST DIRECTED TODAY 12/20 completed Not Available Not Available Not Available Myfembree 40 mg-1 mg-0.5 mg tablet TAKE 1 TABLET BY MOUTH ONCE DAILY 10/27 completed Not Available Not Available Not Available Ozempic 2 mg/dose (8 mg/3 mL) subcutaneou s pen injector INJECT 2MG UNDER THE SKIN ONCE WEEKLY DIRECTED active Not Available Not Available No t Available Ozempic 0.25 mg or 0.5 mg (2 mg/3 mL) subcutaneou s pen injector INJECT 0.25 MG SUBCUTANE OUSLY ONCE A WEEK FOR 28 DAYS 10/27 completed Not Available Not Available Not Available Vitals Date Recorded Body height Body mass index (BMI) Body weight Pain severity - 0-10 verbal numeric rating [Score] - Reported Provider Name and Address Organization Details Last Updated DateTime 02/16/2025 167.64 cm 31.2 kg/m2 63370.33 g 5 Zenaida Ordoñez [facility] 02/16/2025 10:20:12 Social History Question Answer Notes LastModified by Organizat ion Details LastModified Time Tobacco Smoking Status Former Smoker Tracey flores [facility] 10/27/2024 08:44:44 Do You Have An Advance Directive? No Information not available 10/27/2024 What Type Of Diet Are You Following? REGULAR Information not available 10/27/2024 What Is The Highest Grade Or Level Of School You Have Completed Or The Highest Degree You Have Received? [id number] Information not available 10/27/2024 Do You Have Knee Pain? No Information not available 10/27/2024 Have You Had A Knee Replacement? No Information no t available 10/27/2024 Is Your Knee Pain Being Treated By Someone Else? No Information not available 10/27/2024 Are You Interested In Consulting Us For Your Knee Pain? No Information not available 10/27/2024 Do You Have A Medical Power Of Display Decorator? No Information not available 10/27/2024 What Was The Date Of Your Most Recent Tobacco Screening? 10/27/2024 Information not available 10/27/2024 What Is Your Relationship Status? Information not available 10/27/2024 How Much Tobacco Do You Smoke? 0.5 PPD Information not available 10/27/2024 How Many Years Have You Smoked Tobacco? 25 Information not available 10/27/2024 Sex: Unknown Functional Status Question Answer Note LastModified by Organizat ion Details LastModified Time Do you use any illicit or recreational drugs? No Information not available 10/27/2024 What is your level of alcohol consumption? None Information not available 10/27/2024 Are you currently employed? Yes Information not available 10/27/2024 Are you able to walk? YESWOREST Information not available 10/27/2024 What is your occupation? [employer] Information not available 10/27/2024 What is your exercise level? None Information not available 10/27/2024 Mental Status None recorded. Family History Nothing Reported. 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 Condition Response Bipolar Disease N Coronary Artery Disease N Gout N Seizure Disorder N Atrial Fibrillation N Thyroid Disease N Hernia N Head Trauma/Injury N Depression Y COPD N Anxiety Disorder Y Acid Reflux (GERD) N Cancer N Stroke N Skin Disorder N High Cholesterol N Liver Disease N Rheumatoid Arthritis N Headaches Y Fibromyalgia N Kidney Disease N Autoimmune Disease N Osteoarthritis N Neurosurgery N DVT N Peptic Ulcer Disease N Anemia Y Heart Attack ([place]) N Diabetes Y Cardiomyopathy N Bleeding Disorder N CHF N AIDS/HIV N Inflammatory Bowel Disease N Dementia N Asthma Y Substance Abuse N Sleep Apnea Y Hepatitis N Heart Disease N Pulmonary Embolism N Chronic Low Back Pain Y Hypertension N Osteoporosis N Gynecological HistoryNo gynecological history recorded. Obstetrics History GPAL:G 0 P 0 0 0 0 Past Encounters Encounter ID Performer Location Encounter Start Date Encounter Closed Date Diagnosis/Indication Diagnosis SNOMED-CT Code Diagnosis ICD10 Code Diagnosis Note [id number] ANITHA OLSON MD [place] [address] [place] [address] 01/18/2025 09:32:25 01/18/2025 10:29:30 Bilateral sacroiliitis 0685842594 M46.1 [id number] ANITHA OLSON MD [place] [address] [place] [address] 02/16/2025 10:03:39 02/16/2025 11:12:20 Chronic pain 33172620 G89.29 Long-term drug therapy [id number] Z79.899 NO UDS TODAY 02/16/2025 Bilateral sacroiliitis [id number] M46.1 Bilateral lower limb piriformis syndrome [id number] 6778775 G57.03 Myofascial pain 06809161 9 M79.18 Lumbar spondylosis 32662 0009 M47.816 Health Concerns Section Related Observation LastModified by Organization Detai ls LastModified Time None Recorded Concern Status LastModified by Organization Details LastModified Time None Recorded Payers Encounter Date Sequence Insurance Name Policy Number Policy Denson Covered Member ID Denson Member ID Guarantor Name 02/16/2025 1 [facility] (MEDICAID REPLACEMENT - HMO) Frannie Kline [id number] Frannie Kline Notes Date Note Type Note Provider Name and Address Organization Details Recorded Time 02/16/2025 text/html Pain Management InitialReported by PatientPain Management InitialFor location, patient reportsright. For severity, patient reportssevere,pain level 5/10, andworst pain 10/10. For aggravating factors, patient reportssitting,standi ng,walking,lifting,ca rrying,twisting,pushi ng/pulling,changing clothes, andgetting out of bed. For previous injections, (01/18/2025 #1 si/pt bilateral w/sed; 75% pain relief 2 weeks #1 tfesi bilateral l5/s1 w/sed; 0% pain relief 12/20/2024). Follow-up (meds & injections)Reported by PatientHPIFor recent injections, patient reportspain relief from injections- 0% lasting for __ __andepidural steroid injection-(01/18/2025 #1 si/pt bilateral w/sed; 75% pain relief 2 weeks #1 tfesi bilateral l5/s1 w/sed; 0% pain relief 12/20/2024).ROS as noted in the HPI Patient presents today for f/u. Patient states pain is 5/10 today. Patient has had no recent hospitalizations, ER visits, or specialist visits. Patient also denies recent updated imaging since last visit. Patient reports no changes at this time. Patient complains of increased pain in lower back and hip mostly on left side. Patient states surgery was discussed with neurosurgeon but she has been discharged. Patient al;so states PT has been put on hold until further evaluation. Patient would like to discuss options today. Patient states she has been taking Methocarbamol but doesn't notice a change. 01/18/2025 #1 SI/PT Bilateral w/sed; 75% pain relief 2 weeks 02/16/2025 GANESH JUAREZ, AN[address] [place], [address], [facility] 02/21/2025 07:41:57 OBGyn Episode No OBEpisode recorded.
[2025-03-18 11:40] VITALS: BP 117/72; PULSE 93; RESP 17; O2SAT 96
[2025-03-18] MEDS: LEUPROLIDE 11.25 MG 1 EACH IM (11:40)
== END 2025-03-18 11:55 | disposition home or self-care (01) ==
LOC: INF 11:02
PROVIDERS: PCP Nurse Practitioner Family; Visit Provider Obstetrics & Gynecology
DX: N80.9 Endometriosis, unspecified (principal)
CPT/HCPCS: 96372

== ENCOUNTER 2025-06-20 11:12 | Outpatient (CLI) | payer OTHER, SELFPAY ==
[2025-06-20 11:25] VITALS: BP 118/65; PULSE 73; RESP 18; TEMP 37; O2SAT 99
[2025-06-20] MEDS: LEUPROLIDE 11.25 MG 1 EACH IM (11:25)
--- OUTSIDE RECORDS SUMMARY | 2025-06-20 11:29 | XMS_ITS | Encounter Summary ---
Author Organization [facility] ystem Address [address] [place] [address] Care Team Providers Care Elevating Grader Operator Name Role Phone Almaz Chavez APRN Primary Care Provider Reason for Visit * Reason Comments Med Refill Encounter Details Date Type Department Care Team (Late st Contact Info) Description 06/26/2023 Refill [facility] MEDICAL [facility] NEUROSURGERY [address] [address] Tyrone Harrell MD 1760 [facility] [address] [place] [phone] Cervicalgia Social History Tobacco Use Types Packs/Day [...] or training? Not on file Preferred Language Swazi 04/29/2023 Comments No Sex and Gender Information Value Date Recorded Sex Assigned at Not on file Legal Sex Female 4:42 PM EDT Gender Identity Not on file Sexual Orientation Not on file Occupation Industry Job Start Date Job End Date stay at [employer] [facility] [place] Not on file Not on file Not on file documented as of this encounter Plan of Treatment Not on file documented as of this encounter Visit Diagnoses Diagnosis Cervicalgia documented in this encounter Care Teams Elevating Grader Operator Relationship Specialty Start Date End Date Almaz Chavez APRN [address] [place] [address] PCP - General Family Medicine 09/20/24 documented as of this encounter
--- OUTSIDE RECORDS SUMMARY | 2025-06-20 11:29 | XMS_ITS | Encounter Summary ---
Author Organization [facility] ystem Address [address] [place] [address] Care Team Providers Care Food Tray Assembler Name Role Phone Almaz Chavez Alva MA Primary Care Provider [phone] Reason for Visit * Reason Comments Med Refill Encounter Details Date Type Department Care Team (Late st Contact Info) Description 05/08/2023 Refill [facility] MEDICAL [facility] NEUROSURGERY [address] [address] Tyrone Harrell MD [address] [place] [phone] Social History Tobacco Use Types Packs/Day Years Used Date Smoking Tobacco: Former Cigarettes 1 20 0 04/01/2003 - 04/01/2023 Smokeless Tobacco: Never Alcohol Use Standard Drinks/Week Comments No 0 (1 standard drink = 0.6 oz pur e alcohol) Education Answer Date Recorded Help with school or training? Not on file Preferred Language Palauan 04/29/2023 Comments No Sex and Gender Information Value Date Recorded Sex Assigned at Not on file Legal Sex Female 4:42 PM EDT Gender Identity Not on file Sexual Orientation Not on file Occupation Industry Job Start Date Job End Date stay at [employer] [place] Not on file Not on file Not on file documented as of this encounter Plan of Treatment Not on file documented as of this encounter Visit Diagnoses Not on filedocumented in this encounter Care Teams Food Tray Assembler Relationship Specialty Start Date End Date Almaz Chavez APRN [address] [place] [address] PCP - General Family Medicine 09/20/24 documented as of this encounter
--- OUTSIDE RECORDS SUMMARY | 2025-06-20 11:29 | XMS_ITS | Encounter Summary ---
Author Organization [facility] ystem Address [address] [place] [address] Care Team Providers Care Manager Psychology Name Role Phone Almaz Chavez APRN Primary Care Provider Reason for Visit * Reason Onset Date Comments Results 06/06/2025 Encounter Details Date Type Department Care Team (Late st Contact Info) Description 06/06/2025 Telephone [facility] NEUROSURGERY [address] [address] Tyrone Harrell MD [address] [phone] Results Social History Tobacco Use Types Packs/Day Years Used Date Smoking Tobacco: Former Cigarettes 1 20 0 04/01/2003 - 04/01/2023 Passive Smoke Exposure: Past Smokeless Tobacco: Current Snuff Alcohol Use Standard Drinks/Week Comments No 0 [...] no 12/30/2024 Feels Threatened by Someone no 03/2025 Does Anyone Try to Keep You [...] or training? Not on file Preferred Language Danish 04/29/2023 Comments No Sex and Gender Information [...] Notes * Telephone Encounter - Zulema Ibarra - 06/07/2025 8:41 AM EDT Note has been faxed to [facility] Rheumatology. * Telephone Encounter - Elva Bishop RegSched Rep - 06/06/2025 11:26 AM EDT Caller: ANASTASIA Relationship: [facility] Best call back number: [phone] What form or medical record are you requesting: OVN 5-14-25 Who is requesting this form or medical record from you: DR NANCI LOMBARDO How would you like to receive the form or medical records (pick-up, mail, fax): FAX If fax, what is the fax number: [phone] Timeframe paperwork needed: JANET Additional notes: THANK YOU documented in this encounter Plan of Treatment Not on file documented as of this encounter Visit Diagnoses Not on filedocumented in this encounter Care Teams Manager Psychology Relationship Specialty Start Date End Date Almaz Chavez APRN [facility] [place] [address] PCP - General Family Medicine 09/20/24 documented as of this encounter
--- OUTSIDE RECORDS SUMMARY | 2025-06-20 11:29 | XMS_ITS | Data Portability ---
Author Organization [facility]health Address [address] [place] [address] Assessment Encounter Date Assessment Date Assessment LastModified [...] side of belly button is numb. No HOG MAN pathologies noted on ULS, GI symptoms likely [...] Levsin/SL 0.125 mg sublingual tablet 2022 023 [facility], [address] [place], [place], [id number], 14:42:54 Trulance 3 mg tablet 2021 022 [facility], [address], [place], [place], [id number], 14:53:52 Percocet 5 mg-325 mg tablet 2021 022 [facility], [address] [place], [place], [id number], 17:18:51 Patient TargetsNo targets recorded. Patient InstructionsNo instructions recorded. Reason for Referral None Reported. Results Created Date Observation Date Name Description Value Unit Range Abnormal Flag Note LastModifiedBy Organization Detail LastModifiedTime 02/12/20 22 02/11/2022 lab* lab Not Available [facility] (Lab) [address], [place], [address], 02/15/2022 15:44:18 02/12/20 22 02/11/2022 lab* lab Not Available [facility] [address], [place], [address], 02/13/2022 18:36:20 02/22/20 22 02/21/2022 lab* lab Not Available [facility] [address], [place], [address], 03/18/2022 14:10:51 03/14/20 22 03/14/2022 lab* lab Not Available [facility] [address] , [place], [address], 03/18/2022 10:06:38 Result Notes None recorded. Problems Name Problem SNOMED Code Status Onset Date Resolution Date Notes Provider Name and Address Organization Details Recorded Time Irritable bowel syndrome 78848479 Active 2015 Irritable bowel syndrome; Problem Title: Irritable bowel syndrome Not Available [facility] 23:35:09 Anxiety disorder 020980833 Active 2015 Anxiety Disorder; Problem Title: Anxiety Disorder Not Available [facility] 23:35:09 Depressiv e disorder 95701711 Active 2015 Depression ; Problem Title: Depression Not Available [facility] 23:35:09 Endometri osis Active 2015 Endometrio sis; Problem Title: Endometrio sis Not Available [facility] 23:35:09 Notes:IC Problem Title: IC P olycystic Ovarian Disease Problem Title: Polycystic Ovarian Disease Problem Notes None recorded. Procedures Surgical History Date Name Laterality Status Provider Name and Address Organization Details Recorded Time 023 Non-OB ULS completed MD [address], [place], [address], [facility] 01/14/2023 14:35:28 022 Non-OB ULS completed MD [address], [place], [address], [facility] 03/14/2022 14:28:25 022 [...] tion rash Not available Not available 02/19/2022 86814 91 RxNorm [facility] 2 16:29:19 Medications Name Sig Start Date Stop Date Status Note LastModified by Organization Details LastModified Time oxybutyni n chloride ER 10 mg tablet,ex tended release 24 hr 01/11 completed Days To Take: 30 #ofRe fills: 30 Drug Identifi cation Code: 417806 F ree Text SIG: Oxybutyn in Chloride ER 10MG, 1 (one) Tablet ER 24HR at bedtime # 30, 01/24/20 17, Ref. x10. Inactive Not Available Not Available Not Available azithromy karson 250 mg tablet 06/24 completed Days To Take: 5 #ofRef ills: 0 Commen ts: One z-pack, take as directed on package. Drug Identifi cation Code: 313034 F ree Text SIG: Azithrom ycin 250MG, 1 (one) Tablet as directed # 1, 06/19/20 21, No Refill. Inactive Not Available Not Available Not Available clomiphen e citrate 50 mg tablet 02/28 completed Days To Take: 5 #ofRef ills: 0 Commen ts: 1 po daily on days 3-[address] moon Identifi cation Code: 823384 F ree Text SIG: clomiPHE NE Citrate 50MG, 2 (two) Tablet daily # 10, 02/24/20 19, No Refill. Inactive Not Available Not Available Not Available Nexium 40 mg capsule,d elayed release 11/20 completed Days To Take: 30 #ofRe fills: 30 Drug Identifi cation Code: 235215 F ree Text SIG: NexIUM 40MG, 1 (one) Capsule daily # 30, 01/19/20 21, Ref. x1. Inactive Not Available Not Available Not Available Zofran 4 mg tablet 11/20 completed Days To Take: 10 #ofRe fills: 30 Comme nts: This order disconti nued per [facility] n. Drug Identifi cation Code: 906852 F ree Text SIG: Zofran 4MG, 1 (one) Tablet three times daily, as needed # 30, 11/17/19 21, Ref. x1. Disconti nued Not Available Not Available Not Available Zoloft 50 mg tablet 09/27 completed Days To Take: 30 #ofRe fills: 30 Drug Identifi cation Code: 752223 F ree Text SIG: Zoloft 50MG, 1 (one) Tablet daily # 30, 09/27/19 20, Ref. Q 30 Days x1 Year. Inactive Not Available Not Available Not Available Flagyl 500 mg tablet 01/30 completed Days To Take: 7 #ofRef ills: 0 Drug Identifi cation Code: 153087 F ree Text SIG: Flagyl 500MG, 1 (one) Tablet two times daily # 14, 01/24/20 20, No Refill. Inactive Not Available Not Available Not Available hyoscyami ne 0.125 mg disintegr ating tablet 11/20 completed Days To Take: 30 #ofRe fills: 0 Drug Identifi cation Code: 479332 F ree Text SIG: Hyoscyam ine Sulfate 0.125MG, 1 (one) Tablet as needed # 0, 03/27/20 20, Ref. Q 30 Days x1 Year. Inactive Not Available Not Available Not Available hyoscyami ne sulfate 0.125 mg tablet 01/11 completed Days To Take: 30 #ofRe fills: 90 Drug Identifi cation Code: 174178 F ree Text SIG: Hyoscyam ine Sulfate 0.125MG, 1 (one) Tablet three times daily, as needed # 90, 05/21/20 16, Ref. x6. Inactive Not Available Not Available Not Available triamtere ne 37.5 mg-hydroc hlorothia zide 25 mg tablet 11/202 completed Days To Take: 30 #ofRe fills: 30 Drug Identifi cation Code: 088195 F ree Text SIG: Triampaulette julio-HCTZ 37.5-25M G, 1 (one) Tablet every morning # 30, 06/29/20 21, Ref. x1. Inactive Not Available Not Available Not Available chlordiaz epoxide-c lidinium 5 mg-2.5 mg capsule 01/11 completed Days To Take: 30 #ofRe fills: 90 Drug Identifi cation Code: 531052 F ree Text SIG: chlordia zePOXIDE -Clidini um 5-2.5MG, 1 (one) Capsule three times daily, as needed # 90, 05/21/20 16, Ref. x2. Inactive Not Available Not Available Not Available cephalexi n 500 mg tablet 10/30 completed Days To Take: 7 #ofRef ills: 0 Drug Identifi cation Code: 699449 F ree Text SIG: Cephalex in 500MG, 1 (one) Tablet BID # 14, 10/24/19 22, No Refill. Inactive Not Available Not Available Not Available folic acid 1 mg tablet 11/20 completed Days To Take: 30 #ofRe fills: 60 Drug Identifi cation Code: 358917 F ree Text SIG: Folic Acid 1MG, [...] To Take: 0 Drug Identifi cation Code: 253702 F ree Text SIG: Zoloft( 100MG Oral [...] PRN nausea D rug Identifi cation Code: 595259 F ree Text SIG: Ondanset eddy 4MG, [...] evening meal. Dr moon Identifi cation Code: 247331 F ree Text SIG: metFORMI N HCl ER 500MG, 3 Tablet with evening meal # 90, 08/31/19 20, Ref. x12. Inactive Not Available Not Available Not Available Diflucan 200 mg tablet 11/20 completed Days To Take: 0 #ofRef ills: 0 Commen ts: take one tablet, may repeat in 3-4 days if needed D anabella Identifi cation Code: 442507 F ree Text SIG: Diflucan 200MG, 1 (one) Tablet one time dose # 2, 01/24/20 20, No Refill. Inactive Not Available Not Available Not Available Ambien 5 mg tablet 07/05 completed Days To Take: 30 #ofRe fills: 0 Drug Identifi cation Code: 510204 F ree Text SIG: Ambien 5MG, 1 (one) Tablet at bedtime # 30, 06/05/20 21, No Refill. Inactive Not Available Not Available Not Available 09/13 (21) 1 mg-20 mcg tablet 11/20 completed Days To Take: 28 #ofRe fills: 28 Drug Identifi cation Code: 709667 F ree Text SIG: 09/13 1-20MG-M CG, 1 (one) Tablet daily # 28, 12/14/19 20, Ref. x12. Inactive Not Available Not Available Not Available Clindesse 2 % vaginal cream,ext ended release 12/01 completed Days To Take: 1 #ofRef ills: 0 Commen ts: 1 time dose Yordy johnson Identifi cation Code: 139164 F ree Text SIG: Clindess e 2%, 1 (one) Applicat ion as directed # 1, 12/01/19 21, No Refill. Inactive Not Available Not Available Not Available lamotrigi ne 2021 active Days To Take: 0 Drug Identifi cation Code: [id number] Free Text SIG: Lamotrig ine( 50mg daily ) Inactive -Hx Entry Not Available Not Available Not Available Claritin 2019 active Days To Take: 0 Drug Identifi cation Code: [id number] Free Text SIG: Claritin ( ) Inactive -Hx Entry Not Available Not Available Not Available Hydrozine 2019 active Days To Take: 0 Drug Identifi cation Code: [id number] Free Text SIG: Hydrozin e( ) Inactive -Hx Entry Not Available Not Available Not Available Nexium Packet 20 mg granules delayed release for susp 11/20 completed Days To Take: 14 #ofRe fills: 14 Drug Identifi cation Code: 398983 F ree Text SIG: NexIUM 20MG, 1 (one) Packet daily # 14, 06/05/20 21, Ref. x1. Inactive Not Available Not Available Not Available Linzess 145 mcg capsule 01/11 completed Days To Take: 30 #ofRe fills: 30 Drug Identifi cation Code: 370126 F ree Text SIG: Linzess 145MCG, 1 (one) Capsule daily # 30, 11/28/19 16, Ref. x11. Inactive Not Available Not Available Not Available Diclegis 10 mg-10 mg tablet,de layed release 11/20 completed Days To Take: 30 #ofRe fills: 60 Drug Identifi cation Code: 321534 F ree Text SIG: Diclegis 10-10MG, 2 (two) Tablet at bedtime # 60, 01/06/20 21, Ref. x1. Inactive Not Available Not Available Not Available Lomedia 24 Fe 1 mg-20 mcg (24)/75 mg (4) tablet 01/11 completed Days To Take: 30 #ofRe fills: 1 Commen ts: This order disconti nued per [facility]. Drug Identifi cation Code: 808895 F ree Text SIG: Lomedia 24 FE [...] Updated DateTime 01/14/2023 167.64 cm 29.6 kg/m2 77183.56 g 114/68 mm[Hg] [facility] 01/14/2023 13:55:13 Date Recorded Body height Body mass index (BMI) Body weight Systolic And Diastolic Provider Name and Address Organization Details Last Updated DateTime 02/19/2022 167.64 cm 30 kg/m2 03726.18 g 126/83 mm[Hg] [facility] 02/19/2022 16:27:38 Date Recorded Body height Body mass index (BMI) Body weight Systolic And Diastolic Provider Name and Address Organization Details Last Updated DateTime 03/14/2022 167.64 cm 30.2 kg/m2 78175.49 g 120/74 mm[Hg] [facility] 03/14/2022 13:52:04 Social History Question Answer Notes LastModified by Wedge Buster Details LastModified Time Tobacco Smoking Status Current Every Day Smoker [facility] 03/14/2022 13:52:46 What Is Your Relationship Status? [email or web address] Information not available 01/14/2023 Are You Sexually Active? Yes Information not available 01/14/2023 Sex: Unknown Functional Status Question Answer Note LastModified by Wedge Buster Details LastModified Time Do you use any illicit or recreational drugs? No [email or web address] Information not available 01/14/2023 Do you or have you ever used any other forms of tobacco or nicotine? No [email or web address] Information not available 01/14/2023 What is your level of alcohol consumption? None [email or web address] Information not available 01/14/2023 Mental Status None [...] Diagnosis SNOMED-CT Code Diagnosis ICD10 Code Diagnosis IMO Codes Diagnosis Note 2234 MD DOMINGA Abdul MD [address] [place] [address] 02/19/2022 15:15:32 02/19/2022 17:19:25 Postoperative visit 144371018 Z09 Postoperative pain 25018 9007 G89.18 2636 GABBIE Holley MD [address] [place] [address] 03/14/2022 13:45:13 03/14/2022 14:54:16 Postoperative visit 551463181 Z09 Irregular periods 342821 07 N92.6 Menorrhagia 260278581 N9 2.0 1 stick of silver nitrate Dysmenorrhea 629216086 N 94.6 Postoperative pain 10904 9007 G89.18 Diarrhea 55624732 R19.7 Constipation 10479956 K5 9.00 Inflammati on of cervix 74536252 N72 1 stick of silver nitrate used Abdominal pain 39571569 R10.9 Vaginal discharge 047958 006 N89.8 will culture via PCL 43665 MD DOMINGA Abdul MD [address] [place] [address] 01/14/2023 13:02:39 01/14/2023 14:45:47 Abdominal pain 92770419 R10.9 Abdominal bloating 99278 9008 R14.0 Follicular cyst of left ovary 4792028455 2191867 N83.02 Chronic id iopathic constipation 11727671 K59.04 Vaginal discharge 826394 006 N89.8 will culture via PCL Acute cervicitis 9847689 0 N72 Umbilical hernia 5377327 07 K42.9 Bowel spasm 033613381 R2 5.2 Health Concerns Section Related Observation LastModified by Organization Detai ls LastModified Time None Recorded Concern Status LastModified by Organization Details LastModified Time None Recorded Advance Directives Directive None Recorded Payers Insurance Date Sequence Insurance Name Policy Number Policy Denson Covered Member ID Denson Member ID Guarantor Name 01/24/2023 1 ANETA Jain [id number] Franniejunior Morfinwaleska Notes Date Note Type Note Provider Name and Address Organization Details Recorded Time 02/19/2022 text/html Post-OpReported by PatientHPIFor associated symptoms, patient reportspain 6/10but reportsno fatigue,normal appetite,no constipation,no nausea,no emesis,no fever,no bleeding,no dysuria/urinary symptoms, andno diarrhea. 36yo F presents with c/o of post-op pain. Dominga Lewis MD [address], [place], [address], [facility] 02/19/2022 [...] size blood clots and extremely painful periods. MD [address], [place], [address], [facility] 03/14/2022 14:53:59 01/14/2023 text/html Pt here for possible recurrent endometriosis symptoms. She reports abdominal pain and bloating. MD [address], [place], [address], [facility] 01/14/2023 14:43:06 OBGyn Episode No OBEpisode recorded.
--- OUTSIDE RECORDS SUMMARY | 2025-06-20 11:29 | XMS_ITS | Encounter Summary ---
Author Organization [facility] ystem Address [address] [place] [address] Care Team Providers Care Product Line Manager Name Role Phone Almaz Chavez APRN Primary Care Provider [phone] Reason for Visit * Reason Comments Med Refill Encounter Details Date Type Department Care Team (Late st Contact Info) Description 11/23/2024 Refill [facility] NEUROSURGERY [address] [facility] [address] [place] [address] Vignesh Soto PA-C [address] [facility] [address] [place], [place] [id number] Chronic bilateral low back pain with bilateral [...] or training? Not on file Preferred Language Maori 04/29/2023 Comments No Sex and Gender Information [...] sciatica documented in this encounter Care Teams Product Line Manager Relationship Specialty Start Date End Date Almaz Chavez APRN [address] [place] [address] PCP - General Family Medicine 09/20/24 documented as of this encounter
--- OUTSIDE RECORDS SUMMARY | 2025-06-20 11:29 | XMS_ITS | Clinical Summary ---
Author Organization [facility] Address [address] [place] [address] Care Team Providers Care Distribution Sales Manager Name Role Phone Unavailable Primary Care Provider Unavailabl e Social History Tobacco Use Types Packs/Day Years Used Date Smoking Tobacco: Never Assessed Comments Unknown Sex and Gender Information Value Date Recorded Sex Assigned at Not on file Legal Sex Female 4:32 PM EDT Gender Identity Not on file Sexual Orientation Not on file Plan of Treatment Upcoming Encounters Date Type Department Care Team ([facility] [address] Contact Info) Description 07/11/2025 1:30 PM EST [facility] [address] [place] [address] Nora Mao MD [address] [place] [address] Health Maintenance Due Date Last Done Comments HIV Screening 1984 Hepatitis C Screening 1984 MMR Vaccines (1 of 1 - Stand janice series) 1985 Varicella Vaccines (1 of 2 - 13+ 2-dose series) 1997 Hepatitis B Screening 2002 DTaP/Tdap/Td Vaccines (1 - Tdap) 2003 Hepatitis B Vaccines (1 of 3 - 19+ 3-dose series) 2003 Pap Smear 2005 HPV Vaccines (1 - 3-dose SCD M series) 2011 Cervical Cancer Screening 2014 HPV/Cotest 2014 Depression Risk Screening 08/25/2024 SDOH Screening 08/25/2024 Mammogram 2024 COVID-19 Vaccine (2023-2 5 season) 2025 Influenza Vaccine (#1) 2025 Zoster Vaccines (1 of 2) 2034 HIB Vaccines Aged Out No longer eligi ble based on patient's age to complete this topic Hepatitis A Vaccines Aged Out No long er eligible based on patient's age to complete this topic IPV Vaccines Aged Out No longer eligi ble based on patient's age to complete this topic Meningococcal B Vaccine Aged Out No l onger eligible based on patient's age to complete this topic Meningococcal Vaccine Aged Out No regino dionne eligible based on patient's age to complete this topic Pneumococcal Vaccine Aged Out No long er eligible based on patient's age to complete this topic Rotavirus Vaccines Aged Out No longer eligible based on patient's age to complete this topic
--- OUTSIDE RECORDS SUMMARY | 2025-06-20 11:29 | XMS_ITS | Clinical Summary ---
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 04/02/2023 Encounters Date Type Department Care Team Description 06/06/2025 Telephone [facility] [address] [address] Tyrone Harrell MD Results 04/05/2025 Refill [facility] [address] [address] Vignesh Soto PA-C Chronic bilateral low back pain with bilateral sciatica from Last 3 Months Immunizations Immunization Administration Dates Next Due PPD Test 11/28/2017 Family History * Patient is adopted 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 Relation Name Comments Hearing loss Daughter Pia [place] Bilateral hea ring loss wears hearing aides Other Mother Nellie Im adopted Anxiety disorder Sister Beatriz le Relation [...] or training? Not on file Preferred Language American 04/29/2023 Comments No Sex and Gender Information Value Date Recorded Sex Assigned at Not on file Legal Sex Female 4:42 PM EDT Gender Identity Not on file Sexual Orientation Not on file Occupation Industry Job Start Date Job End Date stay at [employer] [place] Not on file Not on file Not [...] ANNUAL PHYSICAL 01/06/2017 HEPATITIS C SCREENING 01/06/2017 INFLUENZA VACCINE 03/25/2025 MAMMOGRAM 09/27/2026 09/27/2024, 09/27/2024 Pneumococcal Vaccine 0-49 Aged Out No longer eligible based on patient's age to complete this topic Medical Devices Implanted Type Area Rubber Gasket Inspector Trimmer Device Identifier Shelf Expiration Date Model / Serial / Lot Clip Ligat Vasc Horizon Dave Montenegro Kobi 6ct - [id number] Implanted:Qty : 1 on 05/13/2023 by Tyrone Harrell MD at [facility] Implant N/A: Spine Cervical TELE[employer]LEX MEDICAL [id number] / / Clip Ligat Vasc Horizon Dave Sm Yel 6ct - [id number] Implanted:Qty : 1 on 05/13/2023 by Tyrone Harrell MD at [facility] Implant N/A: Spine Cervical TELE[employer] MEDICAL [id number] / / Hemost Abs Surgifoam Sz100 8x12 10mm - [id number] Implanted:Qty : 1 on 05/13/2023 by Tyrone Harrell MD at [facility] Implant N/A: Spine Cervical ETH[employer] DIV OF J AND J 1974 / / Kt Seal Hemos Abs Floseal Matrx Fast/Prep 10ml - [id number] Implanted:Qty : 1 on 05/13/2023 by Tyrone Harrell MD at [facility] Implant N/A: Spine Cervical [employer] [id number] / / Disc Cerv Prestige Lp 5x14mm - [id number] Implanted:Qty : 1 on 05/13/2023 by Tyrone Harrell MD at [facility] Implant N/A: Spine Cervical MEDTRONIC 11/15/2029 [id number] / / [id number] Insurance [employer] [place]ICA[place] Care Teams Cook Fish Eggs Relationship Specialty Start Date End Date Almaz Chavez APRN [address] [place] [address] PCP - General Family Medicine 09/20/24
--- OUTSIDE RECORDS SUMMARY | 2025-06-20 11:30 | XMS_ITS | Encounter Summary ---
Author Organization [facility] Address [address] [place] [address] Care Team Providers Care Materials Management Clerk Name Role Phone Almaz Chavez APRN Primary Care Provider [phone] Reason for Visit * Reason Onset Date Comments JORS - MRI ORDER 10/14/2022 Encounter Details Date Type Department Care Team (Late st Contact Info) Description 10/14/2022 Telephone [facility] [address] [facility] [address] [place] [address] David Ba PA-C JORS - [...] Start Date Job End Date stay at [employer] [employer] [facility] [place] Not on file Not on file Not [...] to patient: Self Best call back number: [phone] Patient is needing: PATIENT CALLED, PATIENT IS REQUESTING WE FAX MRI ORDER TO [facility] FOR HER TO COMPLETE, PH:[phone]. PLEASE FAX AND CALL PATIENT TO ADVISE IT HAS BEEN SENT. THANK YOU documented in this encounter Plan of Treatment Not on file documented as of this encounter Visit Diagnoses Diagnosis Chronic bilateral low back pain with right-sided sciatica- Primary Cervicalgia Chronic right shoulder pain Pain in joint, shoulder region documented in this encounter Care Teams Materials Management Clerk Relationship Specialty Start Date End Date Almaz Chavez APRN [address] [place] [address] PCP - General Family Medicine 09/20/24 documented as of this encounter
== END 2025-06-20 11:35 | disposition home or self-care (01) ==
LOC: INF 11:13
PROVIDERS: PCP Nurse Practitioner Family; Visit Provider Obstetrics & Gynecology
DX: N80.9 Endometriosis, unspecified (principal)
CPT/HCPCS: 96402

== ENCOUNTER 2025-08-04 06:47 | Day surgery (SDC) | payer OTHER, SELFPAY ==
--- NOTE | 2025-07-30 06:40 | EXP.HP ---
History of Present Illness *Admission Date: 08/04/25 *History of present illness: Mrs. Kline is a 39-year-old female who is here for diagnostic EGD. The patient does report GERD and has had worsening heartburn and reflux over the last 4 to 5 months. She will regurgitate food and have some coughing after eating. She has been on omeprazole and famotidine without improvement of her symptoms. Her symptoms are worsened when she lies down. The patient does have a lot of bloating, belching and gassiness. She does have chronic intermittent constipation. She was on Ozempic for over a year and then switched to Mounjaro. She does report some nausea and intermittent vomiting. She also has some dysphagia to solids such as chicken. She did have a colonoscopy last year (at [facility] in [place]) which was reportedly normal. The examination is deemed medically necessary for diagnostic EGD. The patient has been seen, interviewed and examined prior to the procedure by both myself and the anesthesia provider. [facility] Disclaimer: The information contained in this section may have been updated after the patient was seen, as this information can be updated by other users. 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 Nausea & vomiting PCOS (polycystic ovarian syndrome) Endometriosis Grief Bunion, right foot Depression Anxiety Anemia Diabetes mellitus, type 2 Asthma Surgical History History of hysterectomy History of right salpingo-oophorectomy History of LAVH History of hernia repair H/O laparoscopy History of tubal ligation History of cholecystectomy History of section History of appendectomy Family History Mother Aneurysm Social History Smoking Status: Current every day smoker tobacco type: e-cigarettes second hand exposure: No alcohol intake: never substance use type: denies use current occupational status: employed Travel in the last 8 weeks?: None household members: family housing: house Have you lived/traveled outside US in past 30 days?: No Contact w/someone who lives/traveled outside US past 30 days?: No Exposure to someone with infectious disease in past 14 days?: No Do you have a fever (greater than 100.4 F or 38 C)?: No Have you tested positive for COVID-19?: No Exposed to someone with COVID-19 in past 14 days?: No Do you have a sore throat?: No Do you have a cough?: No Do you have any weakness?: No Do you have any diarrhea?: No Are you experiencing any unusual bleeding?: No Do you have any muscle aches/pain?: No Do you have any abdominal pain?: No Are you experiencing loss of taste or smell?: No Other 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 Have you received the Flu Vaccine for this season: No Have you received the Pneumonia Vaccine: No Review of Systems Review of Systems Review of systems (narrative): Negative *Cardiovascular Comments: Negative *Gastrointestinal Comments: Negative *Genitourinary Comments: Negative *Musculoskeletal Comments: Negative *Neurologic Comments: Negative Meds Home Medications and Allergies Home Medications ?Medication ?Instructions ?Recorded ?Confirmed ?Type lancets 28 gauge (FreeStyle #100 ea 07/15/23 08/04/25 Rx Lancets) blood sugar diagnostic (FreeStyle #10 ea 02/18/24 08/04/25 History Lite Strips) albuterol sulfate 90 mcg/actuation 1 inh inhalation Q6HP PRN SOA 07/26/24 08/04/25 History aerosol inhaler (Ventolin HFA) desvenlafaxine succinate 50 mg 50 mg PO DAILY 07/26/24 08/04/25 History tablet,extended release 24 hr (Pristiq) meclizine 25 mg tablet 25 mg PO TID PRN Dizziness 07/29/24 08/04/25 History atorvastatin 20 mg tablet 20 mg PO DAILY 11/03/24 08/04/25 History sumatriptan succinate 50 mg tablet 50 mg PO NEEDED PRN Headache 11/03/24 08/04/25 History (Imitrex) famotidine 40 mg tablet See Rx Instructions .Route 01/10/25 08/04/25 Rx .COMPLEX #30 tabs buspirone 10 mg tablet 10 mg PO TID 02/09/25 08/04/25 History carboxymethylcellulose sodium 0.5 1 drp ophthalmic (eye) TID 02/09/25 08/04/25 History % eye drops (Lubricant Eye Drops) cariprazine 1.5 mg capsule 1.5 mg PO DAILY 02/09/25 08/04/25 History (Vraylar) etanercept 50 mg/mL (1 mL) 50 mg SQ WEEKLY 02/09/25 08/04/25 History subcutaneous pen injector (Enbrel SureClick) bupropion HCl 300 mg 24 hr tablet, 300 mg PO DAILY 05/25/25 08/04/25 History extended release ketorolac 10 mg tablet 10 mg PO Q6H PRN pain #20 tabs 05/25/25 08/04/25 Rx omeprazole 40 mg capsule,delayed 40 mg PO DAILY 05/25/25 08/04/25 History release quetiapine 200 mg tablet 200 mg PO DAILY 05/25/25 08/04/25 History estradiol 0.1 mg/24 hr weekly 1 patch transdermal WEEKLY #4 ea 06/02/25 08/04/25 Rx transdermal patch leuprolide acetate (3 month) 11.25 11.25 mg IM [id number] #1 ea 06/16/25 08/04/25 Rx mg (3 month) intramuscular syringe kit (Lupron Depot) New Prescriptions to Start Prescriptions: Allergies Allergy/AdvReac Type Severity Reaction Status Date / Time amoxicillin (AMOXICILLIN) Allergy Intermediate I-HIVES Verified 05/26/25 13:38 clavulanic acid (From Allergy Intermediate I-HIVES Verified 05/26/25 13:38 AUGMENTIN) adhesive Allergy Mild Rash Verified 05/26/25 13:38 latex Allergy Mild Hives Verified 05/26/25 13:38 Sulfa (Sulfonamide AdvReac Mild Nausea Verified 05/26/25 13:38 Antibiotics) nicotine patch AdvReac Mild Hives Uncoded 05/26/25 13:38 Exam *Routine HEENT Exam Head: Present normocephalic Eye: Present EOMI and PERRL ENT: Present mucous membranes moist *Routine Neck Exam Neck: Present supple *Routine Respiratory Exam Respiratory: Present CTA bilaterally *Routine Cardiovascular Exam Cardiovascular: Present RRR *Routine Abdominal Exam Abdominal: Present soft and normoactive bowel sounds; Absent tenderness *Routine Rectal Exam Rectal:: deferred *Routine Genitalia Exam Genitalia:: deferred *Routine Extremities Exam Extremities: Absent cyanosis, clubbing or edema *Routine Skin Exam Skin: Present warm; Absent rash *Routine Neurological Exam Neurological: Present alert and oriented X3 Assessment and Plan *Assessment and plan (1) GERD (gastroesophageal reflux disease): Status: Acute Category: Medical Code(s): K21.9 - Gastro-esophageal reflux disease without esophagitis (2) Belching: Status: Acute Category: Medical Code(s): R14.2 - Eructation (3) Bloating: Status: Acute Category: Medical Code(s): R14.0 - Abdominal distension (gaseous) (4) Dysphagia: Status: Acute Category: Medical Code(s): R13.10 - Dysphagia, unspecified (5) Nausea & vomiting: Status: Acute Category: Medical Code(s): R11.2 - Nausea with vomiting, unspecified (6) Regurgitation of food: Status: Acute Category: Medical Code(s): R11.10 - Vomiting, unspecified Plan A/P: 1. GERD with belching, bloating, nausea, food regurgitation, vomiting and dysphagia is the preprocedural diagnosis. The patient will be anesthetized/sedated using MAC sedation. The patient has been seen and examined. Cardiac and lung assessment prior to the examination is stable. Proceed with planned diagnostic EGD.
[2025-08-02 14:28] VITALS: BMI 33.7
--- NOTE | 2025-08-04 06:50 | HMH.PROCNOTE ---
[facility] Procedure Note Date: 08/04/25 Time: 08:47 Procedure Note:: Upper Endoscopy Procedure Report: Esophagogastroduodenoscopy with cold biopsies and TTS balloon dilation Endoscopost: Young Guzmán II, MD Referring Physician: ZENOBIA Kirby Date of Procedure: August 04, 2025 Equipment: Olympus GIF-1100 standard upper endoscope Sedation: MAC sedation Indications: Mrs. Kline is a 39-year-old female who is here for diagnostic EGD. The patient does report GERD and has had worsening heartburn and reflux over the last 4 to 5 months. The patient does state that she has nocturnal reflux and will wake up with burning into her throat. She will regurgitate food and have some coughing after eating. She has been on omeprazole and famotidine without improvement of her symptoms. Her symptoms are worsened when she lies down. The patient does have a lot of bloating, belching and gassiness. The patient also reports some epigastric abdominal discomfort, nausea and early satiety. She has had some dysphagia and globus sensation. She does have chronic intermittent constipation. She was on Ozempic for over a year and then switched to Mounjaro. She does report some nausea and intermittent vomiting. She also has some dysphagia to solids such as chicken. She did have a colonoscopy last year (at [facility] in [place]) which was reportedly normal. She has never had an upper endoscopy. The examination is deemed medically necessary for diagnostic EGD. Procedure: Prior to the procedure, a history and physical exam was performed, and patient's medications and allergies were reviewed. The risks, benefits and alternatives of the sedation and procedure were discussed with the patient. All questions were answered and informed consent was obtained. The patient was brought to the procedure room. Patient identification and proposed procedure were verified by the physician and the nurse. The patient was placed in a left lateral decubitus position and the scope was passed under direct vision. Throughout the procedure, the patient's blood pressure, pulse, and oxygen saturations were monitored continuously. The upper GI endoscopy was accomplished without difficulty. The patient tolerated the procedure well. Findings: The scope was passed directly into the upper esophagus and advanced to the third portion of the duodenum. The post bulbar duodenum, ampulla and duodenal bulb were normal with normal mucosa and conniventes. There was mild duodenal lymphoid stasis. The scope was withdrawn through a normal duodenal bulb and pylorus into the stomach. There was some bile reflux with mild linear reactive gastropathy of the antrum. There was some mild atrophic changes of the body and fundus. There were no ulcerations or erosions. Upon retroflexion there was no hiatal hernia. Cold biopsies were taken from the antrum. The scope was then withdrawn into the esophagus. There was no evidence of reflux esophagitis or Krishnamurthy's. There were no rings, strictures, corrugation or furrowing. There were tertiary contractions and evidence of mild esophageal dysmotility. The entire esophagus was dilated to 60 Occitan/20 mm with a TTS hydrostatic balloon. There was some resistance at the cricopharyngeus/cricopharyngeal spasm. The remainder of the esophageal mucosa was normal. Impression: 1. Nonerosive GERD with mild esophageal dysmotility and cricopharyngeal spasm 2. Bile reflux with mild linear reactive gastropathy of antrum Plan: I will follow-up the biopsies and disaccharidase assay. The patient does have gas driven bile reflux and this is related to her obstipation/chronic constipation. I do feel that the GLP-1 is playing some role. I will discuss the findings with the patient and family and we will review treatment options.
[2025-08-04 07:24] VITALS: BP 137/101; PULSE 101; RESP 16; TEMP 36.3; O2SAT 95
[2025-08-04] MEDS: LACTATED RINGERS 1000ML 1,000 ML 50 ML IV (07:29)
--- NOTE | 2025-08-04 07:54 | EXP.ANES.CKL ---
[facility] Disclaimer: The information contained in this section may have been updated after the patient was seen, as this information can be updated by other users. 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 Nausea & vomiting PCOS (polycystic ovarian syndrome) Endometriosis Grief Bunion, right foot Depression Anxiety Anemia Diabetes mellitus, type 2 Asthma Surgical History History of hysterectomy History of right salpingo-oophorectomy History of LAVH History of hernia repair H/O laparoscopy History of tubal ligation History of cholecystectomy History of section History of appendectomy Family History Mother Aneurysm Social History Smoking Status: Current every day smoker tobacco type: e-cigarettes second hand exposure: No alcohol intake: never substance use type: denies use current occupational status: employed Travel in the last 8 weeks?: None household members: family housing: house Have you lived/traveled outside US in past 30 days?: No Contact w/someone who lives/traveled outside US past 30 days?: No Exposure to someone with infectious disease in past 14 days?: No Do you have a fever (greater than 100.4 F or 38 C)?: No Have you tested positive for COVID-19?: No Exposed to someone with COVID-19 in past 14 days?: No Do you have a sore throat?: No Do you have a cough?: No Do you have any weakness?: No Do you have any diarrhea?: No Are you experiencing any unusual bleeding?: No Do you have any muscle aches/pain?: No Do you have any abdominal pain?: No Are you experiencing loss of taste or smell?: No [facility] Anesthesia Checklist Patient Identification Patient Identification: Arm Band and Family Structural Data Admitted From: Home Planned Operative Procedure/s: EGD Consent for Planned Operative Procedure(s) Verified: Yes Verified Documents: Surgical Consent and History and Physical NPO Status Verified Time NPO: 00:00 Additional verifications Patient : No Anesthesia Reactions: No Hx Blood Transfusions: No Blood Transfusion Reaction: No Cephalosporin Allergy: No Previous Colonoscopy: No Airway Assessment Mallampati Score:: Class II C-Spine Mobility Assessed: Yes TMJ Mobility Assessed: Yes Dentition: Good Dentition Neurological Assessment Level of Consciousness: Awake, Alert, Appropriate and Follows Commands Hx Seizures: No Numbness or tingling in extremities: No Anesthesia Plan Anesthesia Risk discussed: Yes ASA Class: II Anesthesia Type: MAC Preoperative Comments Pre-Operative Comments: Chronic Acid Reflux.
[2025-08-04 08:36] LABS: POC Glucose,Bedside 128 gm/dL (70-110)
[2025-08-04 08:49] VITALS: BP 147/82; PULSE 96; RESP 18; TEMP 36.3; O2SAT 97
[2025-08-04 09:09] VITALS: BP 121/85; PULSE 97; RESP 16; TEMP 36.3; O2SAT 98
[2025-08-04 09:19] VITALS: BP 131/88; PULSE 97; RESP 16; TEMP 36.3; O2SAT 98
[2025-08-04 09:29] VITALS: BP 131/88; PULSE 97; RESP 16; TEMP 36.3; O2SAT 98
[2025-08-11 12:12] LABS: Interpretation Notes (.); Lactase 9.26 (>/= 14.0); Maltase 150.64 (>/= 110.0); Palatinase 7.41 (>/= 8.5); Reference Notes (.); Sucrase 33.33 (>/= 25.0)
== END 2025-08-04 09:29 | disposition home or self-care (01) ==
PROVIDERS: PCP Nurse Practitioner Family; Visit Provider Internal Medicine Gastroenterology
PROC: 0DJ08ZZ Inspection of Upper Intestinal Tract, Via Natural or Artificial Opening Endoscopic (ICD-10-PCS; CPT 43239; principal; 2025-08-04 08:30)
DX: K29.50 Unspecified chronic gastritis without bleeding (principal); K21.9 Gastro-esophageal reflux disease without esophagitis; K22.4 Dyskinesia of esophagus; K31.89 Other diseases of stomach and duodenum; K59.04 Chronic idiopathic constipation; E11.9 Type 2 diabetes mellitus without complications; F32.A Depression, unspecified; F41.9 Anxiety disorder, unspecified; D64.9 Anemia, unspecified; J45.909 Unspecified asthma, uncomplicated; F17.290 Nicotine dependence, other tobacco product, uncomplicated; Z79.85 Long-term (current) use of injectable non-insulin antidiabetic drugs; Z90.49 Acquired absence of other specified parts of digestive tract; Z79.02 Long term (current) use of antithrombotics/antiplatelets; Z79.890 Hormone replacement therapy; Z79.899 Other long term (current) drug therapy; Z88.1 Allergy status to other antibiotic agents; Z88.8 Allergy status to other drugs, medicaments and biological substances; Z91.040 Latex allergy status; Z88.2 Allergy status to sulfonamides; Z88.0 Allergy status to penicillin
CPT/HCPCS: 43239; 43249; 82657; 82962; C1726; J2003; J2704; J7120